=== PATIENT | female | born 1995 | race Caucasian/White ===

== ENCOUNTER → 2016-05-28 | Outpatient (CLI) | payer OTHER ==
[~2016-05-28] MED LIST: ACET500T2 OR; ALBU17IN2 IN; ALBU83IN IN; LEVO200T OR; [UNRECOGNIZED DRUG - CODE] IV
[2016-05-28 12:57] LABS: BASO % 0.3 % (0.0-1.0); EOS # 0.1 K/mm3 (0.0-0.50); EOS % 1.5 % (0.0-3.0); LARGE UNSTAINED CELL # 0.2 K/mm3 (0.0-0.4); LARGE UNSTAINED CELL % 2.6 % (0.0-4.0); LYMPH # 1.9 K/mm3 (1.5-6.5); MEAN CORPUSCULAR HEMOGLOBIN 31.6 pg (27.0-33.0); MEAN CORPUSCULAR HGB CONC 34.9 g/dl (32.0-36.5); MEAN CORPUSCULAR VOLUME 90.5 fl (80.0-96.0); MONO # 0.5 K/mm3 (0.0-0.8); MONO % 5.6 % (0.0-5.0); NEUTROPHILS # 6.5 K/mm3 (1.8-7.7); PLATELET COUNT, AUTOMATED 265 k/mm3 (150-450); WHITE BLOOD COUNT 9.3 K/mm3 (4.0-10.0)
[2016-05-28 14:03] LABS: FREE T4 0.87 NG/DL (0.76-1.46)
== END | disposition home or self-care (01) ==
LOC: M SMT 08:26
PROVIDERS: ATTEND Advanced Practice Midwife
DX: Z34.83 Encounter for supervision of other normal pregnancy, third trimester (principal); Z36 Encounter for antenatal screening of mother; Z3A.00 Weeks of gestation of pregnancy not specified; E03.9 Hypothyroidism, unspecified
CPT/HCPCS: 36415; 82950; 84439; 84443; 85025; 86850; 86900; 86901; J2790

== ENCOUNTER → 2016-06-05 | Outpatient (CLI) | payer OTHER | LOC: M LAB 08:02 | PROVIDERS: ATTEND Advanced Practice Midwife | DX: Z34.80 Encounter for supervision of other normal pregnancy, unspecified trimester (principal) ==

== ENCOUNTER → 2016-07-31 | Outpatient (CLI) | payer OTHER ==
[2016-07-31 14:25] LABS: FREE T4 0.99 NG/DL (0.76-1.46)
== END ==
LOC: M SMT 08:03
PROVIDERS: ATTEND Advanced Practice Midwife
DX: Z34.83 Encounter for supervision of other normal pregnancy, third trimester (principal)

== ENCOUNTER 2016-08-25 16:26 | Inpatient (IN) | payer OTHER ==
[~2016-08-25] VITALS: Ht 160 cm; Wt 102.0 kg
[2016-08-25] MEDS ORDERED: METF500T PO (16:37)
[2016-08-25 16:41] VITALS: BP 148/85
[2016-08-25 17:04] VITALS: BP 129/76
[2016-08-25 17:19] LABS: MEAN CORPUSCULAR HEMOGLOBIN 31.6 pg (27.0-33.0); MEAN CORPUSCULAR HGB CONC 34.7 g/dl (32.0-36.5); MEAN CORPUSCULAR VOLUME 91.2 fl (80.0-96.0); WHITE BLOOD COUNT 16.8 K/mm3 (4.0-10.0)
[2016-08-25] MEDS ORDERED: FENTANYL 2MCG/ML ROPIVACAINE 0.2% IN 0.9% NACL 200ML IVBAG As Ordered ONE (17:46)
[2016-08-25 17:51] LABS: ALT/SGPT 11 U/L (12-78); AST/SGOT 9 U/L (15-37); BILIRUBIN,TOTAL 0.4 MG/DL (0.2-1.0); CREATININE FOR GFR 0.59 MG/DL (0.55-1.02); GLOMERULAR FILTRATION RATE > 60.0 (>60); URIC ACID 3.8 MG/DL (2.6-6.0)
[2016-08-25] MEDS ORDERED: EPIDURAL COMMENT XX SCH (19:00)
[2016-08-25] MEDS ORDERED: REFRIGERATOR IV KEYS XX PRN (19:00)
[2016-08-25] MEDS ORDERED: EPIDURAL/PCA KEYS XX PRN (19:00)
[2016-08-25] MEDS ORDERED: NALOXONE INJ 0.4 MG/1 ML VIAL (J2310) IV PRN (19:00)
[2016-08-25] MEDS ORDERED: LACTATED RINGER'S 1000 ML IV PRN (19:00)
[2016-08-25] MEDS ORDERED: ONDANSETRON 4MG/2ML VIAL (J2405) IV PRN ×2 (19:00→21:15)
[2016-08-25] MEDS ORDERED: diphenhydrAMINE INJ 50MG/ML VIAL (J1200) IV PRN (19:00)
[2016-08-25] MEDS ORDERED: FENTANYL/ROPIVACAINE/NACL BAG 200 ML EPIDURAL SCH (19:00)
[2016-08-25] MEDS ORDERED: ePHEDrine SULFATE 25 MG/5 ML(5MG/ML) SYRINGE IV PRN (19:00)
[2016-08-25] MEDS ORDERED: OXYTOCIN 30 UNITS IN 0.9% NaCl 500ML IV BAG (J2590) As Ordered ONE (19:34)
--- NOTE | 2016-08-25 20:46 | HPE ---
DATE OF ADMISSION: 08/25/2016 HISTORY: A 21-year-old 2, para 1 female at 39 and 3/7 weeks gestation by last menstrual period (LMP) consistent with 10-week ultrasound estimated date of confinement (EDC) 08/29/2016, presents with regular contractions every 3-4 minutes for the last several hours. She denies vaginal bleeding. Contractions became increasingly intense. COURSE: The patient initiated care at 10 weeks gestation. First trimester blood pressure 122/70, weight 202. course significant for hypothyroidism, and Synthroid was adjusted during the accordingly. Remainder or course is unremarkable. OBSTETRICAL HISTORY: October 2010: 38-week vaginal delivery 8 pound 12 ounce male with no complications. MEDICAL HISTORY: 1. Hypothyroidism. 2. Polycystic ovary syndrome (PCOS). SURGICAL HISTORY: None. ALLERGIES: None. SOCIAL HISTORY: The patient smokes a half pack of cigarettes per day during . Father of the baby is involved. She denies alcohol or drug use. FAMILY HISTORY: Noncontributory. PHYSICAL EXAMINATION: VITAL SIGNS: Blood pressure 140/87. GENERAL: She appears uncomfortable. HEAD/NECK: Normal. LUNGS: Clear to auscultation. HEART: Regular rate and rhythm. ABDOMEN: Nontender and gravid. heart tones are category one. Contractions every 2-3 minutes. STERILE VAGINAL EXAM: 4 cm, 90% effaced, -2 station, vertex, intact. EXTREMITIES: Nontender. Trace edema. LABORATORY DATA: Blood type is B negative. Rubella immune. RPR nonreactive. Hepatitis B and C negative. HIV negative. GBS negative 07/31/2016. ASSESSMENT: A 21-year-old 2, para 1, at 39 and 3/7 weeks gestation presents in labor. The patient is admitted on 08/25/2016. Will plan to check preeclampsia profile due to initial elevated blood pressure.
[2016-08-25] MEDS ORDERED: METHYLERGONOVINE MALEATE 0.2 MG TAB PO PRN (21:15)
[2016-08-25] MEDS ORDERED: MEASLES,MUMPS,RUBELLA VACCINE INJ (MMR-II) (90707) SC SCH (21:15)
[2016-08-25] MEDS ORDERED: ACETAMINOPHEN 500 MG TAB PO PRN (21:15)
[2016-08-25] MEDS ORDERED: DOCUSATE SODIUM 100 MG CAP PO PRN (21:15)
[2016-08-25] MEDS ORDERED: DIBUCAINE 1% OINTMENT 30GM TOP PRN (21:15)
[2016-08-25] MEDS ORDERED: miSOPROStol 200 MCG TAB (S0191) PR ONE (21:15)
[2016-08-25] MEDS ORDERED: OXYTOCIN DRIP 30 UNITS in APPROPRIATE DILUENT 1 EA IV ONE (21:15)
[2016-08-25] MEDS ORDERED: RHOGAM 300 MCG (1500 IU) INJ (J2790) IM SCH (21:15)
--- NOTE | 2016-08-25 21:54 | DN ---
DATE: 08/25/2016 PREDELIVERY DIAGNOSIS: 39 and 3/7 weeks gestation in labor. POSTDELIVERY DIAGNOSIS: Delivered. PROCEDURE: Spontaneous vaginal delivery. SHOE ASSOCIATE: Dr. Glen Soto. ANESTHESIA: Epidural. ESTIMATED BLOOD LOSS: 800 mL. FINDINGS: 7 pound 8 ounce male , scores 7 and 8. DELIVERY SUMMARY: After a short second stage, the patient had spontaneous delivery of a 7 pound 8 ounce male , scores 7 and 8, under epidural anesthesia. There was no nuchal cord. The shoulders delivered with ease. The infant cried spontaneously and was handed to the mother. Cord was doubly clamped and cut. Placenta delivered spontaneously and appeared to be intact. The patient received intravenous (IV) Pitocin immediately after delivery of the placenta. The patient experienced hemorrhage. Fundal massage and evacuation of blood clots from lower uterine segment was performed. The patient received Cytotec 800 mcg per rectum. Bleeding was subsequently controlled. There were no vaginal lacerations present. Sponge counts were correct.
[2016-08-25 23:22] VITALS: BP 136/74
[2016-08-26] MEDS: IBUPROFEN 800 MG TAB PO PRN ×2 (03:48→19:25)
[2016-08-26 06:16] VITALS: BP 128/82
[2016-08-26] MEDS: PRENATAL VITAMIN TAB PO SCH (09:00)
[2016-08-26 18:27] VITALS: BP 130/80
[2016-08-26] MEDS ORDERED: miSOPROStol 200 MCG TAB (S0191) As Ordered ONE (23:26)
[2016-08-27 05:35] VITALS: BP 118/56
[2016-08-27] MEDS: PRENATAL VITAMIN TAB PO SCH (07:35)
[2016-08-27] MEDS: IBUPROFEN 800 MG TAB PO PRN (07:35)
[2016-08-27] MEDS ORDERED: ACET50TA PO (08:49)
[2016-08-27] MEDS ORDERED: IBUP-1114 PO (08:49)
[2016-08-27 18:00] VITALS: BP 133/63
== END 2016-08-27 19:45 | disposition home or self-care (01) | DRG 560 ==
LOC: M LDO 16:26 → M LDI 16:47 → M OBS 23:15
PROVIDERS: ADMIT Specialist; ATTEND Specialist
PROC: 10E0XZZ Delivery of Products of Conception, External Approach (ICD-10-PCS; principal; 2016-08-25)
PROC: 10907ZC Drainage of Amniotic Fluid, Therapeutic from Products of Conception, Via Natural or Artificial Opening (ICD-10-PCS; 2016-08-25)
DX: O99.284 Endocrine, nutritional and metabolic diseases complicating childbirth (principal); Z3A.39 39 weeks gestation of pregnancy; O99.334 Smoking (tobacco) complicating childbirth; F17.210 Nicotine dependence, cigarettes, uncomplicated; O72.1 Other immediate postpartum hemorrhage; Z37.0 Single live birth

== ENCOUNTER 2016-10-08 23:09 | Emergency (ER) | payer OTHER ==
[~2016-10-08] VITALS: Ht 160 cm; Wt 94.8 kg
[~2016-10-08 23:09] MED LIST changes: +ACET50TA PO; +IBUP-1114 PO; +METF500T PO
[2016-10-08] MEDS ORDERED: ZOLO25TA PO (23:19)
[2016-10-09] MEDS ORDERED: NS 1,000 ML IV ONE (02:00)
[2016-10-09] MEDS ORDERED: GI COCKTAIL 50ML BTL(HYOSCYAMINE/MAALOX/LIDOCAINE VISCOUS)(1:3:1) PO ONE (02:00)
[2016-10-09] MEDS ORDERED: ONDANSETRON 4MG/2ML VIAL (J2405) IV ONE (02:00)
[2016-10-09 02:26] LABS: BASO % 0.5 % (0.0-1.0); EOS # 0.2 K/mm3 (0.0-0.50); EOS % 1.7 % (0.0-3.0); LARGE UNSTAINED CELL # 0.2 K/mm3 (0.0-0.4); LARGE UNSTAINED CELL % 1.9 % (0.0-4.0); LYMPH # 3.8 K/mm3 (1.5-6.5); LYMPH % 38.5 % (24.0-44.0); MEAN CORPUSCULAR HEMOGLOBIN 29.3 pg (27.0-33.0); MEAN CORPUSCULAR HGB CONC 33.8 g/dl (32.0-36.5); MEAN CORPUSCULAR VOLUME 86.9 fl (80.0-96.0); MONO # 0.7 K/mm3 (0.0-0.8); MONO % 7.6 % (0.0-5.0); NEUTROPHILS # 4.6 K/mm3 (1.8-7.7); NEUTROPHILS % 49.8 % (36.0-66.0); PLATELET COUNT, AUTOMATED 301 k/mm3 (150-450); RED CELL DISTRIBUTION WIDTH 12.8 % (11.5-14.5); WHITE BLOOD COUNT 9.3 K/mm3 (4.0-10.0)
[2016-10-09 02:34] LABS: ANION GAP 6 MEQ/L (8-16); BLOOD UREA NITROGEN 12 MG/DL (7-18); CARBON DIOXIDE LEVEL 29 MEQ/L (21-32); CHLORIDE LEVEL 106 MEQ/L (98-107); CREATININE FOR GFR 0.77 MG/DL (0.55-1.02); GLOMERULAR FILTRATION RATE > 60.0 (>60); GLUCOSE, FASTING 87 MG/DL (70-105); POTASSIUM SERUM 3.9 MEQ/L (3.5-5.1); SODIUM LEVEL 141 MEQ/L (136-145)
[2016-10-09] MEDS ORDERED: MECLIZINE 25 MG TABLET PO ONE (03:15)
--- NOTE | 2016-10-09 04:14 | REP ---
Clinical: Chest pain . Comparison: 02/04/2015 . Technique: PA and lateral. Findings: The mediastinum and cardiac silhouette are normal. The lung mckeon are clear and without acute consolidation, effusion, or pneumothorax. The skeletal structures are intact and normal. Impression: 1. No acute cardiopulmonary process. Signed by Grayson Brandon MD 10/09/2016 04:06 A
[2016-10-09] MEDS ORDERED: OMEP40CA2 PO (04:47)
[2016-10-09] MEDS ORDERED: MECL-68 PO (04:47)
[2016-10-09 04:53] VITALS: BP 130/81
--- NOTE | 2016-10-09 08:31 | ECGEPIP ---
Stationary ECG Study [facility] - ED Test Date: 2016-10-09 Pat Name: THAIS MARTINS Department: Room: - Gender: F Direct Care Worker: CrB: 1995 Requested By: HARMAN Becker Order Number: [id number] Reading MD: Franco Rivera Measurements Intervals [place] Rate: 75 P: -11 [place]: 138 QRS: 3 QRSD: 102 T: 9 QT: 394 QTc: 442 Interpretive Statements SINUS RHYTHM Electronically Signed On 10-09-2016 8:31:28 EDT by Franco Rivera
== END 2016-10-09 05:05 | disposition home or self-care (01) ==
LOC: M ED 10-09 00:28
DX: R07.89 Other chest pain (principal); E03.9 Hypothyroidism, unspecified; F17.210 Nicotine dependence, cigarettes, uncomplicated; Z82.49 Family history of ischemic heart disease and other diseases of the circulatory system; Z79.899 Other long term (current) drug therapy; Z79.84 Long term (current) use of oral hypoglycemic drugs
CPT/HCPCS: 71020; 80048; 82550; 82553; 85025; 85379; 93005; 93041; 94760; 96361; 96374; 99285; J2405

== ENCOUNTER → 2016-11-12 | Outpatient (CLI) | payer OTHER ==
[~2016-11-12] MED LIST changes: +BACT800T5 PO; +LEVO175T2 PO; +MECL-68 PO; -METF500T PO; +METF500T13 PO; +OMEP40CA2 PO; +ZOLO25TA PO
[2016-11-12 20:10] LABS: FREE T4 1.25 NG/DL (0.76-1.46)
== END ==
LOC: M SMT 12:17
PROVIDERS: ATTEND Advanced Practice Midwife
DX: E03.9 Hypothyroidism, unspecified (principal)

== ENCOUNTER 2016-11-22 04:29 | Emergency (ER) | payer OTHER ==
[~2016-11-22 04:29] MED LIST changes: -BACT800T5 PO; -LEVO175T2 PO
[2016-11-22] MEDS ORDERED: LEVO175T2 PO (04:36)
[2016-11-22] MEDS ORDERED: BACT800T5 PO (04:36)
[2016-11-22] MEDS ORDERED: NS 500 ML IV ONE (06:45)
[2016-11-22] MEDS ORDERED: GI COCKTAIL 50ML BTL(HYOSCYAMINE/MAALOX/LIDOCAINE VISCOUS)(1:3:1) PO ONE (06:45)
[2016-11-22 07:37] LABS: BASO % 0.7 % (0.0-1.0); EOS # 0.2 K/mm3 (0.0-0.50); EOS % 2.2 % (0.0-3.0); LARGE UNSTAINED CELL # 0.1 K/mm3 (0.0-0.4); LARGE UNSTAINED CELL % 1.8 % (0.0-4.0); LYMPH # 2.3 K/mm3 (1.5-6.5); LYMPH % 29.5 % (24.0-44.0); MEAN CORPUSCULAR HEMOGLOBIN 29.4 pg (27.0-33.0); MEAN CORPUSCULAR HGB CONC 34.6 g/dl (32.0-36.5); MEAN CORPUSCULAR VOLUME 84.8 fl (80.0-96.0); MONO # 0.5 K/mm3 (0.0-0.8); MONO % 6.3 % (0.0-5.0); NEUTROPHILS # 4.3 K/mm3 (1.8-7.7); NEUTROPHILS % 59.5 % (36.0-66.0); PLATELET COUNT, AUTOMATED 275 k/mm3 (150-450); RED CELL DISTRIBUTION WIDTH 13.3 % (11.5-14.5); WHITE BLOOD COUNT 7.2 K/mm3 (4.0-10.0)
[2016-11-22 08:14] LABS: ALBUMIN 3.4 GM/DL (3.2-5.2); ALBUMIN/GLOBULIN RATIO 0.97 (1.00-1.93); ALKALINE PHOSPHATASE 77 U/L (45-117); ALT/SGPT 16 U/L (12-78); AMYLASE 57 U/L (25-115); ANION GAP 4 MEQ/L (8-16); AST/SGOT 10 U/L (15-37); BILIRUBIN,DIRECT 0.1 MG/DL (0.0-0.2); BILIRUBIN,TOTAL 0.4 MG/DL (0.2-1.0); BLOOD UREA NITROGEN 12 MG/DL (7-18); CALCIUM LEVEL 8.8 MG/DL (8.5-10.1); CARBON DIOXIDE LEVEL 26 MEQ/L (21-32); CHLORIDE LEVEL 110 MEQ/L (98-107); CREATININE FOR GFR 0.89 MG/DL (0.55-1.02); GLOMERULAR FILTRATION RATE > 60.0 (>60); GLUCOSE, FASTING 87 MG/DL (70-105); POTASSIUM SERUM 3.9 MEQ/L (3.5-5.1); SODIUM LEVEL 140 MEQ/L (136-145); TOTAL PROTEIN 6.9 GM/DL (6.4-8.2)
[2016-11-22 08:54] VITALS: BP 98/62
== END 2016-11-22 08:59 | disposition home or self-care (01) ==
LOC: M ED 04:29
DX: R53.83 Other fatigue (principal); R10.84 Generalized abdominal pain; R42 Dizziness and giddiness; E11.9 Type 2 diabetes mellitus without complications; E66.9 Obesity, unspecified; F99 Mental disorder, not otherwise specified; F17.210 Nicotine dependence, cigarettes, uncomplicated; Z88.8 Allergy status to other drugs, medicaments and biological substances; Z79.899 Other long term (current) drug therapy; Z79.84 Long term (current) use of oral hypoglycemic drugs

== ENCOUNTER → 2017-01-02 | Outpatient (REF) | payer OTHER ==
[~2017-01-02] MED LIST changes: +BACT800T5 PO; +LEVO175T2 PO
[2017-01-02 19:12] LABS: FREE T4 1.01 NG/DL (0.76-1.46)
== END ==
LOC: M LAB REF 17:32
PROVIDERS: ATTEND Nurse Practitioner Family
DX: E03.9 Hypothyroidism, unspecified (principal); E28.2 Polycystic ovarian syndrome; F41.8 Other specified anxiety disorders

== ENCOUNTER → 2017-06-17 | Outpatient (CLI) | payer OTHER ==
[2017-06-17 21:06] LABS: ANION GAP 10 MEQ/L (8-16); BLOOD UREA NITROGEN 10 MG/DL (7-18); CALCIUM LEVEL 8.7 MG/DL (8.5-10.1); CARBON DIOXIDE LEVEL 27 MEQ/L (21-32); CHLORIDE LEVEL 105 MEQ/L (98-107); CHOLESTEROL LEVEL 205 MG/DL (<200); CHOLESTEROL RISK RATIO 5.857 (<5); CREATININE FOR GFR 0.78 MG/DL (0.55-1.30); FREE T4 0.93 NG/DL (0.76-1.46); GLOMERULAR FILTRATION RATE > 60.0 (>60); GLUCOSE, FASTING 102 MG/DL (70-100); HDL CHOLESTEROL 35 MG/DL (>40); NON-HDL-C 170 MG/DL; POTASSIUM SERUM 4.1 MEQ/L (3.5-5.1); SODIUM LEVEL 142 MEQ/L (136-145); TRIGLYCERIDES LEVEL 408 MG/DL (<150)
== END ==
LOC: M WUC 15:55
DX: E28.2 Polycystic ovarian syndrome (principal); E03.9 Hypothyroidism, unspecified
CPT/HCPCS: 84443

== ENCOUNTER → 2017-08-22 | Outpatient (CLI) | payer OTHER ==
[2017-08-22 13:56] LABS: FREE T4 0.94 NG/DL (0.76-1.46)
== END ==
LOC: M SMT 11:05
DX: E03.9 Hypothyroidism, unspecified (principal)
CPT/HCPCS: 84443

== ENCOUNTER → 2017-10-26 | Outpatient (CLI) | payer OTHER ==
[2017-10-26 17:33] LABS: FREE T4 0.98 NG/DL (0.76-1.46)
== END ==
LOC: M WUC 11:14
DX: E03.9 Hypothyroidism, unspecified (principal)

== ENCOUNTER 2018-01-20 10:35 | Day surgery (SDC) | payer OTHER ==
[2018-01-20] MEDS ORDERED: LR 1,000 ML IV ×2 (10:45→13:45)
[2018-01-20] MEDS ORDERED: LIDOCAINE 2% INJ 100 MG/5 ML SDV (FOR ANES.) As Ordered (11:14)
[2018-01-20] MEDS ORDERED: dexameTHASONE 4 MG/ML 1ML VIAL (J1100) As Ordered ×2 (11:14)
[2018-01-20] MEDS ORDERED: ONDANSETRON 4MG/2ML VIAL (J2405) As Ordered (11:14)
[2018-01-20] MEDS ORDERED: PROPOFOL 200 MG/20 ML VIAL As Ordered (11:14)
[2018-01-20] MEDS ORDERED: ROCURONIUM BROMIDE 50 MG/5 ML VIAL As Ordered (11:14)
[2018-01-20] MEDS ORDERED: MIDAZOLAM INJ 2 MG/2 ML VIAL (J2250) As Ordered (11:14)
[2018-01-20] MEDS ORDERED: fentaNYL 100 MCG/2 ML INJECTION (J3010) As Ordered (11:15)
[2018-01-20 11:16] LABS: CONTROL LINE UCG INT CTR LINE PRESENT; URINE PREG TEST NEGATIVE (NEGATIVE)
[2018-01-20] MEDS ORDERED: SUCCINYLCHOLINE 100 MG/5 ML SYRINGE (J0330) As Ordered (12:56)
[2018-01-20] MEDS: BUPIVACAINE HCL 0.5% 10 ML VIAL As Ordered (13:04)
[2018-01-20] MEDS ORDERED: HYDROMORPHONE HCL 0.5 MG/ 0.5 ML SYRINGE (J1170 PER 1) IV (13:45)
[2018-01-20] MEDS ORDERED: PERCOCET 5MG/325MG TAB PO ×2 (13:45)
[2018-01-20] MEDS ORDERED: ONDANSETRON 4MG/2ML VIAL (J2405) IV (13:45)
[2018-01-20] MEDS ORDERED: fentaNYL 100 MCG/2 ML INJECTION (J3010) IV (13:45)
[2018-01-20] MEDS: HYDROcodone/APAP LIQUID 7.5-325MG 15ML UDC (LORTAB ELIXIR) PO (13:59)
[2018-01-20] MEDS: IBUPROFEN 800 MG TAB PO (14:15)
== END 2018-01-20 15:23 | disposition home or self-care (01) ==
LOC: M SDC 10:35
DX: J35.01 Chronic tonsillitis (principal); E03.9 Hypothyroidism, unspecified; Z79.899 Other long term (current) drug therapy; Z79.84 Long term (current) use of oral hypoglycemic drugs; F17.210 Nicotine dependence, cigarettes, uncomplicated
CPT/HCPCS: 42826

== ENCOUNTER → 2018-03-13 | Outpatient (CLI) | payer OTHER ==
[2018-03-13 13:32] LABS: ANION GAP 8 MEQ/L (8-16); BLOOD UREA NITROGEN 9 MG/DL (7-18); CALCIUM LEVEL 9.8 MG/DL (8.5-10.1); CARBON DIOXIDE LEVEL 27 MEQ/L (21-32); CHLORIDE LEVEL 103 MEQ/L (98-107); CHOLESTEROL LEVEL 185 MG/DL (<200); CHOLESTEROL RISK RATIO 6.166 (<5); CREATININE FOR GFR 0.87 MG/DL (0.55-1.30); FREE T4 1.47 NG/DL (0.76-1.46); GLOMERULAR FILTRATION RATE > 60.0 (>60); GLUCOSE, FASTING 85 MG/DL (70-100); HDL CHOLESTEROL 30 MG/DL (>40); LDL CHOLESTEROL 108 MG/DL (<100); NON-HDL-C 155 MG/DL; POTASSIUM SERUM 4.7 MEQ/L (3.5-5.1); SODIUM LEVEL 138 MEQ/L (136-145); TRIGLYCERIDES LEVEL 234 MG/DL (<150)
[2018-03-13 18:30] LABS: ESTIMATED AVERAGE GLUCOSE 117 MG/DL (60-110); HEMOGLOBIN A1c 5.7 %
== END ==
LOC: M WUC 09:10
DX: E28.2 Polycystic ovarian syndrome (principal); E03.9 Hypothyroidism, unspecified
CPT/HCPCS: 84443

== ENCOUNTER → 2018-09-26 | Outpatient (CLI) | payer BC ==
[~2018-09-26] MED LIST changes: -ACET50TA PO; +MAPA500T2 PO; +SPIR100T3 PO
[2018-09-26 09:22] LABS: BLOOD UREA NITROGEN 12 MG/DL (7-18); CALCIUM LEVEL 9.5 MG/DL (8.5-10.1); CARBON DIOXIDE LEVEL 27 MEQ/L (21-32); CHLORIDE LEVEL 107 MEQ/L (98-107); CREATININE FOR GFR 0.82 MG/DL (0.55-1.30); FREE T4 0.99 NG/DL (0.76-1.46); GLOMERULAR FILTRATION RATE > 60.0 (>60); GLUCOSE, FASTING 89 MG/DL (70-100); POTASSIUM SERUM 4.5 MEQ/L (3.5-5.1); SODIUM LEVEL 140 MEQ/L (136-145)
== END ==
LOC: M LAB 08:03
PROVIDERS: ATTEND Nurse Practitioner Family
DX: E03.9 Hypothyroidism, unspecified (principal); E28.2 Polycystic ovarian syndrome

== ENCOUNTER → 2018-11-04 | Outpatient (CLI) | payer BC ==
[2018-11-04 13:42] LABS: FREE T4 1.17 NG/DL (0.76-1.46); THYROID STIMULATING HORMONE 3.91 uIU/ML (0.358-3.740)
== END ==
LOC: M WUC 10:16
PROVIDERS: ATTEND Nurse Practitioner Family
DX: E03.9 Hypothyroidism, unspecified (principal)

== ENCOUNTER → 2019-06-02 | Outpatient (CLI) | payer BC ==
[~2019-06-02] MED LIST changes: -MECL-68 PO; +MECL1TAB31 PO; -OMEP40CA2 PO; +OMEP40CA97 PO
[2019-06-02 10:29] LABS: FREE T4 0.92 NG/DL (0.76-1.46); THYROID STIMULATING HORMONE 13.8 uIU/ML (0.358-3.740)
== END ==
LOC: M WUC 08:11
PROVIDERS: ATTEND Nurse Practitioner Family
DX: E03.9 Hypothyroidism, unspecified (principal)

== ENCOUNTER → 2019-07-21 | Outpatient (REF) | payer BC | LOC: M SFHCLERA 17:21 | PROVIDERS: ATTEND Physician Assistant | DX: R05 Cough (principal) ==

== ENCOUNTER → 2019-07-21 | Outpatient (CLI) | payer BC ==
--- NOTE | 2019-07-21 17:12 | REP ---
Chest x-ray: Two views. History: Sore throat . Comparison study: October 09, 2016 . Findings: The lungs are well inflated and free of infiltrate. The pleural angles are sharp. The heart size is normal. Pulmonary vasculature is not increased. No significant bony abnormality is seen. Impression: Negative chest x-ray. Electronically Signed by Uriel Ochoa MD 07/21/2019 05:03 P
== END ==
LOC: M LRY 16:47
PROVIDERS: ATTEND Physician Assistant
DX: R05 Cough (principal); J02.9 Acute pharyngitis, unspecified

== ENCOUNTER → 2019-11-04 | Outpatient (REF) | payer BC ==
[2019-11-04 19:25] LABS: CHLAMYDIA DNA AMPLIFICATION NEGATIVE (NEGATIVE); GC DNA AMPLIFICATION NEGATIVE (NEGATIVE)
== END ==
LOC: M LAB REF 16:02
PROVIDERS: ATTEND Nurse Practitioner Family
DX: Z12.4 Encounter for screening for malignant neoplasm of cervix (principal); R87.610 Atypical squamous cells of undetermined significance on cytologic smear of cervix (ASC-US)

== ENCOUNTER 2020-04-03 21:03 | Emergency (ER) | payer BC ==
[~2020-04-03] VITALS: Ht 160 cm; Wt 109.1 kg
[2020-04-03] MEDS ORDERED: LAMI1TAB7 PO (21:15)
[2020-04-03] MEDS ORDERED: ADDE10TA PO (21:15)
[2020-04-03] MEDS ORDERED: XARE15TA PO (21:15)
[2020-04-03 21:39] LABS: VENOUS BASE EXCESS -2.5 (-2.0-2.0); VENOUS HCO3 22.1 MEQ/L (23.0-27.0); VENOUS O2 SATURATION 85.2 % (60.0-80.0); VENOUS PARTIAL PRESSURE CO2 37.8 mmHg (38.0-50.0); VENOUS PARTIAL PRESSURE O2 45.5 mmHg (30.0-50.0); VENOUS PH 7.385 UNITS (7.330-7.430); VENOUS STANDARD HCO3 22.1 MEQ/L; VENOUS TOTAL CO2 23.3 MEQ/L (24.0-28.0)
[2020-04-03 21:40] LABS: BASO % 0.3 % (0.0-1.0); EOS # 0.1 10^3/uL (0.0-0.5); EOS % 1.1 % (0.0-3.0); HEMATOCRIT 42.7 % (36.0-47.0); HEMOGLOBIN 14.3 g/dl (12.0-15.5); LYMPH # 3.4 10^3/uL (1.5-5.0); LYMPH % 29.9 % (24.0-44.0); MEAN CORPUSCULAR HEMOGLOBIN 29.7 pg (27.0-33.0); MEAN CORPUSCULAR HGB CONC 33.5 g/dl (32.0-36.5); MEAN CORPUSCULAR VOLUME 88.6 fl (80.0-96.0); MONO # 0.7 10^3/uL (0.0-0.8); MONO % 5.9 % (0.0-5.0); NEUTROPHILS # 7.2 10^3/uL (1.5-8.5); NEUTROPHILS % 62.5 % (36.0-66.0); PLATELET COUNT, AUTOMATED 314 10^3/uL (150-450); RED BLOOD COUNT 4.82 10^6/uL (4.00-5.40); WHITE BLOOD COUNT 11.5 10^3/uL (4.0-10.0)
[2020-04-03] MEDS ORDERED: KETOROLAC 30 MG/ML 1ML VIAL IV ONE (22:00)
[2020-04-03] MEDS ORDERED: COMBIVENT RESPIMAT 100-20MCG INHALER 4GM INH ONE (22:00)
--- NOTE | 2020-04-03 22:01 | REPVR ---
PROCEDURE INFORMATION: Exam: XR Chest, 1 View Exam date and time: 04/03/2020 9:38 PM Age: 24 years old Clinical indication: Chest pain; Additional info: Dyspnea/cough TECHNIQUE: Imaging protocol: XR of the chest Views: 1 view. COMPARISON: CR Chest, 2 view PA, Lat 10/09/2016 2:21 AM FINDINGS: Lungs: Unremarkable. No consolidation. Pleural space: Unremarkable. No pleural effusion. No pneumothorax. Heart/Mediastinum: Unremarkable. No cardiomegaly. Bones/joints: Unremarkable. Other findings: There are moderately generous overlying soft tissues which may be increased overall since the prior study. IMPRESSION: Negative chest without significant change from 10/09/2016. Electronically signed by: Ananda May On 04/03/2020 22:01:46 PM
[2020-04-03 22:19] LABS: ALBUMIN 3.5 GM/DL (3.2-5.2); ALT/SGPT 15 U/L (12-78); BILIRUBIN,DIRECT < 0.1 MG/DL (0.0-0.2); BILIRUBIN,TOTAL 0.3 MG/DL (0.2-1.0); BLOOD UREA NITROGEN 10 MG/DL (7-18); CALCIUM LEVEL 9.7 MG/DL (8.5-10.1); CARBON DIOXIDE LEVEL 24 MEQ/L (21-32); CHLORIDE LEVEL 108 MEQ/L (98-107); CK-MB VALUE MASS < 1.0 NG/ML (<3.6); CPK CREATINE PHOSPHOKINASE 57 U/L (26-192); CREATININE FOR GFR 1.07 MG/DL (0.55-1.30); GLOMERULAR FILTRATION RATE > 60.0 (>60); GLUCOSE, FASTING 133 MG/DL (70-100); MB/CK RELATIVE INDEX 1.75 (< OR =4); NT-PRO BNP 24 PG/ML (<125); POTASSIUM SERUM 3.8 MEQ/L (3.5-5.1); SODIUM LEVEL 140 MEQ/L (136-145); THYROXINE (T4) 19.7 UG/DL (4.5-12.0); TOTAL PROTEIN 7.4 GM/DL (6.4-8.2); TROPONIN I < 0.02 NG/ML (< 0.10)
[2020-04-03] MEDS ORDERED: PROAAER10 INH (23:10)
[2020-04-03] MEDS ORDERED: ACET-897 PO (23:10)
[2020-04-03 23:55] VITALS: BP 131/81
--- NOTE | 2020-04-04 04:15 | ECGEPIP ---
[facility] - ED Test Date: 2020-04-03 Pat Name: THAIS MARTINS Department: Room: - Gender: Female Mortgage Collector: bonny : 1995 Requested By: ED MCKEON Order Number: [id number] Reading MD: Franco Rivera Measurements Intervals [place] Rate: 113 P: 16 OR: 129 QRS: 40 QRSD: 98 T: 18 QT: 321 QTc: 442 Interpretive Statements SINUS TACHYCARDIA BASELINE ARTIFACT AFFECTS INTERPRETATION RATE CHANGE COMPARED TO 10/09/16 Electronically Signed on 04-04-2020 4:15:26 EST by Franco Rivera
== END 2020-04-03 23:45 | disposition home or self-care (01) ==
LOC: M ED 21:03
DX: I82.401 Acute embolism and thrombosis of unspecified deep veins of right lower extremity (principal); I26.99 Other pulmonary embolism without acute cor pulmonale; R00.0 Tachycardia, unspecified; E11.9 Type 2 diabetes mellitus without complications; J45.909 Unspecified asthma, uncomplicated; K21.9 Gastro-esophageal reflux disease without esophagitis; F17.200 Nicotine dependence, unspecified, uncomplicated; Z79.899 Other long term (current) drug therapy; Z79.84 Long term (current) use of oral hypoglycemic drugs; Z79.01 Long term (current) use of anticoagulants
CPT/HCPCS: 36415; 71045; 80048; 80076; 82550; 82553; 82803; 83605; 83880; 84436; 84443; 85025; 85379; 93005; 93041; 96374; 99285; J1885

== ENCOUNTER → 2020-07-25 | Outpatient (REF) | payer BC ==
[~2020-07-25] MED LIST changes: +ACET-897 PO; +ADDE10TA PO; +LAMI1TAB7 PO; +PROAAER10 INH; +XARE15TA PO; +XARE20TA PO
[2020-07-25 14:35] LABS: FREE T4 1.1 NG/DL (0.76-1.46); THYROID STIMULATING HORMONE 0.205 uIU/ML (0.358-3.740)
== END ==
LOC: M LAB REF 11:35
PROVIDERS: ATTEND Physician Assistant
DX: E03.9 Hypothyroidism, unspecified (principal)

== ENCOUNTER → 2020-11-25 | Outpatient (CLI) | payer BC ==
[~2020-11-25] MED LIST changes: +OMEP40CA4 PO; -OMEP40CA97 PO
--- NOTE | 2020-11-25 10:01 | REP ---
INDICATION: RUQ PAIN. COMPARISON: None. TECHNIQUE: Real-time sonographic evaluation of right upper quadrant performed. FINDINGS: The gallbladder demonstrates no evidence of intraluminal sludge or calculi, wall thickening or pericholecystic fluid. There is no intrahepatic or extrahepatic biliary dilatation, common bile duct measures 2 mm in maximum diameter. The liver demonstrates diffuse heterogeneous fibrofatty infiltration. A hypoechoic nodule in the superior right lobe of the liver measures 1.1 cm in diameter. This is nonspecific. The pancreas appears grossly unremarkable, not well seen due to overlying bowel gas. The right kidney demonstrates no hydronephrosis, with a normal size of 10.5 cm in length. No free fluid is seen. IMPRESSION: Diffuse fibrofatty infiltration of the liver. Hypoechoic nodule superior right lobe of the liver 1.1 cm in diameter. This is nonspecific, but most likely benign. Recommend follow-up ultrasound in 3-6 months. Alternatively, dedicated MRI of the liver may be obtained with and without contrast. <Electronically signed by Brooks Long > 11/25/20 [id number]
== END ==
LOC: M RAD 09:00
PROVIDERS: ATTEND Physician Assistant
DX: R10.11 Right upper quadrant pain (principal)

== ENCOUNTER 2021-03-07 02:05 | Emergency (ER) | payer BC ==
[~2021-03-07] VITALS: Ht 160 cm; Wt 117.6 kg
--- OUTSIDE RECORDS SUMMARY | 2021-03-07 02:10 | CCD ---
Author Organization Unknown Address [address] [place] [address] Phone [phone] Care Team Providers Care Pharmacometrician Name Role Phone TITO HOOPER 113 [phone] Allergies Code Code System Name Reaction Severity Status Onset NKDA Medications Name Status Start Date Stop Date acetaminophen 325 mg tablet TAKE 1 TABLET BY MOUTH EVERY 6 HOURS NEEDED FOR PAIN Completed 11/23/2020 albuterol sulfate HFA 90 mcg/actuation aerosol inhaler Active Not available amoxicillin 500 mg capsule TAKE 1 CAPSULE BY MOUTH EVERY 8 HOURS UNTIL GONE Completed 10/10/2020 amoxicillin 875 mg tablet TAKE 1 TABLET BY MOUTH TWICE DAILY Completed 11/2020 azelastine 137 mcg (0.1 %) nasal spray a erosol USE 1 TO 2 SPRAY(S) IN EACH NOSTRIL TWICE DAILY FOR 10 DAYS Completed 04/14/2020 azithromycin 250 mg tablet TAKE 2 TABLETS BY MOUTH ON DAY 1 AND THEN TAKE 1 TABLET BY MOUTH ONCE A DAY ON DAY 2 THROUGH DAY 5 Completed 11/23/2020 azithromycin 500 mg tablet TAKE 1 TABLET BY MOUTH ONCE DAILY FOR 3 DAYS Completed 04/14/2020 benzonatate 100 mg capsule TAKE 1 CAPSULE BY MOUTH THREE TIMES DAILY FOR 10 DAYS Completed 11/23/2020 benzonatate 200 mg capsule TAKE 1 CAPSULE BY MOUTH THREE TIMES DAILY NEEDED FOR SEVERE COUGH Completed 04/14/2020 cefuroxime axetil 500 mg tablet TAKE 1 TABLET BY MOUTH TWICE DAILY FOR 5 DAYS Completed 04/14/2020 chlorhexidine gluconate 0.12 % mouthwash RINSE MOUTH WITH 15ML (1 CAPFUL) FOR 30 SECONDS IN THE MORNING AND EVENING AFTER TOOTHBRUSHING. SPIT OUT AFTER RINSING. DO NOT SWALLOW. Completed 10/10/2020 clindamycin HCl 300 mg capsule TAKE 1 CAPSULE BY MOUTH THREE TIMES DAILY FOR 10 DAYS Completed 10/10/2020 clonazepam 0.5 mg tablet Completed clonazepam 1 mg tablet TAKE 1 TABLET BY MOUTH THREE TIMES DAILY . DO NOT EXCEED 3 PER 24 HOURS Active Not available dextroamphetamine-amphetamine 10 mg tablet Active Not available dextroamphetamine-amphetamine 5 mg tablet Completed 04/14/2020 Euthyrox 125 mcg tablet TAKE 1 TABLET BY MOUTH IN THE MORNING Completed 06/15/2019 famotidine 40 mg tablet Completed 11/24/19 fluoxetine 20 mg capsule TAKE 1 CAPSULE BY MOUTH IN THE MORNING Completed 11/23/2020 fluoxetine 40 mg capsule TAKE 1 CAPSULE BY MOUTH ONCE DAILY . DO NOT EXCEED 1 PER 24 HOURS Completed 11/23/2020 hydroxyzine pamoate 25 mg capsule Completed 04/14/2020 ibuprofen 600 mg tablet TAKE 1 TABLET BY MOUTH EVERY 6 HOURS NEEDED Active Not available lamotrigine 100 mg tablet TAKE 2 TABLETS BY MOUTH ONCE DAILY Completed 11/2020 lamotrigine 25 mg tablet TAKE 2 TABLETS BY MOUTH ONCE DAILY . DO NOT EXCEED 2 PER 24 HOURS Completed 04/14/2020 levothyroxine 150 mcg tablet Completed levothyroxine 175 mcg tablet Active Not available Loryna (28) 3 mg-0.02 mg tablet Completed 10/10/2020 metformin 500 mg tablet Completed 10/11/19 methylphenidate LA 20 mg biphasic 50-50 capsule,extended release Completed 04/14/2020 methylprednisolone 4 mg tablets in a dos e pack TAKE DIRECTED Completed 10/10/2020 naproxen sod 220mg tab TAKE 2 TABLETS BY MOUTH TWICE DAILY NEEDED FOR PAIN FOR 10 DAYS Completed 11/23/2020 prazosin 1 mg capsule TAKE 1 CAPSULE BY MOUTH ONCE DAILY AT BEDTIME Completed 04/14/2020 prednisone 10 mg tablet TAKE FOUR TABLETS BY MOUTH ONCE DAILY. DECREASE BY 1 TABLET EVERY 3 DAYS. Completed 04/14/2020 prednisone 20 mg tablet TAKE 2 TABLETS BY MOUTH IN THE MORNING FOR 5 DAYS Completed 04/14/2020 spironolactone 100 mg tablet Active Not available Xarelto 15 mg tablet TAKE 1 TABLET BY MOUTH TWICE DAILY DAYS 1 THRU 21. BOTTLE 1 . PRESCRIPTION 1 OF 2. Completed 04/26/2020 Xarelto 20 mg tablet Active Not availab le Problems Name Status Onset Date Source Tobacco User Active 11/09/2016 Tobacco Use and Exposure - Finding Unknown 11/09/2016 History Body Mass Index 30+ - Obesity Active 12/17/2016 Mixed Anxiety and Depressive Disorder Active 12/17/2016 Procedure by Method Unknown 12/17/2016 History Polycystic Ovary Syndrome Active 12/17/2016 Evaluation Procedure Unknown 12/17/2016 History Moderate Recurrent Major Depression Active 12/25/2016 Generalized Anxiety Disorder Active 12/25/2016 Panic Disorder Active 01/08/2017 Exposure to Second Hand Tobacco Smoke Active 01/09/2017 Hirsutism Active 02/08/2017 Finding of Head and Neck Region Unknown 06/21/2017 History Chronic Pharyngitis Active 09/19/2017 Chronic Tonsillitis Active 12/20/2017 Abnormal Weight Gain Unknown 12/20/2017 History Influenza Vaccine Needed Unknown 12/17/2018 History Acute Bronchitis Unknown 07/29/2019 History Persistent Asthma Active 07/29/2019 Screening for Malignant Neoplasm of Cervix Unknown 11/03 Clinical Finding Unknown 11/04/2019 History Evaluation Finding Unknown 02/06/2020 History Hypothyroidism Active Procedures Date Name Performed by 09/19/2020 Extraction of [place] Tooth Notes: X 3 Information not available 02/07/2018 Tonsillectomy Information not avai lable 11/23/2020 US, [facility] Dept [address] [place] [id number] (Work [address]) Results Lab Results Date Name Specimen Result Interpretation Description Value Range Status Address 11/16/2020 CMP, Serum or Plasma Blood venous Normal Glucose 72 mg/dL 65-99 mg/dL Final [facility] gh: [address] [facility] Blood venous Normal Urea Nitrogen (BUN) 10 mg/dL 7-25 mg/dL Final [facility]: [address] [facility] Blood venous Normal Creatinine 0.77 mg/dL 0.50-1. 10 mg/dL Final [facility]: [address] [facility] Blood venous Normal eGFR Non-afr. Moroccan 1 06 mL/min/1.73m2 > or = 60 mL/min/1.73m2 Final [facility] gh: [address] , [place] Blood venous Normal eGFR 12 3 mL/min/1.73m2 > or = 60 mL/min/1.73m2 Final [facility] gh: [address] [facility] Blood venous BUN/creatinine Ratio not applicable (calc) 6-22 (calc) Final [facility]: [address], [place] Blood venous Normal Sodium 138 mmol/L 135-146 mmo l/L Final [facility]: [address] [facility] Blood venous Normal Potassium 4.4 mmol/L 3.5-5.3 mmol/L Final [facility]: [address] [facility], [place] Blood venous Normal Chloride 104 mmol/L 98-110 mm ol/L [facility]: [address] [facility] Blood venous Normal Carbon Dioxide 27 mmol/L 20-3 2 mmol/L Final [facility]: [address] [facility] Blood venous Normal Calcium 9.3 mg/dL 8.6-10.2 mg /dL [facility]: [address] [facility] Blood venous Normal Protein, Total 6.9 g/dL 6.1-8 .1 g/dL [facility]: [address] [facility] Blood venous Normal Albumin 4.2 g/dL 3.6-5.1 g/dL [facility]: [address] [facility] Blood venous Normal Globulin 2.7 g/dL (calc) 1.9- 3.7 g/dL (calc) Final [facility]: [address] [facility] Blood venous Normal Albumin/globulin Ratio 1 .6 (calc) 1.0-2.5 (calc) [facility]: [address] [facility] Blood venous Normal Bilirubin, Total 0.4 mg/dL 0. 2-1.2 mg/dL [facility]: [address] [facility] Blood venous Normal Alkaline Phosphatase 79 U/L 3 1-125 U/L Final [facility]: [address] [facility] Blood venous Normal Ast 14 U/L 10-30 U/L Final [facility]: [address] [facility] Blood venous Normal Alt 12 U/L 6-29 U/L Final [facility]: [address] [facility] 11/16/2020 CBC W/ Auto Diff Blood venous Normal White B lood Cell Count 10.4 thousand/uL 3.8-10.8 thousand/uL Final [facility]: [address] [facility] Blood venous Normal Red Blood Cell Count 4.7 4 million/uL 3.80-5.10 million/uL Final [facility]: [address] [facility] Blood venous Normal Hemoglobin 14.5 g/dL 11.7-15. 5 g/dL [facility]: [address] [facility] Blood venous Normal Hematocrit 42.5 % 35.0-45.0 % [facility]: [address] [facility] Blood venous Normal Mcv 89.7 fL 80.0-100.0 fL [facility]: [address] [facility] Blood venous Normal Mch 30.6 pg 27.0-33.0 pg Fin al [facility]: [address] [facility] Blood venous Normal Mchc 34.1 g/dL 32.0-36.0 g/dL [facility]: [address] [facility] Blood venous Normal Rdw 12.6 % 11.0-15.0 % [facility]: [address] [facility] Blood venous Normal Platelet Count 364 thous and/uL 140-400 thousand/uL [facility] [address] [facility] [facility] Blood venous Normal Mpv 10.8 fL 7.5-12.5 fL [place] l [facility]: [address] [facility] Blood venous Normal Absolute Neutrophils 561 6 cells/uL 2364-9582 cells/uL [facility]: [address] [facility] Blood venous Normal Absolute Lymphocytes 347 4 cells/uL 850-3900 cells/uL [facility]: [address] [facility] Blood venous High Absolute Monocytes 1009 cells/uL 200-950 cells/uL [facility] [address] [facility] Blood venous Normal Absolute Eosinophils 239 cells/uL 15-500 cells/uL [facility] [address] [facility] Blood venous Normal Absolute Basophils 62 ce lls/uL 0-200 cells/uL [facility]: [address] , [place] Blood venous Normal Neutrophils 54 % 38-80 % [facility]: [address] [facility] Blood venous Normal Lymphocytes 33.4 % 15-49 % [facility]: [address] [facility] Blood venous Normal Monocytes 9.7 % 0-13 % [facility]: [address] [facility] Blood venous Normal Eosinophils 2.3 % 0-8 % Fin al [facility]: [address] [facility] Blood venous Normal Basophils 0.6 % 0-2 % Final [facility]: [address] , [place] 11/16/2020 Tsh Blood venous High Tsh 21.24 mIU/L F inal [facility]: [address] [facility] 07/25/2020 TSH + Free T4, Serum Blood venous Low Thyroid Stimulating Hormone 0.205 uIU/mL 0.358-3.740 uIU/mL [facility]: [address] [place] [address] Blood venous Normal Free T4 1.10 NG/dL 0.76-1.46 NG/dL [facility]: [address] [place] [address] 05/27/2020 CBC W/ Auto Diff Normal White Blood Count 8.7 10 4.0-10.0 10 [facility]: [address] [place] [address] Normal Red Blood Count 4.71 10 4.00-5.40 10 [facility]: [address] [place] [address] Normal Hemoglobin 14.6 g/dL 12.0-15.5 g/dL [facility]: [address] [place] [address] Normal Hematocrit 43.2 % 36.0-47.0 % [facility]: [address] [place] [address] Normal Mean Corpuscular Volume 91.7 fL 80.0 -96.0 fL [facility]: [address] [place] [address] Normal Mean Corpuscular Hemoglobin 31.0 pg 27.0-33.0 pg [facility]: [address] [place] [address] Normal Mean Corpuscular HGB Conc 33.8 g/dL 32.0-36.5 g/dL [facility]: [address] [place] [address] Normal Red Cell Distribution Width 11.7 % 1 1.5-14.5 % [facility]: [address] [place] [address] Normal Platelet Count, Automated 339 10 150 -450 10 [facility]: [address] [place] [address] Normal Neutrophils % 56.5 % 36.0-66.0 % [facility]: [address] [facility] Normal Lymph % 29.8 % 24.0-44.0 % Final [facility]: [address] [facility] High Ransom % 9.2 % 0.0-5.0 % [facility]: [address] [facility] High Eos % 3.5 % 0.0-3.0 % [facility]: [address] [facility] Normal Baso % 0.5 % 0.0-1.0 % [facility]: [address] [facility] Normal Immature Granulocyte % 0.5 % 0-3.0 % [facility]: [address] [place] [address] Normal Nucleated Red Blood Cell % 0.0 % 0- 0 % [facility]: 0 [facility] Normal Neutrophils # 4.9 10 1.5-8.5 10 [facility]: [address] [facility] Normal Lymph # 2.6 10 1.5-5.0 10 [facility]: [address] [facility] Normal Ransom # 0.8 10 0.0-0.8 10 [facility]: 0 [facility] Normal Eos # 0.3 10 0.0-0.5 10 [facility]: 0 [facility] Normal Baso # 0.0 10 0.0-0.2 10 [facility]: [address] [facility] 05/27/2020 CMP, Serum or Plasma Normal Glucose, Fastin g 93 mg/dL 70-100 mg/dL [facility]: [address] 0 [facility] Low Blood Urea Nitrogen 6 mg/dL 7-18 mg/ dL [facility]: 0 [facility] Normal Creatinine for GFR 0.83 mg/dL 0.55-1 .30 mg/dL [facility]: 0 [facility] Normal Glomerular Filtration Rate > 60.0 >6 0 [facility]: [address] [facility] Normal Sodium Level 139 mEq/L 136-145 mEq/L [facility]: [address] [facility] Normal Potassium Serum 3.8 mEq/L 3.5-5.1 mE q/L [facility]: [address] [facility] Normal Chloride Level 105 mEq/L 98-107 mEq/ L [facility]: [address] [facility] Normal Carbon Dioxide Level 30 mEq/L 21-32 mEq/L [facility]: [address] [facility] Low Anion Gap 4 mEq/L 8-16 mEq/L [facility]: [address] [facility] Normal Calcium Level 9.6 mg/dL 8.5-10.1 mg/ dL [facility]: [address] [facility] Normal AST/SGOT 15 U/L 7-37 U/L [facility]: [address] [facility] Normal ALT/SGPT 40 U/L 12-78 U/L [facility]: [address] [facility] Normal Alkaline Phosphatase 85 U/L 45-117 U /L [facility]: [address] [facility] Normal Bilirubin,total 0.7 mg/dL 0.2-1.0 mg /dL [facility]: [address] [facility] Normal Total Protein 6.7 gm/dL 6.4-8.2 gm/d L [facility]: [address] [facility] Normal Albumin 3.5 gm/dL 3.2-5.2 gm/dL [place] l [facility]: [address] [facility] Low Albumin/globulin Ratio 1.1 1.2-2. 2 [facility]: [address] [facility] 05/27/2020 Thrombosis Prof ([id number]) Normal Homocyste ine 7.4 umol/L . umol/L [facility]: [address] 0 [facility] Normal Factor VIII Activity 99 % . % F inal [facility]: [address] [facility] Normal Antithrombin Activity 119 % . % [facility]: [address] [facility] Low Prt C Activity(chromogenic) 72 % . % [facility]: [address] [facility] Normal Protein S Antigen, Free 115 % . % [facility]: [address] [facility] Normal Aptt 29.5 sec . 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 sec [facility]: [address] [facility] Normal APTT 1:1 Saline tnp sec . sec [facility]: [address] [facility] Normal Lac Interpretation . Fin [facility]: [address] [facility] Normal Act Prt C Resist W/fv Defic 2.8 rati o . ratio [facility]: [address] [facility] High Drvvt Screen Seconds 91.9 sec . sec [facility]: [address] [facility] Normal Drvvt Confirm Seconds 42.6 sec . sec [facility]: [address] [facility] High Drvvt Ratio 1.9 ratio . ratio [facility]: [address] [facility] Normal Hexagonal Phospholipid Neutal 0 sec . sec [facility]: [address] [facility] Normal Anticardiolipin Ab, IgG <10 gpl . gp l [facility]: [address] [facility] Normal Anticardiolipin Ab, IgM <10 mpl . mp l [facility]: [address] [facility] Normal Beta-2 Glycoprotein I, IgG <10 sgu . sgu [facility]: [address] [facility] Normal Beta-2 Glycoprotein I, IgM <10 smu . smu [facility]: [address] [facility] Normal Beta-2 Glycoprotein I, IgA <10 cory . cory [facility]: [address] [facility] Normal Factor II Gene Mutation Result . [facility]: [address] [facility] Normal Factor II Gene Interpretation . [facility]: [address] [facility] Normal Factor II Gene Methodology . [facility]: [address] [facility] Normal Factor II Gene Comments . [facility]: [address] [facility] 04/03/2020 Gas Panel, Venous Blood Normal Venous pH 7 .385 units 7.330- 7.430 units [facility]: [address] 0 [facility] Low Venous Partial Pressure CO2 37.8 mmH g 38.0-50.0 mmHg [facility]: [address] [facility] Normal Venous Partial Pressure O2 45.5 mmHg 30.0-50.0 mmHg [facility]: [address] [facility] Low Venous Total CO2 23.3 mEq/L 24.0-28. 0 mEq/L [facility]: [address] [facility] Low Venous HCO3 22.1 mEq/L 23.0-27.0 mEq /L [facility]: [address] [facility] Low Venous Base Excess -2.5 -2.0-2.0 F inal [facility]: [address] [facility] Normal Venous Standard HCO3 22.1 mEq/L [facility]: [address] [facility] High Venous O2 Saturation 85.2 % 60.0-80. 0 % [facility]: [address] [facility] 04/03/2020 CBC W/ Auto Diff High White Blood Count 11.5 10 4.0-10.0 10 [facility]: [address] [facility] Normal Red Blood Count 4.82 10 4.00-5.40 10 [facility]: [address] [facility] Normal Hemoglobin 14.3 g/dL 12.0-15.5 g/dL [facility]: [address] [facility] Normal Hematocrit 42.7 % 36.0-47.0 % [facility]: [address] [facility] Normal Mean Corpuscular Volume 88.6 fL 80.0 -96.0 fL [facility]: [address] [facility] Normal Mean Corpuscular Hemoglobin 29.7 pg 27.0-33.0 pg Final [facility]: [address] [facility] Normal Mean Corpuscular HGB Conc 33.5 g/dL 32.0-36.5 g/dL Final [facility]: [address] [facility] Normal Red Cell Distribution Width 12.2 % 1 1.5-14.5 % [facility]: [address] [facility] Normal Platelet Count, Automated 314 10 150 -450 10 [facility]: [address] [facility] Normal Neutrophils % 62.5 % 36.0-66.0 % [facility]: [address] [facility] Normal Lymph % 29.9 % 24.0-44.0 % [facility]: [address] [facility] High Ransom % 5.9 % 0.0-5.0 % Final [facility]: [address] [facility] Normal Eos % 1.1 % 0.0-3.0 % [facility]: [address] [facility] Normal Baso % 0.3 % 0.0-1.0 % [facility]: [address] [facility] Normal Immature Granulocyte % 0.3 % 0-3.0 % [facility]: [address] [facility] Normal Nucleated Red Blood Cell % 0.0 % 0- 0 % [facility]: [address] [facility] Normal Neutrophils # 7.2 10 1.5-8.5 10 [facility]: [address] [facility] Normal Lymph # 3.4 10 1.5-5.0 10 [facility]: [address] [facility] Normal Ransom # 0.7 10 0.0-0.8 10 [facility]: [address] [facility] Normal Eos # 0.1 10 0.0-0.5 10 [facility]: [address] [facility] Normal Baso # 0.0 10 0.0-0.2 10 [facility]: [address] [facility] 04/03/2020 D-dimer, Quant, Plasma High D-dimer Quant 956.43 NG/mL <500 NG/mL [facility]: [address] 0 [facility] 04/03/2020 Cardiovascular Assessment Panel, Serum Normal CPK Creatine Phosphokinase 57 U/L 26-192 U/L [facility]: [address] [facility] Normal CK-mb Value Mass < 1.0 NG/mL <3.6 NG /mL [facility]: [address] [facility] Normal mb/CK Relative Index 1.75 < or =4 [facility]: [address] [place] [address] Normal Troponin I < 0.02 NG/mL < 0.10 NG/mL [facility]: [address] [facility] 04/03/2020 Hepatic Function Panel, Serum Normal AST/SG OT 13 U/L 7-37 U/L [facility]: [address] [facility] Normal ALT/SGPT 15 U/L 12-78 U/L [facility]: 0 [facility] Normal Alkaline Phosphatase 90 U/L 45-117 U /L [facility]: 0 [facility] Normal Bilirubin,total 0.3 mg/dL 0.2-1.0 mg /dL [facility]: 0 [facility] Normal Bilirubin,direct < 0.1 mg/dL 0.0-0.2 mg/dL [facility]: [address] [facility] Normal Total Protein 7.4 gm/dL 6.4-8.2 gm/d L [facility]: 0 [facility] Normal Albumin 3.5 gm/dL 3.2-5.2 gm/dL [place] [facility]: 0 [facility] Low Albumin/globulin Ratio 0.9 1.2-2. 2 [facility]: 0 [facility] 04/03/2020 BMP, Serum or Plasma High Glucose, Fastin g 133 mg/dL 70-100 mg/dL [facility]: [address] 0 [facility] Normal Blood Urea Nitrogen 10 mg/dL 7-18 mg /dL [facility]: [address] [facility] Normal Creatinine for GFR 1.07 mg/dL 0.55-1 .30 mg/dL [facility]: [address] [facility] Normal Glomerular Filtration Rate > 60.0 >6 0 [facility]: [address] [facility] Normal Sodium Level 140 mEq/L 136-145 mEq/L [facility]: [address] [facility] Normal Potassium Serum 3.8 mEq/L 3.5-5.1 mE q/L [facility]: [address] [facility] High Chloride Level 108 mEq/L 98-107 mEq/ L [facility]: [address] [facility] Normal Carbon Dioxide Level 24 mEq/L 21-32 mEq/L [facility]: [address] [facility] Normal Anion Gap 8 mEq/L 8-16 mEq/L [facility]: [address] [facility] Normal Calcium Level 9.7 mg/dL 8.5-10.1 mg/ dL [facility]: [address] [facility] 04/03/2020 Pro BNP (Pro B-type Natriuretic Peptide), Serum or Plasma Normal Nt-pro BNP 24 pg/mL <125 pg/mL [facility]: [address] [facility] 04/03/2020 T4, Total, Serum High Thyroxine (T4) 19. 7 ug/dL 4.5-12.0 ug/dL [facility]: 0 [address] [facility] [facility] 04/03/2020 TSH, Serum or Plasma High Thyroid Stimulating Hormone 5.700 uIU/mL 0.358-3.740 uIU/mL [facility] nter: [address] [facility] 04/03/2020 Lactic Acid, Serum or Plasma Panic High Lactic Acid Sepsis Protocol 2.5 mmol/L 0.4-2.0 mmol/L [facility] l Center: [address] [facility] Past Encounters 02/17/2021 Acute Upper Respiratory Infection Tod Chavez MD: [address] [place] [address], Ph. 11/23/2020 Adult Health Examination; Right Upper Quadrant Pain; Body Mass Index 40+ - Severely Obese; Nicotine Dependence with Current Use MADELYN LopezC: [address] [place] [address], Ph. 11/16/2020 Hypothyroidism; Polycystic Ovary Syndrome Holli MADELYN AndrewsC: [address] [place] [phone], Ph. 10/10/2020 Hypothyroidism; Nicotine Dependence with Current Use; Polycystic Ovary Syndrome; Epigastric Pain; Body Mass Index 40+ - Severely Obese MADELYN LopezC: [address] [place] [address], Ph. 07/25/2020 MADELYN LopezC: [address] [place] [address], Ph. 04/14/2020 Hypothyroidism; Deep Venous Thrombosis MADELYN LopezC: [address] [place] [address], Ph. Social History Tobacco Smoking Status Heavy Tobacco Smoker (1/2 pack per a day) Vaccine List Vaccine Type MMR 12/17/20180.5 mL Tdap 07/16/2016 Notes: Pt had Med[employer]lex[employer] covid vaccine in [facility] 2020, will bring in card Plan of Care Reminders Provider Appointments None recorded. Lab None recorded. Referral None recorded. Procedures None recorded. Surgeries None recorded. Imaging None recorded. Vitals 02/17/2021 01:40PM HOSPITAL DISCHARGE Height Weight BMI Blood Pressure 63 in 260 lbs 6 oz 46.1 kg/m2 114/78 mm[Hg] 11/23/2020 10:00AM ANNUAL EXAM Height Weight BMI Blood Pressure 63 in 254 lbs 16 oz 45.2 kg/m2 138/85 mm[Hg] 11/16/2020 09:20AM NURSE LAB COLLECTION Height 63 in 10/10/2020 10:20AM ESTABLISHED [id number] Height Weight BMI Blood Pressure 63 in 251 lbs 6 oz 44.5 kg/m2 132/82 mm[Hg] 04/14/2020 10:40AM HOSPITAL DISCHARGE Height Weight BMI Blood Pressure 63 in 249 lbs 4 oz 44.2 kg/m2 114/80 mm[Hg] 11/04/2019 Height Weight BMI Blood Pressure 63 in 268 lbs 2.08 oz 47.67 kg/m2 112/77 mm[H g] 08/07/2019 Height Weight BMI Blood Pressure 63 in 258 lbs 45.87 kg/m2 135/81 mm[Hg] 07/29/2019 Height Weight BMI Blood Pressure 63 in 253 lbs 44.98 kg/m2 122/87 mm[Hg] 06/04/2019 Height Weight BMI Blood Pressure 63 in 254 lbs 45.16 kg/m2 105/73 mm[Hg] 03/04/2019 Height Weight BMI Blood Pressure 63 in 248 lbs 2.08 oz 44.11 kg/m2 131/86 mm[H g] 12/17/2018 Height Weight BMI Blood Pressure 63 in 252 lbs 44.80 kg/m2 135/85 mm[Hg]
--- OUTSIDE RECORDS SUMMARY | 2021-03-07 02:12 | CCD ---
Author Author [facility] Organization [facility] Address Unknown Phone Unavailable Care Team Providers Care Blasting Entryman Name Role Phone Rosita Chavez MD Unavailable Unavailable Rosita Chavez MD Unavailable Unavailable Rosita Chavez MD Unavailable Unavailable Rosita Chavez MD Unavailable Unavailable Rosita Chavez MD Unavailable Unavailable Rosita Chavez MD Unavailable Unavailable Rosita Chavez MD Unavailable Unavailable Rosita Chavez MD Unavailable Unavailable Rosita Chavez MD Unavailable Unavailable Rosita Chavez MD Unavailable Unavailable Rosita Chavez MD Unavailable Unavailable Rosita Chavez MD Unavailable Unavailable Rosita Chavez MD Unavailable Unavailable Rosita Chavez MD Unavailable Unavailable Rosita Chavez MD Unavailable Unavailable Rosita Chavez MD Unavailable Unavailable Rosita Chavez MD Unavailable Unavailable Rosita Chavez MD Unavailable Unavailable Rosita Chavez MD Unavailable Unavailable Rosita Chavez MD Unavailable Unavailable Rosita Chavez MD Unavailable Unavailable Rosita Chavez MD Unavailable Unavailable Rosita Chavez MD Unavailable Unavailable Rosita Chavez MD Unavailable Unavailable Rosita Chavez MD Unavailable Unavailable Rosita Chavez MD Unavailable Unavailable Rosita Chavez MD Unavailable Unavailable Rosita Chavez MD Unavailable Unavailable Rosita Chavez MD Unavailable Unavailable Rosita Chavez MD Unavailable Unavailable Rosita Chavez MD Unavailable Unavailable Rosita Chavez MD Unavailable Unavailable Rosita Chavez MD Unavailable Unavailable Rosita Chavez MD Unavailable Unavailable Rosita Chavez MD Unavailable Unavailable Rosita Chavez MD Unavailable Unavailable Rosita Chavez MD Unavailable Unavailable Rosita Chavez MD Unavailable Unavailable Rosita Chavez MD Unavailable Unavailable Rosita Chavez MD Unavailable Unavailable Rosita Chavez MD Unavailable Unavailable Rosita Chavez MD Unavailable Unavailable Rosita Chavez MD Unavailable Unavailable Rosita Chavez MD Unavailable Unavailable Rosita Chavez MD Unavailable Unavailable Rosita Chavez MD Unavailable Unavailable Rosita Chavez MD Unavailable Unavailable Rosita Chavez MD Unavailable Unavailable Rosita Chavez MD Unavailable Unavailable Rosita Chavez MD Unavailable Unavailable Rosita Chavez MD Unavailable Unavailable Rosita Chavez MD Unavailable Unavailable Rosita Chavez MD Unavailable Unavailable Rosita Chavez MD Unavailable Unavailable Rosita Chavez MD Unavailable Unavailable Rosita Chavez MD Unavailable Unavailable Rosita Chavez MD Unavailable Unavailable Rosita Chavez MD Unavailable Unavailable Rosita Chavez MD Unavailable Unavailable Rosita Chavez MD Unavailable Unavailable Rosita Chavez MD Unavailable Unavailable Rosita Chavez MD Unavailable Unavailable Rosita Chavez MD Unavailable Unavailable Rosita Chavez MD Unavailable Unavailable Rosita Chavez MD Unavailable Unavailable Rosita Chavez MD Unavailable Unavailable Rosita Chavez MD Unavailable Unavailable Rosita Chavez MD Unavailable Unavailable Rosita Chavez MD Unavailable Unavailable Rosita Chavez MD Unavailable Unavailable Rosita Chavez MD Unavailable Unavailable Rosita Chavez MD Unavailable Unavailable Rosita Chavez MD Unavailable Unavailable Rosita Chavez MD Unavailable Unavailable Rosita Chavez MD Unavailable Unavailable Rosita Chavez MD Unavailable Unavailable Rosita Chavez MD Unavailable Unavailable Rosita Chavez MD Unavailable Unavailable Rosita Chavez MD Unavailable Unavailable Rosita Chavez MD Unavailable Unavailable Rosita Chavez MD Unavailable Unavailable Rosita Chavez MD Unavailable Unavailable Rosita Chavez MD Unavailable Unavailable Rosita Chavez MD Unavailable Unavailable Rosita Chavez MD Unavailable Unavailable Rosita Chavez MD Unavailable Unavailable Rosita Chavez MD Unavailable Unavailable Rosita Chavez MD Unavailable Unavailable Rostia Chavez MD Unavailable Unavailable Rosita Chavez MD Unavailable Unavailable Rosita Chavez MD Unavailable Unavailable Rosita Chavez MD Unavailable Unavailable Rosita Chavez MD Unavailable Unavailable [place] Falanga, A Vani CLERK ANALYST Unavailable Unavailable Elpidio Falanga, A Vani CLERK ANALYST Unavailable Unavailable Elpidio Falanga, A Vani CLERK ANALYST Unavailable Unavailable [place] Falanga, A Vani CLERK ANALYST Unavailable Unavailable Elpidio Falanga, A Vani CLERK ANALYST Unavailable Unavailable Elpidio Falanga, A Vani CLERK ANALYST Unavailable Unavailable Elpidio Falanga, A Vani CLERK ANALYST Unavailable Unavailable Elpidio Falanga, A Vani CLERK ANALYST Unavailable Unavailable Elpidio Falanga, A Vani CLERK ANALYST Unavailable Unavailable [place] Falanga, A Vani CLERK ANALYST Unavailable Unavailable Elpidio Falanga, A Vani CLERK ANALYST Unavailable Unavailable Elpidio Falanga, A Vani CLERK ANALYST Unavailable Unavailable Elpidio Falanga, A Vani CLERK ANALYST Unavailable Unavailable Elpidio Falanga, A Vani CLERK ANALYST Unavailable Unavailable Elpidio Falanga, A Vani CLERK ANALYST Unavailable Unavailable Elpidio Falanga, A Vani CLERK ANALYST Unavailable Unavailable Elpidio Falanga, A Vani CLERK ANALYST Unavailable Unavailable Elpidio Falanga, A Vani CLERK ANALYST Unavailable Unavailable [place] Falanga, A Vani CLERK ANALYST Unavailable Unavailable Elpidio Falanga, A Vani CLERK ANALYST Unavailable Unavailable Elpidio Falanga, A Vani CLERK ANALYST Unavailable Unavailable Elpidio Falanga, A Vani CLERK ANALYST Unavailable Unavailable [place] Falanga, A Vani CLERK ANALYST Unavailable Unavailable [place] Falanga, A Vani CLERK ANALYST Unavailable Unavailable Elpidio Falanga, A Vani CLERK ANALYST Unavailable Unavailable Elpidio Falanga, A Vani CLERK ANALYST Unavailable Unavailable [place] Falanga, A Vani CLERK ANALYST Unavailable Unavailable [place] Falanga, A Vani CLERK ANALYST Unavailable Unavailable Elpidio Falanga, A Vani CLERK ANALYST Unavailable Unavailable ASHLEY, F CORINNE DO Unavailable Unavailable ASHLEY, F CORINNE DO Unavailable Unavailable ASHLEY, F CORINNE DO Unavailable Unavailable ASHLEY, F CORINNE DO Unavailable Unavailable ASHLEY, F CORINNE DO Unavailable Unavailable ASHLEY, F CORINNE DO Unavailable Unavailable ASHLEY, F CORINNE DO Unavailable Unavailable ASHLEY, F CORINNE DO Unavailable Unavailable ASHLEY, F CORINNE DO Unavailable Unavailable ASHLEY, F CORINNE DO Unavailable Unavailable ASHLEY, F COIRNNE DO Unavailable Unavailable ASHLEY, F CORINNE DO Unavailable Unavailable ASHLEY, F CORINNE DO Unavailable Unavailable ASHLEY, F CORINNE DO Unavailable Unavailable ASHLEY, F CORINNE DO Unavailable Unavailable ASHLEY, F CORINNE DO Unavailable Unavailable ASHLEY, F CORINNE DO Unavailable Unavailable ASHLEY, F CORINNE DO Unavailable Unavailable ASHLEY, F CORINNE DO Unavailable Unavailable ASHLEY, F CORINNE DO Unavailable Unavailable ASHLEY, F CORINNE DO Unavailable Unavailable ASHLEY, F CORINNE DO Unavailable Unavailable ASHLEY, F CORINNE DO Unavailable Unavailable ASHLEY, F CORINNE DO Unavailable Unavailable ASHLEY, F CORINNE DO Unavailable Unavailable ASHLEY, F CORINNE DO Unavailable Unavailable ASHLEY, F CORINNE DO Unavailable Unavailable ASHLEY, F CORINNE DO Unavailable Unavailable ASHLEY, F CORINNE DO Unavailable Unavailable ASHLEY, F CORINNE DO Unavailable Unavailable ASHLEY, F CORINNE DO Unavailable Unavailable ASHLEY, F CORINNE DO Unavailable Unavailable ASHLEY, F CORINNE DO Unavailable Unavailable ASHLEY, F CORINNE DO Unavailable Unavailable Feola, T Prema PA Unavailable Unavailable Feola, T Prema PA Unavailable Unavailable Feola, T Prema PA Unavailable Unavailable Feola, T Prema PA Unavailable Unavailable Feola, T Prema PA Unavailable Unavailable Feola, T Prema PA Unavailable Unavailable Feola, T Prema PA Unavailable Unavailable Feola, T Prema PA Unavailable Unavailable Feola, T Prema PA Unavailable Unavailable Feola, T Prema PA Unavailable Unavailable Feola, T Prema PA Unavailable Unavailable Feola, T Prema PA Unavailable Unavailable Feola, T Prema PA Unavailable Unavailable Feola, T Prema PA Unavailable Unavailable Feola, T Prema PA Unavailable Unavailable Feola, T Prema PA Unavailable Unavailable Feola, T Prema PA Unavailable Unavailable Feola, T Prema PA Unavailable Unavailable Feola, T Prema PA Unavailable Unavailable Feola, T Prema PA Unavailable Unavailable Feola, T Prema PA Unavailable Unavailable Feola, T Prema PA Unavailable Unavailable Feola, T Prema PA Unavailable Unavailable Feola, T Prema PA Unavailable Unavailable Feola, T Prema PA Unavailable Unavailable Feola, T Prema PA Unavailable Unavailable Feola, T Prema PA Unavailable Unavailable Feola, T Prema PA Unavailable Unavailable Feola, T Prema PA Unavailable Unavailable Feola, T Prema PA Unavailable Unavailable Feola, T Prema PA Unavailable Unavailable Feola, T Prema PA Unavailable Unavailable Feola, T Prema PA Unavailable Unavailable Feola, T Prema PA Unavailable Unavailable Feola, T Prema PA Unavailable Unavailable Feola, T Prema PA Unavailable Unavailable Feola, T Prema PA Unavailable Unavailable Feola, T Prema PA Unavailable Unavailable Feola, T Prema PA Unavailable Unavailable Feola, T Prema PA Unavailable Unavailable Feola, T Prema PA Unavailable Unavailable TURRIN, LYLE Unavailable Unavailable TURRIN, LYLE Unavailable Unavailable TURRIN, LYLE Unavailable Unavailable TURRIN, LYLE Unavailable Unavailable Wellington Mendez MD Unavailable Unavailable Wellington Mendez MD Unavailable Unavailable Wellington Mendez MD Unavailable Unavailable Wellington Mendez MD Unavailable Unavailable Wellington Mendez MD Unavailable Unavailable Wellington Mendez MD Unavailable Unavailable Wellington Mendez MD Unavailable Unavailable Wellington Mendez MD Unavailable Unavailable Wellington Mendez MD Unavailable Unavailable Wellington Mendez MD Unavailable Unavailable Wellington Mendez MD Unavailable Unavailable Wellington Mendez MD Unavailable Unavailable Wellington Mendez MD Unavailable Unavailable Wellington Mendez MD Unavailable Unavailable Wellington Mendez MD Unavailable Unavailable Wellington Mendez MD Unavailable Unavailable Wellington Mendez MD Unavailable Unavailable Wellington Mendez MD Unavailable Unavailable Wellington Mendez MD Unavailable Unavailable Wellington Mendez MD Unavailable Unavailable Wellington Mendez MD Unavailable Unavailable Wellington Mendez MD Unavailable Unavailable Wellington Mendez MD Unavailable Unavailable Wellington Mendez MD Unavailable Unavailable Wellington Mendez MD Unavailable Unavailable Scordo, M Holli PA Unavailable Unavailable Scordo, M Holli PA Unavailable Unavailable Scordo, M Holli PA Unavailable Unavailable Scordo, M Holli PA Unavailable Unavailable Scordo, M Holli PA Unavailable Unavailable Scordo, M Holli PA Unavailable Unavailable Scordo, M Holli PA Unavailable Unavailable Scordo, M Holli PA Unavailable Unavailable Scordo, M Holli PA Unavailable Unavailable Scordo, M Holli PA Unavailable Unavailable Scordo, M Holli PA Unavailable Unavailable Scordo, M Holli PA Unavailable Unavailable Scordo, M Holli PA Unavailable Unavailable Scordo, M Holli PA Unavailable Unavailable Scordo, M Holli PA Unavailable Unavailable Scordo, M Holli PA Unavailable Unavailable Scordo, M Holli PA Unavailable Unavailable Scordo, M Holli PA Unavailable Unavailable Scordo, M Holli PA Unavailable Unavailable Scordo, M Holli PA Unavailable Unavailable Scordo, M Holli PA Unavailable Unavailable Scordo, M Holli PA Unavailable Unavailable Scordo, M Holli PA Unavailable Unavailable Scordo, M Holli PA Unavailable Unavailable Scordo, M Holli PA Unavailable Unavailable Scordo, M Holli PA Unavailable Unavailable Scordo, M Holli PA Unavailable Unavailable Scordo, M Holli PA Unavailable Unavailable Scordo, M Holli PA Unavailable Unavailable Scordo, M Holli PA Unavailable Unavailable Scordo, M Holli PA Unavailable Unavailable Scordo, M Holli PA Unavailable Unavailable Scordo, M Holli PA Unavailable Unavailable Scordo, M Holli PA Unavailable Unavailable Scordo, M Holli PA Unavailable Unavailable Scordo, M Holli PA Unavailable Unavailable Scordo, M Holli PA Unavailable Unavailable Scordo, M Holli PA Unavailable Unavailable Scordo, M Holli PA Unavailable Unavailable Scordo, M Holli PA Unavailable Unavailable Scordo, M Holli PA Unavailable Unavailable Scordo, M Holli PA Unavailable Unavailable Scordo, M Holli PA Unavailable Unavailable Scordo, M Holli PA Unavailable Unavailable Scordo, M Holli PA Unavailable Unavailable Scordo, M Holli PA Unavailable Unavailable Scordo, M Holli PA Unavailable Unavailable Jeanne Aparicio PA-C Unavailable Unavailable Aparicio, M Christopher PA-C Unavailable Unavailable Aparicio, M Christopher PA-C Unavailable Unavailable Aparicio, M Christopher PA-C Unavailable Unavailable Aparicio, M Christopher PA-C Unavailable Unavailable Aparicio, M Christopher PA-C Unavailable Unavailable Aparicio, M Christopher PA-C Unavailable Unavailable Aparicio, M Christopher PA-C Unavailable Unavailable Aparicio, M Christopher PA-C Unavailable Unavailable Aparicio, M Christopher PA-C Unavailable Unavailable Aparicio, M Christopher PA-C Unavailable Unavailable Aparicio, M Christopher PA-C Unavailable Unavailable Aparicio, M Christopher PA-C Unavailable Unavailable Aparicio, M Christopher PA-C Unavailable Unavailable Aparicio, M Christopher PA-C Unavailable Unavailable Aparicio, M Christopher PA-C Unavailable Unavailable Aparicio, M Christopher PA-C Unavailable Unavailable Aparicio, M Christopher PA-C Unavailable Unavailable Aparicio, M Christopher PA-C Unavailable Unavailable Aparicio, M Christopher PA-C Unavailable Unavailable Aparicio, M Christopher PA-C Unavailable Unavailable Aparicio, M Christopher PA-C Unavailable Unavailable Aparicio, M Christopher PA-C Unavailable Unavailable Aparicio, M Christopher PA-C Unavailable Unavailable Aparicio, M Christopher PA-C Unavailable Unavailable Aparicio, M Christopher PA-C Unavailable Unavailable NON, PHYSICIAN STAFF Unavailable Unavailable Re-disclosure Warning The records that you are about to access may contain information from federally-assisted alcohol or drug abuse programs. If such information is present, then the following federally mandated warning applies: This information has been disclosed to you from records protected by federal confidentiality rules (42 CFR part 2). The federal rules prohibit you from making any further disclosure of this information unless further disclosure is expressly permitted by the written consent of the person to whom it pertains or as otherwise permitted by 42 CFR part 2. A general authorization for the release of medical or other information is NOT sufficient for this purpose. The Federal rules restrict any use of the information to criminally investigate or prosecute any alcohol or drug abuse patient.The records that you are about to access may contain highly sensitive health information, the redisclosure of which is protected by Article 27-F of the [facility] Public Health law. If you continue you may have access to information: Regarding HIV / AIDS; Provided by facilities licensed or operated by the [facility] Office of Mental Health; or Provided by the [facility] Office for People With Developmental Disabilities. If such information is present, then the following [facility] mandated warning applies: This information has been disclosed to you from confidential records which are protected by state law. State law prohibits you from making any further disclosure of this information without the specific written consent of the person to whom it pertains, or as otherwise permitted by law. Any unauthorized further disclosure in violation of state law may result in a fine or shelter sentence or both. A general authorization for the release of medical or other information is NOT sufficient authorization for further disc losure. Allergies and Adverse Reactions Type Description Substance Reaction Status Data Source(s ) No Known Drug Allergies No Known Drug Allergies [facility] Family History Family Member Name Family Member Gender Family Member Status Date o f Status Description Data Source(s) Unknown Male Problem [facility] ([facility]) () - at age 63 Encounters Encounter Providers Location Date Indications Data Source(s ) Emergency Attender: LYLE PATConsultant: STAFF NON 02/20/2021 11:20:00 PM EDT - 02/21/2021 02:18:00 AM EDT [facility] Patient discharged. Tod Chavez MD: [address] [place] [address], Ph. Attender: Tod Chavez MD [facility] Medical 02/17/2021 12:00:00 AM EDT [facility] ([facility]) Outpatient Attender: Susan Mendez MD 1 09:08:59 PM EDT - 02/13/2021 10:18:01 PM EDT [facility] ([facility]) Holli Andrews PA-C: [address] [place] [address], Ph. Attender: Holli SURESH [facility] Medical 11/23/2020 12:00:00 AM EDT [facility] ([facility]) Holli Andrews PA-C: [address] [place] [address], Ph. Attender: Holli Scordo PA [facility] Medical 11/23/2020 12:00:00 AM EDT [facility] ([facility]) Holli Andrews PA-C: [address], [place] [address], Ph. Attender: Holli SURESH [facility] Medical 11/16/2020 12:00:00 AM EDT [facility] ([facility]) Holli Andrews PA-C: [address], [place] [address], Ph. Attender: Holli SURESH [facility] Medical 11/16/2020 12:00:00 AM EDT [facility] ([facility]) Holli Andrews PA-C: [address], [place] [address], Ph. Attender: Holli SURESH [facility] Medical 11/16/2020 12:00:00 AM EDT [facility] ([facility]) Outpatient Attender: Zen Aparicio PA-C 11/14/2020 03:57:12 PM EDT - 11/14/2020 08:37:24 PM EDT [facility] ([facility]) Holli Andrews PA-C: [address], [place] [address], Ph. Attender: Holli SURESH [facility] Medical 10/10/2020 12:00:00 AM EDT [facility] ([facility]) Holli Andrews PA-C: [address], [place] [address], Ph. Attender: Holli SURESH [facility] Medical 10/10/2020 12:00:00 AM EDT [facility] ([facility]) Holli Andrews PA-C: [address], [place] [address], Ph. Attender: Holli SURESH [facility] Medical 10/10/2020 12:00:00 AM EDT [facility] ([facility]) Holli Andrews PA-C: [address], [place] [address], Ph. Attender: Holli SURESH [facility] Medical 10/10/2020 12:00:00 AM EDT [facility] ([facility]) Emergency Attender: LYLE Ruizant: STAFF NON 08/10/2020 10:51:00 PM EDT - 08/10/2020 11:25:00 PM EDT [facility] Patient discharged. Holli Andrews PA-C: [address], [place] [address], Ph. Attender: Holli SURESH [facility] Medical 07/25/2020 12:00:00 AM EDT [facility] ([facility]) Holli Andrews PA-C: [address], [place] [address], Ph. Attender: Holli SURESH [facility] Medical 07/25/2020 12:00:00 AM EDT [facility] ([facility]) Holil Andrews PA-C: [address], [place] [address], Ph. Attender: Holli SURESH [facility] Medical 07/25/2020 12:00:00 AM EDT [facility] ([facility]) Holli Andrews PA-C: [address], [place] [address], Ph. Attender: Holli SURESH [facility] Medical 07/25/2020 12:00:00 AM EDT [facility] ([facility]) Holli Andrews PA-C: [address], [place] [address], Ph. Attender: Holli SURESH [facility] Medical 07/25/2020 12:00:00 AM EDT [facility] ([facility]) Outpatient Attender: Prema SURESH 021 02:04:25 PM EST - 07/14/2020 02:24:51 PM EST [facility] ([facility] ) Holli Andrews PA-C: [address], [place] [address], Ph. Attender: Holli SURESH [facility] Medical 04/14/2020 12:00:00 AM EST [facility] ([facility]) Holli Andrews PA-C: [address], [place] [address], Ph. Attender: Holli SURESH [facility] Medical 04/14/2020 12:00:00 AM EST [facility] ([facility]) Holli Andrews PA-C: [address], [place] [address], Ph. Attender: Holli SURESH [facility] Medical 04/14/2020 12:00:00 AM EST [facility] ([facility]) Holli Andrews PA-C: [address], [place] [address], Ph. Attender: Holli SURESH [facility] Medical 04/14/2020 12:00:00 AM EST [facility] ([facility]) Holli Andrews PA-C: [address] , [place] [address], Ph. Attender: Holli SURESH [facility] Medical 04/14/2020 12:00:00 AM EST [facility] ([facility]) Holli Andrews PA-C: [address] [place] [address], Ph. Attender: Holli SURESH [facility] Medical 04/14/2020 12:00:00 AM EST [facility] ([facility]) Outpatient Attender: Vani chambers FNPAttender: CORINNE RAMIREZ DOConsultant: STAFF NON 04/02/2020 11:33:00 AM EST - 04/02/2020 04:54:00 PM EST [facility] Patient discharged. Outpatient FP 02/22/2020 08:29:01 AM EDT [facility] Outpatient FP 02/06/2020 08:56:02 PM EDT [facility] Immunizations Vaccine Date Status Description Data Source(s) COVID-19 VACCINE Pfizer 07/27/2020 12:00:00 AM EDT completed [facility] Vaccine Series Complete: YESThis Data wa s Submitted to [facility]. COVID-19 VACCINE Pfizer 07/06/2020 12:00:00 AM EST completed [facility] Vaccine Series Complete: NOThis Data was Submitted to [facility]. Medications Medication Brand Name Start Date Product Form Dose Route Admi nistrative Instructions Pharmacy Instructions Status Indications Reaction Description Data Source(s) Acetaminophen 325 MG Oral Tablet acetami nophen 325 mg tablet TAKE 1 TABLET BY MOUTH EVERY 6 HOURS NEEDED FOR PAIN acetaminophen 325 mg tablet TAKE 1 TABLE T BY MOUTH EVERY 6 HOURS NEEDED FOR PAIN completed acetaminophen 325 MG Oral Tablet [facility] ([facility]) methylphenidate LA 20 mg biphasic 50-50 capsule,extended release 88336 3 completed 50/50 Release 2 4 HR methylphenidate hydrochloride 20 MG Extended Release Oral Capsule [facility] ([facility]) benzonatate 200 MG Oral Capsule benzonat ate 200 mg capsule TAKE 1 CAPSULE BY MOUTH THREE TIMES DAILY NEEDED FOR SEVERE COUGH benzonatate 200 mg capsule TAKE 1 CAPSULE BY MOUTH THREE TIMES DAILY NEEDED FOR SEVERE COUGH completed benzonatate 200 MG Oral Caps ule [facility] ([facility]) Prazosin 1 MG Oral Capsule prazosin 1 mg capsule TAKE 1 CAPSULE BY MOUTH ONCE DAILY AT BEDTIME prazosin 1 mg capsule TAKE 1 CAPSULE BY MOUTH ONCE DAILY AT BEDTIME completed prazosin 1 MG Oral Capsule [facility] ([facility]) rivaroxaban 15 MG Oral Tablet [Xarelto] Xarelto 15 mg tablet TAKE 1 TABLET BY MOUTH TWICE DAILY DAYS 1 THRU 21. BOTTLE 1 . PRESCRIPTION 1 OF 2. Xarelto 15 mg tablet TAKE 1 TABLET BY MOUTH TWICE DAILY DAYS 1 THRU 21. BOTTLE 1 . PRESCRIPTION 1 OF 2. completed rivaroxaban 15 MG Oral Tablet [Xarelto] [facility] ([facility]) lamotrigine 25 MG Oral Tablet lamotrigin e 25 mg tablet TAKE 2 TABLETS BY MOUTH ONCE DAILY . DO NOT EXCEED 2 PER 24 HOURS lamotrigine 25 mg tablet TAKE 2 TABLETS BY MOUTH ONCE DAILY . DO NOT EXCEED 2 PER 24 HOURS completed lamotrigine 25 MG Oral Tablet AT [facility]) Metformin hydrochloride 500 MG Oral Tablet metformin 5 00 mg tablet metformin 500 mg tablet completed metformin h ydrochloride 500 MG Oral Tablet [facility] ([facility]) Prazosin 1 MG Oral Capsule prazosin 1 mg capsule TAKE 1 CAPSULE BY MOUTH ONCE DAILY AT BEDTIME prazosin 1 mg capsule TAKE 1 CAPSULE BY MOUTH ONCE DAILY AT BEDTIME completed prazosin 1 MG Oral Capsule [facility] ([facility]) Azithromycin 250 MG Oral Tablet azithrom ycin 250 mg tablet TAKE 2 TABLETS BY MOUTH ON DAY 1 AND THEN TAKE 1 TABLET BY MOUTH ONCE A DAY ON DAY 2 THROUGH DAY 5 azithromycin 250 mg tablet TAKE 2 TABLET S BY MOUTH ON DAY 1 AND THEN TAKE 1 TABLET BY MOUTH ONCE A DAY ON DAY 2 THROUGH DAY 5 completed azithromycin 250 MG Oral Tablet [facility] ([facility]) methylprednisolone 4 mg tablets in a dose pack TAKE DIRECTED [id number] completed methylprednisolone 4 mg t ablets in a dose pack [facility] ([facility]) Hydroxyzine Pamoate 25 MG Oral Capsule hydroxyzine johnny oate 25 mg capsule hydroxyzine pamoate 25 mg capsule comp leted hydroxyzine pamoate 25 MG Oral Capsule [facility] ([facility]) methylprednisolone 4 mg tablets in a dose pack TAKE DIRECTED [id number] completed methylprednisolone 4 mg t ablets in a dose pack [facility] ([facility]) rivaroxaban 15 MG Oral Tablet [Xarelto] Xarelto 15 mg tablet TAKE 1 TABLET BY MOUTH TWICE DAILY DAYS 1 THRU 21. BOTTLE 1 . PRESCRIPTION 1 OF 2. Xarelto 15 mg tablet TAKE 1 TABLET BY MOUTH TWICE DAILY DAYS 1 THRU 21. BOTTLE 1 . PRESCRIPTION 1 OF 2. completed rivaroxaban 15 MG Oral Tablet [Xarelto] [place] ([facility]) methylphenidate LA 20 mg biphasic 50-50 capsule,extended release 65565 3 completed 50/50 Release 2 4 HR methylphenidate hydrochloride 20 MG Extended Release Oral Capsule [facility] ([facility]) rivaroxaban 15 MG Oral Tablet [Xarelto] Xarelto 15 mg tablet TAKE 1 TABLET BY MOUTH TWICE DAILY DAYS 1 THRU 21. BOTTLE 1 . PRESCRIPTION 1 OF 2. Xarelto 15 mg tablet TAKE 1 TABLET BY MOUTH TWICE DAILY DAYS 1 THRU 21. BOTTLE 1 . PRESCRIPTION 1 OF 2. completed rivaroxaban 15 MG Oral Tablet [Xarelto] [facility] ([facility]) Prednisone 20 MG Oral Tablet prednisone 20 mg tablet TAKE 2 TABLETS BY MOUTH IN THE MORNING FOR 5 DAYS prednisone 20 mg tablet TAKE 2 TABLETS B Y MOUTH IN THE MORNING FOR 5 DAYS completed pre dnisone 20 MG Oral Tablet [facility] ([facility]) Amphetamine aspartate 1.25 MG / Amphetam ine Sulfate 1.25 MG / Dextroamphetamine saccharate 1.25 MG / Dextroamphetamine Sulfate 1.25 MG Oral Tablet dextroamphetamine-amphetamine 5 mg tablet dextroamphetamine-amphetamine 5 mg tablet completed ampheta mine aspartate 1.25 MG / amphetamine sulfate 1.25 MG / dextroamphetamine saccharate 1.25 MG / dextroamphetamine sulfate 1.25 MG Oral Tablet [place] ([facility]) Cefuroxime 500 MG Oral Tablet cefuroxime axetil 500 mg tablet TAKE 1 TABLET BY MOUTH TWICE DAILY FOR 5 DAYS cefuroxime axetil 500 mg tablet TAKE 1 T ABLET BY MOUTH TWICE DAILY FOR 5 DAYS completed cefuroxime 500 MG Oral Tablet [facility] ([facility]) Azithromycin 250 MG Oral Tablet azithrom ycin 250 mg tablet TAKE 2 TABLETS BY MOUTH ON DAY 1 AND THEN TAKE 1 TABLET BY MOUTH ONCE A DAY ON DAY 2 THROUGH DAY 5 azithromycin 250 mg tablet TAKE 2 TABLET S BY MOUTH ON DAY 1 AND THEN TAKE 1 TABLET BY MOUTH ONCE A DAY ON DAY 2 THROUGH DAY 5 completed azithromycin 250 MG Oral Tablet [facility] ([facility]) methylprednisolone 4 mg tablets in a dose pack TAKE DIRECTED [id number] completed methylprednisolone 4 mg t ablets in a dose pack [facility] ([facility]) Prednisone 20 MG Oral Tablet prednisone 20 mg tablet TAKE 2 TABLETS BY MOUTH IN THE MORNING FOR 5 DAYS prednisone 20 mg tablet TAKE 2 TABLETS B Y MOUTH IN THE MORNING FOR 5 DAYS completed pre dnisone 20 MG Oral Tablet [facility] ([facility]) Levothyroxine Sodium 0.15 MG Oral Tablet levothyroxine 150 mcg tablet levothyroxine 150 mcg tablet completed levothyroxine sodium 0.15 MG Oral Tablet [facility] ([facility]) Amoxicillin 500 MG Oral Capsule amoxicil john 500 mg capsule TAKE 1 CAPSULE BY MOUTH EVERY 8 HOURS UNTIL GONE amoxicillin 500 mg capsule TAKE 1 CAPSUL E BY MOUTH EVERY 8 HOURS UNTIL GONE complet ed amoxicillin 500 MG Oral Capsule [place] ([facility]) azelastine 137 mcg (0.1 %) nasal spray a erosol USE 1 TO 2 SPRAY(S) IN EACH NOSTRIL TWICE DAILY FOR 10 DAYS [id number] compl eted azelastine hydrochloride 0.137 MG/ACTUAT Metered Dose Nasal [place] [facility] ([facility]) lamotrigine 25 MG Oral Tablet lamotrigin e 25 mg tablet TAKE 2 TABLETS BY MOUTH ONCE DAILY . DO NOT EXCEED 2 PER 24 HOURS lamotrigine 25 mg tablet TAKE 2 TABLETS BY MOUTH ONCE DAILY . DO NOT EXCEED 2 PER 24 HOURS completed lamotrigine 25 MG Oral Tablet AT [facility] ([facility]) Prednisone 10 MG Oral Tablet prednisone 10 mg tablet TAKE FOUR TABLETS BY MOUTH ONCE DAILY. DECREASE BY 1 TABLET EVERY 3 DAYS. prednisone 10 mg tablet TAKE FOUR TABLETS BY MOUTH ONCE DAILY. DECREASE BY 1 TABLET EVERY 3 DAYS. completed prednisone 10 MG Oral Tablet ATH [facility] ([facility]) benzonatate 100 MG Oral Capsule benzonat ate 100 mg capsule TAKE 1 CAPSULE BY MOUTH THREE TIMES DAILY FOR 10 DAYS benzonatate 100 mg capsule TAKE 1 CAPSUL E BY MOUTH THREE TIMES DAILY FOR 10 DAYS c ompleted benzonatate 100 MG Oral Capsule [facility] ([facility]) Loryna (28) 3 mg-0.02 mg tablet [id number] completed Loryna (28) 3 mg-0.02 mg tablet [facility] ([facility]) Prednisone 10 MG Oral Tablet prednisone 10 mg tablet TAKE FOUR TABLETS BY MOUTH ONCE DAILY. DECREASE BY 1 TABLET EVERY 3 DAYS. prednisone 10 mg tablet TAKE FOUR TABLETS BY MOUTH ONCE DAILY. DECREASE BY 1 TABLET EVERY 3 DAYS. completed prednisone 10 MG Oral Tablet [facility] ([facility]) Cefuroxime 500 MG Oral Tablet cefuroxime axetil 500 mg tablet TAKE 1 TABLET BY MOUTH TWICE DAILY FOR 5 DAYS cefuroxime axetil 500 mg tablet TAKE 1 T ABLET BY MOUTH TWICE DAILY FOR 5 DAYS completed cefuroxime 500 MG Oral Tablet [place] ([facility]) Hydroxyzine Pamoate 25 MG Oral Capsule hydroxyzine johnny oate 25 mg capsule hydroxyzine pamoate 25 mg capsule comp leted hydroxyzine pamoate 25 MG Oral Capsule [facility] ([facility]) Clindamycin 300 MG Oral Capsule clindamy madeleine HCl 300 mg capsule TAKE 1 CAPSULE BY MOUTH THREE TIMES DAILY FOR 10 DAYS clindamycin HCl 300 mg capsule TAKE 1 CAPSULE BY MOUTH THREE TIMES DAILY FOR 10 DAYS completed clindamycin 300 MG Oral Capsule [facility] ([facility]) Levothyroxine Sodium 0.125 MG Oral Table t [Euthyrox] Euthyrox 125 mcg tablet TAKE 1 TABLET BY MOUTH IN THE MORNING Euthyrox 125 mcg tablet TAKE 1 TABLET BY MOUTH IN THE MORNING completed levothyroxine sodium 0.125 MG Oral Tablet [Euthyrox] [facility] ([facility]) azelastine 137 mcg (0.1 %) nasal spray a erosol USE 1 TO 2 SPRAY(S) IN EACH NOSTRIL TWICE DAILY FOR 10 DAYS [id number] compl eted azelastine hydrochloride 0.137 MG/ACTUAT Metered Dose Nasal [place] [facility] ([facility]) Azithromycin 500 MG Oral Tablet azithrom ycin 500 mg tablet TAKE 1 TABLET BY MOUTH ONCE DAILY FOR 3 DAYS azithromycin 500 mg tablet TAKE 1 TABLET BY MOUTH ONCE DAILY FOR 3 DAYS completed azithromycin 500 MG Oral Tablet [place] ([facility]) Clonazepam 0.5 MG Oral Tablet clonazepam 0.5 mg tablet clona zepam 0.5 mg tablet completed clonazepam 0.5 MG Oral Tablet [facility] ([facility]) Prednisone 10 MG Oral Tablet prednisone 10 mg tablet TAKE FOUR TABLETS BY MOUTH ONCE DAILY. DECREASE BY 1 TABLET EVERY 3 DAYS. prednisone 10 mg tablet TAKE FOUR TABLETS BY MOUTH ONCE DAILY. DECREASE BY 1 TABLET EVERY 3 DAYS. completed prednisone 10 MG Oral Tablet A[facility] ([facility]) Hydroxyzine Pamoate 25 MG Oral Capsule hydroxyzine johnny oate 25 mg capsule hydroxyzine pamoate 25 mg capsule comp leted hydroxyzine pamoate 25 MG Oral Capsule [place] ([facility]) Famotidine 40 MG Oral Tablet famotidine 40 mg tablet famotidine 40 mg tablet completed famotidine 40 MG Oral Tablet [facility] ([facility]) methylprednisolone 4 mg tablets in a dose pack TAKE DIRECTED [id number] completed methylprednisolone 4 mg t ablets in a dose pack [facility] ([facility]) lamotrigine 100 MG Oral Tablet lamotrigi ne 100 mg tablet TAKE 2 TABLETS BY MOUTH ONCE DAILY lamotrigine 100 mg tablet TAKE 2 TABLETS BY MOUTH ONCE DAILY completed lamotrigine 100 MG O ral Tablet [facility] ([facility]) Amoxicillin 875 MG Oral Tablet amoxicill in 875 mg tablet TAKE 1 TABLET BY MOUTH TWICE DAILY amoxicillin 875 mg tablet TAKE 1 TABLET BY MOUTH TWICE DAILY completed amoxicillin 875 MG O ral Tablet [facility] ([facility]) Cefuroxime 500 MG Oral Tablet cefuroxime axetil 500 mg tablet TAKE 1 TABLET BY MOUTH TWICE DAILY FOR 5 DAYS cefuroxime axetil 500 mg tablet TAKE 1 T ABLET BY MOUTH TWICE DAILY FOR 5 DAYS completed cefuroxime 500 MG Oral Tablet [place] ([facility]) azelastine 137 mcg (0.1 %) nasal spray a erosol USE 1 TO 2 SPRAY(S) IN EACH NOSTRIL TWICE DAILY FOR 10 DAYS [id number] compl eted azelastine hydrochloride 0.137 MG/ACTUAT Metered Dose Nasal [place] [facility] ([facility]) methylphenidate LA 20 mg biphasic 50-50 capsule,extended release 75099 3 completed 50/50 Release 2 4 HR methylphenidate hydrochloride 20 MG Extended Release Oral Capsule [place] ([facility]) Fluoxetine 40 MG Oral Capsule fluoxetine 40 mg capsule TAKE 1 CAPSULE BY MOUTH ONCE DAILY . DO NOT EXCEED 1 PER 24 HOURS fluoxetine 40 mg capsule TAKE 1 CAPSULE BY MOUTH ONCE DAILY . DO NOT EXCEED 1 PER 24 HOURS completed fluoxetine 40 MG Oral Capsule AT [facility] [place] ([facility]) Azithromycin 500 MG Oral Tablet azithrom ycin 500 mg tablet TAKE 1 TABLET BY MOUTH ONCE DAILY FOR 3 DAYS azithromycin 500 mg tablet TAKE 1 TABLET BY MOUTH ONCE DAILY FOR 3 DAYS completed azithromycin 500 MG Oral Tablet [facility] ([facility]) Prednisone 10 MG Oral Tablet prednisone 10 mg tablet TAKE FOUR TABLETS BY MOUTH ONCE DAILY. DECREASE BY 1 TABLET EVERY 3 DAYS. prednisone 10 mg tablet TAKE FOUR TABLETS BY MOUTH ONCE DAILY. DECREASE BY 1 TABLET EVERY 3 DAYS. completed prednisone 10 MG Oral Tablet ATH [facility] ([facility]) Hydroxyzine Pamoate 25 MG Oral Capsule hydroxyzine johnny oate 25 mg capsule hydroxyzine pamoate 25 mg capsule comp leted hydroxyzine pamoate 25 MG Oral Capsule [facility] ([facility]) benzonatate 200 MG Oral Capsule benzonat ate 200 mg capsule TAKE 1 CAPSULE BY MOUTH THREE TIMES DAILY NEEDED FOR SEVERE COUGH benzonatate 200 mg capsule TAKE 1 CAPSULE BY MOUTH THREE TIMES DAILY NEEDED FOR SEVERE COUGH completed benzonatate 200 MG Oral Caps ule [place] ([facility]) lamotrigine 100 MG Oral Tablet lamotrigi ne 100 mg tablet TAKE 2 TABLETS BY MOUTH ONCE DAILY lamotrigine 100 mg tablet TAKE 2 TABLETS BY MOUTH ONCE DAILY completed lamotrigine 100 MG O ral Tablet [facility] ([facility]) Amoxicillin 875 MG Oral Tablet amoxicill in 875 mg tablet TAKE 1 TABLET BY MOUTH TWICE DAILY amoxicillin 875 mg tablet TAKE 1 TABLET BY MOUTH TWICE DAILY completed amoxicillin 875 MG O ral Tablet AL[facility] ([facility]) methylphenidate LA 20 mg biphasic 50-50 capsule,extended release 99604 3 completed 50/50 Release 2 4 HR methylphenidate hydrochloride 20 MG Extended Release Oral Capsule [facility] ([facility]) Azithromycin 500 MG Oral Tablet azithrom ycin 500 mg tablet TAKE 1 TABLET BY MOUTH ONCE DAILY FOR 3 DAYS azithromycin 500 mg tablet TAKE 1 TABLET BY MOUTH ONCE DAILY FOR 3 DAYS completed azithromycin 500 MG Oral Tablet [facility] ([facility]) Levothyroxine Sodium 0.125 MG Oral Table t [Euthyrox] Euthyrox 125 mcg tablet TAKE 1 TABLET BY MOUTH IN THE MORNING Euthyrox 125 mcg tablet TAKE 1 TABLET BY MOUTH IN THE MORNING completed levothyroxine sodium 0.125 MG Oral Tablet [Euthyrox] [place] ([facility]) Levothyroxine Sodium 0.125 MG Oral Table t [Euthyrox] Euthyrox 125 mcg tablet TAKE 1 TABLET BY MOUTH IN THE MORNING Euthyrox 125 mcg tablet TAKE 1 TABLET BY MOUTH IN THE MORNING completed levothyroxine sodium 0.125 MG Oral Tablet [Euthyrox] [facility] ([facility]) rivaroxaban 15 MG Oral Tablet [Xarelto] Xarelto 15 mg tablet TAKE 1 TABLET BY MOUTH TWICE DAILY DAYS 1 THRU 21. BOTTLE 1 . PRESCRIPTION 1 OF 2. Xarelto 15 mg tablet TAKE 1 TABLET BY MOUTH TWICE DAILY DAYS 1 THRU 21. BOTTLE 1 . PRESCRIPTION 1 OF 2. completed rivaroxaban 15 MG Oral Tablet [Xarelto] [place] ([facility]) Azithromycin 250 MG Oral Tablet azithrom ycin 250 mg tablet TAKE 2 TABLETS BY MOUTH ON DAY 1 AND THEN TAKE 1 TABLET BY MOUTH ONCE A DAY ON DAY 2 THROUGH DAY 5 azithromycin 250 mg tablet TAKE 2 TABLET S BY MOUTH ON DAY 1 AND THEN TAKE 1 TABLET BY MOUTH ONCE A DAY ON DAY 2 THROUGH DAY 5 completed azithromycin 250 MG Oral Tablet [place] ([facility]) methylphenidate LA 20 mg biphasic 50-50 capsule,extended release 06390 3 completed 50/50 Release 2 4 HR methylphenidate hydrochloride 20 MG Extended Release Oral Capsule [place] ([facility]) Hydroxyzine Pamoate 25 MG Oral Capsule hydroxyzine johnny oate 25 mg capsule hydroxyzine pamoate 25 mg capsule comp leted hydroxyzine pamoate 25 MG Oral Capsule [facility] ([facility]) Clonazepam 0.5 MG Oral Tablet clonazepam 0.5 mg tablet clona zepam 0.5 mg tablet completed clonazepam 0.5 MG Oral Tablet [facility] ([facility]) Azithromycin 500 MG Oral Tablet azithrom ycin 500 mg tablet TAKE 1 TABLET BY MOUTH ONCE DAILY FOR 3 DAYS azithromycin 500 mg tablet TAKE 1 TABLET BY MOUTH ONCE DAILY FOR 3 DAYS completed azithromycin 500 MG Oral Tablet [place] ([facility]) Acetaminophen 325 MG Oral Tablet acetami nophen 325 mg tablet TAKE 1 TABLET BY MOUTH EVERY 6 HOURS NEEDED FOR PAIN acetaminophen 325 mg tablet TAKE 1 TABLE T BY MOUTH EVERY 6 HOURS NEEDED FOR PAIN completed acetaminophen 325 MG Oral Tablet [place] ([facility]) Prednisone 20 MG Oral Tablet prednisone 20 mg tablet TAKE 2 TABLETS BY MOUTH IN THE MORNING FOR 5 DAYS prednisone 20 mg tablet TAKE 2 TABLETS B Y MOUTH IN THE MORNING FOR 5 DAYS completed pre dnisone 20 MG Oral Tablet [place] ([facility]) Clindamycin 300 MG Oral Capsule clindamy madeleine HCl 300 mg capsule TAKE 1 CAPSULE BY MOUTH THREE TIMES DAILY FOR 10 DAYS clindamycin HCl 300 mg capsule TAKE 1 CAPSULE BY MOUTH THREE TIMES DAILY FOR 10 DAYS completed clindamycin 300 MG Oral Capsule [place] ([facility]) Levothyroxine Sodium 0.15 MG Oral Tablet levothyroxine 150 mcg tablet levothyroxine 150 mcg tablet completed levothyroxine sodium 0.15 MG Oral Tablet [place] ([facility]) Amoxicillin 500 MG Oral Capsule amoxicil john 500 mg capsule TAKE 1 CAPSULE BY MOUTH EVERY 8 HOURS UNTIL GONE amoxicillin 500 mg capsule TAKE 1 CAPSUL E BY MOUTH EVERY 8 HOURS UNTIL GONE complet ed amoxicillin 500 MG Oral Capsule [place] ([facility]) Cefuroxime 500 MG Oral Tablet cefuroxime axetil 500 mg tablet TAKE 1 TABLET BY MOUTH TWICE DAILY FOR 5 DAYS cefuroxime axetil 500 mg tablet TAKE 1 T ABLET BY MOUTH TWICE DAILY FOR 5 DAYS completed cefuroxime 500 MG Oral Tablet [place] ([facility]) azelastine 137 mcg (0.1 %) nasal spray a erosol USE 1 TO 2 SPRAY(S) IN EACH NOSTRIL TWICE DAILY FOR 10 DAYS [id number] compl eted azelastine hydrochloride 0.137 MG/ACTUAT Metered Dose Nasal [place] [facility] ([facility]) Amphetamine aspartate 1.25 MG / Amphetam ine Sulfate 1.25 MG / Dextroamphetamine saccharate 1.25 MG / Dextroamphetamine Sulfate 1.25 MG Oral Tablet dextroamphetamine-amphetamine 5 mg tablet dextroamphetamine-amphetamine 5 mg tablet completed ampheta mine aspartate 1.25 MG / amphetamine sulfate 1.25 MG / dextroamphetamine saccharate 1.25 MG / dextroamphetamine sulfate 1.25 MG Oral Tablet [facility] ([facility]) lamotrigine 25 MG Oral Tablet lamotrigin e 25 mg tablet TAKE 2 TABLETS BY MOUTH ONCE DAILY . DO NOT EXCEED 2 PER 24 HOURS lamotrigine 25 mg tablet TAKE 2 TABLETS BY MOUTH ONCE DAILY . DO NOT EXCEED 2 PER 24 HOURS completed lamotrigine 25 MG Oral Tablet AT [facility] [place] ([facility]) Prednisone 10 MG Oral Tablet prednisone 10 mg tablet TAKE FOUR TABLETS BY MOUTH ONCE DAILY. DECREASE BY 1 TABLET EVERY 3 DAYS. prednisone 10 mg tablet TAKE FOUR TABLETS BY MOUTH ONCE DAILY. DECREASE BY 1 TABLET EVERY 3 DAYS. completed prednisone 10 MG Oral Tablet ATH [facility] ([facility]) Fluoxetine 20 MG Oral Capsule fluoxetine 20 mg capsule TAKE 1 CAPSULE BY MOUTH IN THE MORNING fluoxetine 20 mg capsule TAKE 1 CAPSULE BY MOUTH IN E MORNING completed fluoxetine 20 MG Oral Capsule [facility] ([facility]) Azithromycin 500 MG Oral Tablet azithrom ycin 500 mg tablet TAKE 1 TABLET BY MOUTH ONCE DAILY FOR 3 DAYS azithromycin 500 mg tablet TAKE 1 TABLET BY MOUTH ONCE DAILY FOR 3 DAYS completed azithromycin 500 MG Oral Tablet [facility] ([facility]) Prazosin 1 MG Oral Capsule prazosin 1 mg capsule TAKE 1 CAPSULE BY MOUTH ONCE DAILY AT BEDTIME prazosin 1 mg capsule TAKE 1 CAPSULE BY MOUTH ONCE DAILY AT BEDTIME completed prazosin 1 MG Oral Capsule [facility] ([facility]) Azithromycin 250 MG Oral Tablet azithrom ycin 250 mg tablet TAKE 2 TABLETS BY MOUTH ON DAY 1 AND THEN TAKE 1 TABLET BY MOUTH ONCE A DAY ON DAY 2 THROUGH DAY 5 azithromycin 250 mg tablet TAKE 2 TABLET S BY MOUTH ON DAY 1 AND THEN TAKE 1 TABLET BY MOUTH ONCE A DAY ON DAY 2 THROUGH DAY 5 completed azithromycin 250 MG Oral Tablet [facility] ([facility]) Amoxicillin 875 MG Oral Tablet amoxicill in 875 mg tablet TAKE 1 TABLET BY MOUTH TWICE DAILY amoxicillin 875 mg tablet TAKE 1 TABLET BY MOUTH TWICE DAILY completed amoxicillin 875 MG O ral Tablet [facility] ([facility]) Loryna (28) 3 mg-0.02 mg tablet TAKE 1 TABLET BY MOUTH ONCE DAILY [id number] completed Loryna (28) 3 mg-0.0 2 mg tablet [facility] ([facility]) lamotrigine 100 MG Oral Tablet lamotrigi ne 100 mg tablet TAKE 2 TABLETS BY MOUTH ONCE DAILY lamotrigine 100 mg tablet TAKE 2 TABLETS BY MOUTH ONCE DAILY completed lamotrigine 100 MG O ral Tablet [facility] ([facility]) Amoxicillin 500 MG Oral Capsule amoxicil john 500 mg capsule TAKE 1 CAPSULE BY MOUTH EVERY 8 HOURS UNTIL GONE amoxicillin 500 mg capsule TAKE 1 CAPSUL E BY MOUTH EVERY 8 HOURS UNTIL GONE complet ed amoxicillin 500 MG Oral Capsule [place] ([facility]) Prazosin 1 MG Oral Capsule prazosin 1 mg capsule TAKE 1 CAPSULE BY MOUTH ONCE DAILY AT BEDTIME prazosin 1 mg capsule TAKE 1 CAPSULE BY MOUTH ONCE DAILY AT BEDTIME completed prazosin 1 MG Oral Capsule [facility] ([facility]) lamotrigine 25 MG Oral Tablet lamotrigin e 25 mg tablet TAKE 2 TABLETS BY MOUTH ONCE DAILY . DO NOT EXCEED 2 PER 24 HOURS lamotrigine 25 mg tablet TAKE 2 TABLETS BY MOUTH ONCE DAILY . DO NOT EXCEED 2 PER 24 HOURS completed lamotrigine 25 MG Oral Tablet AT [facility] [place] ([facility]) Clonazepam 0.5 MG Oral Tablet clonazepam 0.5 mg tablet clona zepam 0.5 mg tablet completed clonazepam 0.5 MG Oral Tablet [facility] ([facility]) Prazosin 1 MG Oral Capsule prazosin 1 mg capsule TAKE 1 CAPSULE BY MOUTH ONCE DAILY AT BEDTIME prazosin 1 mg capsule TAKE 1 CAPSULE BY MOUTH ONCE DAILY AT BEDTIME completed prazosin 1 MG Oral Capsule [facility] ([facility]) chlorhexidine gluconate 1.2 MG/ML Mouthw tay chlorhexidine gluconate 0.12 % mouthwash RINSE MOUTH WITH 15ML (1 CAPFUL) FOR 30 SECONDS IN THE MORNING AND EVENING AFTER TOOTHBRUSHING. SPIT OUT AFTER RINSING. DO NOT SWALLOW. chlorhexidine gluconate 0.12 % mouthwash RINSE MOUTH WITH 15ML (1 CAPFUL) FOR 30 SECONDS IN THE MORNING AND EVENING AFTER TOOTHBRUSHING. SPIT OUT AFTER RINSING. DO NOT SWALLOW. completed chlorhexidine gluconate 1.2 MG/ML Mouthwash [facility] ([facility]) Prednisone 20 MG Oral Tablet prednisone 20 mg tablet TAKE 2 TABLETS BY MOUTH IN THE MORNING FOR 5 DAYS prednisone 20 mg tablet TAKE 2 TABLETS B Y MOUTH IN THE MORNING FOR 5 DAYS completed pre dnisone 20 MG Oral Tablet [facility] ([facility]) naproxen sod 220mg tab TAKE 2 TABLETS B Y MOUTH TWICE DAILY NEEDED FOR PAIN FOR 10 DAYS completed napr oxen sod 220mg tab [facility] ([facility]) Amphetamine aspartate 1.25 MG / Amphetam ine Sulfate 1.25 MG / Dextroamphetamine saccharate 1.25 MG / Dextroamphetamine Sulfate 1.25 MG Oral Tablet dextroamphetamine-amphetamine 5 mg tablet dextroamphetamine-amphetamine 5 mg tablet completed ampheta mine aspartate 1.25 MG / amphetamine sulfate 1.25 MG / dextroamphetamine saccharate 1.25 MG / dextroamphetamine sulfate 1.25 MG Oral Tablet [facility] ([facility]) chlorhexidine gluconate 1.2 MG/ML Mouthw tay chlorhexidine gluconate 0.12 % mouthwash RINSE MOUTH WITH 15ML (1 CAPFUL) FOR 30 SECONDS IN THE MORNING AND EVENING AFTER TOOTHBRUSHING. SPIT OUT AFTER RINSING. DO NOT SWALLOW. chlorhexidine gluconate 0.12 % mouthwash RINSE MOUTH WITH 15ML (1 CAPFUL) FOR 30 SECONDS IN THE MORNING AND EVENING AFTER TOOTHBRUSHING. SPIT OUT AFTER RINSING. DO NOT SWALLOW. completed chlorhexidine gluconate 1.2 MG/ML Mouthwash AL[facility] ([facility]) lamotrigine 100 MG Oral Tablet lamotrigi ne 100 mg tablet TAKE 2 TABLETS BY MOUTH ONCE DAILY lamotrigine 100 mg tablet TAKE 2 TABLETS BY MOUTH ONCE DAILY completed lamotrigine 100 MG O ral Tablet [facility] ([facility]) benzonatate 200 MG Oral Capsule benzonat ate 200 mg capsule TAKE 1 CAPSULE BY MOUTH THREE TIMES DAILY NEEDED FOR SEVERE COUGH benzonatate 200 mg capsule TAKE 1 CAPSULE BY MOUTH THREE TIMES DAILY NEEDED FOR SEVERE COUGH completed benzonatate 200 MG Oral Caps ule [facility] ([facility]) Famotidine 40 MG Oral Tablet famotidine 40 mg tablet famotidine 40 mg tablet completed famotidine 40 MG Oral Tablet [facility] ([facility]) Metformin hydrochloride 500 MG Oral Tablet metformin 5 00 mg tablet metformin 500 mg tablet completed metformin h ydrochloride 500 MG Oral Tablet [facility] ([facility]) Cefuroxime 500 MG Oral Tablet cefuroxime axetil 500 mg tablet TAKE 1 TABLET BY MOUTH TWICE DAILY FOR 5 DAYS cefuroxime axetil 500 mg tablet TAKE 1 T ABLET BY MOUTH TWICE DAILY FOR 5 DAYS completed cefuroxime 500 MG Oral Tablet [facility] ([facility]) Prednisone 20 MG Oral Tablet prednisone 20 mg tablet TAKE 2 TABLETS BY MOUTH IN THE MORNING FOR 5 DAYS prednisone 20 mg tablet TAKE 2 TABLETS B Y MOUTH IN THE MORNING FOR 5 DAYS completed pre dnisone 20 MG Oral Tablet [facility] ([facility]) benzonatate 200 MG Oral Capsule benzonat ate 200 mg capsule TAKE 1 CAPSULE BY MOUTH THREE TIMES DAILY NEEDED FOR SEVERE COUGH benzonatate 200 mg capsule TAKE 1 CAPSULE BY MOUTH THREE TIMES DAILY NEEDED FOR SEVERE COUGH completed benzonatate 200 MG Oral Caps ule [place] ([facility]) Amoxicillin 500 MG Oral Capsule amoxicil john 500 mg capsule TAKE 1 CAPSULE BY MOUTH EVERY 8 HOURS UNTIL GONE amoxicillin 500 mg capsule TAKE 1 CAPSUL E BY MOUTH EVERY 8 HOURS UNTIL GONE complet ed amoxicillin 500 MG Oral Capsule [facility] ([facility]) methylphenidate LA 20 mg biphasic 50-50 capsule,extended release [id number] 3 completed 50/50 Release 2 4 HR methylphenidate hydrochloride 20 MG Extended Release Oral Capsule [facility] ([facility] [facility]) Azithromycin 500 MG Oral Tablet azithrom ycin 500 mg tablet TAKE 1 TABLET BY MOUTH ONCE DAILY FOR 3 DAYS azithromycin 500 mg tablet TAKE 1 TABLET BY MOUTH ONCE DAILY FOR 3 DAYS completed azithromycin 500 MG Oral Tablet [facility] ([facility]) Clindamycin 300 MG Oral Capsule clindamy madeleine HCl 300 mg capsule TAKE 1 CAPSULE BY MOUTH THREE TIMES DAILY FOR 10 DAYS clindamycin HCl 300 mg capsule TAKE 1 CAPSULE BY MOUTH THREE TIMES DAILY FOR 10 DAYS completed clindamycin 300 MG Oral Capsule [facility] ([facility]) Amphetamine aspartate 1.25 MG / Amphetam ine Sulfate 1.25 MG / Dextroamphetamine saccharate 1.25 MG / Dextroamphetamine Sulfate 1.25 MG Oral Tablet dextroamphetamine-amphetamine 5 mg tablet dextroamphetamine-amphetamine 5 mg tablet completed ampheta mine aspartate 1.25 MG / amphetamine sulfate 1.25 MG / dextroamphetamine saccharate 1.25 MG / dextroamphetamine sulfate 1.25 MG Oral Tablet [facility] ([facility]) Clindamycin 300 MG Oral Capsule clindamy madeleine HCl 300 mg capsule TAKE 1 CAPSULE BY MOUTH THREE TIMES DAILY FOR 10 DAYS clindamycin HCl 300 mg capsule TAKE 1 CAPSULE BY MOUTH THREE TIMES DAILY FOR 10 DAYS completed clindamycin 300 MG Oral Capsule [facility] ([facility]) Prednisone 20 MG Oral Tablet prednisone 20 mg tablet TAKE 2 TABLETS BY MOUTH IN THE MORNING FOR 5 DAYS prednisone 20 mg tablet TAKE 2 TABLETS B Y MOUTH IN THE MORNING FOR 5 DAYS completed pre dnisone 20 MG Oral Tablet [facility] ([facility]) chlorhexidine gluconate 1.2 MG/ML Mouthw tay chlorhexidine gluconate 0.12 % mouthwash RINSE MOUTH WITH 15ML (1 CAPFUL) FOR 30 SECONDS IN THE MORNING AND EVENING AFTER TOOTHBRUSHING. SPIT OUT AFTER RINSING. DO NOT SWALLOW. chlorhexidine gluconate 0.12 % mouthwash RINSE MOUTH WITH 15ML (1 CAPFUL) FOR 30 SECONDS IN THE MORNING AND EVENING AFTER TOOTHBRUSHING. SPIT OUT AFTER RINSING. DO NOT SWALLOW. completed chlorhexidine gluconate 1.2 MG/ML Mouthwash [facility] ([facility]) Clonazepam 0.5 MG Oral Tablet clonazepam 0.5 mg tablet clona zepam 0.5 mg tablet completed clonazepam 0.5 MG Oral Tablet [facility] ([facility]) Fluoxetine 40 MG Oral Capsule fluoxetine 40 mg capsule TAKE 1 CAPSULE BY MOUTH ONCE DAILY . DO NOT EXCEED 1 PER 24 HOURS fluoxetine 40 mg capsule TAKE 1 CAPSULE BY MOUTH ONCE DAILY . DO NOT EXCEED 1 PER 24 HOURS completed fluoxetine 40 MG Oral Capsule AT [facility]) Fluoxetine 20 MG Oral Capsule fluoxetine 20 mg capsule TAKE 1 CAPSULE BY MOUTH IN THE MORNING fluoxetine 20 mg capsule TAKE 1 CAPSULE BY MOUTH IN MORNING completed fluoxetine 20 MG Oral Capsule [facility]) Amoxicillin 875 MG Oral Tablet amoxicill in 875 mg tablet TAKE 1 TABLET BY MOUTH TWICE DAILY amoxicillin 875 mg tablet TAKE 1 TABLET BY MOUTH TWICE DAILY completed amoxicillin 875 MG O ral Tablet [facility] ([facility]) Hydroxyzine Pamoate 25 MG Oral Capsule hydroxyzine johnny oate 25 mg capsule hydroxyzine pamoate 25 mg capsule comp leted hydroxyzine pamoate 25 MG Oral Capsule [facility] ([facility]) lamotrigine 25 MG Oral Tablet lamotrigin e 25 mg tablet TAKE 2 TABLETS BY MOUTH ONCE DAILY . DO NOT EXCEED 2 PER 24 HOURS lamotrigine 25 mg tablet TAKE 2 TABLETS BY MOUTH ONCE DAILY . DO NOT EXCEED 2 PER 24 HOURS completed lamotrigine 25 MG Oral Tablet AT [facility] ([facility]) Loryna (28) 3 mg-0.02 mg tablet [id number] completed Loryna (28) 3 mg-0.02 mg tablet [facility]) Amphetamine aspartate 1.25 MG / Amphetam ine Sulfate 1.25 MG / Dextroamphetamine saccharate 1.25 MG / Dextroamphetamine Sulfate 1.25 MG Oral Tablet dextroamphetamine-amphetamine 5 mg tablet dextroamphetamine-amphetamine 5 mg tablet completed ampheta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 02/20/2021 23:16 Patient: THAIS SANDERS Sex: F : 1995 Age: 25yWeight: 113.3 kgHeight/Length: 63 in.BMI: 44.3ALLERGIES: No Known Drug AllergyThe patient's Home Medications are listed below:CONTINUE TAKING THE FOLLOWING MEDICATIONS: Adderall Oral 10 mg, daily clonazePAM Oral 0.5 mg, 3x a day, prn Levothyroxine Sodium Oral (175 mcg), daily Spironolactone Oral (100 mg) 2, daily Xarelto Oral (20 mg) 1 tablet, dailyThe source(s) of the original Home Medication information:Not obtained.The following Medications were given to the patient in the Emergency Department:None.The following Medications were prescribed to the patient:None. Name Value Range Interpretation Code Description Data Gladis elaina(s) Supporting Document(s) ID Date Data Source [id number] 02/20/2021 11:20:00 PM EDT [place] [address] Medication Administration Record [facility] Emergency Department [address] [place] [address] Phone #: ext- [phone] 02/20/2021 23:16 Patient: THAIS SANDERS Sex: F : 1995 Age: 25yWeight: 113.3 kgHeight/Length: 63 inBMI: 44.3ALLERGIES: No Known Drug AllergyDate/Time Medication Administered Medication Ordered Name Value Range Interpretation Code Description Data Gladis e(s) Supporting Document(s) ID Date Data Source [id number] 02/20/2021 11:20:00 PM EDT [facility] 1 General Instructions [facility] Emergency Department [address] [place] [address] Phone #: ext- [phone] 02/20/2021 23:16 Patient: THAIS SANDERS [facility]#: [id number] Sex: F : 1995 Age: 25yMuscle strain of the posterior aspect of the right lower leg (right post. knee).INSTRUCTIONSApply ice for 30 minutes four times a day for two days followed by moist heat 30 minutes four times a dayfor five days. Don't apply ice directly to skin, don't use while asleep and don't use high setting on heatingpad. Elevate affected areas above chest level as needed. No strenuous activity until better. You maywalk and bear weight as tolerated.Follow a low salt diet and low cholesterol diet. Do not smoke. No alcohol.Warnings: Further evaluation is necessary. It is very important to follow up with a healthcare provider.GENERAL WARNINGS: Return or contact your physician immediately if your condition worsens orchanges unexpectedly, if not improving as expected, or if other problems arise. Specifically return if pain,vomiting, bleeding, breathing difficulty or fever greater than 102 degrees F and not controlled byacetaminophen or ibuprofen.Your Current Medications: Your current home medications have been reviewed.CONTINUE TAKING THE FOLLOWING MEDICATIONS:Adderall Oral : 10 mg daily.clonazePAM Oral : 0.5 mg 3x a day, prn.Levothyroxine Sodium Oral : Tablet 175 mcg, daily.Spironolactone Oral : Tablet 100 mg, 2 daily.Xarelto Oral : Tablet 20 mg, 1 tablet daily.Follow- up:Return to the emergency department as needed. Follow up with your healthcare provider in five dayseven if well. Call for an appointment. Reason for referral: evaluation and treatment. Summary of careprovided to patient via paper. Follow up with an orthopedic surgeon in five days if not better. Call for anappointment. Reason for referral: evaluation and treatment. Summary of care provided to patient via paper.Understanding of the discharge instructions verbalized by patient. Expected course of injury, dischargeinstructions, activity level, diet, follow-up appointment and risks and benefits of treatment reviewed withpatient and understanding verbalized. Agrees to plan of care.Follow-up with: [facility], , , [address], ,[place], [address] Follow up in five days if not better. Call for an appointment. Reason for referral: evaluation and treatment.Summary of care provided to patient via paper. 2 General Instructions [facility] Emergency Department [address] [place] [address] Phone #: ext- [phone] 02/20/2021 23:16 Patient: THAIS SANDERS Sex: F : 1995 Age: 25y ADDITIONAL INFORMATIONMuscle Strain in the ExtremitiesA muscle strain is a stretching and tearing of muscle fibers. This causes pain, especially when youmove that muscle. There may also be some swelling and bruising.Home care Keep the hurt area raised above heart level to reduce pain and swelling. This is especially important during the first 48 hours. Apply an ice pack over the injured area for 15 to 20 minutes every 3 to 6 hours. You should do this for the first 24 to 48 hours. You can make an ice pack by filling a plastic bag that seals at the top with ice cubes and then wrapping it with a thin towel. Be careful not to injure your skin with the ice treatments. Ice should never be applied directly to skin. Continue the use of ice packs for relief of pain and swelling as needed. After 48 hours, apply heat (warm shower or warm bath) for 15 to 20 minutes several times a day, or alternate ice and heat. You may use bfpf-vzf-hwufyxb pain medicine to control pain, unless another medicine was prescribed. If you have chronic liver or kidney disease or ever had a stomach ulcer or gastrointestinal bleeding, talk with your healthcare provider before using these medicines. For leg strains: If crutches have been recommended, don't put full weight on the hurt leg until you can do so without pain. You can return to sports when you are able to hop and run on the injured leg without pain.Follow-up careFollow up with your healthcare provider, or as advised.When to seek medical adviceCall your healthcare provider right away if any of these occur: The toes of the injured leg become swollen, cold, blue, numb, or tingly Pain or swelling increases [id number] [employer]. [address] [place] [address]. All rights reserved. This information is not intended as asubstitute for professional medical care. Always follow your healthcare professional's in structions. You have been given the following additional information: 3 General Instructions [facility] Emergency Department [address] [place] [address] Phone #: ext- [phone] 02/20/2021 23:16 Patient: THAIS SANDERS Sex: F : 1995 Age: 25yMuscle Strain, ExtremityNo strenuous activity until better. You may walk and bear weight as tolerated.(Electronically signed by Lyle Pat M.D. 02/21/2021 02:52) Name Value Range Interpretation Code Description Data Gladis rce(s) Supporting Document(s) ID Date Data Source [id number] 02/20/2021 11:20:00 PM EDT [facility] 1 Clinical Report - Nurses [facility] Emergency Department [address] [place] [address] Phone #: ext- [phone] 02/20/2021 23:16 Patient: THAIS SANDERS Sex: F : 1995 Age: 25yTRIAGEArrived by private vehicle. Historian: patient. ( pt c/o right leg pain mostly in calf x 1 week hx of a DVT).Acuity: LEVEL 3.Chief Complaint: RIGHT LOWER EXTREMITY PAIN.No injury occurred. Onset. (1 weeks).Treatment SEO ASSOCIATE:None. --23:35 02/20/21 Jenni Valadez R.N.23:32 02/20/21. BP: 137/95. MAP: 109. HR: 107. RR: 16. O2 saturation: 99% on room air. Temp: 98.6 F(oral). Pain level now: 08/13. --23:35 02/20/21 Jenni Valadez R.N.Weight: 113.3 kg stated. Height/Length: 63 inches Per Patient. BMI: 44.3. --23:35 02/20/21 Jenni Valadez R.N.MedicationsAdderall Oral 10 mg, daily. clonazePAM Oral 0.5 mg, 3x a day as needed. Levothyroxine Sodium Oral (Tablet 175 mcg), daily. Spironolactone Oral (Tablet 100 mg) 2, daily. --23:33 02/20/21 Jenni Valadez R.N. Xarelto Oral (Tablet 20 mg) 1 tablet, daily. --23:34 02/20/21 Jenni Valadez R.N.AllergiesNo Known Drug Allergy. --23:33 02/20/21 Jenni Valadez R.N.PROBLEMS:Dental Pain.ADHD - Attention Deficit Hyperactivity Disorder.Anxiety Reaction.Anxiety Reaction.Pre diabetic.UTI - Urinary Tract Infection.Hypothyroidism.Polycystic Ovary Disease.Post depression. --23:34 02/20/21 Jenni Valadez R.N.DVT - Deep Venous Thrombosis: Onset 03/2020.Pulmonary Embolism: Onset 03/2020. --23:54 02/20/21 Lyle Pat M.D. 2 Clinical Report - Nurses [facility] Emergency Department [address] [place] [address] Phone #: ext- [phone] 02/20/2021 23:16 [id number] Sex[facility] F : 1995 Age: 25y The following entry was modified by Lyle Pat M.D., 23:54 02/20/21 DVT - Deep Venous Thrombosis. --23:33 02/20/21 Jenni Valadez R.N. The following entry was modified by Lyle Pat M.D., 23:54 02/20/21 Pulmonary Embolism. --23:33 02/20/21 Jenni Valadez R.N.. ADDITIONAL SURGERIES: Tonsillectomy. --23:34 02/20/21 Jenni Valadez R.N. History SOCIAL HX: Current every day smoker. No alcohol use or drug use. She was offered HIV testing but declined and hepatitis C testing but declined. She has not traveled outside the [place] Infectious disease exposure: No infectious disease exposure. SELF HARM ASSESSMENT: Self harm assessment was performed. The patient answered "no" to the question(s) "Have you recently felt down, depressed, or hopeless?" and "Do you have thoughts of harming or killing yourself?". ABUSE ASSESSMENT: No report of abuse. NUTRITIONAL RISK ASSESSMENT: The nutritional risk assessment revealed no deficiencies. FUNCTIONAL ASSESSMENT: Functional assessment: no impairments noted. LEARNING NEEDS ASSESSMENT: The learning needs assessment revealed no barriers. FALL RISK ASSESSMENT: Fall risk assessment completed. No risk factors identified. SKIN INTEGRITY ASSESSMENT: Skin integrity risk assessment completed. No skin integrity risk identified. --23:35 02/20/21 Jenni Valadez R.N.PHYSICAL ASSESSMENTGENERAL / NEURO / PSYCH: Oriented X 4. Alert. Appears in no acute distress.EXTREMITIES: Extremity pulses are within normal limits. Extremities exhibit normal ROM.Neuro-vascular status intact to the extremity. Normal gait. Right leg: tenderness.SKIN: Skin intact. Skin is warm and dry. --23:36 02/20/21 Jenni Valadez R.N.NURSING PROGRESS NOTESMonitoring of patient in place. Patient gowned. Reassurance given. Two patient identifiers checked.Call light placed in reach. Side rails up x 1. Bed placed in lowest position. Brakes of bed on. --23: Jenni Valadez R.N. Rounding: Pain: assessed pain level. Position: states comfortable. Personal care / toileting: denies toileting needs. Proximity of possessions / care items: call light within easy reach. Plug ins: located all cords, tubes, and lines to prevent fall hazard. Set expectations: advised patient of rounding protocol timing and asked if 3 Clinical Report - Nurses [facility] Emergency Department [address] [place] [address] Phone #: ext- [phone] 02/20/2021 23:16 Patient: THAIS SANDERS Sex: F : 1995 Age: 25y they needed anything else at this time. --00:50 02/21/21 Jenni Valadez R.N. Patient waiting for results. --00:50 02/21/21 Jenni Valadez R.N.DISPOSITION / DISCHARGE Discharge instructions provided and reviewed with the patient. Written instructions provided in Moroccan (pt left Prior To discharge instructions). --02:18 02/21/21 Jenni Valadez R.N. 02:17 02/21/21. BP not taken due to patient not present. HR not taken due to patient not present. RR not taken due to patient not present. O2 saturation not taken due to patient not present. Temp not taken due to patient not present. Pain lev el now not taken due to patient not present. --02:18 02/21/21 Jenni Valadez R.N. The patient was discharged home. She left ambulatory and via private vehicle. Patient driving. --02:18 02/21/21 Jenni Valadez R.N.Locked/Released at 02/21/2021 02:18 by Jenni Valadez R.N. Name Value Range Interpretation Code Description Data Gladis rce(s) Supporting Document(s) ID Date Data Source [id number] 02/20/2021 11:20:00 PM EDT [facility] 1 Clinical Report - Physicians/Mid Levels [facility] Emergency Department [address] [place] [address] Phone #: ext- [phone] 02/20/2021 23:16 Patient: THAIS SANDERS Sex: F : 1995 Age: 25y Time Seen: 23:44 02/20/2021; initial patient contact. Arrived- By private vehicle. Historian- patient. Disposition decision: 02:17 02/21/2021.HISTORY OF PRESENT ILLNESS Chief Complaint: LOWER EXTREMITY PAIN. Severity is described as being mild. The quality is noted to be dull and "pain". No radiation. This started 1 weeks ago and is still present. Modifying factors- worsened by walking. Relieved by lying down and remaining still. Symptoms located in the area of the right knee. The patient has not had redness. No swelling, bladder dysfunction, bowel dysfunction, sensory loss or motor loss. No difficulty walking. ( pain behind rt knee). Patient denies an injury. Similar symptoms previously. Patient has had similar symptoms once. ( in 03/2020, pt had PE 2nd to rt DVT, took Xarelto from 03/25 to 10/24 but benefits representative wanted an extra 6 months of Tx). Recent medical care: Not recently seen/assessed.REVIEW OF SYSTEMSNo cough, chest pain, difficulty breathing, fever or skin rash. No enlarged lymph nodes, neck pain, backpain, headache or blurred vision. No sore throat, abdominal pain, vomiting, diarrhea or black stools. Nodifficulty with urination or bloody stools. All other systems reviewed and are negative.PAST HISTORYSee nurses notes. Problems: DVT - Deep Venous Thrombosis. Pulmonary Embolism. ADHD - Attention Deficit Hyperactivity Disorder. Anxiety Reaction. UTI - Urinary Tract Infection. Hypothyroidism. Polycystic Ovary Disease. Post depression. Additional Surgeries: Tonsillectomy. Medications: Xarelto Oral (Tablet 20 mg) 1 tablet, daily. 2 Clinical Report - Physicians/Mid Levels [facility] Emergency Department [address] [place] [address] Phone #: ext- [phone] 02/20/2021 23:16 Patient: THAIS SANDERS Sex: F : 1995 Age: 25y Adderall Oral 10 mg, daily. clonazePAM Oral 0.5 mg, 3x a day as needed. Levothyroxine Sodium Oral (Tablet 175 mcg), daily. Spironolactone Oral (Tablet 100 mg) 2, daily. Allergies: No Known Drug Allergy.SOCIAL HISTORYLight tobacco smoker- less than 1/2 a pack per day. No alcohol use or drug use. No recent travel.ADDITIONAL NOTESThe nursing notes have been reviewed with agreement regarding the chief complaint, HPI, ROS, PMH andpatient medications and allergies.PHYSICAL EXAMVital Signs: 02/20/2021 23:32 BP: 137/95. MAP: 109. HR: 107. RR: 16. O2 saturation: 99% on room air.Temp: 98.6 F. Pain level now: 410. Have been reviewed. Oxygen saturation normal.Appearance: Alert. Oriented X3. No acute distress.Eyes: Pupils equal, round and reactive to light. Eyes normal inspection.ENT: Nose normal. Pharynx normal.Neck: Normal inspection. Neck supple.CVS: Normal heart rate and rhythm. Heart sounds normal.Respiratory: No respiratory distress. Painless inspiration. Breath sounds normal.Abdomen: Soft and nontender. No organomegaly.Back: Normal inspection. No tenderness. ROM normal.Skin: Skin intact. Skin warm and dry. Normal skin color. Normal skin turgor.Extremities: Right knee: mild tenderness located in the posterior knee. Neurovascular intact distally. Noligamentous laxity present. No joint effusion. No erythema, swelling, abrasion or ecchymosis. No limitationin ROM. No signs of infection involving the lower extremities. No lower extremity edema. No calftenderness. Extremities otherwise negative.Neuro, Vascular and Tendons: No pulse deficit present.Neuro: Oriented X 3. No motor deficit. No sensory deficit.LABS, X-RAYS, AND EKGLower Extremity Sonography: [facility] Call: [phone] Online chat: [email or web address] Name: THAIS SANDERS (Age): 1995 25 Gender: FDate of Exam: 02/21/2021 Physician: LYLE PAT # of Images: 26Ordered As: US DUPLEX EXTREM VEINS UNILAT LTDCONFIDENTIALITY STATEMENTThis report is intended only for the use of the referring physician, and only in accordance with law, If you 3 Clinical Report - Physicians/Mid Levels [facility] Emergency Department [address] [place] [address] Phone #: ext- [phone] 02/20/2021 23:16 Patient: THAIS SANDERS Sex: F : 1995 Age: 25y received this in error, call [phone] Page 1 of 1 PROCEDURE INFORMATION: Exam: US Duplex Right Lower Extremity Veins, Limited Exam date and time: 02/21/2021 12:15 AM Age: 25 years old Clinical indication: Pain; Leg, upper and leg, lower; Right TECHNIQUE: Imaging protocol: Real-time Duplex ultrasound of the Right Lower Extremity with 2-D burton scale, color Doppler flow and spectral waveform analysis with image documentation. Limited exam was focused on the right lower extremity veins. COMPARISON: No relevant prior studies available. FINDINGS: Right deep veins: Unremarkable. The common femoral, femoral, proximal profunda femoral and popliteal veins are patent without thrombus. Normal Doppler waveforms. Normal compressibility and/or augmentation response. Right superficial veins: Unremarkable. Saphenofemoral junction is patent without thrombus. Soft tissues: Unremarkable. IMPRESSION: No evidence of deep vein thrombosis. Thank you for allowing us to participate in the care of your patient. Dictated and Authenticated by: Angelique Meek MD 02/21/2021 1:47 AM Eastern Time ([place] The exam was performed by a automobile technician. The study was interpreted by the radiologist.PROGRESS AND PROCEDURESCourse of Care: 02:16 02/21/21. RLQ Venous Doppler US neg., no DVT; probable rt post. knee musclestrain; will d/c w instructions, pt understands and agrees. Patient counseled in person regarding the patient's stable condition, test results, diagnosis and need for follow-up. Patient agrees with plan of care. Disposition: Condition: good and stable. Discharge decision based on the following: patient's condition is stable; patient's condition is improved; patient is ambulatory; patient is active; patient drinking fluids; patient eating; patient's pain is controlled; patient's exam is improved; no abnormal test results; improving condition on multiple repeat evaluations; social support is good; transportation is available; follow-up is available; clinical impression is consistent with outpatient treatment.CLINICAL IMPRESSION Muscle strain of the posterior aspect of the right lower leg (right post. knee). 4 Clinical Report - Physicians/Mid Levels [facility] Emergency Department [address] [place] [address] Phone #: ext- [phone] 02/20/2021 23:16 Patient: THAIS SANDERS Sex: F : 1995 Age: 25yINSTRUCTIONS Apply ice for 30 minutes four times a day for two days followed by moist heat 30 minutes four times a day for five days. Don't apply ice directly to skin, don't use while asleep and don't use high setting on heating pad. Elevate affected areas above chest level as needed. No strenuous activity until better. You may walk and bear weight as tolerated. Follow a low salt diet and low cholesterol diet. Do not smoke. No alcohol. Warnings: Further evaluation is necessary. It is very important to follow up with a healthcare provider. GENERAL WARNINGS: Return or contact your physician immediately if your condition worsens or changes unexpectedly, if not improving as expected, or if other problems arise. Specifically return if pain, vomiting, bleeding, breathing difficulty or fever greater than 102 degrees F and not controlled by acetaminophen or ibuprofen. Your Current Medications: Your current home medications have been reviewed. CONTINUE TAKING THE FOLLOWING MEDICATIONS: Adderall Oral : 10 mg daily. clonazePAM Oral : 0.5 mg 3x a day, prn. Levothyroxine Sodium Oral : Tablet 175 mcg, daily. Spironolactone Oral : Tablet 100 mg, 2 daily. Xarelto Oral : Tablet 20 mg, 1 tablet daily. Follow-up: Return to the emergency department as needed. Follow up with your healthcare provider in five days even if well. Call for an appointment. Reason for referral: evaluation and treatment. Summary of care provided to patient via paper. Follow up with an orthopedic surgeon in five days if not better. Call for an appointment. Reason for referral: evaluation and treatment. Summary of care provided to patient via paper. Understanding of the discharge instructions verbalized by patient. Expected course of injury, discharge instructions, activi ty level, diet, follow-up appointment and risks and benefits of treatment reviewed with patient and understanding verbalized. Agrees to plan of care. Follow-up with: [facility], , , [address] [address], , [place], [address] Follow up in five days if not better. Call for an appointment. Reason for referral: evaluation and treatment. Summary of care provided to patient via paper.(Electronically signed by Lyle Pat M.D. 02/21/2021 02:52) 5Clinical Report - Physicians/Mid Levels [facility] Emergency Department [address] [place] [address] Phone #: ext- [phone] 02/20/2021 23:16 Patient: THAIS SANDERS Sex: F : 1995 Age: 25y Name Value Range Interpretation Code Description Data Gladis rce(s) Supporting Document(s) ID Date Data Source [id number] 02/13/2021 09:30:00 PM EDT [facility] Name Value Range Interpretation Code Description Data Gladis rce(s) Supporting Document(s) SARS-CoV-2 RNA Resp Ql MARCUS+probe NOT DETECTED [facility] This lab was ordered by DELMY morse and reported by DELMY Ballard. ID Date Data Source [id number] 11/16/2020 12:00:00 AM EDT [facility] ([facility]) Name Value Range Interpretation Code Description Data Gladis rce(s) Supporting Document(s) Thyrotropin [Units/volume] in Serum or Plasma 21.24 mIU/L Above high normal Tsh [facility] ([facility]) ID Date Data Source [id number] 11/16/2020 12:00:00 AM EDT [facility]) Name Value Range Interpretation Code Description Data Gladis rce(s) Supporting Document(s) Leukocytes [#/volume] in Blood by Automated count 10.4 thousand/uL 3.8-10.8 White Blood Cell Count [facility] ([facility]) Hemoglobin [Mass/volume] in Blood 14.5 g/dL 11.7-15.5 He moglobin [facility] ([facility]) Erythrocytes [#/volume] in Blood by Automated count 4.74 million/uL 3.80-5.10 Red Blood Cell Count [facility] ([facility]) Erythrocyte mean corpuscular volume [Entitic volume] by Auto mated count 89.7 fL 80.0-100.0 Mcv [facility] ([facility]) Hematocrit [Volume Fraction] of Blood by Automated count 42.5 % 35.0-45.0 Hematocrit [facility] ([facility]) Erythrocyte mean corpuscular hemoglobin concentration [Mass/volume] by Automated count 34.1 g/dL 32.0-36.0 Mchc [facility] ([facility]) Erythrocyte mean corpuscular hemoglobin [Entitic mass] by Automated count 30.6 pg 27.0-33.0 Mch [facility] ([facility]) Erythrocyte distribution width [Ratio] by Automated count 12.6 % 11.0-15.0 Rdw [facility] ([facility]) Platelets [#/volume] in Blood by Automated count 364 thousand/uL 14 0-400 Platelet Count [facility] ([facility]) Platelet mean volume [Entitic volume] in Blood by Braulio-Jaye 10.8 f L 7.5-12.5 Mpv [facility] ([facility]) Neutrophils [#/volume] in Blood by Automated count 5616 cells/uL 15 00-7800 Absolute Neutrophils [facility] ([facility]) Monocytes [#/volume] in Blood by Automated count 1009 cells/uL 200-950 Above high normal Absolute Monocytes [facility] ([facility]) Lymphocytes [#/volume] in Blood by Automated count 3474 cells/uL 85 0-3900 Absolute Lymphocytes [facility] ([facility]) Eosinophils [#/volume] in Blood by Automated count 239 cells/uL 15- 500 Absolute Eosinophils [facility] ([facility]) Basophils [#/volume] in Blood by Automated count 62 cells/uL 0-200 Absolute Basophils [facility] ([facility]) Neutrophils/100 leukocytes in Blood by Automated count 54 % 38- 80 Neutrophils [facility] ([facility]) Lymphocytes/100 leukocytes in Blood by Automated count 33.4 % 15-49 Lymphocytes [facility] ([facility]) Monocytes/100 leukocytes in Blood by Automated count 9.7 % 0-13 Monocytes [facility] ([facility]) Basophils/100 leukocytes in Blood by Automated count 0.6 % 0-2 Basophils [facility] ([facility]) Eosinophils/100 leukocytes in Blood by Automated count 2.3 % 0-8 Eosinophils [facility] ([facility]) ID Date Data Source [id number] 11/16/2020 12:00:00 AM EDT [facility] ([facility]) Name Value Range Interpretation Code Description Data Gladis rce(s) Supporting Document(s) Glucose [Mass/volume] in Serum or Plasma 72 mg/dL 65-99 Glucose [facility] ([facility]) Urea nitrogen [Mass/volume] in Serum or Plasma 10 mg/dL 7-25 Urea Nitrogen (BUN) [facility] ([facility]) Creatinine [Mass/volume] in Serum or Plasma 0.77 mg/dL 0.50-1.10 Creatinine [facility] ([facility]) Glomerular filtration rate/1.73 sq M.pre dicted among non-blacks [Volume Rate/Area] in Serum, Plasma or Blood by Creatinine-based formula (CKD-EPI) 106 mL/min/1.73m2 > or = 60 eGFR Non-afr. Tristanian [facility] ([facility]) Glomerular filtration rate/1.73 sq M.pre dicted among blacks [Volume Rate/Area] in Serum, Plasma or Blood by Creatinine-based formula (CKD-EPI) 123 mL/min/1.73m2 > or = 60 eGFR [facility] ([facility]) Sodium [Moles/volume] in Serum or Plasma 138 mmol/L 135-146 Sodium [facility] ([facility]) Urea nitrogen/Creatinine [Mass Ratio] in Serum or Plasma not applic able 6-22 BUN/creatinine Ratio [facility] ([facility]) Potassium [Moles/volume] in Serum or Plasma 4.4 mmol/L 3.5-5.3 Potassium [facility] ([facility]) Chloride [Moles/volume] in Serum or Plasma 104 mmol/L 98-110 Chloride [facility] ([facility]) Carbon dioxide, total [Moles/volume] in Serum or Plasma 27 mmol/L 20-32 Carbon Dioxide [facility] ([facility]) Calcium [Mass/volume] in Serum or Plasma 9.3 mg/dL 8.6-10.2 Calcium [facility] ([facility]) Albumin [Mass/volume] in Serum or Plasma 4.2 g/dL 3.6-5.1 Albumin [facility] ([facility]) Protein [Mass/volume] in Serum or Plasma 6.9 g/dL 6.1-8.1 Protein, Total [facility] ([facility]) Globulin [Mass/volume] in Serum by calculation 2.7 g/dL_(calc) 1.9- 3.7 Globulin [facility] ([facility]) Albumin/Globulin [Mass Ratio] in Serum or Plasma 1.6 (calc) 1.0-2 .5 Albumin/globulin Ratio [facility] ([facility]) Bilirubin.total [Mass/volume] in Serum or Plasma 0.4 mg/dL 0.2-1 .2 Bilirubin, Total [facility] ([facility]) Alkaline phosphatase [Enzymatic activity/volume] in Serum or Plasma 79 U/L 31-125 Alkaline Phosphatase [facility] ([facility]) Alanine aminotransferase [Enzymatic activity/volume] in Seru m or Plasma 12 U/L 6-29 Alt [facility] ([facility]) Aspartate aminotransferase [Enzymatic activity/volume] in Serum or Plasma 14 U/L 10-30 Ast [facility] ([facility]) ID Date Data Source [id number] 11/16/2020 12:00:00 AM EDT [facility]) Name Value Range Interpretation Code Description Data Gladis rce(s) Supporting Document(s) Thyrotropin [Units/volume] in Serum or Plasma 21.24 mIU/L Above high normal Tsh [facility] ([facility]) ID Date Data Source [id number] 11/16/2020 12:00:00 AM EDT [facility]) Name Value Range Interpretation Code Description Data Gladis rce(s) Supporting Document(s) Leukocytes [#/volume] in Blood by Automated count 10.4 thousand/uL 3.8-10.8 White Blood Cell Count [facility] ([facility]) Erythrocytes [#/volume] in Blood by Automated count 4.74 million/uL 3.80-5.10 Red Blood Cell Count [facility] ([facility]) Hematocrit [Volume Fraction] of Blood by Automated count 42.5 % 35.0-45.0 Hematocrit [facility] ([facility]) Hemoglobin [Mass/volume] in Blood 14.5 g/dL 11.7-15.5 He moglobin [facility] ([facility]) Erythrocyte mean corpuscular volume [Entitic volume] by Auto mated count 89.7 fL 80.0-100.0 Mcv [facility] ([facility]) Erythrocyte mean corpuscular hemoglobin concentration [Mass/volume] by Automated count 34.1 g/dL 32.0-36.0 Mchc [facility] ([facility]) Erythrocyte mean corpuscular hemoglobin [Entitic mass] by Automated count 30.6 pg 27.0-33.0 Mch [facility] ([facility]) Platelets [#/volume] in Blood by Automated count 364 thousand/uL 14 0-400 Platelet Count [facility] ([facility]) Erythrocyte distribution width [Ratio] by Automated count 12.6 % 11.0-15.0 Rdw [facility] ([facility]) Platelet mean volume [Entitic volume] in Blood by Flower 10.8 f L 7.5-12.5 Mpv [facility] ([facility]) Neutrophils [#/volume] in Blood by Automated count 5616 cells/uL 15 00-7800 Absolute Neutrophils [facility] ([facility]) Lymphocytes [#/volume] in Blood by Automated count 3474 cells/uL 85 0-3900 Absolute Lymphocytes [facility] ([facility]) Monocytes [#/volume] in Blood by Automated count 1009 cells/uL 200-950 Above high normal Absolute Monocytes [facility] ([facility]) Basophils [#/volume] in Blood by Automated count 62 cells/uL 0-200 Absolute Basophils [facility] ([facility]) Neutrophils/100 leukocytes in Blood by Automated count 54 % 38- 80 Neutrophils [facility] ([facility]) Eosinophils [#/volume] in Blood by Automated count 239 cells/uL 15- 500 Absolute Eosinophils [facility] ([facility]) Lymphocytes/100 leukocytes in Blood by Automated count 33.4 % 15-49 Lymphocytes [facility] ([facility]) Monocytes/100 leukocytes in Blood by Automated count 9.7 % 0-13 Monocytes [facility] ([facility]) Basophils/100 leukocytes in Blood by Automated count 0.6 % 0-2 Basophils [facility] ([facility]) Eosinophils/100 leukocytes in Blood by Automated count 2.3 % 0-8 Eosinophils [facility] ([facility]) ID Date Data Source [id number] 11/16/2020 12:00:00 AM EDT [facility] ([facility]) Name Value Range Interpretation Code Description Data Gladis rce(s) Supporting Document(s) Glucose [Mass/volume] in Serum or Plasma 72 mg/dL 65-99 Glucose [facility] ([facility]) Urea nitrogen [Mass/volume] in Serum or Plasma 10 mg/dL 7-25 Urea Nitrogen (BUN) [facility]) Creatinine [Mass/volume] in Serum or Plasma 0.77 mg/dL 0.50-1.10 Creatinine [facility]) Glomerular filtration rate/1.73 sq M.pre dicted among non-blacks [Volume Rate/Area] in Serum, Plasma or Blood by Creatinine-based formula (CKD-EPI) 106 mL/min/1.73m2 > or = 60 eGFR Non-afr. Tristanian [facility] ([facility]) Glomerular filtration rate/1.73 sq M.pre dicted among blacks [Volume Rate/Area] in Serum, Plasma or Blood by Creatinine-based formula (CKD-EPI) 123 mL/min/1.73m2 > or = 60 eGFR [facility] ([facility]) Sodium [Moles/volume] in Serum or Plasma 138 mmol/L 135-146 Sodium [facility] ([facility]) Urea nitrogen/Creatinine [Mass Ratio] in Serum or Plasma not applic able 6-22 BUN/creatinine Ratio [facility] ([facility]) Potassium [Moles/volume] in Serum or Plasma 4.4 mmol/L 3.5-5.3 Potassium [facility] ([facility]) Chloride [Moles/volume] in Serum or Plasma 104 mmol/L 98-110 Chloride [facility] ([facility]) Calcium [Mass/volume] in Serum or Plasma 9.3 mg/dL 8.6-10.2 Calcium [facility] ([facility]) Carbon dioxide, total [Moles/volume] in Serum or Plasma 27 mmol/L 20-32 Carbon Dioxide [facility] ([facility]) Albumin [Mass/volume] in Serum or Plasma 4.2 g/dL 3.6-5.1 Albumin [facility] ([facility]) Globulin [Mass/volume] in Serum by calculation 2.7 g/dL_(calc) 1.9- 3.7 Globulin [facility] ([facility]) Protein [Mass/volume] in Serum or Plasma 6.9 g/dL 6.1-8.1 Protein, Total [facility] ([facility]) Bilirubin.total [Mass/volume] in Serum or Plasma 0.4 mg/dL 0.2-1 .2 Bilirubin, Total [facility] ([facility]) Albumin/Globulin [Mass Ratio] in Serum or Plasma 1.6 (calc) 1.0-2 .5 Albumin/globulin Ratio [facility] ([facility]) Alkaline phosphatase [Enzymatic activity/volume] in Serum or Plasma 79 U/L 31-125 Alkaline Phosphatase [facility] ([facility]) Aspartate aminotransferase [Enzymatic activity/volume] in Serum or Plasma 14 U/L 10-30 Ast [facility] ([facility]) Alanine aminotransferase [Enzymatic activity/volume] in Seru m or Plasma 12 U/L 6-29 Alt [facility] ([facility]) ID Date Data Source [id number] 08/10/2020 10:51:00 PM EDT [facility] 1 OrderSheet [facility] Emergency Department [address] [place] [address] Phone #: wiz- [phone] 08/10/2020 22:51 Patient: THAIS WITT Sex: F : 1995 Age: 25yWEIGHT:108.8 kg (S)ALLERGIES: No Known Drug AllergyCHIEF COMPLAINT: dental painDIAGNOSIS: Toothache, Dental cariesLAB ORDERSOrder Description Priority Entered Acknowledged InitialedDIAGNOSTIC STUDY ORDERSOrder Description Priority Entered Acknowledged InitialedMEDICATION/IV/DRIP/FLUID ORDERSOrder Description Priority Entered Acknowledged InitialedAmoxicillin 23:08 08/10/2020 Ack'd: 23:16 Eli 23:23 Eli BlairCapsules PO 1000 Lyle Pat R.N., M.D.;GENERAL ORDERSOrder Description Priority Entered Acknowledged Initialed[Electronically signed by Lyle Pat M.D. (23:38 08/10/2020) ][Electronically signed by Eli Barber R.N. (04:39 08/11/2020)][Electronically locked by Eli Barber R.N. (04:39 08/11/2020)] Name Value Range Interpretation Code Description Data Gladis rce(s) Supporting Document(s) ID Date Data Source [id number] 08/10/2020 10:51:00 PM EDT [facility] 1 Medication Reconciliation Report [facility] Emergency Department [address] [place] [address] Phone #: ext- [phone] 08/10/2020 22:51 Patient: THAIS WITT Sex: F : 1995 Age: 25yWeight: 108.8 kgHeight/Length: 63 in.BMI: 42.5ALLERGIES: No Known Drug AllergyThe patient's Home Medications are listed below:CONTINUE TAKING THE FOLLOWING MEDICATIONS: Adderall Oral 10 mg, daily clonazePAM Oral 0.5 mg, 3x a day, prn Had all her daily meds today Levothyroxine Sodium Oral (175 mcg), daily Spironolactone Oral (100 mg) 2, dailyThe source(s) of the original Home Medication information:Not obtained.The following Medications were given to the patient in the Emergency Department:AMOXICILLIN CAPSULES [PO] PO 1000 mg, administered: 23:23 08/10/2020The following Medications were prescribed to the patient:amoxicillin 875 mg tablet Take 1 tablet twice a day for 7 days -- Dispense 14 tablet. Refills: 0.Substitution permitted.Pharmacy - [phone] [facility] [address] ; [place] [address]. . -- Lyle Pat M.D. Name Value Range Interpretation Code Description Data Gladis rce(s) Supporting Document(s) ID Date Data Source [id number] 08/10/2020 10:51:00 PM EDT [place] [address] Medication Administration Record [facility] Emergency Department [address] [place] [address] Phone #: ext- [phone] 08/10/2020 22:51 Patient: THAIS WITT Sex: F : 1995 Age: 25yWeight: 108.8 kgHeight/Length: 63 inBMI: 42.5ALLERGIES: No Known Drug Allergy Date/Time Medication Administered Medication OrderedGiven AMOXICILLIN CAPSULES [PO] Amoxicillin Capsules PO 1000 mg23:23 08/10/2020 Dose: 1000 mg Capsules Fidencio Garduno R.N. Name Value Range Interpretation Code Description Data Gladis rce(s) Supporting Document(s) ID Date Data Source [id number] 08/10/2020 10:51:00 PM EDT [facility] 1 General Instructions [facility] Emergency Department [address] [place] [address] Phone #: ext- [phone] 08/10/2020 22:51 Patient: THAIS WITT Sex: F : 1995 Age: 25yMild dental pain (chronic).Dental caries (localized).INSTRUCTIONSDrink plenty of fluids. Do not smoke. No alcohol.Warnings: Further evaluation is necessary (dentist). It is very important to follow up with a healthcareprovider.GENERAL WARNINGS: Return or contact your physician immediately if your condition worsens orchanges unexpectedly, if not improving as expected, or if other problems arise. Specifically return if pain,vomiting, bleeding, breathing difficulty or fever greater than 102 degrees F and not controlled byacetaminophen or ibuprofen.Your Current Medications: Your current home medications have been reviewed.CONTINUE TAKING THE FOLLOWING MEDICATIONS:Adderall Oral : 10 mg daily.clonazePAM Oral : 0.5 mg 3x a day, prn.Had all her daily meds today*.Levothyroxine Sodium Oral : Tablet 175 mcg, daily.Spironolactone Oral : Tablet 100 mg, 2 daily.Prescription Medications:amoxicillin 875 mg tablet Take 1 tablet twice a day for 7 days -- Dispense 14 tablet. Refills: 0.Substitution permitted.Pharmacy - [facility] [phone] [facility] ; [place], [place] [address]. .Follow-up:Return to the emergency department as needed. Follow up with a dentist tomorrow even if well. Call sujatha appointment. Reason for referral: evaluation, treatment and pain meds as needed. Summary of careprovided to patient via paper.Understanding of the discharge instructions verbalized by patient. Expected course of illness, dischargeinstructions, activity level, diet, prescriptions x1, follow-up appointment and risks and benefits of treatmentreviewed with patient and understanding verbalized. Agrees to plan of care. 2 General Instructions [facility] Emergency Department [address] [place] [address] Phone #: ext- [phone] 08/10/2020 22:51 Patient: THAIS WITT ct#: [id number] Sex: F : 1995 Age: 25y ADDITIONAL INFORMATIONDental PainA crack or cavity in a tooth can cause tooth pain. This is because the crack or cavity exposes thesensitive inner area of the tooth. An infection in the gum or the tooth's root can cause pain andswelling. The pain is often made worse when you have a hot or cold drink. It can also be worse whenyou bite on hard foods. Pain may spread from the tooth to your ear, or to the part of the jaw on thesame side.Home careFollow these tips when caring for yourself at home: Don't have hot and cold foods and drinks. Your tooth may be sensitive to changes in temperature. Use toothpaste made for sensitive teeth. [place] gently up and down instead of sideways. Brushing sideways can wear away root surfaces if they are exposed. 3 General Instructions [facility] Emergency Department [address] [place] [address] Phone #: ext- [phone] 08/10/2020 22:51 Patient: THAIS WITT Sex: F : 1995 Age: 25y If your tooth is chipped or cracked, see a dentist right away. For short-term pain relief, put clove oil right on the tooth. You can buy clove oil at pharmacies. Some pharmacies carry an vvon-cfr-cllszos toothache kit. This has a paste you can put on the exposed tooth to make it less sensitive. Use a cold pack. Put a cold pack on your jaw over the sore area to help reduce pain. Ask your healthcare provider about using vdub-aqx-vmfrkuf medicine for pain. You may use this unless your provider prescribed another medicine. If you have long-term (chronic) liver or kidney disease, talk with your provider before using acetaminophen or ibuprofen. Also talk with your provider if you've had a stomach ulcer or GI (gastrointestinal) bleeding. Be aware of infection. If you have signs of an infection, you will be given an antibiotic. Take it as directed.Follow-up careFollow up with your dentist, or as advised. Your pain may go away with the treatment given today. Butonly a dentist can fully check and treat the cause of your pain. This will keep the pain from comingback.Call 911Call 911 if any of these occur: Abnormal drowsiness Headache or stiff neck Weakness or fainting Trouble swallowing or breathingWhen to get medical adviceCall your healthcare provider right away if any of these occur: Your face gets swollen or red Pain gets worse or spreads to your neck Fever of 100.4F (38.0C) or higher, or as directed by your provider Pus drains from the tooth [phone] [employer]. [address] [place] [address]. All rights reserved. This information is not intended as asubstitute for professional medical care. Always follow your healthcare professional's instructions. 4 General Instructions [facility] Emergency Department [address] [place] [address] Phone #: ext- [phone] 08/10/2020 22:51 Patient: THAIS WITT Sex: F : 1995 Age: 25yDental CavityA dental cavity is a pit or crater in the surface of a tooth. This exposes the sensitive inner layer of thetooth and causes pain. If the cavity isn't treated, it will get bigger. It may enter the pulp and cause aninfection or pocket of pus (abscess) in the bone at the root end of the tooth. An infection in the tooth vikram much more serious problem than a cavity. If the tooth gets infected, you'll need a root canal or thewhole tooth taken out (extraction).The pain in your tooth may be worse if you eat sweets or have hot or cold drinks. It may spread fromthe tooth to your ear or the part of your jaw on the same side.Home careFollow these tips when caring for yourself at home: Don't have sweets or hot and cold foods and drinks. Your tooth may be sensitive to changes in temperature. If your tooth is chipped or cracked, or if there is a large open cavity, put oil of cloves directly on the tooth to ease pain. You can buy oil of cloves at pharmacies. Some pharmacies carry an [address] [facility] Emergency Department [address] [place] [address] Phone #: [phone] ext- [phone] 08/10/2020 22:51 ----- Patient: THAIS WITT Sex: F : 1995 Age: 25y nsmc-yer-dbdejna toothache kit. This contains a paste that you can put on the exposed tooth to make it less sensitive. Put a cold pack on your jaw over the sore area to help reduce pain. You may use ugak-ttu-ebwlbth medicine to ease pain, unless another medicine was prescribed. If you have long-term (chronic) liver or kidney disease, talk with your healthcare provider before using acetaminophen or ibuprofen. Also talk with your provider if you've had a stomach ulcer or GI(gastrointestinal) bleeding. If you have signs of an infection, you will be given an antibiotic. Take it as directed.Follow-up careFollow up with your dentist, or as advised. Your pain may go away with the treatment given today. Butonly a dentist can diagnose and treat this problem to prevent further tooth damage.Call [phone] if any of these occur: Trouble swallowing or breathing Weakness or fainting Abnormal drowsiness Headache or stiff neckWhen to get medical adviceCall your healthcare provider right away if any of these occur: Red or swollen face Pain gets worse or spreads to your neck Fever of 100.4 F (38C) or higher, or as directed by your provider Pus drains from the tooth or gum [employer]. [address] [place] [address], [place] [address]. All rights reserved. This information is not intended as asubstitute for professional medical care. Always follow your healthcare professional's instructions. You have been given the following additional information: Dental Pain Dental Cavity 6 General Instructions [facility] Emergency Department [address] [place] [address] Phone #: ext- [phone] 08/10/2020 22:51 Patient: THAIS WITT Sex: F : 1995 Age: 25y(Electronically signed by Lyle Pat M.D. 08/10/2020 23:38) Name Value Range Interpretation Code Description Data Gladis rce(s) Supporting Document(s) ID Date Data Source [id number] 08/10/2020 10:51:00 PM EDT [facility] 1 Clinical Report - Nurses [facility] Emergency Department [address] [place] [address] Phone #: ext- [phone] 08/10/2020 22:51 Patient: THAIS WITT Sex: F : 1995 Age: 25yTRIAGEArrived by private vehicle. Historian: patient.Triage time: 22:48 08/10/2020.Chief Complaint: LEFT UPPER TOOTHACHE.This is a recurrent problem. (1 month ago). ( States that she was at the dentist today. She reports thatshe went there one month ago and 2 weeks ago as well.) [facility] and had herwisdom tooth shaved down. Is scheduled to have it removed with [facility] on October 27).--22:55 08/10/20 Eli Garduno R.N.Acuity: LEVEL 5.SEPSIS SCREEN: SIRS SCREEN: heart rate greater than 90. SEPSIS SCREEN NEGATIVE. Nosuspected or confirmed signs of infection present. --22:59 08/10/20 Eli Garduno R.N.22:55 08/10/20. BP: 151/99. MAP: 116. HR: 94. RR: 16. O2 saturation: 99%. Temp: 97.4 F. Pain levelnow: 12/13. --22:59 08/10/20 Eli Garduno R.N.Arrived (drove self). --23:03 08/10/20 Eli Garduno R.N.Weight: 108.8 kg stated. Height/Length: 63 inches Per Patient. BMI: 42.5. --22:57 08/10/20 Eli Engel R.N.MedicationsAdderall Oral 10 mg, daily. clonazePAM Oral 0.5 mg, 3x a day as needed. Levothyroxine Sodium Oral (Tablet 175 mcg), daily. Spironolactone Oral (Tablet 100 mg) 2, daily. --23:00 08/10/20 Eli Garduno R.N. Had all her daily meds today. --23:01 08/10/20 Eli Garduno R.N.AllergiesNo Known Drug Allergy. --23:00 08/10/20 Eli Garduno R.N.PROBLEMS:UTI - Urinary Tract Infection.Pre diabetic.Pulmonary Embolism.DVT - Deep Venous Thrombosis.Anxiety Reaction. 2 Clinical Report - Nurses [facility] Emergency Department [address] [place] [address] Phone #: ext- [phone] 08/10/2020 22:51 Patient: THAIS WITT Sex: F : 1995 Age: 25y Polycystic Ovary Disease. Hypothyroidism. --23:08/10/20 Eli Garduno R.N. ADDITIONAL SURGERIES: Tonsillectomy. --23:08/10/20 Eli Garduno R.N. History PAST MEDICAL HX: Last normal menstrual period unknown- End of Apr. 2. Para 2. Sexual history - sexually active. No contraception. SOCIAL HX: Light tobacco smoker (cigarette)- less than 1/2 a pack per day. Occasional alcohol use. No drug use. She was offered HIV testing but declined and hepatitis C testing but declined. She has not traveled outside the [place] Infectious disease exposure: No infectious disease exposure. The patient was not exposed to C-diff, MRSA, VRE or CRE. SELF HARM ASSESSMENT: Self harm assessment was performed. The patient answered "no" to the question(s) "Do you have thoughts of harming or killing yourself?" and "Have you recently had thoughts about harming or killing others?". ABUSE ASSESSMENT: No report of abuse. --22:59 08/10/20 Eli Garduno R.N. FALL RISK ASSESSMENT: Fall risk assessment completed. Risk factors identified include severe pain. Fall interventions initiated. Bed in low position. Brakes on. Patient visible from nurses' station. --23:03 08/10/20 Eli Garduno R.N.PHYSICAL ASSESSMENTAmbulatory to room.GENERAL / NEURO / PSYCH: Alert. Oriented X 4.HEENT: Voice within normal limits. Dental decay. Mucous membranes are pink.RESPIRATORY: Respirations not labored.CVS: Capillary refill less than 2 seconds.SKIN: Skin is warm and dry. Normal skin turgor. --23:03 08/10/20 Eli Garduno R.N.NURSING PROGRESS NOTESCall light placed in reach. Bed placed in lowest position. Brakes of bed on. --23:02 08/10/20 Eli Engel R.N. 23:23 08/10/2020 AMOXICILLIN CAPSULES PO Capsules 1000 mg given. Allergies verified and confirmed 5 rights. Information reviewed with patient including reason for taking this medication. Verbalizes understanding. - -:08/10/20 Eli Garduno R.N.DISPOSITION / DISCHARGE Departure time: 23:25 08/10/2020. Condition at departure: stable. No learning barriers present. Reviewed medication(s). Prescription(s) sent electronically to pharmacy. Patient verbalized 3 Clinical Report - Nurses [facility] Emergency Department [address] [place] [address] Phone #: ext- [phone] 08/10/2020 22:51 Patient: THAIS WITT Sex: F : 1995 Age: 25y understanding. Written instructions provided in Moroccan. The patient was discharged by the physician. She was discharged home. She left ambulatory and via private vehicle. --:08/10/20 Eli Garduno R.N. 23:25 08/10/20. BP: deferred. HR: deferred. RR: deferred. O2 saturation: deferred. Temp: deferred. Pain level now deferred. Additional comments: d/c vitals declined by pt. --23:08/10/20 Eli Garduno R.N.Locked/Released at 08/11/2020 04:39 by Eli Garduno R.N. Name Value Range Interpretation Code Description Data Gladis rce(s) Supporting Document(s) ID Date Data Source [id number] 08/10/2020 10:51:00 PM EDT [facility] 1 Clinical Report - Physicians/Mid Levels [facility] Emergency Department [address] [place] [address] Phone #: ext- [phone] 08/10/2020 22:51 Patient: THAIS WITT Sex: Martha : 1995 Age: 25y Time Seen: 22:57 08/10/2020; initial patient contact. Arrived- By private vehicle. Historian- patient. Disposition decision: 23:16 08/10/2020.HISTORY OF PRESENT ILLNESS Chief Complaint: DENTAL PAIN. This started 1 months ago and is still present. It has been intermittent. Pain described as severe. No sore throat, mouth sores, nasal discharge or congestion or ear pain. No swollen jaw or face, jaw pain or facial pain. She has had toothache. (seen by dentist today and 1 month ago, needs wisdom teeth removal in [place]; did not get any pain meds or AB today; pt on Xarelto and took tylenol 325 mg x 3 2.5 hrs ago). Similar symptoms previously. Patient has had similar symptoms frequently. Recent medical care: The patient was seen recently in a clinic. ( dental clinic today).REVIEW OF SYSTEMSNo fever, eye discomfort, cough, difficulty breathing or chest pain. No nausea, diarrhea, abdominal pain,difficulty with urination or headache. No fainting episodes, joint pain, skin rash, enlarged lymph nodes orvomiting. All other systems reviewed and are negative.PAST HISTORYSee nurses notes. Problems: Anxiety Reaction. ADHD - Attention Deficit Hyperactivity Disorder. UTI - Urinary Tract Infection. Pulmonary Embolism. DVT - Deep Venous Thrombosis. Anxiety Reaction. Polycystic Ovary Disease. Hypothyroidism. Additional Surgeries: Tonsillectomy. Medications: Had all her daily meds today. Adderall Oral 10 mg, daily. clonazePAM Oral 0.5 mg, 3x a day as needed. 2 Clinical Report - Physicians/Mid Levels [facility] Emergency Department [address] [place] [address] Phone #: ext- [phone] 08/10/2020 22:51 Patient: THAIS WITT Sex: F : 1995 Age: 25y Levothyroxine Sodium Oral (Tablet 175 mcg), daily. Spironolactone Oral (Tablet 100 mg) 2, daily. Allergies: No Known Drug Allergy.SOCIAL HISTORYLight tobacco smoker- less than 1/2 a pack per day. Occasional alcohol use. No drug use.ADDITIONAL NOTESThe nursing notes have been reviewed with agreement regarding the chief complaint, HPI, ROS, PMH andpatient medications and allergies.PHYSICAL EXAMVital Signs: 08/10/2020 22:55 BP: 151/99. MAP: 116. HR: 94. RR: 16. O2 saturation: 99%. Temp: 97.4 F.Pain level now: 12/13. Have been reviewed. Oxygen saturation normal.Appearance: Alert. No acute distress.Head: Normal external inspection. No mandibular swelling or maxillary swelling.Eyes: Pupils equal, round and reactive to light. Conjunctivae and eyelids normal.ENT: Mild dental decay (upper left first molar, second molar and third molar). Mild dental tenderness of asingle tooth (upper left third molar). Ears normal. Nose normal. Pharynx normal. Lips normal. Gumsnormal. No trismus present. Uvula midline.Neck: Normal inspection. Trachea midline. No adenopathy. Thyroid normal.CVS: Normal heart rate and rhythm. Heart sounds normal. Pulses normal.Respiratory: No respiratory distress. Painless inspiration. Breath sounds normal. Chest nontender.Abdomen: Soft and nontender. No organomegaly.Skin: Normal skin color. No rash. Normal skin turgor.Extremities: Extremities exhibit normal ROM. Extremities nontender.Neuro: Oriented X 3. No motor deficit. No sensory deficit.PROGRESS AND PROCEDURESCourse of Care: 23:07 08/10/20. Data Detail Level: Printer-Friendly View Extended ViewConfidential Drug Utilization ReportSearch Terms: thais witt, 1995Search Date: 08/10/2020 23:06:18 PMThe Drug Utilization Report below displays all of the controlled substance prescriptions, if any, that yourpatient has filled in the last twelve months. The information displayed on this report is compiled frompharmacy submissions to the Department, and accurately reflects the information as submitted by thepharmacies. This report was requested by: Llye Pat Reference #: [id number] Others' Prescriptions Patient Name: Thais WittBirth Date: 1995 Address: [address] [place], [place] [address]Sex: Female Rx Written Rx Dispensed Drug Quantity Days Supply Prescriber Name Payment Method Dispenser 3 Clinical Repo rt - Physicians/Mid Levels [facility] Emergency Department [address] [place] [address] Phone #: ext- [phone] 08/10/2020 22:51 Patient: THAIS WITT Sex: F : [birth year] Age: 25y 07/22/2020 07/25/2020 dextroamp-amphetamin 10 mg tab 60 30 [place], [id number] 07/22/2020 07/25/2020 [id number] 05/26/2020 06/01/2020 [facility] 0.5 mg tablet 90 [id number] 04/26/2020 05/01/2020 dextroamp-amphetamin 10 mg tab 60 30 [place], [id number] 04/26/2020 05/01/2020 clonazepam 0.5 mg tablet 90 30 [place], [id number] 03/01/2020 03/05/2020 dext[facility]amp[facility]amphetamin 10 mg tab [facility] 03/01/2020 03/05/2020 clonazepam 0.5 mg tablet 90 30 [place], [facility] 01/01/2020 01/05/2020 [id number] 01/01/2020 01/05/2020 clonazepam 0.5 mg tablet 90 30 [place] [id number] 11/23/2019 11/24/2019 dextroamp- amphetamine 5 mg tab 60 30 [facility] 11/09/2019 11/09/2019 methylphenidate la 20 mg cap 15 [id number] 11/09/2019 11/09/2019 clonazepam 0.5 mg tablet 90 30 [id number] * - Drugs marked with an asterisk are compound drugs. If the compound drug is made up of more than one controlled substance, then each controlled substance will be a separate row in the table. 23:14 08/10/20. pt does not seem in pain in ER, saw dentist today and has had this problem x 1 month, on Xarelto so cannot give Toradol; took tylenol [employer] and drove here from [place]; will give amoxicillin and advised to see dentist tomorrow for pain meds as needed since we are an [facility]; pt understands d/c instructions and agrees. Patient counseled in person regarding the patient's stable condition, diagnosis and need for follow-up. Patient agrees with plan of care. Disposition: Condition: good and stable. Discharge decision based on the following: patient's condition is stable; patient's condition is improved; patient is ambulatory; patient is active; patient drinking fluids; patient's pain is controlled; patient's exam is improved; improving condition on repeat evaluation; social support is good; transportation is available; follow-up is available; clinical impression is consistent with outpatient treatment.CLINICAL IMPRESSION Mild dental pain (chronic). Dental caries (localized). 4 Clinical Report - Physicians/Mid Levels [facility] Emergency Department [address] [place] [address] Phone #: ext- [phone] 08/10/2020 22:51 Patient: BRANCH, THAIS M Sex: F : 1995 Age: 25yINSTRUCTIONS Drink plenty of fluids. Do not smoke. No alcohol. Warnings: Further evaluation is necessary (dentist). It is very important to follow up with a healthcare provider. GENERAL WARNINGS: Return or contact your physician immediately if your condition worsens or changes unexpectedly, if not improving as expected, or if other problems arise. Specifically return if pain, vomiting, bleeding, breathing difficulty or fever greater than 102 degrees F and not controlled by acetaminophen or ibuprofen. Your Current Medications: Your current home medications have been reviewed. CONTINUE TAKING THE FOLLOWING MEDICATIONS: Adderall Oral : 10 mg daily. clonazePAM Oral : 0.5 mg 3x a day, prn. Had all h er daily meds today*. Levothyroxine Sodium Oral : Tablet 175 mcg, daily. Spironolactone Oral : Tablet 100 mg, 2 daily. Prescription Medications: amoxicillin 875 mg tablet Take 1 tablet twice a day for 7 days -- Dispense 14 tablet. Refills: 0. Substitution permitted. Pharmacy - [facility] [address] [id number] [facility] [address] ; [place] [address]. . Follow-up: Return to the emergency department as needed. Follow up with a dentist tomorrow even if well. Call for an appointment. Reason for referral: evaluation, treatment and pain meds as needed. Summary of care provi ded to patient via paper. Understanding of the discharge instructions verbalized by patient. Expected course of illness, discharge instructions, activity level, diet, prescriptions x1, follow-up appointment and risks and benefits of treatment reviewed with patient and understanding verbalized. Agrees to plan of care.(Electronically signed by Lyle Pat M.D. 08/10/2020 23:38) 5Clinical Report - Physicians/Mid Levels [facility] Emergency Department [address] [place] [address] Phone #: ext- [phone] 08/10/2020 22:51 Patient: THAIS WITT Sex: F : 1995 Age: 25y Name Value Range Interpretation Code Description Data Gladis rce(s) Supporting Document(s) ID Date Data Source [id number] 07/25/2020 08:45:00 AM EDT [facility]) Name Value Range Interpretation Code Description Data Gladis rce(s) Supporting Document(s) thyroid stimulating hormone 0.205 uIU/mL 0.358-3.740 Below low nor mal Thyroid Stimulating Hormone [facility]) free T4 1.10 NG/dL 0.76-1.46 Free T4 [facility]) ID Date Data Source [id number] 07/25/2020 08:45:00 AM EDT [facility]) Name Value Range Interpretation Code Description Data Gladis rce(s) Supporting Document(s) free T4 1.10 NG/dL 0.76-1.46 Free T4 [facility] ([facility]) thyroid stimulating hormone 0.205 uIU/mL 0.358-3.740 Below low nor mal Thyroid Stimulating Hormone [facility] ([facility]) ID Date Data Source [id number] 07/25/2020 08:45:00 AM EDT [facility]) Name Value Range Interpretation Code Description Data Gladis rce(s) Supporting Document(s) thyroid stimulating hormone 0.205 uIU/mL 0.358-3.740 Below low nor mal Thyroid Stimulating Hormone [facility]) free T4 1.10 NG/dL 0.76-1.46 Free T4 [facility]) ID Date Data Source [id number] 07/25/2020 08:45:00 AM EDT [facility] ([facility]) Name Value Range Interpretation Code Description Data Gladis rce(s) Supporting Document(s) free T4 1.10 NG/dL 0.76-1.46 Free T4 [facility] ([facility]) thyroid stimulating hormone 0.205 uIU/mL 0.358-3.740 Below low nor mal Thyroid Stimulating Hormone [facility] ([facility]) ID Date Data Source [id number] 07/25/2020 08:45:00 AM EDT [facility] ([facility]) Name Value Range Interpretation Code Description Data Gladis rce(s) Supporting Document(s) thyroid stimulating hormone 0.205 uIU/mL 0.358-3.740 Below low nor mal Thyroid Stimulating Hormone [facility] ([facility]) free T4 1.10 NG/dL 0.76-1.46 Free T4 [facility] ([facility]) ID Date Data Source [id number] 05/27/2020 02:21:00 PM EST [facility] ([facility]) Name Value Range Interpretation Code Description Data Gladis rce(s) Supporting Document(s) homocysteine 7.4 umol/L . Homocysteine [facility] ([facility]) factor VIII activity 99 % . Factor VIII Act ivity [facility] ([facility]) protein S antigen, free 115 % . Protein S An tigen, Free [facility] ([facility]) antithrombin activity 119 % . Antithrombin A ctivity [facility] ([facility]) prt C activity(chromogenic) 72 % . Below low no rmal Prt C Activity(chromogenic) [facility] ([facility]) APTT 1:1 psych np tnp . APTT 1:1 Business Excellence Manager [facility] ([facility]) APTT 1:1 saline tnp . APTT 1:1 Saline ATHE NA ([facility]) APTT 29.5 sec . Aptt [facility] ([facility]) lac interpretation . Lac Interpretatio n [facility] ([facility]) drvvt screen seconds 91.9 sec . Above high normal Drvvt Sc reen Seconds [facility] ([facility]) act prt C resist w/fv defic 2.8 ratio . Act Prt C Resist W/fv Defic [facility] ([facility]) drvvt confirm seconds 42.6 sec . Drvvt Confirm Seconds [facility] ([facility]) drvvt ratio 1.9 ratio . Above high normal Drvvt Ratio ATHLAUREN A ([facility]) hexagonal phospholipid neutal 0 sec . Hexago nal Phospholipid Neutal [facility] ([facility]) anticardiolipin Ab, IgG <10 . Anticardioli pin Ab, IgG [facility] ([facility]) anticardiolipin Ab, IgM <10 . Anticardioli pin Ab, IgM [facility] ([facility]) beta-2 glycoprotein I, IgG <10 . Beta-2 Gl ycoprotein I, IgG [facility] ([facility]) beta-2 glycoprotein I, IgM <10 . Beta-2 Gl ycoprotein I, IgM [facility] ([facility]) beta-2 glycoprotein I, IgA <10 . Beta-2 Gl ycoprotein I, IgA [facility] ([facility]) factor II gene mutation result . Facto r II Gene Mutation Result [facility] ([facility]) factor II gene interpretation . Factor II Gene Interpretation [facility] ([facility]) factor II gene methodology . Factor II Gene Methodology [facility] ([facility]) factor II gene comments . Factor II Ge ne Comments [facility] ([facility]) ID Date Data Source [id number] 05/27/2020 02:21:00 PM EST [facility] ([facility]) Name Value Range Interpretation Code Description Data Gladis rce(s) Supporting Document(s) creatinine for GFR 0.83 mg/dL 0.55-1.30 Creatinine for GF R [facility] ([facility]) blood urea nitrogen 6 mg/dL 7-18 Below low normal Blood Urea Nitrogen [facility] ([facility]) glucose, fasting 93 mg/dL 70-100 Glucose, Fasting AT [facility] ([facility]) potassium serum 3.8 mEq/L 3.5-5.1 Potassium Serum ATH NA ([facility]) glomerular filtration rate > 60.0 >60 Glomerula r Filtration Rate [facility] ([facility]) sodium level 139 mEq/L 136-145 Sodium Level [facility] ([facility]) carbon dioxide level 30 mEq/L 21-32 Carbon Dioxide Level [facility] ([facility]) chloride level 105 mEq/L 98-107 Chloride Level [facility] ([facility]) calcium level 9.6 mg/dL 8.5-10.1 Calcium Level [facility] ( [facility]) anion gap 4 mEq/L 8-16 Below low normal Anion Gap [facility] ( [facility]) AST/SGOT 15 U/L 7-37 AST/SGOT [facility] ([facility]) ALT/SGPT 40 U/L 12-78 ALT/SGPT [facility] ([facility]) alkaline phosphatase 85 U/L 45-117 Alkaline Phosph atase [facility] ([facility]) bilirubin,total 0.7 mg/dL 0.2-1.0 Bilirubin,total ATHE ([facility]) total protein 6.7 gm/dL 6.4-8.2 Total Protein [facility] ( [facility]) albumin 3.5 gm/dL 3.2-5.2 Albumin [facility] ([facility]) albumin/globulin ratio 1.2-2.2 Below low normal Albumin /globulin Ratio [facility] ([facility]) ID Date Data Source [id number] 05/27/2020 02:21:00 PM EST [facility] ([facility]) Name Value Range Interpretation Code Description Data Gladis rce(s) Supporting Document(s) white blood count 8.7 10 4.0-10.0 White Blood Count [facility] ([facility]) red blood count 4.71 10 4.00-5.40 Red Blood Count [facility] ([facility]) hemoglobin 14.6 g/dL 12.0-15.5 Hemoglobin [facility] ([facility]) hematocrit 43.2 % 36.0-47.0 Hematocrit [facility] ([facility]) mean corpuscular volume 91.7 fL 80.0-96.0 Mean Corpusc ular Volume [facility] ([facility]) mean corpuscular hemoglobin 31.0 pg 27.0-33.0 Mean Cor puscular Hemoglobin [facility] ([facility]) red cell distribution width 11.7 % 11.5-14.5 Red Cell Distribution Width [facility] ([facility]) platelet count, automated 339 10 150-450 Platelet C ount, Automated [facility] ([facility]) mean corpuscular HGB conc 33.8 g/dL 32.0-36.5 Mean Corpu scular HGB Conc [facility] ([facility]) neutrophils % 56.5 % 36.0-66.0 Neutrophils % [facility] ( [facility]) lymph % 29.8 % 24.0-44.0 Lymph % [place] ([facility]) baso % 0.5 % 0.0-1.0 Baso % [facility] ([facility]) eos % 3.5 % 0.0-3.0 Above high normal Eos % [place] ([facility]) mono % 9.2 % 0.0-5.0 Above high normal [place] % [place] ([facility]) nucleated red blood cell % 0.0 % 0-0 Nucleated Red Blood Cell % [place] ([facility]) immature granulocyte % 0.5 % 0-3.0 Immature Gran ulocyte % [place] ([facility]) neutrophils # 4.9 10 1.5-8.5 Neutrophils # [place] ( [facility]) lymph # 2.6 10 1.5-5.0 Lymph # [facility] ([facility]) mono # 0.8 10 0.0-0.8 [place] # [facility] ([facility]) baso # 0.0 10 0.0-0.2 Baso # [facility] ([facility]) eos # 0.3 10 0.0-0.5 Eos # [facility] ([facility]) ID Date Data Source [id number] 05/27/2020 02:21:00 PM EST [place] ([facility]) Name Value Range Interpretation Code Description Data Gladis rce(s) Supporting Document(s) homocysteine 7.4 umol/L . Homocysteine [facility] (No [facility]) antithrombin activity 119 % . Antithrombin A ctivity [facility] ([facility]) prt C activity(chromogenic) 72 % . Below low no rmal Prt C Activity(chromogenic) [facility] ([facility]) factor VIII activity 99 % . Factor VIII Act ivity [facility] ([facility]) protein S antigen, free 115 % . Protein S An tigen, Free [facility] ([facility]) APTT 29.5 sec . Aptt [facility] ([facility]) APTT 1:1 psych np tnp . APTT 1:1 Business Excellence Manager [place] ([facility]) APTT 1:1 saline tnp . APTT 1:1 Saline ATHE NA ([facility]) act prt C resist w/fv defic 2.8 ratio . Act Prt C Resist W/fv Defic [facility] ([facility]) lac interpretation . Lac Interpretatio n [facility] ([facility]) drvvt ratio 1.9 ratio . Above high normal Drvvt Ratio ATHEN A ([facility]) drvvt screen seconds 91.9 sec . Above high normal Drvvt Sc reen Seconds [facility] ([facility]) drvvt confirm seconds 42.6 sec . Drvvt Confirm Seconds [facility] ([facility]) anticardiolipin Ab, IgM <10 . Anticardioli pin Ab, IgM [facility] ([facility]) hexagonal phospholipid neutal 0 sec . Hexago nal Phospholipid Neutal [facility] ([facility]) anticardiolipin Ab, IgG <10 . Anticardioli pin Ab, IgG ALPHA ([facility]) beta-2 glycoprotein I, IgA <10 . Beta-2 Gl ycoprotein I, IgA ALPHA ([facility]) beta-2 glycoprotein I, IgG <10 . Beta-2 Gl ycoprotein I, IgG [place] ([facility]) beta-2 glycoprotein I, IgM <10 . Beta-2 Gl ycoprotein I, IgM ALPHA ([facility]) factor II gene methodology . Factor II Gene Methodology ALPHA ([facility]) factor II gene mutation result . Facto r II Gene Mutation Result ALPHA ([facility]) factor II gene interpretation . Factor II Gene Interpretation AL[facility] ([facility]) factor II gene comments . Factor II Ge ne Comments ALPHA ([facility]) ID Date Data Source [id number] 05/27/2020 02:21:00 PM EST ALPHA ([facility]) Name Value Range Interpretation Code Description Data Gladis rce(s) Supporting Document(s) glucose, fasting 93 mg/dL 70-100 Glucose, Fasting AT [facility]) creatinine for GFR 0.83 mg/dL 0.55-1.30 Creatinine for GF R ALPHA ([facility]) blood urea nitrogen 6 mg/dL 7-18 Below low normal Blood Urea Nitrogen ALPHA ([facility]) glomerular filtration rate > 60.0 >60 Glomerula r Filtration Rate ALPHA ([facility]) potassium serum 3.8 mEq/L 3.5-5.1 Potassium Serum ATHE ([facility]) sodium level 139 mEq/L 136-145 Sodium Level [facility] ([facility]) carbon dioxide level 30 mEq/L 21-32 Carbon Dioxide Level [facility] ([facility]) chloride level 105 mEq/L 98-107 Chloride Level ALPHA ([facility]) anion gap 4 mEq/L 8-16 Below low normal Anion Gap [place] ( [facility]) calcium level 9.6 mg/dL 8.5-10.1 Calcium Level [place] ( [facility]) AST/SGOT 15 U/L 7-37 AST/SGOT [facility] ([facility]) alkaline phosphatase 85 U/L 45-117 Alkaline Phosph atase [facility] ([facility]) ALT/SGPT 40 U/L 12-78 ALT/SGPT [facility] ([facility]) total protein 6.7 gm/dL 6.4-8.2 Total Protein [place] ( [facility]) bilirubin,total 0.7 mg/dL 0.2-1.0 Bilirubin,total ATHE ([facility]) albumin 3.5 gm/dL 3.2-5.2 Albumin [facility] ([facility]) albumin/globulin ratio 1.2-2.2 Below low normal Albumin /globulin Ratio [facility] ([facility]) ID Date Data Source [id number] 05/27/2020 02:21:00 PM EST [place] ([facility]) Name Value Range Interpretation Code Description Data Gladis rce(s) Supporting Document(s) white blood count 8.7 10 4.0-10.0 White Blood Count [place] ([facility]) red blood count 4.71 10 4.00-5.40 Red Blood Count ATHE ([facility]) hemoglobin 14.6 g/dL 12.0-15.5 Hemoglobin [place] ([facility]) hematocrit 43.2 % 36.0-47.0 Hematocrit [facility] ([facility]) mean corpuscular hemoglobin 31.0 pg 27.0-33.0 Mean Cor puscular Hemoglobin [facility] ([facility]) mean corpuscular volume 91.7 fL 80.0-96.0 Mean Corpusc ular Volume [facility] ([facility]) mean corpuscular HGB conc 33.8 g/dL 32.0-36.5 Mean Corpu scular HGB Conc [facility] ([facility]) red cell distribution width 11.7 % 11.5-14.5 Red Cell Distribution Width [place] ([facility]) platelet count, automated 339 10 150-450 Platelet C ount, Automated [place] ([facility]) neutrophils % 56.5 % 36.0-66.0 Neutrophils % [place] ( [facility]) lymph % 29.8 % 24.0-44.0 Lymph % [facility] ([facility]) eos % 3.5 % 0.0-3.0 Above high normal Eos % [facility] ([facility]) baso % 0.5 % 0.0-1.0 Baso % [facility] ([facility]) mono % 9.2 % 0.0-5.0 Above high normal [place] % [facility] ([facility]) neutrophils # 4.9 10 1.5-8.5 Neutrophils # [place] ( [facility]) nucleated red blood cell % 0.0 % 0-0 Nucleated Red Blood Cell % [facility] ([facility]) immature granulocyte % 0.5 % 0-3.0 Immature Gran ulocyte % [facility] ([facility]) mono # 0.8 10 0.0-0.8 [place] # [facility] ([facility]) lymph # 2.6 10 1.5-5.0 Lymph # [facility] ([facility]) baso # 0.0 10 0.0-0.2 Baso # [facility] ([facility]) eos # 0.3 10 0.0-0.5 Eos # [facility] ([facility]) ID Date Data Source [id number] 05/27/2020 02:21:00 PM EST [place] ([facility]) Name Value Range Interpretation Code Description Data Gladis rce(s) Supporting Document(s) homocysteine 7.4 umol/L . Homocysteine [facility] (No [facility]) factor VIII activity 99 % . Factor VIII Act ivity [facility] ([facility]) antithrombin activity 119 % . Antithrombin A ctivity ALPHA ([facility]) protein S antigen, free 115 % . Protein S An tigen, Free ALPHA ([facility]) prt C activity(chromogenic) 72 % . Below low no rmal Prt C Activity(chromogenic) [place] ([facility]) APTT 29.5 sec . Aptt [facility] ([facility]) APTT 1:1 psych np tnp . APTT 1:1 Business Excellence Manager [place] ([facility]) lac interpretation . Lac Interpretatio n [place] ([facility]) APTT 1:1 saline tnp . APTT 1:1 Saline ATHE NA ([facility]) drvvt screen seconds 91.9 sec . Above high normal Drvvt Sc reen Seconds ALPHA ([facility]) act prt C resist w/fv defic 2.8 ratio . Act Prt C Resist W/fv Defic [facility] ([facility]) drvvt confirm seconds 42.6 sec . Drvvt Confirm Seconds [facility] ([facility]) drvvt ratio 1.9 ratio . Above high normal Drvvt Ratio ATHLAUREN [place] ([facility]) hexagonal phospholipid neutal 0 sec . Hexago nal Phospholipid Neutal [facility] ([facility]) anticardiolipin Ab, IgM <10 . Anticardioli pin Ab, IgM ALPHA ([facility]) anticardiolipin Ab, IgG <10 . Anticardioli pin Ab, IgG ALPHA ([facility]) beta-2 glycoprotein I, IgG <10 . Beta-2 Gl ycoprotein I, IgG ALPHA ([facility]) beta-2 glycoprotein I, IgM <10 . Beta-2 Gl ycoprotein I, IgM ALPHA ([facility]) beta-2 glycoprotein I, IgA <10 . Beta-2 Gl ycoprotein I, IgA ALPHA ([facility]) factor II gene mutation result . Facto r II Gene Mutation Result ALPHA ([facility]) factor II gene interpretation . Factor II Gene Interpretation [facility] ([facility]) factor II gene methodology . Factor II Gene Methodology [facility] ([facility]) factor II gene comments . Factor II Ge ne Comments ALPHA ([facility]) ID Date Data Source [id number] 05/27/2020 02:21:00 PM EST ALPHA ([facility]) Name Value Range Interpretation Code Description Data Gladis rce(s) Supporting Document(s) glucose, fasting 93 mg/dL 70-100 Glucose, Fasting AT [facility] [place] ([facility]) blood urea nitrogen 6 mg/dL 7-18 Below low normal Blood Urea Nitrogen [place] ([facility]) creatinine for GFR 0.83 mg/dL 0.55-1.30 Creatinine for GF R ALPHA ([facility]) glomerular filtration rate > 60.0 >60 Glomerula r Filtration Rate [place] ([facility]) sodium level 139 mEq/L 136-145 Sodium Level ALPHA (No [facility]) chloride level 105 mEq/L 98-107 Chloride Level ALPHA ([facility]) potassium serum 3.8 mEq/L 3.5-5.1 Potassium Serum ATHE NA ([facility]) calcium level 9.6 mg/dL 8.5-10.1 Calcium Level [place] ( [facility]) anion gap 4 mEq/L 8-16 Below low normal Anion Gap [place] ( [facility]) carbon dioxide level 30 mEq/L 21-32 Carbon Dioxide Level [facility] ([facility]) AST/SGOT 15 U/L 7-37 AST/SGOT [facility] ([facility]) ALT/SGPT 40 U/L 12-78 ALT/SGPT [facility] ([facility]) alkaline phosphatase 85 U/L 45-117 Alkaline Phosph atase [facility] ([facility]) bilirubin,total 0.7 mg/dL 0.2-1.0 Bilirubin,total ATHE ([facility]) albumin 3.5 gm/dL 3.2-5.2 Albumin [facility] ([facility]) total protein 6.7 gm/dL 6.4-8.2 Total Protein [place] ( [facility]) albumin/globulin ratio 1.2-2.2 Below low normal Albumin /globulin Ratio [facility] ([facility]) ID Date Data Source [id number] 05/27/2020 02:21:00 PM EST [place] ([facility]) Name Value Range Interpretation Code Description Data Gladis rce(s) Supporting Document(s) white blood count 8.7 10 4.0-10.0 White Blood Count [place] ([facility]) red blood count 4.71 10 4.00-5.40 Red Blood Count ATHE NA ([facility]) hemoglobin 14.6 g/dL 12.0-15.5 Hemoglobin [place] ([facility]) hematocrit 43.2 % 36.0-47.0 Hematocrit [facility] ([facility]) mean corpuscular volume 91.7 fL 80.0-96.0 Mean Corpusc ular Volume [facility] ([facility]) mean corpuscular hemoglobin 31.0 pg 27.0-33.0 Mean Cor puscular Hemoglobin [place] ([facility]) mean corpuscular HGB conc 33.8 g/dL 32.0-36.5 Mean Corpu scular HGB Conc [facility] ([facility]) red cell distribution width 11.7 % 11.5-14.5 Red Cell Distribution Width [facility] ([facility]) platelet count, automated 339 10 150-450 Platelet C ount, Automated [place] ([facility]) neutrophils % 56.5 % 36.0-66.0 Neutrophils % [place] ( [facility]) lymph % 29.8 % 24.0-44.0 Lymph % [facility] ([facility]) mono % 9.2 % 0.0-5.0 Above high normal [place] % [facility] ([facility]) eos % 3.5 % 0.0-3.0 Above high normal Eos % [facility] ([facility]) baso % 0.5 % 0.0-1.0 Baso % [facility] ([facility]) immature granulocyte % 0.5 % 0-3.0 Immature Gran ulocyte % [place] ([facility]) nucleated red blood cell % 0.0 % 0-0 Nucleated Red Blood Cell % [facility] ([facility]) neutrophils # 4.9 10 1.5-8.5 Neutrophils # [place] ( [facility]) lymph # 2.6 10 1.5-5.0 Lymph # [facility] ([facility]) eos # 0.3 10 0.0-0.5 Eos # [facility] ([facility]) mono # 0.8 10 0.0-0.8 [place] # [facility] ([facility]) baso # 0.0 10 0.0-0.2 Baso # [facility] ([facility]) ID Date Data Source [id number] 05/27/2020 02:21:00 PM EST [place] ([facility]) Name Value Range Interpretation Code Description Data Gladis rce(s) Supporting Document(s) homocysteine 7.4 umol/L . Homocysteine [facility] ([facility]) prt C activity(chromogenic) 72 % . Below low no rmal Prt C Activity(chromogenic) [facility] ([facility]) antithrombin activity 119 % . Antithrombin A ctivity [facility] ([facility]) factor VIII activity 99 % . Factor VIII Act ivity [facility] ([facility]) APTT 29.5 sec . Aptt [facility] ([facility]) APTT 1:1 psych np tnp . APTT 1:1 Business Excellence Manager [place] ([facility]) protein S antigen, free 115 % . Protein S An tigen, Free [facility] ([facility]) act prt C resist w/fv defic 2.8 ratio . Act Prt C Resist W/fv Defic [facility] ([facility]) APTT 1:1 saline tnp . APTT 1:1 Saline ATHE NA ([facility]) lac interpretation . Lac Interpretatio n [facility] ([facility]) drvvt screen seconds 91.9 sec . Above high normal Drvvt Sc reen Seconds [facility] ([facility]) drvvt ratio 1.9 ratio . Above high normal Drvvt Ratio ATHEN A ([facility]) drvvt confirm seconds 42.6 sec . Drvvt Confirm Seconds [facility] ([facility]) anticardiolipin Ab, IgG <10 . Anticardioli pin Ab, IgG ALPHA ([facility]) hexagonal phospholipid neutal 0 sec . Hexago nal Phospholipid Neutal [facility] ([facility]) anticardiolipin Ab, IgM <10 . Anticardioli pin Ab, IgM ALPHA ([facility]) beta-2 glycoprotein I, IgM <10 . Beta-2 Gl ycoprotein I, IgM ALPHA ([facility]) beta-2 glycoprotein I, IgA <10 . Beta-2 Gl ycoprotein I, IgA ALPHA ([facility]) beta-2 glycoprotein I, IgG <10 . Beta-2 Gl ycoprotein I, IgG [place] ([facility]) factor II gene comments . Factor II Ge ne Comments ALPHA ([facility]) factor II gene methodology . Factor II Gene Methodology ALPHA ([facility]) factor II gene mutation result . Facto r II Gene Mutation Result [facility] ([facility]) factor II gene interpretation . Factor II Gene Interpretation [facility] ([facility]) ID Date Data Source [id number] 05/27/2020 02:21:00 PM EST [place] ([facility]) Name Value Range Interpretation Code Description Data Gladis rce(s) Supporting Document(s) glucose, fasting 93 mg/dL 70-100 Glucose, Fasting AT [facility] [place] ([facility]) blood urea nitrogen 6 mg/dL 7-18 Below low normal Blood Urea Nitrogen [place] ([facility]) creatinine for GFR 0.83 mg/dL 0.55-1.30 Creatinine for GF R [place] ([facility]) sodium level 139 mEq/L 136-145 Sodium Level [facility] ([facility]) glomerular filtration rate > 60.0 >60 Glomerula r Filtration Rate [facility] ([facility]) potassium serum 3.8 mEq/L 3.5-5.1 Potassium Serum ATHE NA ([facility]) carbon dioxide level 30 mEq/L 21-32 Carbon Dioxide Level [facility] ([facility]) chloride level 105 mEq/L 98-107 Chloride Level [facility] ([facility]) anion gap 4 mEq/L 8-16 Below low normal Anion Gap [facility] ( [facility]) calcium level 9.6 mg/dL 8.5-10.1 Calcium Level [place] ( [facility]) AST/SGOT 15 U/L 7-37 AST/SGOT [facility] ([facility]) ALT/SGPT 40 U/L 12-78 ALT/SGPT [facility] ([facility]) alkaline phosphatase 85 U/L 45-117 Alkaline Phosph atase [facility] ([facility]) bilirubin,total 0.7 mg/dL 0.2-1.0 Bilirubin,total ATHE NA ([facility]) albumin 3.5 gm/dL 3.2-5.2 Albumin [facility] ([facility]) total protein 6.7 gm/dL 6.4-8.2 Total Protein [place] ( [facility]) albumin/globulin ratio 1.2-2.2 Below low normal Albumin /globulin Ratio [facility] ([facility]) ID Date Data Source [id number] 05/27/2020 02:21:00 PM EST [place] ([facility]) Name Value Range Interpretation Code Description Data Gladis rce(s) Supporting Document(s) white blood count 8.7 10 4.0-10.0 White Blood Count [place] ([facility]) red blood count 4.71 10 4.00-5.40 Red Blood Count ATHE NA ([facility]) mean corpuscular volume 91.7 fL 80.0-96.0 Mean Corpusc ular Volume [facility] ([facility]) hemoglobin 14.6 g/dL 12.0-15.5 Hemoglobin [place] ([facility]) hematocrit 43.2 % 36.0-47.0 Hematocrit [facility] ([facility]) mean corpuscular HGB conc 33.8 g/dL 32.0-36.5 Mean Corpu scular HGB Conc [facility] ([facility]) mean corpuscular hemoglobin 31.0 pg 27.0-33.0 Mean Cor puscular Hemoglobin [place] ([facility]) red cell distribution width 11.7 % 11.5-14.5 Red Cell Distribution Width [facility] ([facility]) platelet count, automated 339 10 150-450 Platelet C ount, Automated [place] ([facility]) neutrophils % 56.5 % 36.0-66.0 Neutrophils % [facility] ( [facility]) mono % 9.2 % 0.0-5.0 Above high normal [place] % [facility] ([facility]) eos % 3.5 % 0.0-3.0 Above high normal Eos % [facility] ([facility]) lymph % 29.8 % 24.0-44.0 Lymph % [facility] ([facility]) immature granulocyte % 0.5 % 0-3.0 Immature Gran ulocyte % [facility] ([facility]) baso % 0.5 % 0.0-1.0 Baso % [facility] ([facility]) nucleated red blood cell % 0.0 % 0-0 Nucleated Red Blood Cell % [facility] ([facility]) lymph # 2.6 10 1.5-5.0 Lymph # [facility] ([facility]) neutrophils # 4.9 10 1.5-8.5 Neutrophils # [place] ( [facility]) mono # 0.8 10 0.0-0.8 [place] # [facility] ([facility]) eos # 0.3 10 0.0-0.5 Eos # [facility] ([facility]) baso # 0.0 10 0.0-0.2 Baso # [facility] ([facility]) ID Date Data Source [id number] 05/27/2020 02:21:00 PM EST [place] ([facility]) Name Value Range Interpretation Code Description Data Gladis rce(s) Supporting Document(s) homocysteine 7.4 umol/L . Homocysteine [facility] ([facility]) factor VIII activity 99 % . Factor VIII Act ivity [facility] ([facility]) protein S antigen, free 115 % . Protein S An tigen, Free [facility] ([facility]) antithrombin activity 119 % . Antithrombin A ctivity [facility] ([facility]) prt C activity(chromogenic) 72 % . Below low no rmal Prt C Activity(chromogenic) [facility] ([facility]) APTT 29.5 sec . Aptt [facility] ([facility]) APTT 1:1 saline tnp . APTT 1:1 Saline ATHE NA ([facility]) APTT 1:1 psych np tnp . APTT 1:1 Business Excellence Manager [facility] ([facility]) lac interpretation . Lac Interpretatio n [facility] ([facility]) act prt C resist w/fv defic 2.8 ratio . Act Prt C Resist W/fv Defic [facility] ([facility]) drvvt ratio 1.9 ratio . Above high normal Drvvt Ratio ATHEN A ([facility]) drvvt screen seconds 91.9 sec . Above high normal Drvvt Sc reen Seconds [facility] ([facility]) drvvt confirm seconds 42.6 sec . Drvvt Confirm Seconds [facility] ([facility]) anticardiolipin Ab, IgG <10 . Anticardioli pin Ab, IgG ALPHA ([facility]) hexagonal phospholipid neutal 0 sec . Hexago nal Phospholipid Neutal [facility] ([facility]) anticardiolipin Ab, IgM <10 . Anticardioli pin Ab, IgM ALPHA ([facility]) beta-2 glycoprotein I, IgA <10 . Beta-2 Gl ycoprotein I, IgA ALPHA ([facility]) beta-2 glycoprotein I, IgM <10 . Beta-2 Gl ycoprotein I, IgM ALPHA ([facility]) beta-2 glycoprotein I, IgG <10 . Beta-2 Gl ycoprotein I, IgG ALPHA ([facility]) factor II gene interpretation . Factor II Gene Interpretation ALPHA ([facility]) factor II gene methodology . Factor II Gene Methodology ALPHA ([facility]) factor II gene mutation result . Facto r II Gene Mutation Result ALPHA ([facility]) factor II gene comments . Factor II Ge ne Comments ALPHA ([facility]) ID Date Data Source [id number] 05/27/2020 02:21:00 PM EST ALPHA ([facility]) Name Value Range Interpretation Code Description Data Gladis rce(s) Supporting Document(s) creatinine for GFR 0.83 mg/dL 0.55-1.30 Creatinine for GF R [place] ([facility]) blood urea nitrogen 6 mg/dL 7-18 Below low normal Blood Urea Nitrogen ALPHA ([facility]) glucose, fasting 93 mg/dL 70-100 Glucose, Fasting AT [facility] [place] ([facility]) glomerular filtration rate > 60.0 >60 Glomerula r Filtration Rate [facility] ([facility]) sodium level 139 mEq/L 136-145 Sodium Level [facility] (No [facility]) chloride level 105 mEq/L 98-107 Chloride Level ALPHA ([facility]) potassium serum 3.8 mEq/L 3.5-5.1 Potassium Serum ATH NA ([facility]) carbon dioxide level 30 mEq/L 21-32 Carbon Dioxide Level [facility] ([facility]) AST/SGOT 15 U/L 7-37 AST/SGOT [facility] ([facility]) anion gap 4 mEq/L 8-16 Below low normal Anion Gap [facility] ( [facility]) calcium level 9.6 mg/dL 8.5-10.1 Calcium Level [facility] ( [facility]) ALT/SGPT 40 U/L 12-78 ALT/SGPT [facility] ([facility]) alkaline phosphatase 85 U/L 45-117 Alkaline Phosph atase [facility] [facility] bilirubin,total 0.7 mg/dL 0.2-1.0 Bilirubin,total ATHE NA ([facility]) albumin/globulin ratio 1.2-2.2 Below low normal Albumin /globulin Ratio [facility] ([facility]) total protein 6.7 gm/dL 6.4-8.2 Total Protein [facility] ( [facility]) albumin 3.5 gm/dL 3.2-5.2 Albumin [facility] ([facility]) ID Date Data Source [id number] 05/27/2020 02:21:00 PM EST [facility] ([facility]) Name Value Range Interpretation Code Description Data Gladis rce(s) Supporting Document(s) white blood count 8.7 10 4.0-10.0 White Blood Count [facility] ([facility]) red blood count 4.71 10 4.00-5.40 Red Blood Count ATHE NA ([facility]) hemoglobin 14.6 g/dL 12.0-15.5 Hemoglobin [facility] ([facility]) hematocrit 43.2 % 36.0-47.0 Hematocrit [facility] ([facility]) mean corpuscular volume 91.7 fL 80.0-96.0 Mean Corpusc ular Volume [facility] ([facility]) mean corpuscular hemoglobin 31.0 pg 27.0-33.0 Mean Cor puscular Hemoglobin [facility] ([facility]) platelet count, automated 339 10 150-450 Platelet C ount, Automated [facility] ([facility]) red cell distribution width 11.7 % 11.5-14.5 Red Cell Distribution Width [facility] ([facility]) mean corpuscular HGB conc 33.8 g/dL 32.0-36.5 Mean Corpu scular HGB Conc AL[facility] ([facility]) lymph % 29.8 % 24.0-44.0 Lymph % [facility] ([facility]) mono % 9.2 % 0.0-5.0 Above high normal [place] % [facility] ([facility]) neutrophils % 56.5 % 36.0-66.0 Neutrophils % [facility] ( [facility]) eos % 3.5 % 0.0-3.0 Above high normal Eos % ALPHA ([facility]) baso % 0.5 % 0.0-1.0 Baso % [facility] ([facility]) nucleated red blood cell % 0.0 % 0-0 Nucleated Red Blood Cell % [facility] ([facility]) immature granulocyte % 0.5 % 0-3.0 Immature Gran ulocyte % ALPHA ([facility]) neutrophils # 4.9 10 1.5-8.5 Neutrophils # ALPHA ( [facility]) eos # 0.3 10 0.0-0.5 Eos # ALPHA ([facility]) lymph # 2.6 10 1.5-5.0 Lymph # [facility] ([facility]) mono # 0.8 10 0.0-0.8 [place] # ALPHA ([facility]) baso # 0.0 10 0.0-0.2 Baso # ALPHA ([facility]) ID Date Data Source [id number] 04/04/2020 10:32:00 AM [facility] [address] [place] [address] RESPIRATORY CARE REPORT ==== ---------NAME------- NUMBER SEX AGE ADMIT DISC. XRAY# F/C TYPELAKSHMI Angel [id number] F 24 04/02/20 04/02/20 [id number] BB1 O/P DATE OF : 1995 M/R# [id number] #: [phone] [id number] LOCATION: EMERGENCY DEPT [facility] [address] COMP LETE:04/02/20 14:03 [place] [id number] PHYSICIAN: JAXON APARICIO CH Name Value Range Interpretation Code Description Data Gladis rce(s) Supporting Document(s) ID Date Data Source [id number] 04/04/2020 09:37:00 AM EST [facility] [address] [place] [address] PHONE: [phone] FAX: [phone] Name .................. : LAKSHMI Angel Acct Number.................. : [id number] ROOM. ................. : TR-07 Number ................... : [id number] Stay type ............. : E/R Discharge Date......... ... : Admit Date ......... : 04/02/20 Admit Phys .................... : ASHLEY PA Date of ....... : 1995 Family Phys ................... : NON STAFF Phone .................. : [phone] Age ................................ : 24 Film# .................. .:[id number] Sex ................................. : F Unsigned transcriptions are preliminary reports and do not represent a medical or legal document CT CTA CHEST NON-CORONARY [place] [address] COMPLETE:04/02/20 13:10 03661 Reason(s): DVT with tachy CTA OF THE CHEST WITH CONTRAST: HISTORY: Pulmonary embolism. TECHNIQUE: CT scan of the chest is performed following administration of intravenous contrast for evaluation of pulmonary embolism. COMPARISON: None available. FINDINGS: The study is not performed for optimal evaluation of the parenchymal of the lungs. There is no evidence of significant acute pulmonary disease or pleural effusions. There is low attenuation thrombi in the descending pulmonary arteries to the right lower lobe. No large central pulmonary emboli are noted. The right ventricle is not enlarged, thus no evidence of right ventricular strain. There is no mediastinal, hilar or axillary adenopathy by CT size criteria. Evaluation of the visualized skeleton demonstrates bony demineralization and degenerative changes. IMPRESSION: Pulmonary emboli demonstrated in the descending pulmonary arteries to the right lower lobe. Findings conveyed to the emergency room following the examination. While performing the above CT examination, radiation dose reduction was accomplished utilizing automated exposure control, adjusting of the mA and kV based on the patient's body size and/or the use of imperative reconstructive te chniques. CT dose: 1145 mGycm [address] [place] [address] [place] [address] PHONE: [phone] FAX: [phone] Name .................. : LAKSHMI Angel Acct Number.................. : [id number] ROOM. ................. : TR-07 MR Number ................... : [id number] Stay type ............. : E/R Discharge Date......... ... : Admit Date ......... : 04/02/20 Admit Phys .................... : ASHLEY SURESH Date of ....... : 1995 Family Phys ................... : NON STAFF Phone .................. : [phone] Age ................................ : 24 Film# .................. .:[id number] Sex ................................. : F Unsigned transcriptions are preliminary reports and do not represent a medical or legal document CT CTA CHEST NON-CORONARY [place] [address] COMPLETE:04/02/20 13:10 [id number] Reason(s): DVT with tachy Contrast agent in mL: 75 Isovue 370 Method of administration: Intravenous Electronically Reviewed and Signed By Kel Castro MD , 04/04/20 09:37, AML Transcribe Initials: DZ , Transcribe Date: 04/02/20 15:51, Dictation Date: Copy for: ALESSANDRA YATES via fax Copy for: EMERGENCY DEPT via [facility] Copy for: 710 MED REC DISCHARGED Page 2 of 2 Name Value Range Interpretation Code Description Data Gladis rce(s) Supporting Document(s) ID Date Data Source [id number] 04/04/2020 09:33:00 AM EST [facility] [address] [place] [address] PHONE: [phone] FAX: [phone] Name .................. : LAKSHMI THAIS Jeanne Acct Number.................. : [id number] ROOM. ................. : TR-07 MR Number ................... : [id number] Stay type ............. : E/R Discharge Date......... ... : Admit Date ......... : 04/02/20 Admit Phys .................... : ASHLEY PA Date of ....... : 1995 Family Phys ................... : NON STAFF Phone .................. : [phone] Age ................................ : 24 Film# .................. .:[id number] Sex ................................. : F Unsigned transcriptions are preliminary reports and do not represent a medical or legal document [place] [id number] COMPLETE:04/02/20 12:35 [facility] [address] Reason(s): Pain, Limb RIGHT L OWER EXTREMITY VENOUS DUPLEX DOPPLER ULTRASOUND: FINDINGS: Duplex sonography of the deep venous system of the right lower extremity demonstrates incomplete compression and decreased flow in a portion of the gastrocnemius veins. No DVT is demonstrated in the veins above the knee. Flow and compressibility are demonstrated in the common femoral, femoral and popliteal veins. IMPRESSION: Nonocclusive DVT in the gastrocnemius veins. No evidence of a DVT above the knee. The patient was returned to the emergency room following the examination. Electronically Reviewed and Signed By Kel Castro MD , 04/04/20 09:33, [facility] Transcribe Initials: DZ , Transcribe Date: 04/02/20 13:10, Dictation Date: Copy for: ALESSANDRA YATES via fax Copy for: EMERGENCY DEPT via modem Copy for: 710 MED REC DISCHARGED Page 1 of 1 Name Value Range Interpretation Code Description Data Gladis rce(s) Supporting Document(s) ID Date Data Source [id number] 04/03/2020 09:30:00 PM EST [facility] ([facility]) Name Value Range Interpretation Code Description Data Gladis rce(s) Supporting Document(s) lactic acid sepsis protocol 2.5 mmol/L 0.4-2.0 Above high no rmal Lactic Acid Sepsis Protocol [facility]) ID Date Data Source [id number] 04/03/2020 09:30:00 PM EST [facility]) Name Value Range Interpretation Code Description Data Gladis rce(s) Supporting Document(s) thyroid stimulating hormone 5.700 uIU/mL 0.358-3.740 Above high no rmal Thyroid Stimulating Hormone [facility]) ID Date Data Source [id number] 04/03/2020 09:30:00 PM EST [facility]) Name Value Range Interpretation Code Description Data Gladis rce(s) Supporting Document(s) thyroxine (T4) 19.7 ug/dL 4.5-12.0 Above high normal Thyroxine (T4) [facility]) ID Date Data Source [id number] 04/03/2020 09:30:00 PM EST [facility]) Name Value Range Interpretation Code Description Data Gladis rce(s) Supporting Document(s) nt-pro BNP 24 pg/mL <125 Nt-pro BNP [facility]) ID Date Data Source [id number] 04/03/2020 09:30:00 PM EST [facility]) Name Value Range Interpretation Code Description Data Gladis rce(s) Supporting Document(s) glomerular filtration rate > 60.0 >60 Glomerula r Filtration Rate [facility] ([facility]) creatinine for GFR 1.07 mg/dL 0.55-1.30 Creatinine for GF R [facility] ([facility]) glucose, fasting 133 mg/dL 70-100 Above high normal Glucose, Fas ting [facility] ([facility]) blood urea nitrogen 10 mg/dL 7-18 Blood Urea Nitro gen [facility] ([facility]) sodium level 140 mEq/L 136-145 Sodium Level [facility] (No [facility]) potassium serum 3.8 mEq/L 3.5-5.1 Potassium Serum ATHE NA ([facility]) chloride level 108 mEq/L 98-107 Above high normal Chloride Level AL[facility] ([facility]) calcium level 9.7 mg/dL 8.5-10.1 Calcium Level ALPHA ( [facility]) carbon dioxide level 24 mEq/L 21-32 Carbon Dioxide Level [facility] ([facility]) anion gap 8 mEq/L 8-16 Anion Gap [facility] ([facility]) ID Date Data Source [id number] 04/03/2020 09:30:00 PM EST [facility] ([facility]) Name Value Range Interpretation Code Description Data Gladis rce(s) Supporting Document(s) AST/SGOT 13 U/L 7-37 AST/SGOT [facility] ([facility]) ALT/SGPT 15 U/L 12-78 ALT/SGPT [facility] ([facility]) alkaline phosphatase 90 U/L 45-117 Alkaline Phosph atase [facility] ([facility]) albumin 3.5 gm/dL 3.2-5.2 Albumin [facility] ([facility]) total protein 7.4 gm/dL 6.4-8.2 Total Protein [facility] ( [facility]) bilirubin,total 0.3 mg/dL 0.2-1.0 Bilirubin,total [facility] ([facility]) bilirubin,direct < 0.1 0.0-0.2 Bilirubin,direct AT [facility]) albumin/globulin ratio 1.2-2.2 Below low normal Albumin /globulin Ratio [facility] ([facility]) ID Date Data Source [id number] 04/03/2020 09:30:00 PM EST [facility] ([facility]) Name Value Range Interpretation Code Description Data Gladis rce(s) Supporting Document(s) mb/CK relative index < or =4 mb/CK Relative Index [facility] ([facility]) CPK creatine phosphokinase 57 U/L 26-192 CPK Creat ine Phosphokinase [facility] ([facility]) CK-mb value mass < 1.0 <3.6 CK-mb Value Mass AT [facility] ([facility]) troponin I < 0.02 < 0.10 Troponin I [facility] ([facility]) ID Date Data Source [id number] 04/03/2020 09:30:00 PM EST [facility] ([facility]) Name Value Range Interpretation Code Description Data Gladis rce(s) Supporting Document(s) D-dimer quant 956.43 NG/mL <500 Above high normal D-dimer Quant [facility] ([facility]) ID Date Data Source [id number] 04/03/2020 09:30:00 PM EST [facility] ([facility]) Name Value Range Interpretation Code Description Data Gladis rce(s) Supporting Document(s) white blood count 11.5 10 4.0-10.0 Above high normal White Blood Count [facility] ([facility]) red blood count 4.82 10 4.00-5.40 Red Blood Count ATHE NA ([facility]) mean corpuscular volume 88.6 fL 80.0-96.0 Mean Corpusc ular Volume [facility] ([facility]) hemoglobin 14.3 g/dL 12.0-15.5 Hemoglobin [facility] ([facility]) hematocrit 42.7 % 36.0-47.0 Hematocrit [facility] ([facility]) mean corpuscular hemoglobin 29.7 pg 27.0-33.0 Mean Cor puscular Hemoglobin [facility] ([facility]) neutrophils % 62.5 % 36.0-66.0 Neutrophils % [facility] ( [facility]) platelet count, automated 314 10 150-450 Platelet C ount, Automated [facility] ([facility]) red cell distribution width 12.2 % 11.5-14.5 Red Cell Distribution Width [facility] ([facility]) mean corpuscular HGB conc 33.5 g/dL 32.0-36.5 Mean Corpu scular HGB Conc [facility] ([facility]) baso % 0.3 % 0.0-1.0 Baso % [facility] ([facility]) eos % 1.1 % 0.0-3.0 Eos % [facility] ([facility]) lymph % 29.9 % 24.0-44.0 Lymph % [facility] ([facility]) mono % 5.9 % 0.0-5.0 Above high normal [place] % ALPHA ([facility]) nucleated red blood cell % 0.0 % 0-0 Nucleated Red Blood Cell % [facility] ([facility]) immature granulocyte % 0.3 % 0-3.0 Immature Gran ulocyte % [facility] ([facility]) neutrophils # 7.2 10 1.5-8.5 Neutrophils # [facility] ( [facility]) lymph # 3.4 10 1.5-5.0 Lymph # [facility] ([facility]) mono # 0.7 10 0.0-0.8 [place] # [facility] ([facility]) baso # 0.0 10 0.0-0.2 Baso # [facility] ([facility]) eos # 0.1 10 0.0-0.5 Eos # [facility] ([facility]) ID Date Data Source [id number] 04/03/2020 09:30:00 PM EST [facility] ([facility]) Name Value Range Interpretation Code Description Data Gladis rce(s) Supporting Document(s) venous pH 7.385 units 7.330-7.430 Venous pH [facility] ([facility]) venous partial pressure CO2 37.8 mmHg 38.0-50.0 Below low nor mal Venous Partial Pressure CO2 [facility] ([facility]) venous total CO2 23.3 mEq/L 24.0-28.0 Below low normal Venous Total CO2 [facility] ([facility]) venous partial pressure O2 45.5 mmHg 30.0-50.0 Venous Pa rtial Pressure O2 [facility] ([facility]) venous HCO3 22.1 mEq/L 23.0-27.0 Below low normal Venous HCO3 [facility] ([facility]) venous base excess -2.0-2.0 Below low normal Venous Base Excess [facility] ([facility]) venous O2 saturation 85.2 % 60.0-80.0 Above high normal Venous O 2 Saturation [facility] ([facility]) venous standard HCO3 22.1 mEq/L Venous Standard HCO3 [facility] ([facility]) ID Date Data Source [id number] 04/03/2020 09:30:00 PM EST [facility] ([facility]) Name Value Range Interpretation Code Description Data Gladis rce(s) Supporting Document(s) lactic acid sepsis protocol 2.5 mmol/L 0.4-2.0 Above high no rmal Lactic Acid Sepsis Protocol [facility]) ID Date Data Source [id number] 04/03/2020 09:30:00 PM EST [facility]) Name Value Range Interpretation Code Description Data Gladis rce(s) Supporting Document(s) thyroid stimulating hormone 5.700 uIU/mL 0.358-3.740 Above high no rmal Thyroid Stimulating Hormone [facility]) ID Date Data Source [id number] 04/03/2020 09:30:00 PM EST [facility]) Name Value Range Interpretation Code Description Data Gladis rce(s) Supporting Document(s) thyroxine (T4) 19.7 ug/dL 4.5-12.0 Above high normal Thyroxine (T4) [facility]) ID Date Data Source [id number] 04/03/2020 09:30:00 PM EST [facility] ([facility]) Name Value Range Interpretation Code Description Data Gladis rce(s) Supporting Document(s) nt-pro BNP 24 pg/mL <125 Nt-pro BNP [facility] ([facility]) ID Date Data Source [id number] 04/03/2020 09:30:00 PM EST [facility] ([facility]) Name Value Range Interpretation Code Description Data Gladis rce(s) Supporting Document(s) blood urea nitrogen 10 mg/dL 7-18 Blood Urea Nitro gen [facility] ([facility]) glomerular filtration rate > 60.0 >60 Glomerula r Filtration Rate [facility] ([facility]) creatinine for GFR 1.07 mg/dL 0.55-1.30 Creatinine for GF R [facility] ([facility]) sodium level 140 mEq/L 136-145 Sodium Level [facility] ([facility]) glucose, fasting 133 mg/dL 70-100 Above high normal Glucose, Fas ting [facility] ([facility]) potassium serum 3.8 mEq/L 3.5-5.1 Potassium Serum ATHE NA ([facility]) chloride level 108 mEq/L 98-107 Above high normal Chloride Level [facility] ([facility]) calcium level 9.7 mg/dL 8.5-10.1 Calcium Level [facility] ( [facility]) anion gap 8 mEq/L 8-16 Anion Gap [facility] ([facility]) carbon dioxide level 24 mEq/L 21-32 Carbon Dioxide Level [facility] ([facility]) ID Date Data Source [id number] 04/03/2020 09:30:00 PM EST [facility] ([facility]) Name Value Range Interpretation Code Description Data Gladis rce(s) Supporting Document(s) ALT/SGPT 15 U/L 12-78 ALT/SGPT [facility] ([facility]) AST/SGOT 13 U/L 7-37 AST/SGOT [facility] ([facility]) alkaline phosphatase 90 U/L 45-117 Alkaline Phosph atase [facility] ([facility]) bilirubin,total 0.3 mg/dL 0.2-1.0 Bilirubin,total [facility] ([facility]) bilirubin,direct < 0.1 0.0-0.2 Bilirubin,direct AT [facility] ([facility]) total protein 7.4 gm/dL 6.4-8.2 Total Protein [facility] ( [facility]) albumin/globulin ratio 1.2-2.2 Below low normal Albumin /globulin Ratio [facility] ([facility]) albumin 3.5 gm/dL 3.2-5.2 Albumin [facility] ([facility]) ID Date Data Source [id number] 04/03/2020 09:30:00 PM EST [facility] ([facility]) Name Value Range Interpretation Code Description Data Gladis rce(s) Supporting Document(s) CPK creatine phosphokinase 57 U/L 26-192 CPK Creat ine Phosphokinase [facility] ([facility]) mb/CK relative index < or =4 mb/CK Relative Index [facility] ([facility]) CK-mb value mass < 1.0 <3.6 CK-mb Value Mass AT [facility] ([facility]) troponin I < 0.02 < 0.10 Troponin I [facility] ([facility]) ID Date Data Source [id number] 04/03/2020 09:30:00 PM EST [facility] ([facility]) Name Value Range Interpretation Code Description Data Gladis rce(s) Supporting Document(s) D-dimer quant 956.43 NG/mL <500 Above high normal D-dimer Quant [facility] ([facility]) ID Date Data Source [id number] 04/03/2020 09:30:00 PM EST [facility] ([facility]) Name Value Range Interpretation Code Description Data Gladis rce(s) Supporting Document(s) white blood count 11.5 10 4.0-10.0 Above high normal White Blood Count [facility] ([facility]) hemoglobin 14.3 g/dL 12.0-15.5 Hemoglobin [facility] ([facility]) red blood count 4.82 10 4.00-5.40 Red Blood Count AT[facility] NA ([facility]) mean corpuscular hemoglobin 29.7 pg 27.0-33.0 Mean Cor puscular Hemoglobin [facility] ([facility]) mean corpuscular volume 88.6 fL 80.0-96.0 Mean Corpusc ular Volume [facility] ([facility]) hematocrit 42.7 % 36.0-47.0 Hematocrit [facility] ([facility]) mean corpuscular HGB conc 33.5 g/dL 32.0-36.5 Mean Corpu scular HGB Conc [facility] ([facility]) red cell distribution width 12.2 % 11.5-14.5 Red Cell Distribution Width [facility] ([facility]) lymph % 29.9 % 24.0-44.0 Lymph % [facility] ([facility]) platelet count, automated 314 10 150-450 Platelet C ount, Automated [facility] ([facility]) neutrophils % 62.5 % 36.0-66.0 Neutrophils % [facility] ( [facility]) eos % 1.1 % 0.0-3.0 Eos % [facility] ([facility]) mono % 5.9 % 0.0-5.0 Above high normal [place] % [facility] ([facility]) baso % 0.3 % 0.0-1.0 Baso % [facility] ([facility]) immature granulocyte % 0.3 % 0-3.0 Immature Gran ulocyte % [facility] ([facility]) nucleated red blood cell % 0.0 % 0-0 Nucleated Red Blood Cell % [facility] ([facility]) lymph # 3.4 10 1.5-5.0 Lymph # [facility] ([facility]) neutrophils # 7.2 10 1.5-8.5 Neutrophils # [facility] ( [facility]) eos # 0.1 10 0.0-0.5 Eos # [facility] ([facility]) mono # 0.7 10 0.0-0.8 [place] # [facility] ([facility]) baso # 0.0 10 0.0-0.2 Baso # [facility] ([facility]) ID Date Data Source [id number] 04/03/2020 09:30:00 PM EST [facility] ([facility]) Name Value Range Interpretation Code Description Data Gladis rce(s) Supporting Document(s) venous pH 7.385 units 7.330-7.430 Venous pH [facility] ([facility]) venous partial pressure CO2 37.8 mmHg 38.0-50.0 Below low nor mal Venous Partial Pressure CO2 [facility] ([facility]) venous partial pressure O2 45.5 mmHg 30.0-50.0 Venous Pa rtial Pressure O2 [facility] ([facility]) venous total CO2 23.3 mEq/L 24.0-28.0 Below low normal Venous Total CO2 [facility] ([facility]) venous standard HCO3 22.1 mEq/L Venous Standard HCO3 [facility] ([facility]) venous HCO3 22.1 mEq/L 23.0-27.0 Below low normal Venous HCO3 [facility] ([facility]) venous O2 saturation 85.2 % 60.0-80.0 Above high normal Venous O 2 Saturation [facility] ([facility]) venous base excess -2.0-2.0 Below low normal Venous Base Excess [facility] ([facility]) ID Date Data Source [id number] 04/03/2020 09:30:00 PM EST [facility] ([facility]) Name Value Range Interpretation Code Description Data Gladis rce(s) Supporting Document(s) lactic acid sepsis protocol 2.5 mmol/L 0.4-2.0 Above high no rmal Lactic Acid Sepsis Protocol [facility] ([facility]) ID Date Data Source [id number] 04/03/2020 09:30:00 PM EST [facility] ([facility]) Name Value Range Interpretation Code Description Data Gladis rce(s) Supporting Document(s) thyroid stimulating hormone 5.700 uIU/mL 0.358-3.740 Above high no rmal Thyroid Stimulating Hormone [facility] ([facility]) ID Date Data Source [id number] 04/03/2020 09:30:00 PM EST [facility] ([facility]) Name Value Range Interpretation Code Description Data Gladis rce(s) Supporting Document(s) thyroxine (T4) 19.7 ug/dL 4.5-12.0 Above high normal Thyroxine (T4) [facility] ([facility]) ID Date Data Source [id number] 04/03/2020 09:30:00 PM EST [facility] ([facility]) Name Value Range Interpretation Code Description Data Gladis rce(s) Supporting Document(s) nt-pro BNP 24 pg/mL <125 Nt-pro BNP [facility]) ID Date Data Source [id number] 04/03/2020 09:30:00 PM EST [facility] ([facility]) Name Value Range Interpretation Code Description Data Gladis rce(s) Supporting Document(s) glucose, fasting 133 mg/dL 70-100 Above high normal Glucose, Fas ting [facility] ([facility]) blood urea nitrogen 10 mg/dL 7-18 Blood Urea Nitro gen [facility] ([facility]) creatinine for GFR 1.07 mg/dL 0.55-1.30 Creatinine for GF R [facility] ([facility]) glomerular filtration rate > 60.0 >60 Glomerula r Filtration Rate [facility] ([facility]) sodium level 140 mEq/L 136-145 Sodium Level [facility] (No [facility]) chloride level 108 mEq/L 98-107 Above high normal Chloride Level [facility] ([facility]) potassium serum 3.8 mEq/L 3.5-5.1 Potassium Serum ATHE NA ([facility]) carbon dioxide level 24 mEq/L 21-32 Carbon Dioxide Level [facility] ([facility]) anion gap 8 mEq/L 8-16 Anion Gap [facility] ([facility]) calcium level 9.7 mg/dL 8.5-10.1 Calcium Level [facility] ( [facility]) ID Date Data Source [id number] 04/03/2020 09:30:00 PM EST [facility] ([facility]) Name Value Range Interpretation Code Description Data Gladis rce(s) Supporting Document(s) AST/SGOT 13 U/L 7-37 AST/SGOT [facility] ([facility]) ALT/SGPT 15 U/L 12-78 ALT/SGPT [facility] ([facility]) alkaline phosphatase 90 U/L 45-117 Alkaline Phosph atase [facility] ([facility]) bilirubin,total 0.3 mg/dL 0.2-1.0 Bilirubin,total AT[facility] ([facility]) bilirubin,direct < 0.1 0.0-0.2 Bilirubin,direct AT [facility] [place] ([facility]) albumin 3.5 gm/dL 3.2-5.2 Albumin [facility] ([facility]) total protein 7.4 gm/dL 6.4-8.2 Total Protein [facility] ( [facility]) albumin/globulin ratio 1.2-2.2 Below low normal Albumin /globulin Ratio [facility] ([facility]) ID Date Data Source [id number] 04/03/2020 09:30:00 PM EST [facility] ([facility]) Name Value Range Interpretation Code Description Data Gladis rce(s) Supporting Document(s) CK-mb value mass < 1.0 <3.6 CK-mb Value Mass AT [facility] ([facility]) mb/CK relative index < or =4 mb/CK Relative Index [facility] ([facility]) CPK creatine phosphokinase 57 U/L 26-192 CPK Creat ine Phosphokinase [facility] ([facility]) troponin I < 0.02 < 0.10 Troponin I [facility] ([facility]) ID Date Data Source [id number] 04/03/2020 09:30:00 PM EST [facility] ([facility]) Name Value Range Interpretation Code Description Data Gladis rce(s) Supporting Document(s) D-dimer quant 956.43 NG/mL <500 Above high normal D-dimer Quant [facility] ([facility]) ID Date Data Source [id number] 04/03/2020 09:30:00 PM EST [facility] ([facility]) Name Value Range Interpretation Code Description Data Gladis rce(s) Supporting Document(s) white blood count 11.5 10 4.0-10.0 Above high normal White Blood Count [facility] ([facility]) hemoglobin 14.3 g/dL 12.0-15.5 Hemoglobin [facility] ([facility]) hematocrit 42.7 % 36.0-47.0 Hematocrit [facility] ([facility]) red blood count 4.82 10 4.00-5.40 Red Blood Count AT[facility] ([facility]) mean corpuscular hemoglobin 29.7 pg 27.0-33.0 Mean Cor puscular Hemoglobin [facility] ([facility]) mean corpuscular volume 88.6 fL 80.0-96.0 Mean Corpusc ular Volume [facility] ([facility]) mean corpuscular HGB conc 33.5 g/dL 32.0-36.5 Mean Corpu scular HGB Conc [facility] ([facility]) platelet count, automated 314 10 150-450 Platelet C ount, Automated [facility] ([facility]) red cell distribution width 12.2 % 11.5-14.5 Red Cell Distribution Width [facility] ([facility]) neutrophils % 62.5 % 36.0-66.0 Neutrophils % [facility] ( [facility]) mono % 5.9 % 0.0-5.0 Above high normal [place] % [facility] ([facility]) lymph % 29.9 % 24.0-44.0 Lymph % [facility] ([facility]) immature granulocyte % 0.3 % 0-3.0 Immature Gran ulocyte % [facility] ([facility]) eos % 1.1 % 0.0-3.0 Eos % [facility] ([facility]) baso % 0.3 % 0.0-1.0 Baso % [facility] ([facility]) neutrophils # 7.2 10 1.5-8.5 Neutrophils # [facility] ( [facility]) nucleated red blood cell % 0.0 % 0-0 Nucleated Red Blood Cell % [facility] ([facility]) lymph # 3.4 10 1.5-5.0 Lymph # [facility] ([facility]) baso # 0.0 10 0.0-0.2 Baso # [facility] ([facility]) eos # 0.1 10 0.0-0.5 Eos # [facility] ([facility]) mono # 0.7 10 0.0-0.8 [place] # [facility] ([facility]) ID Date Data Source [id number] 04/03/2020 09:30:00 PM EST [facility] ([facility]) Name Value Range Interpretation Code Description Data Gladis rce(s) Supporting Document(s) venous pH 7.385 units 7.330-7.430 Venous pH [facility] ([facility]) venous partial pressure O2 45.5 mmHg 30.0-50.0 Venous Pa rtial Pressure O2 [facility] ([facility]) venous partial pressure CO2 37.8 mmHg 38.0-50.0 Below low nor mal Venous Partial Pressure CO2 [facility] ([facility]) venous total CO2 23.3 mEq/L 24.0-28.0 Below low normal Venous Total CO2 [facility] ([facility]) venous HCO3 22.1 mEq/L 23.0-27.0 Below low normal Venous HCO3 [facility] ([facility]) venous base excess -2.0-2.0 Below low normal Venous Base Excess [facility] ([facility]) venous standard HCO3 22.1 mEq/L Venous Standard HCO3 [facility] ([facility]) venous O2 saturation 85.2 % 60.0-80.0 Above high normal Venous O 2 Saturation [facility] ([facility]) ID Date Data Source [id number] 04/03/2020 09:30:00 PM EST [facility] ([facility]) Name Value Range Interpretation Code Description Data Gladis rce(s) Supporting Document(s) lactic acid sepsis protocol 2.5 mmol/L 0.4-2.0 Above high no rmal Lactic Acid Sepsis Protocol [facility] ([facility]) ID Date Data Source [id number] 04/03/2020 09:30:00 PM EST [facility] ([facility]) Name Value Range Interpretation Code Description Data Gladis rce(s) Supporting Document(s) thyroid stimulating hormone 5.700 uIU/mL 0.358-3.740 Above high no rmal Thyroid Stimulating Hormone [facility]) ID Date Data Source [id number] 04/03/2020 09:30:00 PM EST [facility] ([facility]) Name Value Range Interpretation Code Description Data Gladis rce(s) Supporting Document(s) thyroxine (T4) 19.7 ug/dL 4.5-12.0 Above high normal Thyroxine (T4) [facility] ([facility]) ID Date Data Source [id number] 04/03/2020 09:30:00 PM [facility] Name Value Range Interpretation Code Description Data Gladis rce(s) Supporting Document(s) nt-pro BNP 24 pg/mL <125 Nt-pro BNP [facility]) ID Date Data Source [id number] 04/03/2020 09:30:00 PM EST [facility] ([facility]) Name Value Range Interpretation Code Description Data Gladis rce(s) Supporting Document(s) creatinine for GFR 1.07 mg/dL 0.55-1.30 Creatinine for GF R [facility] ([facility]) blood urea nitrogen 10 mg/dL 7-18 Blood Urea Nitro gen [facility] ([facility]) glucose, fasting 133 mg/dL 70-100 Above high normal Glucose, Fas ting [facility] ([facility]) carbon dioxide level 24 mEq/L 21-32 Carbon Dioxide Level [facility] ([facility]) sodium level 140 mEq/L 136-145 Sodium Level [facility] (No [facility]) glomerular filtration rate > 60.0 >60 Glomerula r Filtration Rate [facility] ([facility]) potassium serum 3.8 mEq/L 3.5-5.1 Potassium Serum ATHE NA ([facility]) chloride level 108 mEq/L 98-107 Above high normal Chloride Level [facility] ([facility]) anion gap 8 mEq/L 8-16 Anion Gap [facility] ([facility]) calcium level 9.7 mg/dL 8.5-10.1 Calcium Level [facility] ( [facility]) ID Date Data Source [id number] 04/03/2020 09:30:00 PM EST [facility] ([facility]) Name Value Range Interpretation Code Description Data Gladis rce(s) Supporting Document(s) AST/SGOT 13 U/L 7-37 AST/SGOT [facility] ([facility]) alkaline phosphatase 90 U/L 45-117 Alkaline Phosph atase [facility] ([facility]) ALT/SGPT 15 U/L 12-78 ALT/SGPT [facility] ([facility]) bilirubin,total 0.3 mg/dL 0.2-1.0 Bilirubin,total AT[facility] ([facility]) albumin 3.5 gm/dL 3.2-5.2 Albumin [facility] ([facility]) total protein 7.4 gm/dL 6.4-8.2 Total Protein [facility] ( [facility]) bilirubin,direct < 0.1 0.0-0.2 Bilirubin,direct AT [facility]) albumin/globulin ratio 1.2-2.2 Below low normal Albumin /globulin Ratio [facility] ([facility]) ID Date Data Source [id number] 04/03/2020 09:30:00 PM EST [facility] ([facility]) Name Value Range Interpretation Code Description Data Gladis rce(s) Supporting Document(s) CK-mb value mass < 1.0 <3.6 CK-mb Value Mass AT [facility] ([facility]) CPK creatine phosphokinase 57 U/L 26-192 CPK Creat ine Phosphokinase [facility] ([facility]) troponin I < 0.02 < 0.10 Troponin I [facility] ([facility]) mb/CK relative index < or =4 mb/CK Relative Index [facility] ([facility]) ID Date Data Source [id number] 04/03/2020 09:30:00 PM EST [facility] ([facility]) Name Value Range Interpretation Code Description Data Gladis rce(s) Supporting Document(s) D-dimer quant 956.43 NG/mL <500 Above high normal D-dimer Quant [facility] ([facility]) ID Date Data Source [id number] 04/03/2020 09:30:00 PM EST [facility] ([facility]) Name Value Range Interpretation Code Description Data Gladis rce(s) Supporting Document(s) hemoglobin 14.3 g/dL 12.0-15.5 Hemoglobin [facility] ([facility]) red blood count 4.82 10 4.00-5.40 Red Blood Count [facility] ([facility]) white blood count 11.5 10 4.0-10.0 Above high normal White Blood Count [facility] ([facility]) mean corpuscular volume 88.6 fL 80.0-96.0 Mean Corpusc ular Volume [facility] ([facility]) hematocrit 42.7 % 36.0-47.0 Hematocrit [facility] ([facility]) mean corpuscular hemoglobin 29.7 pg 27.0-33.0 Mean Cor puscular Hemoglobin [facility] ([facility]) mean corpuscular HGB conc 33.5 g/dL 32.0-36.5 Mean Corpu scular HGB Conc [facility] ([facility]) red cell distribution width 12.2 % 11.5-14.5 Red Cell Distribution Width [facility] ([facility]) platelet count, automated 314 10 150-450 Platelet C ount, Automated [facility] ([facility]) neutrophils % 62.5 % 36.0-66.0 Neutrophils % [facility] ( [facility]) lymph % 29.9 % 24.0-44.0 Lymph % [facility] ([facility]) eos % 1.1 % 0.0-3.0 Eos % [facility] ([facility]) mono % 5.9 % 0.0-5.0 Above high normal [place] % [facility] ([facility]) baso % 0.3 % 0.0-1.0 Baso % [facility] ([facility]) immature granulocyte % 0.3 % 0-3.0 Immature Gran ulocyte % [facility] ([facility]) nucleated red blood cell % 0.0 % 0-0 Nucleated Red Blood Cell % [facility] ([facility]) neutrophils # 7.2 10 1.5-8.5 Neutrophils # [facility] ( [facility]) baso # 0.0 10 0.0-0.2 Baso # [facility] ([facility]) lymph # 3.4 10 1.5-5.0 Lymph # [facility] ([facility]) eos # 0.1 10 0.0-0.5 Eos # [facility] ([facility]) mono # 0.7 10 0.0-0.8 [place] # [facility] ([facility]) ID Date Data Source [id number] 04/03/2020 09:30:00 PM EST [facility] ([facility]) Name Value Range Interpretation Code Description Data Gladis rce(s) Supporting Document(s) venous pH 7.385 units 7.330-7.430 Venous pH [facility] ([facility]) venous partial pressure O2 45.5 mmHg 30.0-50.0 Venous Pa rtial Pressure O2 [facility] ([facility]) venous HCO3 22.1 mEq/L 23.0-27.0 Below low normal Venous HCO3 [facility] ([facility]) venous total CO2 23.3 mEq/L 24.0-28.0 Below low normal Venous Total CO2 [facility] ([facility]) venous partial pressure CO2 37.8 mmHg 38.0-50.0 Below low nor mal Venous Partial Pressure CO2 [facility] ([facility]) venous base excess -2.0-2.0 Below low normal Venous Base Excess [facility] ([facility]) venous standard HCO3 22.1 mEq/L Venous Standard HCO3 [facility] ([facility]) venous O2 saturation 85.2 % 60.0-80.0 Above high normal Venous O 2 Saturation [facility] ([facility]) ID Date Data Source [id number] 04/03/2020 09:30:00 PM EST [facility]) Name Value Range Interpretation Code Description Data Gladis rce(s) Supporting Document(s) lactic acid sepsis protocol 2.5 mmol/L 0.4-2.0 Above high no rmal Lactic Acid Sepsis [facility] ID Date Data Source [id number] 04/03/2020 09:30:00 PM EST [facility]) Name Value Range Interpretation Code Description Data Gladis rce(s) Supporting Document(s) thyroid stimulating hormone 5.700 uIU/mL 0.358-3.740 Above high no rmal Thyroid Stimulating Hormone [facility]) ID Date Data Source [id number] 04/03/2020 09:30:00 PM EST [facility] ([facility]) Name Value Range Interpretation Code Description Data Gladis rce(s) Supporting Document(s) thyroxine (T4) 19.7 ug/dL 4.5-12.0 Above high normal Thyroxine (T4) [facility]) ID Date Data Source [id number] 04/03/2020 09:30:00 PM EST [facility]) Name Value Range Interpretation Code Description Data Gladis rce(s) Supporting Document(s) nt-pro BNP 24 pg/mL <125 Nt-pro BNP [facility] ([facility]) ID Date Data Source [id number] 04/03/2020 09:30:00 PM EST [facility] ([facility]) Name Value Range Interpretation Code Description Data Gladis rce(s) Supporting Document(s) blood urea nitrogen 10 mg/dL 7-18 Blood Urea Nitro gen [facility] ([facility]) glucose, fasting 133 mg/dL 70-100 Above high normal Glucose, Fas ting [facility] ([facility]) glomerular filtration rate > 60.0 >60 Glomerula r Filtration Rate [facility] ([facility]) potassium serum 3.8 mEq/L 3.5-5.1 Potassium Serum [facility] ([facility]) sodium level 140 mEq/L 136-145 Sodium Level [facility] (No [facility]) creatinine for GFR 1.07 mg/dL 0.55-1.30 Creatinine for GF R [facility] ([facility]) chloride level 108 mEq/L 98-107 Above high normal Chloride Level [facility] ([facility]) anion gap 8 mEq/L 8-16 Anion Gap [facility] ([facility]) carbon dioxide level 24 mEq/L 21-32 Carbon Dioxide Level [facility] ([facility]) calcium level 9.7 mg/dL 8.5-10.1 Calcium Level [facility] ( [facility]) ID Date Data Source [id number] 04/03/2020 09:30:00 PM EST [facility] ([facility]) Name Value Range Interpretation Code Description Data Gladis rce(s) Supporting Document(s) AST/SGOT 13 U/L 7-37 AST/SGOT [facility] ([facility]) alkaline phosphatase 90 U/L 45-117 Alkaline Phosph atase [facility] ([facility]) bilirubin,total 0.3 mg/dL 0.2-1.0 Bilirubin,total ATHE NA ([facility]) ALT/SGPT 15 U/L 12-78 ALT/SGPT [facility] ([facility]) bilirubin,direct < 0.1 0.0-0.2 Bilirubin,direct AT [facility] [place] ([facility]) total protein 7.4 gm/dL 6.4-8.2 Total Protein [facility] ( [facility]) albumin/globulin ratio 1.2-2.2 Below low normal Albumin /globulin Ratio [facility] ([facility]) albumin 3.5 gm/dL 3.2-5.2 Albumin [facility] ([facility]) ID Date Data Source [id number] 04/03/2020 09:30:00 PM EST [facility] ([facility]) Name Value Range Interpretation Code Description Data Gladis rce(s) Supporting Document(s) CK-mb value mass < 1.0 <3.6 CK-mb Value Mass AT [facility] [place] ([facility]) CPK creatine phosphokinase 57 U/L 26-192 CPK Creat ine Phosphokinase [facility] ([facility]) troponin I < 0.02 < 0.10 Troponin I [facility] ([facility]) mb/CK relative index < or =4 mb/CK Relative Index [facility] ([facility]) ID Date Data Source [id number] 04/03/2020 09:30:00 PM EST [facility] ([facility]) Name Value Range Interpretation Code Description Data Gladis rce(s) Supporting Document(s) D-dimer quant 956.43 NG/mL <500 Above high normal D-dimer Quant [facility] ([facility]) ID Date Data Source [id number] 04/03/2020 09:30:00 PM [facility] Name Value Range Interpretation Code Description Data Gladis rce(s) Supporting Document(s) white blood count 11.5 10 4.0-10.0 Above high normal White Blood Count [facility] ([facility]) red blood count 4.82 10 4.00-5.40 Red Blood Count [facility] ([facility]) hematocrit 42.7 % 36.0-47.0 Hematocrit [facility] ([facility]) hemoglobin 14.3 g/dL 12.0-15.5 Hemoglobin [facility] ([facility]) mean corpuscular hemoglobin 29.7 pg 27.0-33.0 Mean Cor puscular Hemoglobin [facility] ([facility]) mean corpuscular volume 88.6 fL 80.0-96.0 Mean Corpusc ular Volume [facility] ([facility]) neutrophils % 62.5 % 36.0-66.0 Neutrophils % [facility] ( [facility]) red cell distribution width 12.2 % 11.5-14.5 Red Cell Distribution Width [facility] ([facility]) mean corpuscular HGB conc 33.5 g/dL 32.0-36.5 Mean Corpu scular HGB Conc [facility] ([facility]) platelet count, automated 314 10 150-450 Platelet C ount, Automated [facility] ([facility]) lymph % 29.9 % 24.0-44.0 Lymph % [facility] ([facility]) mono % 5.9 % 0.0-5.0 Above high normal [place] % [facility] ([facility]) eos % 1.1 % 0.0-3.0 Eos % [facility] ([facility]) immature granulocyte % 0.3 % 0-3.0 Immature Gran ulocyte % [facility] ([facility]) baso % 0.3 % 0.0-1.0 Baso % [facility] ([facility]) nucleated red blood cell % 0.0 % 0-0 Nucleated Red Blood Cell % [facility] ([facility]) neutrophils # 7.2 10 1.5-8.5 Neutrophils # [facility] ( [facility]) lymph # 3.4 10 1.5-5.0 Lymph # [facility] ([facility]) eos # 0.1 10 0.0-0.5 Eos # [facility] ([facility]) mono # 0.7 10 0.0-0.8 [place] # [facility] ([facility]) baso # 0.0 10 0.0-0.2 Baso # [facility] ([facility]) ID Date Data Source [id number] 04/03/2020 09:30:00 PM EST [facility] ([facility]) Name Value Range Interpretation Code Description Data Gladis rce(s) Supporting Document(s) venous pH 7.385 units 7.330-7.430 Venous pH [facility] ([facility]) venous partial pressure CO2 37.8 mmHg 38.0-50.0 Below low nor mal Venous Partial Pressure CO2 [facility] ([facility]) venous total CO2 23.3 mEq/L 24.0-28.0 Below low normal Venous Total CO2 [facility] ([facility]) venous partial pressure O2 45.5 mmHg 30.0-50.0 Venous Pa rtial Pressure O2 [facility] ([facility]) venous standard HCO3 22.1 mEq/L Venous Standard HCO3 [facility] ([facility]) venous HCO3 22.1 mEq/L 23.0-27.0 Below low normal Venous HCO3 [facility] ([facility]) venous base excess -2.0-2.0 Below low normal Venous Base Excess [facility] ([facility]) venous O2 saturation 85.2 % 60.0-80.0 Above high normal Venous O 2 Saturation [facility] ([facility]) ID Date Data Source [id number] 04/03/2020 09:30:00 PM EST [facility] ([facility]) Name Value Range Interpretation Code Description Data Gladis rce(s) Supporting Document(s) lactic acid sepsis protocol 2.5 mmol/L 0.4-2.0 Above high no rmal [facility]epsis [facility] ID Date Data Source [id number] 04/03/2020 09:30:00 PM EST [facility] ([facility]) Name Value Range Interpretation Code Description Data Gladis rce(s) Supporting Document(s) thyroid stimulating hormone 5.700 uIU/mL 0.358-3.740 Above high no rmal Thyroid Stimulating Hormone [facility] ([facility]) ID Date Data Source [id number] 04/03/2020 09:30:00 PM EST [facility] ([facility]) Name Value Range Interpretation Code Description Data Gladis rce(s) Supporting Document(s) thyroxine (T4) 19.7 ug/dL 4.5-12.0 Above high normal Thyroxine (T4) [facility] ([facility]) ID Date Data Source [id number] 04/03/2020 09:30:00 PM EST [facility] ([facility]) Name Value Range Interpretation Code Description Data Gladis rce(s) Supporting Document(s) nt-pro BNP 24 pg/mL <125 Nt-pro BNP [facility] ([facility]) ID Date Data Source [id number] 04/03/2020 09:30:00 PM EST [facility] ([facility]) Name Value Range Interpretation Code Description Data Gladis rce(s) Supporting Document(s) glucose, fasting 133 mg/dL 70-100 Above high normal Glucose, Fas ting [facility] ([facility]) creatinine for GFR 1.07 mg/dL 0.55-1.30 Creatinine for GF R [facility] ([facility]) blood urea nitrogen 10 mg/dL 7-18 Blood Urea Nitro gen [facility] ([facility]) sodium level 140 mEq/L 136-145 Sodium Level [facility] (No [facility]) glomerular filtration rate > 60.0 >60 Glomerula r Filtration Rate [facility] ([facility]) potassium serum 3.8 mEq/L 3.5-5.1 Potassium Serum ATHE NA ([facility]) chloride level 108 mEq/L 98-107 Above high normal Chloride Level [facility] ([facility]) carbon dioxide level 24 mEq/L 21-32 Carbon Dioxide Level [facility] ([facility]) anion gap 8 mEq/L 8-16 Anion Gap [facility] ([facility]) calcium level 9.7 mg/dL 8.5-10.1 Calcium Level [facility] ( [facility]) ID Date Data Source [id number] 04/03/2020 09:30:00 PM EST [facility] ([facility]) Name Value Range Interpretation Code Description Data Gladis rce(s) Supporting Document(s) AST/SGOT 13 U/L 7-37 AST/SGOT [facility] ([facility]) ALT/SGPT 15 U/L 12-78 ALT/SGPT [facility] ([facility]) alkaline phosphatase 90 U/L 45-117 Alkaline Phosph atase [facility] ([facility]) bilirubin,total 0.3 mg/dL 0.2-1.0 Bilirubin,total ATHE NA ([facility]) bilirubin,direct < 0.1 0.0-0.2 Bilirubin,direct AT [facility] ([facility]) albumin 3.5 gm/dL 3.2-5.2 Albumin [facility] ([facility]) total protein 7.4 gm/dL 6.4-8.2 Total Protein [place] ( [facility]) albumin/globulin ratio 1.2-2.2 Below low normal Albumin /globulin Ratio [facility] ([facility]) ID Date Data Source [id number] 04/03/2020 09:30:00 PM EST [facility] ([facility]) Name Value Range Interpretation Code Description Data Gladis rce(s) Supporting Document(s) CPK creatine phosphokinase 57 U/L 26-192 CPK Creat ine Phosphokinase [facility] ([facility]) CK-mb value mass < 1.0 <3.6 CK-mb Value Mass AT [facility] ([facility]) mb/CK relative index < or =4 mb/CK Relative Index [facility] ([facility]) troponin I < 0.02 < 0.10 Troponin I [facility] ([facility]) ID Date Data Source [id number] 04/03/2020 09:30:00 PM EST [facility] ([facility]) Name Value Range Interpretation Code Description Data Gladis rce(s) Supporting Document(s) D-dimer quant 956.43 NG/mL <500 Above high normal D-dimer Quant [facility] ([facility]) ID Date Data Source [id number] 04/03/2020 09:30:00 PM EST [facility] ([facility]) Name Value Range Interpretation Code Description Data Gladis rce(s) Supporting Document(s) white blood count 11.5 10 4.0-10.0 Above high normal White Blood Count [facility] ([facility]) red blood count 4.82 10 4.00-5.40 Red Blood Count ATHE NA ([facility]) mean corpuscular volume 88.6 fL 80.0-96.0 Mean Corpusc ular Volume [facility] ([facility]) hematocrit 42.7 % 36.0-47.0 Hematocrit [facility] ([facility]) hemoglobin 14.3 g/dL 12.0-15.5 Hemoglobin [facility] ([facility]) mean corpuscular hemoglobin 29.7 pg 27.0-33.0 Mean Cor puscular Hemoglobin [facility] ([facility]) mean corpuscular HGB conc 33.5 g/dL 32.0-36.5 Mean Corpu scular HGB Conc [facility] ([facility]) red cell distribution width 12.2 % 11.5-14.5 Red Cell Distribution Width ALPHA ([facility]) platelet count, automated 314 10 150-450 Platelet C ount, Automated [facility] ([facility]) neutrophils % 62.5 % 36.0-66.0 Neutrophils % [facility] ( [facility]) mono % 5.9 % 0.0-5.0 Above high normal [place] % [facility] ([facility]) lymph % 29.9 % 24.0-44.0 Lymph % [facility] ([facility]) eos % 1.1 % 0.0-3.0 Eos % [facility] ([facility]) baso % 0.3 % 0.0-1.0 Baso % [facility] ([facility]) immature granulocyte % 0.3 % 0-3.0 Immature Gran ulocyte % [facility] ([facility]) nucleated red blood cell % 0.0 % 0-0 Nucleated Red Blood Cell % [facility] ([facility]) neutrophils # 7.2 10 1.5-8.5 Neutrophils # [facility] ( [facility]) mono # 0.7 10 0.0-0.8 [place] # [facility] ([facility]) lymph # 3.4 10 1.5-5.0 Lymph # [facility] ([facility]) eos # 0.1 10 0.0-0.5 Eos # [facility] ([facility]) baso # 0.0 10 0.0-0.2 Baso # [facility] ([facility]) ID Date Data Source [id number] 04/03/2020 09:30:00 PM EST [place] ([facility]) Name Value Range Interpretation Code Description Data Gladis rce(s) Supporting Document(s) venous pH 7.385 units 7.330-7.430 Venous pH [facility] ([facility]) venous partial pressure CO2 37.8 mmHg 38.0-50.0 Below low nor mal Venous Partial Pressure CO2 [facility] ([facility]) venous partial pressure O2 45.5 mmHg 30.0-50.0 Venous Pa rtial Pressure O2 [facility] ([facility]) venous total CO2 23.3 mEq/L 24.0-28.0 Below low normal Venous Total CO2 AL[facility] ([facility]) venous HCO3 22.1 mEq/L 23.0-27.0 Below low normal Venous HCO3 [facility] ([facility]) venous base excess -2.0-2.0 Below low normal Venous Base Excess [facility] ([facility]) venous standard HCO3 22.1 mEq/L Venous Standard HCO3 [facility] ([facility]) venous O2 saturation 85.2 % 60.0-80.0 Above high normal Venous O 2 Saturation [facility] ([facility]) ID Date Data Source [id number] 04/02/2020 11:33:00 AM EST [facility] 1 OrderSheet [facility] Emergency Department [address] [place] [address] Phone #: ext- [phone] 04/02/2020 11:29 Patient: THAIS WITT Sex: F : 1995 Age: 24yWEIGHT:108.8 kg (S) HEIGHT:63 inches (S) BMI:42.5ALLERGIES: No Known Drug AllergyCHIEF COMPLAINT: painDIAGNOSIS: Deep venous thrombosis, Pulmonary embolismLAB ORDERSOrder Description Priority Entered Acknowledged InitialedCBC w Diff STAT 11:59 03/07 12:16 Zen Barrera R.N. P.A.-C;CMP STAT 11:59 04/02/2020 12:16 Zen Barrera R.N. P.A.-C;Lipase STAT 11:59 04/02/2020 12:16 Zen Barrera R.N. P.A.-C;PT/PTT STAT 11:59 04/02/2020 12:16 Zen Barrera R.N. P.A.-C;Troponin-T STAT 11:59 04/02/2020 12:16 Zen Barrera R.N. P.A.-C;D-Dimer STAT 11:59 04/02/2020 12:16 Zen Barrera R.N. P.A.-C;TSH STAT 11:59 04/02/2020 12:16 Wellington Barrera.N. P.A.-C;HCG Serum Qual STAT 11:59 04/02/2020 12:16 Zen Barrera R.N. P.A.- C;Urinalysis (Clean STAT 11:59 04/02/2020 12:48 Chiqui Rodas) Monica Schultz P.A.-C; [id number] STUDY ORDERSOrder Description Priority Entered Acknowledged InitialedUS Lower Ext STAT 11:59 04/02/2020 12:16 Holly, 2 OrderSheet [facility] Emergency Department [address] [place] [address] Phone #: ext- [phone] 04/02/2020 11:29 Patient: THAIS WITT Sex: F : 1995 Age: 24yVenous Right Zen Fernandez R.N.(Oxygen?(No)) P.A.-C; Reason for Study: Pain, LimbCT CTA CHEST STAT 13:10 04/02/2020 13:19 [place],(NONCOR) W CON Zen Fernandez R.N.INC PP P.A.- C;(Oxygen?(No))(IV?(Yes)) Reason for Study: DVT with tachyMEDICATION/IV/DRIP/FLUID ORDERSOrder Description Priority Entered Acknowledged InitialedNitroGLYCERIN SL 11:59 04/02/2020 12:33 [place]o,0.4 mg (Do not Zen Fernandez R.N.crush or chew) P.A.-C;IV NS : Bolus 500 11:59 04/02/2020 12:34 [place]o,mL, then 100 mL/hr Zen RenteriaN. P.A.- C;GENERAL ORDERSOrder Description Priority Entered Acknowledged InitialedBlood Pressure 11:59 04/02/2020 12:15 [place],Monitor Zen Fernandez R.N. P.A.-C;Ct Technician 11:59 04/02/2020 12:15 Sorbero,(continuous) Zen RenteriaN. P.A.-C;EKG 11:59 04/02/2020 12:48 [place] Monica Schultz P.A.-C; [id number] 11:59 04/02/2020 12:33 Zen BarreraN. P.A.- C;Obtain Old EKG 11:59 04/02/2020 12:15 Zen BarreraN. P.A.-C;Obtain Old Records 11:59 04/02/2020 12:15 Zen Barrera R.N., P.A.-C;Pulse oximeter 11:59 04/02/2020 12:15 Holly(Continuous) Zen Fernandez R.N., P.A.-C;Saline Lock 11:59 04/02/2020 12:33 Holly, 3 OrderSheet [facility] Emergency Department [address] [place] [address] Phone #: ext- [phone] 04/02/2020 11:29 Patient: THAIS WITT Sex: F : 1995 Age: 24y Zen Fernandez R.N., P.A.-C;Vitals 11:59 04/02/2020 12:15 Zen Barrera R.N., P.A.-C;[Electronically signed by Jim Barrera R.N. (17:27 04/02/2020)][Electronically signed by Zen Aparicio P.A.-C (16:32 04/03/2020)][Electronically locked by Jim Barrera R.N. (17:27 04/02/2020)] Name Value Range Interpretation Code Description Data Gladis rce(s) Supporting Document(s) ID Date Data Source [id number] 04/02/2020 11:33:00 AM EST [facility] 1 Medication Reconciliation Report [facility] Emergency Department [address] [place] [address] Phone #: ext- [phone] 04/02/2020 11:29 Patient: THAIS WITT Sex: F : 1995 Age: 24yWeight: 108.8 kgHeight/Length: 63 in.BMI: 42.5ALLERGIES: No Known Drug AllergyThe patient's Home Medications are listed below:THE FOLLOWING MEDICATIONS NEED TO BE RECONCILED: Adderall Oral 10 mg, daily clonazePAM Oral 0.5 mg, 3x a day, prn LaMICtal Oral (100 mg), daily Levothyroxine Sodium Oral (175 mcg), daily MetFORMIN HCl Oral (1000 mg), daily Spironolactone Oral (100 mg) 2, daily Keiko 28 OralThe source(s) of the original Home Medication information:patientThe following Medications were given to the patient in the Emergency Department:Nitroglycerin [SL] SL 0.4 mg, administered: 04/02/2020 12:18:00 PMIV NS IV Fluids bolus 500 mL over 30 minute(s), then 100 mL/hr, administered: 04/02/2020 12:34:00 PMThe following Medications were prescribed to the patient:Xarelto 15 mg tablet Take 1 tablet twice a day for 21 days -- Days 1-21: BOTTLE 1. PRESCRIPTION1 of 2. Dispense 42 tablet. Refills: 0. Substitution permitted. Note to Pharmacy - Days 1- 21.Pharmacy - [facility] [phone] [facility] [address] ; [place] [address]. . 2 Medication Reconciliation Report [facility] Emergency Department [address] [place] [address] Phone #: ext- [phone] 04/02/2020 11:29 Patient: THAIS WITT Sex: F : 1995 Age: 24yXarelto 20 mg tablet Take 1 tablet once a day for 9 days -- To be started on day 22 of tx. Finish otherbottle first. PRESCRIPTION 2. Dispense 9 tablet. Refills: 0. Substitution permitted. Note to Pharmacy -Please ensure markings of both bottles.Pharmacy - [facility] [phone] [facility] [address] ; [place] [address]. . -- Zen Aparicio P.A.-C Name Value Range Interpretation Code Description Data Gladis rce(s) Supporting Document(s) ID Date Data Source [id number] 04/02/2020 11:33:00 AM [facility] 1 Medication Administration Record [facility] Emergency Department [address] [place] [address] Phone #: ext- [phone] 04/02/2020 11:29 Patient: THAIS WITT Sex: F : 1995 Age: 24yWeight: 108.8 kgHeight/Length: 63 inBMI: 42.5ALLERGIES: No Known Drug Allergy Date/Time Medication Administered Medication OrderedGiven NITROGLYCERIN [SL] NitroGLYCERIN SL 0.4 mg (Do not12:18 04/02/2020 Dose: 0.4 mg Tablets SL crush or chew)Jim Barrera, R.N.Start IV NS IV NS : Bolus 500 mL, then 18078:34 04/02/2020 Dose: IV Fluids mL/hrSJim valdez, R.N. Rate: 100 mL/hr over 5 hour(s)---- Bolus: 500 mL over 30 minute(s)Stop Dispensed: 1000 mL bag16:42 04/02/2020 Site: #1 left Jim Garvey R.NOdessa Name Value Range Interpretation Code Description Data Gladis rce(s) Supporting Document(s) ID Date Data Source [id number] 04/02/2020 11:33:00 AM [facility] 1 General Instructions [facility] Emergency Department [address] [place] [address] Phone #: ext- [phone] 04/02/2020 11:29 Patient: THAIS WITT Sex: F : 1995 Age: 24y Acute pulmonary embolism. No acute cor pulmonale. Acute deep venous thrombosis of the right distal lower extremity (Nonocclusive DVT in the gastrocnemius veins. No evidence of a DVT above the knee.). No deep venous thrombosis of the right popliteal vein or tibial vein.I NSTRUCTIONS (YOu are welcome to return). Prescription Medications: Xarelto 15 mg tablet Take 1 tablet twice a day for 21 days -- Days 1-21: BOTTLE 1. PRESCRIPTION 1 of 2. Dispense 42 tablet. Refills: 0. Substitution permitted. Note to Pharmacy - Days 1-21. Pharmacy - [facility] [phone] ; [place] [address]. . Xarelto 20 mg tablet Take 1 tablet once a day for 9 days -- To be started on day 22 of tx. Finish other bottle first. PRESCRIPTION 2. Dispense 9 tablet. Refills: 0. Substitution permitted. Note to Pharmacy - Please ensure markings of both bottles. Pharmacy - [facility] [phone] [facility] ; [place] [address]. . Follow-up: Follow up with your healthcare provider in about two days if not better. Call for an appointment. Follow up with a benefits representative. AMA warnings: Oriented to person, place, and time. Gives appropriate answers and rational explanation of refusal of care. Speaks coherently. No signs of psychosis, auditory hallucinations, delusional thinking, suicidal ideations or slurred speech. No tangential thinking, visual hallucinations or homicidal ideations. Abstract thinking intact. Clinical Impression: the patient has the capacity to make decisions regarding the medical care offered. Aware of suspected diagnosis suggested by screening exam. The suspected diagnosis, based upon the initiated medical screening exam, is DVT with PE and has been discussed with the patient. Acknowledges understanding of the reasons for recommendations regarding admission to facility. The recommended medical care being refused is Admission/Observation/Tx and has been discussed with the patient. The risks of refusing recommended care that were disclosed are , quadriplegia and permanent mental impairment. Discharge instructions were provided to the patient. REFUSAL OF CARE STATEMENT (patient to review and sign in discharge instructions): I have read this paragraph. I understand that a doctor at this [facility] wants to give me certain medical 2 General Instructions [facility] Emergency Department [address] [place] [address] Phone #: ext- [phone] 04/02/2020 11:29 [id number] Sex: F : 1995 Age: 24ycare. The doctor explained that care to me, and I understand what that care is. The doctor also explainedto me what could happen to me if I leave here without having that care, and I understand what he said. Chapow that I am welcome to return to this hospital at any time to receive the recommended care or any othercare that I may need at any time, regardless of my ability to pay for such care.Follow-up with: [facility], , , [address] [place], [address] Follow up Saturday. Call for the next available appointment. Reason for referral: evaluation and Toestablish care. ADDITIONAL INFORMATIONDeep Vein Thrombosis (DVT) 3 General Instructions [facility] Emergency Department [address] [place] [address] Phone #: ext- [phone] 04/02/2020 11:29 Patient: THAIS WITT Sex: F : 1995 Age: 24y Vein, blood clot, embolusDeep vein thrombosis (DVT) occurs when a blood clot (thrombus) forms in a deep vein. This happensmost often in the leg. It can also happen in the arms or other parts of the body. A part of the clotcalled an embolus can break off and travel to the lungs. When this happens, it's called a pulmonaryembolism (PE). PE is a medical emergency. It can cut off blood flow and lead to . Both DVT andPE are closely related. Together, they are often referred to by the term venous thromboembolism(VTE).Risk factors for DVTAnything that slows blood flow, injures the lining of a vein, or increases blood clotting can make youmore prone to having DVT. This includes the following: Long periods without movement (such as when sitting for many hours at a time or when recovering from major surgery or illness) Estrogen (female hormone) therapy, such as hormone replacement therapy (HRT) or control pills Fractured hip or leg Major surgery or joint replacement Major trauma or spinal cord injury Cancer Family history Excess weight or obesity Smoking Older ageSymptomsDVT does not always cause symptoms. When symptoms do occur, they may appear around the siteof the DVT, such as in the leg. Possible symptoms include: Swelling Pain Warmth 4 General Instructions [facility] Emergency Department [address] [place] [address] Phone #: ext- [phone] 04/02/2020 11:29 Patient: THAIS WITT Sex: F : 1995 Age: 24y Redness TendernessHome care You were likely prescribed blood thinners (anticoagulants). They may be given as pills (oral) or shots (injections). Follow all instructions when using these medicines. Note: Don't take blood thinners with other medicines, herbal remedies, or supplements without talking to your provider first. Certain medicines or products can affect how blood thinners work. Follow your provider's instructions about activity and rest. If support or compression stockings are prescribed, wear them as directed. These may help improve blood flow in the legs. When sitting or lying down, move your ankles, toes and knees often. This may also help improve blood flow in the legs.Follow-up careFollow up with your healthcare provider, or as advised. If imaging tests were done, they may needfurther review by a doctor. You will be told of any new findings that may affect your care.When to seek medical adviceCall your healthcare provider right away if any of these occur: New or increased swelling, pain, tenderness, warmth, or redness, in the leg, arm, or other area Blood in the urine Bleeding with bowel movementsCall 911Call 911 if any of these occur: Bleeding from the nose, gums, a cut, or vagina Heavy or uncontrolled bleeding Trouble breathing Chest pain or discomfort that worsens with deep breathing or coughing Coughing (may cough up blood) 5 General Instructions [facility] Emergency Department [address] [place] [address] Phone #: ext- [phone] 04/02/2020 11:29 Patient: THAIS WITT Sex: F : 1995 Age: 24y Fast heartbeat Sweating Anxiety Lightheadedness, dizziness, or fainting [phone] [place] [address]. All rights reserved. This information is not intended as asubstitute for professional medical care. Always follow your healthcare professional's instructions. You have been given the following additional information: Deep Vein Thrombosis (DVT)(Electronically signed by Zen Aparicio P.A.-C 04/03/2020 16:32) Name Value Range Interpretation Code Description Data Gladis rce(s) Supporting Document(s) ID Date Data Source [id number] 04/02/2020 11:33:00 AM EST [facility] 1 Clinical Report - Nurses [facility] Emergency Department [address] [place] [address] Phone #: ext- [phone] 04/02/2020 11:29 Patient: THAIS WITT Sex: F : 1995 Age: 24yTRIAGEArrived by private vehicle. Historian: patient. ( presents with c/o R calf pain for past 4 days, denies anytrauma or injury.).Triage time: 11:31 04/02/2020. Acuity: LEVEL 3.Chief Complaint: RIGHT LOWER EXTREMITY PAIN. Location of symptoms- right leg (R lower calf pain).Alert. No acute distress.No injury occurred. Onset. (4 days).Treatment SEO ASSOCIATE:Took ibuprofen. (lastnight).SEPSIS SCREEN: SIRS Screen negative. Sepsis Screen negative. No suspected or confirmed signs ofinfection present. --11:38 04/02/20 Dawn France RN11:31 04/02/20. BP: 129/80. MAP: 96. HR: 118. RR: 18. O2 saturation: 97%. Temp: 97.9 F. Pain levelnow: 6/10. --11:38 04/02/20 Dawn France RN.Weight: 108.8 kg stated. Height/Length: 63 inches Per Patient. BMI: 42.5. --11:32 04/02/20 Dawn France RN.MedicationsLevothyroxine Sodium Oral (Tablet 175 mcg), daily. MetFORMIN HCl Oral (Tablet 1000 mg), daily. --11:35 04/02/20 Dawn France RN Adderall Oral 10 mg, daily. --11:36 04/02/20 Dawn France RN LaMICtal Oral (Tablet 100 mg), daily. --11:36 04/02/20 Dawn France RN Spironolactone Oral (Tablet 100 mg) 2, daily. --11:36 04/02/20 Dawn France, RN Keiko 28 Oral. --11:36 04/02/20 Dawn France RN clonazePAM Oral 0.5 mg, 3x a day as needed. --11:37 04/02/20 Dawn France RN.AllergiesNo Known Drug Allergy. --11:35 04/02/20 Dawn France RN.PROBLEMS:Polycystic Ovary Disease.Anxiety Reaction.Post depression.Hypothyroidism.UTI - Urinary Tract Infection.Pre diabetic. --11:37 04/02/20 Dawn France RN. 2 Clinical Report - Nurses [facility] Emergency Department [address] [place] [address] Phone #: ext- [phone] 04/02/2020 11:29 Patient: THAIS WITT Sex: F : 1995 Age: 24y Medication/allergy information source: the patient and patient's previous visit record. --11:38 04/02/20 Dawn France RN. ADDITIONAL SURGERIES: Tonsillectomy. --11:37 04/02/20 Dawn France RN. History PAST MEDICAL HX: Last normal menstrual period now. SOCIAL HX: Heavy tobacco smoker- less than 1 pack per day. No alcohol use or drug use. The patient was offered HIV testing but declined and hepatitis C testing but declined. The patient has not traveled outside the [place] Infectious disease exposure: No infectious disease exposure. SELF HARM ASSESSMENT: Self harm assessment was performed. The patient answered "no" to the question(s) "Have you recently felt down, depressed, or hopeless?". ABUSE ASSESSMENT: No report of abuse. NUTRITIONAL RISK ASSESSMENT: The nutritional risk assessment revealed no deficiencies. FUNCTIONAL ASSESSMENT: Functional assessment: no impairments noted. LEARNING NEEDS ASSESSMENT: The learning needs assessment revealed no barriers. FALL RISK ASSESSMENT: Fall risk assessment completed. No risk factors identified. SKIN INTEGRITY ASSESSMENT: Skin integrity risk assessment completed. No skin integrity risk identified. --11:38 04/02/20 Dawn France RN.PHYSICAL RCSIAMBSDN41:43 04/02/20. Ambulatory to room. Patient gowned.GENERAL / NEURO / PSYCH: Oriented X 4. Alert. Appears in no acute distress.EXTREMITIES: Extremity pulses are within normal limits. Extremities exhibit normal ROM.Neuro-vascular status intact to the extremity. No lower extremity edema. Normal gait. Right leg:tenderness of the posterior aspect of leg. No erythema, swelling or ecchymosis.SKIN: Skin intact. Skin is warm and dry. --11:44 04/02/20 Jim Barrera RZamzam.NURSING PROGRESS NOTESReassurance given. Two patient identifiers checked. Call light placed in reach. Bed placed in lowestposition. Brakes of bed on. Patient ready for evaluation. --11:39 04/02/20 Dawn France RN Patient ready for evaluation- ED physician and PA notified. --11:44 04/02/20 Jim Barrera R.N. 3 Clinical Report - Nurses [facility] Emergency Department [address] [place] [address] Phone #: ext- [phone] 04/02/2020 11:29 --- Patient: THAIS WITT Sex: F : 1995 Age: 24y11:58 04/02/20. BP: 105/54. MAP: 71. HR: 106. RR: 16. O2 saturation: 97%. --11:59 04/02/20 [facility] Nryx632:18 04/02/2020 Nitroglycerin SL Tablets 0.4 mg given. Allergies verified and confirmed 5 rights.Information reviewed with patient including reason for taking this medication, signs of allergic reaction andprecautions. Verbalizes understanding. --12:33 04/02/20 Jim Barrera R.NOdessa12:28 04/02/2020 Site #1 started via IV in the left antecubital space with an 20g angiocath, with aseptictechnique and good blood return; one attempt. Saline lock flushed with 10 mL saline. --12:33 04/02/20Jim valdez R.N.12:40 04/02/20. BP: 127/80. MAP: 95. HR: 100. RR: 16. O2 saturation: 98%. --12:40 04/02/20 [facility] Tech1( EKG performed by tech at 12:44 given to PA). --12:48 04/02/20 [facility] Mpoj452:02 04/02/20. BP: 111/75. MAP: 87. HR: 103. RR: 21. O2 saturation: 99%. --13:02 04/02/20 [facility] Rqne223:29 04/02/20. Reassurance given. Reassessment acuity: LEVEL 3. Reassessment after medicationadministered. No adverse reaction. She reports no complaints, she is calm and resting quietly and shehas had no adverse reaction. Overall patient status is improved- she states feels better.GENERAL / NEURO / PSYCH: Alert. Oriented X 4.RESPIRATORY: No respiratory distress.CVS: Capillary refill less than 2 seconds.EXTREMITIES: Neuro-vascular status intact to the extremities.SKIN: Skin is warm and dry. Two patient identifiers checked. Call light placed in reach. Side rails up x2. Bed placed in lowest position. Brakes of bed on. --13:30 04/02/20 Jim Barrera ROdessaNOdessa12:34 04/02/2020 Started bag #1 1000 mL IV Fluids IV NS; bolus of 500 mL over 30 minute(s) then at 100mL/hr over 5 hour(s) via site #1 via IV pump. Allergies verified and confirmed 5 rights. IV patencyestablished. IV site checked: no pain, redness, or swelling. IV flushed thoroughly pre- and post-medicationadministration. Information reviewed with patient including reason for taking this medication, signs ofallergic reaction and precautions. Verbalizes understanding. --12:34 04/02/20 Jim Barrera R.N.13:44 04/02/20. BP: 109/69. MAP: 82. HR: 101. RR: 20. O2 saturation: 99%. --13:44 04/02/20 [facility] Iwae638:59 04/02/20. BP: 114/75. MAP: 88. HR: 98. RR: 19. O2 saturation: 99%. --14:00 04/02/20 [place] [facility] Rdhu024:38 04/02/20. Reassurance given. Reassessment acuity: LEVEL 3. The patient reports nocomplaints, she is calm and resting quietly and she has had no adverse reaction. Overall patient status isimproved- she states feels better. 4 Clinical Report - Nurses [facility] Emergency Department [address] [place] [address] Phone #: ext- [phone] 04/02/2020 11:29 Patient: THAIS WITT Sex: F : 1995 Age: 24yGENERAL / NEURO / PSYCH: Alert. Oriented X 4.RESPIRATORY: No respiratory distress.CVS: Capillary refill less than 2 seconds.EXTREMITIES: Neuro-vascular status intact to the extremities.SKIN: Skin is warm and dry. Two patient identifiers checked. Call light placed in reach. Side rails up x2. Bed placed in lowest position. Brakes of bed on. --14:38 04/02/20 Jim Barrera R.N.14:38 04/02/20. Reassurance given. Reassessment acuity: LEVEL 3. The patient is calm and restingquietly and has had no adverse reaction. Overall patient status is improved- she states feels better.GENERAL / NEURO / PSYCH: Alert. Oriented X 4.RESPIRATORY: No respiratory distress.CVS: Capillary refill less than 2 seco nds.EXTREMITIES: Neuro-vascular status intact to the extremities.SKIN: Skin is warm and dry. Two patient identifiers checked. Call light placed in reach. Side rails up x2. Bed placed in lowest position. Brakes of bed on. --14:39 04/02/20 Jim Barrera R.NOdessa14:47 04/02/20. Patient transported to CT by wheelchair with radiology director. --14:47 04/02/20 Jim Barrera R.NOdessa15:04 04/02/20. Patient returned from CT by wheelchair with radiology director. --15:04 04/02/20 Jim Barrera R.NOdessa15:09 04/02/20. BP: 111/67. MAP: 81. HR: 88. RR: 16. O2 saturation: 100%. --15:10 04/02/20 Monica Grove, Ejir524:28 04/02/20. BP: 103/68. MAP: 79. HR: 86. RR: 16. O2 saturation: 100%. --15:28 04/02/20 Monica Grove, Ulse568:47 04/02/20. Reassurance given. Reassessment acuity: LEVEL 3. The patient reports nocomplaints, she is calm and resting quietly and she has had no adverse reaction. Overall patient status isimproved- she states feels better.GENERAL / NEURO / PSYCH: Alert. Oriented X 4.RESPIRATORY : No respiratory distress.CVS: Capillary refill less than 2 seconds.SKIN: Skin is warm and dry. Two patient identifiers checked. Call light placed in reach. Side rails up x2. Bed placed in lowest position. Brakes of bed on. --15:49 04/02/20 Jim Barrera R.NOdessa15:58 04/02/20. BP: 116/96. MAP: 102. HR: 93. RR: 16. O2 saturation: 100%. --15:58 04/02/20 Monica Grove, Qygx372:42 04/02/2020 IV Fluids IV NS via IV site #1 Discontinued: bag #1 infused upon discharge. Totalamount infused: 800 mL. IV patency established. IV site checked: no pain, redness, or swelling. IV flushedthoroughly. --16:52 04/02/20 Jim Barrera R.N. 5 Clinical Report - Nurses [facility] Emergency Department [address] [place] [address] Phone #: ext- [phone] 04/02/2020 11:29 Patient: THAIS WITT Sex: F : 1995 Age: 24yDISPOSITION / DISCHARGE 16:32 04/02/20. BP: 111/85. MAP: 93. HR: 103. RR: 18. O2 saturation: 100%. --16:34 04/02/20 Dawn France RN 16:42 04/02/2020 Site #1 removed upon discharge. Catheter intact. Bandage applied. --16:52 04/02/20 Jim Barrera R.N. Departure time: 16:54 04/02/2020. Condition at departure: improved and stable. The goals identified in the patient's plan of care were met. Fall risk assessment completed. No risk factors identified. No learning barriers present. Discharge instructions provided and reviewed with the patient. Reviewed warnings. Reviewed medication(s) side effects, precautions, dosing and course information. Treatments reviewed. Reviewed referral to a benefits representative and primary care physician. Patient verbalized understanding. Written instructions provided in Moroccan. The patient left the Emergency Department against medical advice and without completion of treatment. The patient appears to be alert, oriented x4, coherent and in no acute distress. The patient notified staff prior to leaving the department and stated is leaving due to personal reasons and to go to their primary care physician. Notified the charge nurse of patient departure. Prior to leaving, she was advised to return if needed. She was informed of the risks of leaving and verbalized understanding of these risks. Patient signed form prior to leaving. She left the Emergency Department ambulatory. --16:54 04/02/20 Jim Barrera R.N. 16:52 04/02/20. Pain level now 0/10. --16:54 04/02/20 Jim Barrera R.N. 16:54 04/02/20. Temp: 96.9 F. --16:54 04/02/20 Jim Barrera R.N.Locked/Released at 04/02/2020 17:27 by Jim Barrera R.N. Name Value Range Interpretation Code Description Data Gladis rce(s) Supporting Document(s) ID Date Data Source [id number] 04/02/2020 11:33:00 AM [facility] 1 Clinical Report - Physicians/Mid Levels [facility] Emergency Department [address] [place] [address] Phone #: ext- [phone] 04/02/2020 11:29 Patient: THAIS WITT Sex: F : 1995 Age: 24y Time Seen: 11:59 04/02/2020; initial patient contact, initial documentation. Arrived- By private vehicle. Historian- patient. Disposition decision: 15:55 04/02/2020.HISTORY OF PRESENT ILLNESS Chief Complaint: LOWER EXTREMITY PAIN. This started about 4 days ago and is still present. Severity is described as being moderate. The quality is noted to be dull, aching and "pain". Symptoms located in the area of the right leg. The patient has not had redness. No swelling, bowel dysfunction, sensory loss or motor loss. No difficulty walking. ( Pt presents tot he ER with c/o atraumatic and insidious onset of R calf pain. No other concerns.). Patient denies an injury. Similar symptoms previously. None. Recent medical care: Not recently seen/assessed.REVIEW OF SYSTEMSLast normal menstrual period now. No cough, chest pain, difficulty breathing, fever or skin rash. Noenlarged lymph nodes, neck pain, back pain, headache or blurred vision. No sore throat, abdominal pain,vomiting, black stools or difficulty with urination. No bloody stools. All other systems reviewed and arenegative.PAST HISTORYSee nurses notes. Problems: Polycystic Ovary Disease. Anxiety Reaction. Post depression. Hypothyroidism. UTI - Urinary Tract Infection. Pre diabetic. Additional Surgeries: Tonsillectomy. Medications: clonazePAM Oral 0.5 mg, 3x a day as needed. Keiko 28 Oral. Spironolactone Oral (Tablet 100 mg) 2, daily. LaMICtal Oral (Tablet 100 mg), daily. 2 Clinical Report - Physicians/Mid Levels [facility] Emergency Department [address] [place] [address] Phone #: ext- [phone] 04/02/2020 11:29 Patient: THAIS WITT Sex: F : 1995 Age: 24y Adderall Oral 10 mg, daily. Levothyroxine Sodium Oral (Tablet 175 mcg), daily. MetFORMIN HCl Oral (Tablet 1000 mg), daily. Allergies: No Known Drug Allergy.SOCIAL HISTORYHeavy tobacco smoker- less than 1 pack per day. No alcohol use or drug use.ADDITIONAL NOTESThe nursing notes have been reviewed.PHYSICAL EXAMVital Signs: 04/02/2020 11:31 BP: 129/80. MAP: 96. HR: 118. RR: 18. O2 saturation: 97%. Temp: 97.9 F.Pain level now: 6/10. Have been reviewed. Tachycar dic. Oxygen saturation normal.Appearance: Alert. Oriented X3. No acute distress.ENT: Voice normal.Neck: Normal inspection. Neck supple.CVS: Tachycardia. Normal heart rhythm. No JVD present. Pulses normal. Capillary refill normal.Strong peripheral pulses. Heart sounds normal. Pulses: right radial 2+; left radial 2+; right dorsalis pedis2+; left dorsalis pedis 2+; right posterior tibial 2+; left posterior tibial 2+.Respiratory: Chest normal on inspection. No respiratory distress. Unlabored respirations. Lungs clear.Good chest movement. Breath sounds normal and equal. Chest nontender.Abdomen: Normal inspection. Soft and nontender. Bowel sounds normal. No distention.Skin: Skin warm and dry.Extremities: Right leg: moderate tenderness located in the posterior aspect of mid leg. Neurovascularintact distally. No erythema, swelling, laceration, abrasion or ecchymosis. No puncture wound, foreign bodyor deformity. Moderate right-sided calf tenderness. No right thigh complaints, left thigh complaints, lefthip complaint, right knee complaints or left knee complaints. No left leg complaint, right foot complaints,left foot complaints or left ankle complaints. (Pain elicted with homans maneuver. Noted TTP of hte Rcalf.). Extremities otherwise negative.Neuro: Awake. Alert. Mood/affect normal. Speech normal. No motor deficit. No sensory deficit.Psych: Cognition normal. Thought process and content normal. Insight and judgement normal.LABS, X-RAYS, AND EKGEKG: Normal EKG. Normal sinus rhythm. Rate: 89. Discussed and reviewed with/by attending.CTA Pulmonary Arteries: Matthew camara Andrew - 04/02/2020 3:36:47 PMPulmonary emboli demonstrated in the descending pulmonary arteries to the right lower lobe. Findingsconveyed to the emergency room for exam. The study was interpreted by the radiologist and discussedwith the radiologist.Lower Extremity Sonography: Matthew camara Andrew - 04/02/2020 12:56:41 PMNonocclusive DVT in the gastrocnemius vein. No evidence of DVT above the knee. The study wasinterpreted by the radiologist.Laboratory Tests: 3 Clinical Report - Physicians/[facility] Emergency Department [address] [place] [address] Phone #: ext- [phone] 04/02/2020 11:29 Patient: THAIS WITT Sex: F : 1995 Age: 24yCBC w Diff: (HUSSEIN: 04/02/2020 12:10) ( MsgRcvd 04/02/2020 12:41) Final results Test Result Flag Units (Reference) CBC W/AUTOMATED DIFF COMPLETE BLOOD COUNT WBC 8.2 10/uL (4.2 - 11.0) RBC 4.65 10/uL (4.20 - 5.40) HEMOGLOBIN 14.3 g/dL (12.0 - 16.0) HEMATOCRIT 41.0 % (37.0 - 47.0) MCV 88.2 fL (81.0 - 101) MCH 30.8 pg (27.0 - 34.0) MCHC 34.9 g/dL (31.0 - 36.0) RDW 12.2 % (11.5 - 14.5) PLATELETS 316 10/uL (150 - 450) MPV 9.9 fL (7.4 - 10.4) NEUT 54.3 % (37.0 - 80.0) LYMPH 32.6 % (25.0 - 40.0) MONO 10.0 H % (3.0 - 8.0) EOS 2.3 % (0.0 - 7.0) BASO 0.6 % (0.0 - 2.5) %IG 0.2 H % (0.0 - 0.0) %NRBC 0.0 % (0.0 - 0.0) #NEUT 4.47 10/uL (2.00 - 6.90) #LYMPH 2.68 10/uL (0.60 - 3.40) #MONO 0.82 10/uL (0.00 - 0.90) #EOS 0.19 10/uL (0.00 - 0.70) #BASO 0.05 10/uL (0.00 - 0.20) #IG 0.02 10/uL (0.00 - 0.10) #NRBC 0.00 10/uL (0.00 - 0.00) MANUAL DIFF NOT INDICATED RBC MORPH NOT INDICATEDCMP: (HUSSEIN: 04/02/2020 12:10) ( MsgRcvd 04/02/2020 12:59) Final results Test Result Flag Units (Reference) COMPREHENSIVE METABOLIC PANEL COMPREHENSIVE METABOLIC PANEL SODIUM 137 mEq/L (134 - 153) POTASSIUM 4.2 mEq/L (3.6 - 5.0) CHLORIDE 103 mEq/L (98 - 107) CO2 24 MEQ/L (22 - 30) GLUCOSE 103 MG/DL (65 - 110) BUN 9 MG/DL (7 - 21) CREATININE 0.8 MG/DL (0.7 - 1.5) BUN/CREAT 11 (8 - 27) TOTAL PROTEIN 6.5 G/DL (6.3 - 8.2) ALBUMIN 4.0 G/DL (3.9 - 5.0) GLOBULIN 2.5 GM/DL (2.4 - 3.2) A/G RATIO 1.6 (0.8 - 2.0) CALCIUM 9.7 MG/DL (8.4 - 10.2) TOTAL BILI <0.7 MG/DL (0.2 - 1.3) ALKALINE PHOS 84 U/L (38 - 126) SGOT/AST 14 U/L (5 - 40) SGPT/ALT 11 U/L (7 - 56) ANION GAP 10.0 mmol/L (8.0 - 16.0) AGE 24 yrs NON-AA GFR >60 mL/min AFR AMER GFR >60 mL/min Male GFR Interprentation 20-49 yrs >60 mL/min Ehivbp68-98 yrs >56 mL/min Normal 60-69 yrs >49 mL/min Normal 70-79yrs 4 Clinical Report - Physicians/Mid Levels [facility] Emergency Department [address] [place] [address] Phone #: ext- [phone] 04/02/2020 11:29 Patient: THAIS WITT Sex: F : 1995 Age: 24y>42 mL/min Normal 80 and above >35 mL/min Normal Female GFRInterpretation 20-39 yrs >60 mL/min Normal 40-49 yrs >58 mL/minNormal 50-59 yrs >51 mL/min Normal 60-69 yrs >45 mL/min Hyauuo86- 79 yrs >39 mL/min Normal 80 and above >32 mL/min NormalLipase: (HUSSEIN: 04/02/2020 12:10) ( MsgRcvd 04/02/2020 12:59) Final results Test Result Flag Units (Reference) LIPASE 36 U/L (13 - 60)PT/PTT: (HUSSEIN: 04/02/2020 12:10) ( [facility] 04/02/2020 12:40) Final results Test Result Flag Units (Reference) PROTIME 13.5 SECONDS (11.0 - 15.5) INR 0.98 (0.93 - 1.23) PTT 24.2 L SECONDS (24.8 - 36.7) \\BLDo\\INR INTERPRETATION\\BLDx\\ Therapeutic range for Coumadin andrelated oral anticoagulants. -International Normalized Ratio (INR): 2.0 - 3.0 for VenousThrombosis, Pulmonary Embolus, Tissue heart valves, Acute HI At rial Fibrillation, Valvular heart diseaseand recurrent Systemic Embolism. -International Normalized Ratio (INR): 2.5 - 3.5 forMechanical Prosthetic valve.Troponin-T: (HUSSEIN: 04/02/2020 12:10) ( [facility] 04/02/2020 13:42) Final results Test Result Flag Units (Reference) TROPONIN T <0.01 NG/ML (0.00 - 0.10) TROPONIN T0.1 ng/ml Recommended as the clinical threshold value forTroponin T.D-Dimer: (HUSSEIN: 04/02/2020 12:10) ( [facility] 04/02/2020 12:40) Final results Test Result Flag Units (Reference) D-DIMER QUANT 0.58 H ug/mL (0.27 - 0.50)TSH: (HUSSEIN: 04/02/2020 12:10) ( [facility] 04/02/2020 12:59) Final results Test Result Flag Units (Reference) TSH 3.15 uIU/mL (0.47 - 5.01)Beta-HCG, Qual Serum: (HUSSEIN: 04/02/2020 12:10) ( [facility] 04/02/2020 12:58) Final results Test Result Flag Units (Reference) HCG SERUM QUAL NEGATIVE (NORMAL: NEGAT HCG SERUM QL REENTER NEGATIVE (NORMAL: NEGAT { KIT LOT # [id number] ){ KIT EXP DATE02.08.21 ){ PROCEDURAL CONTROL VALID)Urinalysis: (HUSSEIN: 04/02/2020 12:35) ( MsgRcvd 04/02/2020 13:20) Final results Test Result Flag Units (Reference) URINALYSIS URINALYSIS SOURCE R COLOR yellow (NORMAL: Yello CLARITY clear (NORMAL: Clear SPEC GRAVITY 1.020 (1.001 - 1.030 pH 6.5 (5 - 9) 5 Clinical Report - Physicians/Mid Levels [facility] Emergency Department [address] [place] [address] Phone #: ext- [phone] 04/02/2020 11:29 Patient: THAIS WITT Sex: F : 1995 Age: 24y GLUCOSE NORM (NORMAL: Negat BILIRUBIN NEG (NORMAL: Negat KETONE NEG (NORMAL: Negat PROTEIN NEG (NORMAL: Negat NITRITE NEG (NORMAL: Negat BLOOD NEG (NORMAL: Negat LEUK EST NEG (NORMAL: Negat UROBILINOGEN NOR (less than 1.0 MICROSCOPIC Not IndicateUS Lower Ext Venous Right: (HUSSEIN: 04/02/2020 11:59) ( CogRcvd 04/02/2020 13:12) In ProgressUS DOPPLER UNI VENOUS LEG RTReason(s): Pain, LimbTRANSPORTATION: WC IV? O2? Oxygen?(No) Room: ED Exam [place] [address] PHONE: [phone] FAX: [phone] Name .................. : LAKSHMI Angel Acct Number.................. : [id number] ROOM. ................. : TR-07 MR Number ................... : [id number] Stay type ............. : E/R Discharge Date......... ... : Admit Date ......... : 04/02/20 Admit Phys .................... : ASHLEY SURESH Date of ....... : 1995 Family Phys ................... : NON STAFF Phone .................. : [phone] Age ................................ : 24 Film# .................. .:[id number] Sex ................................. : F Unsigned transcriptions are preliminary reports and do not represent a medical or legal document [place] [id number] COMPLETE:04/02/20 12:35 [facility] [address] Reason(s): Pain, Limb RIGHT LOWER EXTREMITY VENOUS DUPLEX DOPPLER ULTRASOUND: FINDINGS: Duplex sonography of the deep venous system of the right lower extremity demonstrates incomplete compression and decreased flow in a portion of the gastrocnemius veins. No DVT is demonstrated in the veins above the knee. Flow and compressibility are demonstrated in the common femoral, femoral and popliteal veins. IMPRESSION: Nonocclusive DVT in the gastrocnemius veins. No evidence of a DVT above the knee. The patient was returned to the emergency room following the examination. Electronically Reviewed and Signed By DCTNAME , SIGNDATE, HARLEY Transcribe Initials: MARISOL , Transcribe Date: 04/02/20 13:10, Dictation Date: <<REPDIST>> 6 Clinical Report - Physicians/Mid Levels [facility] Emergency Department [address] [place] [address] Phone #: ext- [phone] 04/02/2020 11:29 Patient: THAIS WITT Sex: F : 1995 Age: 24y Page 1 of 1.PROGRESS AND PROCEDURESCourse of Care: VSS, NAD, AOx3, interacting well and appropriately, no use of accessory muscle, able tospeak full sentences, stable, non-toxic looking. Enter room and pt lying peacefully in bed in NAD. Patient stable. Denies any new issues, concerns, or complaints. PE demos NV intact b/l UE and LE. Noted TTP of the R calf; pain elicted with homans. Also noted that pt is tachy. No CP, SOB, dyspnea or palps. Pt does take a OCP and smokes. No other risk factors. will obtain labs and imaging for further eval. Pending restuls. Noted that pt was inadvertly given nitro SL. Ordered not canceled and order not challenged. No adverse effects. Montioring BP. Discussed with pt and she is aware and understands. Pending full reuslts Rad calls, infomred of PEs. PE with DVT; called hosptialitst and agrees for admission for observation. Enter room and pt lying peacedully in bed in NAD. Understands admission and agrees. Infomred by nurse that pt wants to leave. Enter room, pt sitting peacefully in bed and discuss with pt. Inform she was admitted and expressed reason for admission. Pt sts that she understands, but wishes to leave. Stressed the potential risks of this decision to include, but not limted to and stroke. Pt sts she fully understands and assumes the risks assocated with this decsion. Pt will be labeled as AMA. Discussed results with pt. Discussed tx plan with pt. Discussed and counseled on stable condition. Discussed importance of a f/u with PCP. Discussed return to ER criteria. Answered their questions. Indicates and verbalizes that they understand, agree, and will comply with above. Denies any new questions or concerns. Patient has capacity to understand. Pt understands the risks of decision and still chooses to leave AMA. Discussed of OTC Motrin and Tylenol to control inflammation and pain management. Informed to follow directions on bottle that are appropriate for age and/or weight. Critical care performed (90 minutes). Time includes: direct patient care, patient reassessment, coordination of patient care, interpretation of data (laboratory data), review of patient's medical records, medical consultation, family consultation regarding treatment decisions and documentation of patient care- see progress notes. 7 Clinical Report - Physicians/Mid Levels [facility] Emergency Department [address] [place] [address] Phone #: ext- [phone] 04/02/2020 11:29 Patient: THAIS WITT Sex: F : 1995 Age: 24y Disposition: Condition: good and stable.CLINICAL IMPRESSION Acute pulmonary embolism. No acute cor pulmonale. Acute deep venous thrombosis of the right distal lower extremity (Nonocclusive DVT in the gastrocnemius vei ns. No evidence of a DVT above the knee.). No deep venous thrombosis of the right popliteal vein or tibial vein.INSTRUCTIONS (YOu are welcome to return). Prescription Medications: Xarelto 15 mg tablet Take 1 tablet twice a day for 21 days -- Days 1-21: BOTTLE 1. PRESCRIPTION 1 of 2. Dispense 42 tablet. Refills: 0. Substitution permitted. Note to Pharmacy - Days -. Pharmacy - [facility] [id number] [id number] ; [place] [address]. . Xarelto 20 mg tablet Take 1 tablet once a day for 9 days -- To be started on day 22 of tx. Finish other bottle first. PRESCRIPTION 2. Dispense 9 tablet. Refills: 0. Substitution permitted. Note to Pharmacy - Please ensure markings of both bottles. Pharmacy - [facility] [id number] - [id number] ; [place] [address]. FaxNumber: . Follow-up: Follow up with your healthcare provider in about two days if not better. Call for an appointment. Follow up with a benefits representative. CANDI evans: Oriented to person, place, and time. Gives appropriate answers and rational explanation of refusal of care. Speaks coherently. No signs of psychosis, auditory hallucinations, delusional thinking, suicidal ideations or slurred speech. No tangential thinking, visual hallucinations or homicidal ideations. Abstract thinking intact. Clinical Impression: the patient has the capacity to make decisions regarding the medical care offered. Aware of suspected diagnosis suggested by screening exam. The suspected diagnosis, based upon the initiated medical screening exam, is DVT with PE and has been discussed with the patient. Acknowledges understanding of the reasons for recommendations regarding admission to facility. The recommended medical care being refused is Admission/Observation/Tx and has been discussed with the patient. The risks of refusing recommended care that were disclosed are , quadriplegia and permanent mental impairment. Discharge instructions were provided to the patient. REFUSAL OF CARE STATEMENT (patient to review and sign in discharge instructions): 8 Clinical Report - Physicians/Mid Levels [facility] Emergency Department [address] [place] [address] Phone #: ext- [phone] 04/02/2020 11:29 Patient: THAIS WITT Sex: F : 1995 Age: 24y I have read this paragraph. I understand that a doctor at this hospital wants to give me certain medical care. The doctor explained that care to me, and I understand what that care is. The doctor also explained to me what could happen to me if I leave here without having that care, and I understand what he said. I know that I am welcome to return to this [facility] at any time to receive the recommended care or any other care that I may need at any time, regardless of my ability to pay for such care. Follow-up with: [facility], , , [address] [place] [address], [place], [address] Follow up Saturday. Call for the next available appointment. Reason for referral: evaluation and To establish care.(Electronically signed by Zen Aparicio P.A.-C 04/03/2020 16:32) Name Value Range Interpretation Code Description Data Gladis rce(s) Supporting Document(s) ID Date Data Source [id number] 04/02/2020 11:33:00 AM [facility] THAIS Nunn VisitID: [id number] Date: 16:41Med rec request faxed to [employer] [facility] [employer] with t-system overview.T-systems overview faxed to [employer] @ [phone](Electronically signed by Canelo Mercado - 04/02/2020 16:41) Name Value Range Interpretation Code Description Data Gladis rce(s) Supporting Document(s) ID Date Data Source [id number] 04/02/2020 01:20:00 PM [facility] Name Value Range Interpretation Code Description Data [facility] rce(s) Supporting Document(s) URINALYSIS [facility] URINALYSIS SOURCE R [facility] COLOR yellow NORMAL: Yellow [facility] CLARITY clear NORMAL: Clear [facility] Specific gravity of Urine by Test strip 1.020 1.001 - 1.030 [facility].5 5 - [facility] Gl[facility] [Mass/volume] in Urine by Test strip NORM NORMAL: Negat korin [facility] Bilirubin.total [Presence] in Urine by Test strip NEG NORMAL: Negative [facility] Ketones [Presence] in Urine by Test strip NEG NORMAL: Negative [facility] Protein [Mass/volume] in Urine by Test strip NEG NORMAL: Negat korin [facility] Nitrite [Presence] in Urine by Test strip NEG NORMAL: Negative [facility] BLOOD NEG NORMAL: Negative [facility] Leukocyte esterase [Presence] in Urine by Test strip NEG ALLY L: Negative [facility] Urobilinogen [Mass/volume] in Urine by Test strip NOR less alondra n 1.0 mg/dL [facility] MICROSCOPIC Not Indicate [facility] ospital ID Date Data Source [id number] 04/02/2020 01:42:00 PM EST [facility] Name Value Range Interpretation Code Description Data Gladis rce(s) Supporting Document(s) TROPONIN T <0.01 NG/ML 0.00 - 0.10 [facility] ospital TROPONIN T0.1 ng/ml Recommended as the c linical threshold value forTroponin T. ID Date Data Source [id number] 04/02/2020 12:59:00 PM [facility] Name Value Range Interpretation Code Description Data Gladis rce(s) Supporting Document(s) Thyrotropin [Units/volume] in Serum or Plasma by Detec tion limit <= 0.05 mIU/L 3.15 uIU/mL 0.47 - 5.01 [facility] ID Date Data Source [id number] 04/02/2020 12:59:00 PM EST [facility] Name Value Range Interpretation Code Description Data Gladis rce(s) Supporting Document(s) Lipase [Enzymatic activity/volume] in Serum or Plasma 36 U/L 13 - 60 [facility] ID Date Data Source [id number] 04/02/2020 12:59:00 PM EST [facility] Name Value Range Interpretation Code Description Data Gladis rce(s) Supporting Document(s) COMPREHENSIVE METABOLIC PANEL [facility] COMPREHENSIVE METABOLIC PANEL Sodium [Moles/volume] in Serum or Plasma 137 mEq/L 134 - 153 [facility] Potassium [Moles/volume] in Serum or Plasma 4.2 mEq/L 3.6 - 5.0 [facility] Chloride [Moles/volume] in Serum or Plasma 103 mEq/L 98 - 107 [facility] Carbon dioxide, total [Moles/volume] in Serum or Plasma 24 MEQ/L 22 - 30 [facility] Glucose [Mass/volume] in Serum or Plasma 103 MG/DL 65 - 110 [facility] BUN 9 MG/DL 7 - 21 [facility] Creatinine [Mass/volume] in Serum or Plasma 0.8 MG/DL 0.7 - 1.5 [facility] BUN/CREAT 11 8 - 27 [facility] Protein [Mass/volume] in Serum or Plasma 6.5 G/DL 6.3 - 8.2 [facility] Albumin [Mass/volume] in Serum or Plasma 4.0 G/DL 3.9 - 5.0 [facility] Globulin [Mass/volume] in Serum by calculation 2.5 GM/DL 2.4 - 3.2 [facility] A/G RATIO 1.6 0.8 - 2.0 [facility] Calcium [Mass/volume] in Serum or Plasma 9.7 MG/DL 8.4 - 10.2 [facility] Bilirubin.total [Mass/volume] in Serum or Plasma <0.7 MG/DL 0.2 - 1.3 [facility] Alkaline phosphatase [Enzymatic activity/volume] in Serum or Plasma 84 U/L 38 - 126 [facility] Aspartate aminotransferase [Enzymatic activity/volume] in Serum or Plasma 14 U/L 5 - 40 [facility] Alanine aminotransferase [Enzymatic activity/volume] in Seru m or Plasma 11 U/L 7 - 56 [facility] Anion gap 3 in Serum or Plasma 10.0 mmol/L 8.0 - 16.0 [facility] AGE 24 yrs [facility] NON-AA GFR >60 mL/min [facility] ital AFR AMER GFR >60 mL/min [facility] Ho spital Male GFR In terprentation 20-49 yrs >60 mL/min Normal 50-59 yrs >56 mL/min Normal 60-69 yrs >49 mL/min Normal 70-79yrs >42 mL/min Normal 80 and above >35 mL/min Normal Female GFR Interpretation 20-39 yrs >60 mL/min Normal 40-49 yrs >58 mL/min Normal 50-59 yrs >51 mL/min Normal 60-69 yrs >45 mL/min Normal 70-79 yrs >39 mL/min Normal 80 and above >32 mL/min Normal ID Date Data Source [id number] 04/02/2020 12:58:00 PM EST [facility] Name Value Range Interpretation Code Description Data Gladis rce(s) Supporting Document(s) HCG SERUM QUAL NEGATIVE NORMAL: NEGATIVE [facility] HCG SERUM QL REENTER NEGATIVE NORMAL: NEGATIVE [facility] { KIT LOT # [id number] ){ KIT EXP DATE 02.08.21 ){ PROCEDURAL CONTROL VALID ) ID Date Data Source [id number] 04/02/2020 12:41:00 PM EST [facility] Name Value Range Interpretation Code Description Data Gladis rce(s) Supporting Document(s) CBC W/AUTOMATED DIFF [facility] COMPLETE BLOOD COUNT Leukocytes [#/volume] in Blood by Automated count 8.2 10^3/uL 4.2 - 1 1.0 [facility] Erythrocytes [#/volume] in Blood by Automated count 4.65 10^6/uL 4. 20 - 5.40 [facility] Hemoglobin [Mass/volume] in Blood 14.3 g/dL 12.0 - 16.0 [facility] Hematocrit [Volume Fraction] of Blood by Automated count 41.0 % 3 7.0 - 47.0 [facility] Erythrocyte mean corpuscular volume [Entitic volume] by Auto mated count 88.2 fL 81.0 - 101 [facility] Erythrocyte mean corpuscular hemoglobin [Entitic mass] by Automated count 30.8 pg 27.0 - 34.0 [facility] Erythrocyte mean corpuscular hemoglobin concentration [Mass/volume] by Automated count 34.9 g/dL 31.0 - 36.0 [facility] Erythrocyte distribution width [Ratio] by Automated count 12.2 % 11.5 - 14.5 [facility] Platelets [#/volume] in Blood by Automated count 316 10^3/uL 150 - 45 0 [facility] Platelet mean volume [Entitic volume] in Blood by Automated count 9.9 fL 7.4 - 10.4 [facility] Neutrophils/100 leukocytes in Blood by Automated count 54.3 % 37. 0 - 80.0 [facility] Lymphocytes/100 leukocytes in Blood by Manual count 32.6 % 25.0 - 40.0 [facility] Monocytes/100 leukocytes in Blood by Automated count 10.0 % 3.0 - 8.0 H [facility] Eosinophils/100 leukocytes in Blood by Automated count 2.3 % 0.0 - 7.0 [facility] Basophils/100 leukocytes in Blood by Automated count 0.6 % 0.0 - 2.5 [facility] %IG 0.2 % 0.0 - 0.0 H [facility] Hospit al %NRBC 0.0 % 0.0 - 0.0 [facility] al Neutrophils [#/volume] in Blood by Automated count 4.47 10^3/uL 2.00 - 6.90 [facility] Lymphocytes [#/volume] in Blood by Automated count 2.68 10^3/uL 0.60 - 3.40 [facility] Monocytes [#/volume] in Blood by Automated count 0.82 10^3/uL 0.00 - 0.90 [facility] Eosinophils [#/volume] in Blood by Automated count 0.19 10^3/uL 0.00 - 0.70 [facility] Basophils [#/volume] in Blood by Automated count 0.05 10^3/uL 0.00 - 0.20 [facility] #IG 0.02 10^3/uL 0.00 - 0.10 [facility] #NRBC 0.00 10^3/uL 0.00 - 0.00 [facility] MANUAL DIFF NOT INDICATED [facility] RBC MORPH NOT INDICATED [facility] ID Date Data Source [id number] 04/02/2020 12:40:00 PM [facility] Name Value Range Interpretation Code Description Data Gladis rce(s) Supporting Document(s) Fibrin D-dimer FEU [Mass/volume] in Platelet poor plasma 0.58 ug /mL 0.27 - 0.50 H [facility] ID Date Data Source [id number] 04/02/2020 12:40:00 PM [facility] Name Value Range Interpretation Code Description Data Gladis rce(s) Supporting Document(s) Prothrombin time (PT) 13.5 SECONDS 11.0 - 15.5 [facility] INR in Platelet poor plasma by Coagulation assay 0.98 0.93 - 1. 23 [facility] aPTT in Blood by Coagulation assay 24.2 SECONDS 24.8 - 36.7 L [facility] \\BLDo\\INR INTERPRETATION\\BLDx\\ Therapeutic range for Coumadin and related oral anticoagulants. - International Normalized Ratio (INR): 2.0 - 3.0 for Venous Thrombosis, Pulmonary Embolus, Tissue heart valves, Acute HI Atrial Fibrillation, Valvular heart disease and recurrent Systemic Embolism. - International Normalized Ratio (INR): 2.5 - 3.5 for Mechanical Prosthetic valve. Procedure Social History No Information Vital Signs ID Date Data Source UNK Name Value Range Interpretation Code Description Data Source(s) Diastolic blood pressure 78 mm[Hg] 78 mm[Hg] AL[facility] ([facility]) Body height 63 [in_i] 63 [in_i] [facility] ([facility]) Body mass index (BMI) [Ratio] 46.1 kg/m2 46.1 k g/m2 [facility] ([facility]) Systolic blood pressure 114 mm[Hg] 114 mm[Hg] [facility] ([facility]) Body weight 4166 [oz_av] 4166 [oz_av] [facility] ([facility]) Diastolic blood pressure 85 mm[Hg] 85 mm[Hg] ALPHA ([facility]) Body height 63 [in_i] 63 [in_i] [facility] ([facility]) Body mass index (BMI) [Ratio] 45.2 kg/m2 45.2 k g/m2 [facility] ([facility]) Systolic blood pressure 138 mm[Hg] 138 mm[Hg] [facility]) Body weight 4080 [oz_av] 4080 [oz_av] [facility] ([facility]) Diastolic blood pressure 85 mm[Hg] 85 mm[Hg] [facility] ([facility]) Body height 63 [in_i] 63 [in_i] [facility] ([facility]) Body mass index (BMI) [Ratio] 45.2 kg/m2 45.2 k g/m2 [facility] ([facility]) Systolic blood pressure 138 mm[Hg] 138 mm[Hg[facility] Body weight 4080 [oz_av] 4080 [oz_av] [facility] ([facility]) Body height 63 [in_i] 63 [in_i] [facility] ([facility]) Body height 63 [in_i] 63 [in_i] [facility] ([facility]) Body height 63 [in_i] 63 [in_i] [facility] ([facility]) Diastolic blood pressure 82 mm[Hg] 82 mm[Hg] [facility] ([facility]) Body height 63 [in_i] 63 [in_i] [facility] ([facility]) Body mass index (BMI) [Ratio] 44.5 kg/m2 44.5 k g/m2 [facility] ([facility]) Systolic blood pressure 132 mm[Hg] 132 mm[Hg] [facility]) Body weight 4022 [oz_av] 4022 [oz_av] [facility] ([facility]) Diastolic blood pressure 82 mm[Hg] 82 mm[Hg] [facility] ([facility]) Body height 63 [in_i] 63 [in_i] [facility] ([facility]) Body mass index (BMI) [Ratio] 44.5 kg/m2 44.5 k g/m2 [facility] ([facility]) Systolic blood pressure 132 mm[Hg] 132 mm[Hg] [facility]) Body weight 4022 [oz_av] 4022 [oz_av] [facility] ([facility]) Diastolic blood pressure 82 mm[Hg] 82 mm[Hg] [facility] ([facility]) Body height 63 [in_i] 63 [in_i] [facility] ([facility]) Body mass index (BMI) [Ratio] 44.5 kg/m2 44.5 k g/m2 [facility] ([facility]) Systolic blood pressure 132 mm[Hg] 132 mm[Hg] [facility]) Body weight 4022 [oz_av] 4022 [oz_av] [facility] ([facility]) Diastolic blood pressure 82 mm[Hg] 82 mm[Hg] [facility] ([facility]) Body height 63 [in_i] 63 [in_i] [facility] ([facility]) Body mass index (BMI) [Ratio] 44.5 kg/m2 44.5 k g/m2 [facility] ([facility]) Systolic blood pressure 132 mm[Hg] 132 mm[Hg] [facility]) Body weight 4022 [oz_av] 4022 [oz_av] [facility] ([facility]) Diastolic blood pressure 80 mm[Hg] 80 mm[Hg] [facility] ([facility]) Body height 63 [in_i] 63 [in_i] [facility] ([facility]) Body mass index (BMI) [Ratio] 44.2 kg/m2 44.2 k g/m2 [facility] ([facility]) Systolic blood pressure 114 mm[Hg] 114 mm[Hg] [facility]) Body weight 3988 [oz_av] 3988 [oz_av] [facility] ([facility]) Diastolic blood pressure 80 mm[Hg] 80 mm[Hg] [facility] ([facility]) Body height 63 [in_i] 63 [in_i] [facility] ([facility]) Body mass index (BMI) [Ratio] 44.2 kg/m2 44.2 k g/m2 [facility] ([facility]) Systolic blood pressure 114 mm[Hg] 114 mm[Hg] [facility] Body weight 3988 [oz_av] 3988 [oz_av] [facility] ([facility]) Diastolic blood pressure 80 mm[Hg] 80 mm[Hg] [facility] ([facility]) Body height 63 [in_i] 63 [in_i] [facility] ([facility]) Body mass index (BMI) [Ratio] 44.2 kg/m2 44.2 k g/m2 [facility] ([facility]) Systolic blood pressure 114 mm[Hg] 114 mm[Hg] [facility]) Body weight 3988 [oz_av] 3988 [oz_av] [facility] ([facility]) Diastolic blood pressure 80 mm[Hg] 80 mm[Hg] [facility] ([facility]) Body height 63 [in_i] 63 [in_i] [facility] ([facility]) Body mass index (BMI) [Ratio] 44.2 kg/m2 44.2 k g/m2 [facility] ([facility]) Systolic blood pressure 114 mm[Hg] 114 mm[Hg] [facility]) Body weight 3988 [oz_av] 3988 [oz_av] [facility] ([facility]) Diastolic blood pressure 80 mm[Hg] 80 mm[Hg] [facility] ([facility]) Body height 63 [in_i] 63 [in_i] [facility] ([facility]) Body mass index (BMI) [Ratio] 44.2 kg/m2 44.2 k g/m2 [facility] ([facility]) Systolic blood pressure 114 mm[Hg] 114 mm[Hg] [facility]) Body weight 3988 [oz_av] 3988 [oz_av] [facility] ([facility]) Systolic blood pressure 114 mm[Hg] 114 mm[Hg] [facility]) Body weight 3988 [oz_av] 3988 [oz_av] [facility] ([facility]) Diastolic blood pressure 80 mm[Hg] 80 mm[Hg] [facility] ([facility]) Body height 63 [in_i] 63 [in_i] [facility] ([facility]) Body mass index (BMI) [Ratio] 44.2 kg/m2 44.2 k g/m2 [facility] ([facility]) Patient Treatment Plan of Care Planned Activity Planned Date Details Description Data Source (s) rivaroxaban 15 MG Oral Tablet [Xarelto] [facility] ([facility]) Prednisone 20 MG Oral Tablet [facility] ([facility]) Prednisone 10 MG Oral Tablet [facility] ([facility]) Prazosin 1 MG Oral Capsule A [facility]) naproxen sod 220mg tab TAKE 2 TABLETS B Y MOUTH TWICE DAILY NEEDED FOR PAIN FOR 10 DAYS [facility] ([facility]) methylprednisolone 4 mg tablets in a dose pack TAKE DIRECTED [facility] ([facility]) methylphenidate LA 20 mg biphasic 50-50 capsule,extended release [facility] ([facility]) Metformin hydrochloride 500 MG Oral Tablet [facility] ([facility]) Loryna (28) 3 mg-0.02 mg tablet [facility] ([facility]) Levothyroxine Sodium 0.15 MG Oral Tablet [facility] ([facility]) lamotrigine 25 MG Oral Tablet [facility] ([facility]) lamotrigine 100 MG Oral Tablet [facility] ([facility]) Hydroxyzine Pamoate 25 MG Oral Capsule [facility] ([facility]) Fluoxetine 40 MG Oral Capsule [facility] ([facility]) Fluoxetine 20 MG Oral Capsule [facility] ([facility]) Famotidine 40 MG Oral Tablet [facility] ([facility]) Levothyroxine Sodium 0.125 MG Oral Tablet [Euthyrox] [facility] ([facility]) Amphetamine aspartate 1.25 MG / Amphetam ine Sulfate 1.25 MG / Dextroamphetamine saccharate 1.25 MG / Dextroamphetamine Sulfate 1.25 MG Oral Tablet [facility] ([facility]) Clonazepam 0.5 MG Oral Tablet [facility] ([facility]) Clindamycin 300 MG Oral Capsule [facility] ([facility]) chlorhexidine gluconate 1.2 MG/ML Mouthwash ALPHA ([facility]) Cefuroxime 500 MG Oral Tablet [facility] ([facility]) benzonatate 200 MG Oral Capsule [facility] ([facility]) benzonatate 100 MG Oral Capsule [facility] ([facility]) Azithromycin 500 MG Oral Tablet [facility] ([facility]) Azithromycin 250 MG Oral Tablet [facility] ([facility]) azelastine 137 mcg (0.1 %) nasal spray a erosol USE 1 TO 2 SPRAY(S) IN EACH NOSTRIL TWICE DAILY FOR 10 DAYS [facility] ([facility]) Amoxicillin 875 MG Oral Tablet [facility] ([facility]) Amoxicillin 500 MG Oral Capsule [facility] ([facility]) Acetaminophen 325 MG Oral Tablet [facility] ([facility]) rivaroxaban 15 MG Oral Tablet [Xarelto] [facility] ([facility]) Prednisone 20 MG Oral Tablet [facility] ([facility]) Prednisone 10 MG Oral Tablet [facility] ([facility]) Prazosin 1 MG Oral Capsule A [facility] ([facility]) naproxen sod 220mg tab TAKE 2 TABLETS B Y MOUTH TWICE DAILY NEEDED FOR PAIN FOR 10 DAYS [facility] ([facility]) methylprednisolone 4 mg tablets in a dose pack TAKE DIRECTED [facility] ([facility]) methylphenidate LA 20 mg biphasic 50-50 capsule,extended release [facility] ([facility]) Metformin hydrochloride 500 MG Oral Tablet [facility] ([facility]) Loryna (28) 3 mg-0.02 mg tablet [facility] ([facility]) Levothyroxine Sodium 0.15 MG Oral Tablet [facility] ([facility]) lamotrigine 25 MG Oral Tablet [facility] ([facility]) lamotrigine 100 MG Oral Tablet [facility] ([facility]) Hydroxyzine Pamoate 25 MG Oral Capsule [facility] ([facility]) Fluoxetine 40 MG Oral Capsule [facility] ([facility]) Fluoxetine 20 MG Oral Capsule [facility] ([facility]) Famotidine 40 MG Oral Tablet [facility] ([facility]) Levothyroxine Sodium 0.125 MG Oral Tablet [Euthyrox] [facility] ([facility]) Amphetamine aspartate 1.25 MG / Amphetam ine Sulfate 1.25 MG / Dextroamphetamine saccharate 1.25 MG / Dextroamphetamine Sulfate 1.25 MG Oral Tablet [facility] ([facility]) Clonazepam 0.5 MG Oral Tablet [facility] ([facility]) Clindamycin 300 MG Oral Capsule [facility] ([facility]) chlorhexidine gluconate 1.2 MG/ML Mouthwash [facility] ([facility]) Cefuroxime 500 MG Oral Tablet [facility] ([facility]) benzonatate 200 MG Oral Capsule [facility] ([facility]) benzonatate 100 MG Oral Capsule [facility] ([facility]) Azithromycin 500 MG Oral Tablet [facility] ([facility]) Azithromycin 250 MG Oral Tablet [facility] ([facility]) azelastine 137 mcg (0.1 %) nasal spray a erosol USE 1 TO 2 SPRAY(S) IN EACH NOSTRIL TWICE DAILY FOR 10 DAYS [facility] ([facility]) Amoxicillin 875 MG Oral Tablet [facility] ([facility]) Amoxicillin 500 MG Oral Capsule [facility] ([facility]) Acetaminophen 325 MG Oral Tablet [facility] ([facility]) rivaroxaban 15 MG Oral Tablet [Xarelto] [facility] ([facility]) Prednisone 20 MG Oral Tablet [facility] ([facility]) Prednisone 10 MG Oral Tablet [facility] ([facility]) Prazosin 1 MG Oral Capsule A [facility] ([facility]) methylprednisolone 4 mg tablets in a dose pack TAKE DIRECTED [facility] ([facility]) methylphenidate LA 20 mg biphasic 50-50 capsule,extended release [facility] ([facility]) Metformin hydrochloride 500 MG Oral Tablet [facility] ([facility]) Loryna (28) 3 mg-0.02 mg tablet [facility] ([facility]) lamotrigine 25 MG Oral Tablet [facility] ([facility] lamotrigine 100 MG Oral Tablet [facility] ([facility]) Hydroxyzine Pamoate 25 MG Oral Capsule [facility] ([facility]) Levothyroxine Sodium 0.125 MG Oral Tablet [Euthyrox] [facility] ([facility]) Amphetamine aspartate 1.25 MG / Amphetam ine Sulfate 1.25 MG / Dextroamphetamine saccharate 1.25 MG / Dextroamphetamine Sulfate 1.25 MG Oral Tablet [facility] ([facility]) Clonazepam 0.5 MG Oral Tablet [facility] ([facility]) Clindamycin 300 MG Oral Capsule [facility] ([facility]) chlorhexidine gluconate 1.2 MG/ML Mouthwash [facility] ([facility]) Cefuroxime 500 MG Oral Tablet [facility] ([facility]) benzonatate 200 MG Oral Capsule [facility] ([facility]) Azithromycin 500 MG Oral Tablet [facility] ([facility]) Azithromycin 250 MG Oral Tablet [facility] ([facility]) azelastine 137 mcg (0.1 %) nasal spray a erosol USE 1 TO 2 SPRAY(S) IN EACH NOSTRIL TWICE DAILY FOR 10 DAYS [facility] ([facility]) Amoxicillin 875 MG Oral Tablet [facility] ([facility]) Amoxicillin 500 MG Oral Capsule [facility] ([facility]) rivaroxaban 15 MG Oral Tablet [Xarelto] [facility] ([facility]) Prednisone 20 MG Oral Tablet [facility] ([facility]) Prednisone 10 MG Oral Tablet [facility] ([facility]) Prazosin 1 MG Oral Capsule A [facility] ([facility]) methylprednisolone 4 mg tablets in a dose pack TAKE DIRECTED [facility] ([facility]) methylphenidate LA 20 mg biphasic 50-50 capsule,extended release [facility] ([facility]) Metformin hydrochloride 500 MG Oral Tablet [facility] ([facility]) Loryna (28) 3 mg-0.02 mg tablet [facility] ([facility]) lamotrigine 25 MG Oral Tablet [facility] ([facility]) lamotrigine 100 MG Oral Tablet [facility] ([facility]) Hydroxyzine Pamoate 25 MG Oral Capsule [facility] ([facility]) Levothyroxine Sodium 0.125 MG Oral Tablet [Euthyrox] [facility] ([facility]) Amphetamine aspartate 1.25 MG / Amphetam ine Sulfate 1.25 MG / Dextroamphetamine saccharate 1.25 MG / Dextroamphetamine Sulfate 1.25 MG Oral Tablet [facility] ([facility]) Clonazepam 0.5 MG Oral Tablet [facility] ([facility]) Clindamycin 300 MG Oral Capsule [facility] ([facility]) chlorhexidine gluconate 1.2 MG/ML Mouthwash [facility] ([facility]) Cefuroxime 500 MG Oral Tablet [facility] ([facility]) benzonatate 200 MG Oral Capsule [facility] ([facility]) Azithromycin 500 MG Oral Tablet [facility] ([facility]) Azithromycin 250 MG Oral Tablet [facility] ([facility]) azelastine 137 mcg (0.1 %) nasal spray a erosol USE 1 TO 2 SPRAY(S) IN EACH NOSTRIL TWICE DAILY FOR 10 DAYS [facility] ([facility]) Amoxicillin 875 MG Oral Tablet [facility] ([facility]) Amoxicillin 500 MG Oral Capsule [facility] ([facility]) rivaroxaban 15 MG Oral Tablet [Xarelto] [facility] ([facility]) Prednisone 20 MG Oral Tablet [facility] ([facility]) Prednisone 10 MG Oral Tablet [facility] ([facility]) Prazosin 1 MG Oral Capsule A [facility] ([facility]) methylphenidate LA 20 mg biphasic 50-50 capsule,extended release [facility] ([facility]) lamotrigine 25 MG Oral Tablet [facility]OP[facility] ([facility]) Hydroxyzine Pamoate 25 MG Oral Capsule [facility] ([facility]) Levothyroxine Sodium 0.125 MG Oral Tablet [Euthyrox] [facility] ([facility]) Amphetamine aspartate 1.25 MG / Amphetam ine Sulfate 1.25 MG / Dextroamphetamine saccharate 1.25 MG / Dextroamphetamine Sulfate 1.25 MG Oral Tablet [facility] ([facility]) Cefuroxime 500 MG Oral Tablet [facility] ([facility]) benzonatate 200 MG Oral Capsule [facility] ([facility]) Azithromycin 500 MG Oral Tablet [facility] ([facility]) Azithromycin 250 MG Oral Tablet [facility] ([facility]) azelastine 137 mcg (0.1 %) nasal spray a erosol USE 1 TO 2 SPRAY(S) IN EACH NOSTRIL TWICE DAILY FOR 10 DAYS [facility] ([facility]) Prednisone 20 MG Oral Tablet [facility] ([facility]) Prednisone 10 MG Oral Tablet [facility] ([facility]) Prazosin 1 MG Oral Capsule A THENA ([facility]) methylphenidate LA 20 mg biphasic 50-50 capsule,extended release [facility] ([facility]) Loryna (28) 3 mg-0.02 mg tablet TAKE 1 TABLET BY MOUTH ONCE DAILY [facility] ([facility]) lamotrigine 25 MG Oral Tablet [facility] ([facility]) Hydroxyzine Pamoate 25 MG Oral Capsule [facility] ([facility]) Levothyroxine Sodium 0.125 MG Oral Tablet [Euthyrox] [facility] ([facility]) Amphetamine aspartate 1.25 MG / Amphetam ine Sulfate 1.25 MG / Dextroamphetamine saccharate 1.25 MG / Dextroamphetamine Sulfate 1.25 MG Oral Tablet [facility] ([facility]) Cefuroxime 500 MG Oral Tablet [facility] ([facility]) benzonatate 200 MG Oral Capsule [facility] ([facility]) Azithromycin 500 MG Oral Tablet [facility] ([facility]) Azithromycin 250 MG Oral Tablet ALPHA ([facility]) azelastine 137 mcg (0.1 %) nasal spray a erosol USE 1 TO 2 SPRAY(S) IN EACH NOSTRIL TWICE DAILY FOR 10 DAYS [facility] ([facility])
[2021-03-07 04:23] LABS: RSV AMPLIFICATION NEGATIVE (NEGATIVE)
[2021-03-07] MEDS ORDERED: CLON1TAB17 PO (06:23)
--- OUTSIDE RECORDS SUMMARY | 2021-03-07 06:35 | CCD ---
Author Author [facility] Organization [facility] Address Unknown Phone Unavailable Care Team Providers Care Ship Scaler Name Role Phone Rosita Chavez MD Unavailable [...] Unavailable Unavailable Rosita Chavez MD Unavailable Unavailable Cherry Tree Falanga, A Vani BAR TACKER SEWING MACHINE Unavailable Unavailable Elpidio Falanga, A Vani BAR TACKER SEWING MACHINE Unavailable Unavailable Elpidio Falanga, A Vani BAR TACKER SEWING MACHINE Unavailable Unavailable [place] Falanga, A Vani BAR TACKER SEWING MACHINE Unavailable Unavailable Elpidio Falanga, A Vani BAR TACKER SEWING MACHINE Unavailable Unavailable Elpidio Falanga, A Vani BAR TACKER SEWING MACHINE Unavailable Unavailable Elpidio Falanga, A Vani BAR TACKER SEWING MACHINE Unavailable Unavailable Elpidio Falanga, A Vani BAR TACKER SEWING MACHINE Unavailable Unavailable Elpidio Falanga, A Vani BAR TACKER SEWING MACHINE Unavailable Unavailable Cherry [place] Falanga, A Vani BAR TACKER SEWING MACHINE Unavailable Unavailable Elpidio Falanga, A Vani BAR TACKER SEWING MACHINE Unavailable Unavailable Elpidio Falanga, A Vani BAR TACKER SEWING MACHINE Unavailable Unavailable Elpidio Falanga, A Vani BAR TACKER SEWING MACHINE Unavailable Unavailable Elpidio Falanga, A Vani BAR TACKER SEWING MACHINE Unavailable Unavailable Elpidio Falanga, A Vani BAR TACKER SEWING MACHINE Unavailable Unavailable Elpidio Falanga, A Vani BAR TACKER SEWING MACHINE Unavailable Unavailable Elpidio Falanga, A Vani BAR TACKER SEWING MACHINE Unavailable Unavailable Elpidio Falanga, A Vani BAR TACKER SEWING MACHINE Unavailable Unavailable Cherry [place] Falanga, A Vani BAR TACKER SEWING MACHINE Unavailable Unavailable Elpidio Falanga, A Vani BAR TACKER SEWING MACHINE Unavailable Unavailable Elpidio Falanga, A Vani BAR TACKER SEWING MACHINE Unavailable Unavailable Elpidio Falanga, A Vani BAR TACKER SEWING MACHINE Unavailable Unavailable Cherry Tree Falanga, A Vani BAR TACKER SEWING MACHINE Unavailable Unavailable [place] Falanga, A Vani BAR TACKER SEWING MACHINE Unavailable Unavailable Elpidio Falanga, A Vani BAR TACKER SEWING MACHINE Unavailable Unavailable Elpidio Falanga, A Vani BAR TACKER SEWING MACHINE Unavailable Unavailable Cherry [place] Falanga, A Vani BAR TACKER SEWING MACHINE Unavailable Unavailable [place] Falanga, A Vani BAR TACKER SEWING MACHINE Unavailable Unavailable Elpidio Falanga, A Vani BAR TACKER SEWING MACHINE Unavailable Unavailable ASHLEY, F CORINNE DO Unavailable Unavailable ASHLEY, F CORINNE DO Unavailable Unavailable ASHLEY, F CORINNE DO Unavailable Unavailable ASHLEY, F CORINNE DO Unavailable Unavailable ASHLEY, F CORINNE DO Unavailable Unavailable ASHLEY, F CORINNE DO Unavailable Unavailable ASHLEY, F CORINNE DO Unavailable Unavailable ASHLEY, F CORINNE DO Unavailable Unavailable ASHLEY, F CORINNE DO Unavailable Unavailable ASHLEY, F CORINNE DO Unavailable Unavailable AHSLEY, F CORINNE DO Unavailable Unavailable ASHLEY, F CORINNE DO Unavailable Unavailable ASHLEY, F CORINNE DO Unavailable Unavailable ASHLEY, F CORINNE DO Unavailable Unavailable ASHLYE, F CORINNE DO Unavailable Unavailable ASHLEY, F [...] is protected by Article 27-F of the [facility] Public Health law. If you continue you may have access to information: Regarding HIV / AIDS; Provided by facilities licensed or operated by the [facility] Office of Mental Health; or Provided by the [facility] Office for People With Developmental Disabilities. If such information is present, then the following [facility] mandated warning applies: This information has [...] law may result in a fine or residential sentence or both. A general authorization for the release of medical or other information is NOT sufficient authorization for further disc losure. Allergies and Adverse Reactions Type Description Substance Reaction Status Data Source(s ) No Known Drug Allergies No Known Drug Allergies [facility] Family History Family Member Name Family Member Gender Family Member Status Date o f Status Description Data Source(s) Unknown Male Problem [facility] ([facility]) () - at age 63 Encounters Encounter Providers Location Date Indications Data Source(s ) Emergency Attender: LYLE PATConsultant: STAFF NON 02/20/2021 11:20:00 PM EDT - 02/21/2021 02:18:00 AM EDT [facility] Patient discharged. Tod Chavez MD: [address] [place] [address], Ph. Attender: Tod Chavez MD [facility] Medical 02/17/2021 12:00:00 AM EDT [facility] ([facility]) Outpatient Attender: Susan Mendez MD 1 09:08:59 PM EDT - 02/13/2021 10:18:01 PM EDT [facility] ([facility]) Holli Andrews PA-C: [address] [place] [address], Ph. Attender: Holli SURESH [facility] Medical 11/23/2020 12:00:00 AM EDT [facility] ([facility]) Holli Andrews PA-C: [address] [place] [address], Ph. Attender: Holli Scordo PA [facility] Medical 11/23/2020 12:00:00 AM EDT [place] [facility]) Holli Andrews PA-C: [address], [place] [address], Ph. Attender: Holli SURESH [facility] Medical 11/16/2020 12:00:00 AM EDT [facility] ([facility]) Holli Andrews PA-C: [address], [place] [address], Ph. Attender: Holli SURESH [facility] Medical 11/16/2020 12:00:00 AM EDT [place] ([facility]) Holli Andrews PA-C: [address], [place] [address], Ph. Attender: Holli SURESH [facility] Medical 11/16/2020 12:00:00 AM EDT [place] ([facility]) Outpatient Attender: Zen Aparicio PA-C 11/14/2020 03:57:12 PM EDT - 11/14/2020 08:37:24 PM EDT [facility] ([facility]) Holli Andrews PA-C: [address], [place] [address], Ph. Attender: Holli SURESH [facility] Medical 10/10/2020 12:00:00 AM EDT [place] ([facility]) Holli Andrews PA-C: [address], [place] [address], Ph. Attender: Holli SURESH [facility] Medical 10/10/2020 12:00:00 AM EDT [facility] ([facility]) Holli Andrews PA-C: [address], [place] [address], Ph. Attender: Holli SURESH [facility] Medical 10/10/2020 12:00:00 AM EDT [place] ([facility]) Holli Andrews PA-C: [address], [place] [address], Ph. Attender: Holli SURESH [facility] Medical 10/10/2020 12:00:00 AM EDT [place] ([facility]) Emergency Attender: LYLE Ruizant: STAFF NON 08/10/2020 10:51:00 PM EDT - 08/10/2020 11:25:00 PM EDT [facility] Patient discharged. Holli Andrews PA-C: [address], [place] [address], Ph. Attender: Holli SURESH [facility] Medical 07/25/2020 12:00:00 AM EDT [place] ([facility]) Holli Andrews PA-C: [address], [place] [address], Ph. Attender: Holli SURESH [facility] Medical 07/25/2020 12:00:00 AM EDT [place] ([facility]) Holli Andrews PA-C: [address], [place] [address], Ph. Attender: Holli SURESH [facility] Medical 07/25/2020 12:00:00 AM EDT [place] ([facility]) Holli Andrews PA-C: [address], [place] [address], Ph. Attender: Holli SURESH [facility] Medical 07/25/2020 12:00:00 AM EDT [facility] ([facility]) Holli Andrews PA-C: [address], [place] [address], Ph. Attender: Holli SURESH [facility] Medical 07/25/2020 12:00:00 AM EDT [facility] ([facility]) Outpatient Attender: Prema SURESH 021 02:04:25 PM EST - 07/14/2020 02:24:51 PM EST [facility] ([facility] ) Holli Andrews PA-C: [address], [place] [address], Ph. Attender: Holli SURESH [facility] Medical 04/14/2020 12:00:00 AM EST [facility] ([facility]) Holli Andrews PA-C: [address], [place] [address], Ph. Attender: Holli SURESH [facility] Medical 04/14/2020 12:00:00 AM EST [facility] ([facility]) Holli Andrews PA-C: [address], [place] [address], Ph. Attender: Holli SURESH [facility] Medical 04/14/2020 12:00:00 AM EST [facility] ([facility]) Holli Andrews PA-C: [address], [place] [address], Ph. Attender: Holli SURESH [facility] Medical 04/14/2020 12:00:00 AM EST [facility] ([facility]) Holli Andrews PA-C: [address] , [place] [address], Ph. Attender: Holli SURESH [facility] Medical 04/14/2020 12:00:00 AM EST [place] ([facility]) Holli Andrews PA-C: [address] [place] [address], Ph. Attender: Holli SURESH [facility] Medical 04/14/2020 12:00:00 AM EST [facility] ([facility]) Outpatient Attender: Vani chambers FNPAttender: CORINNE RAMIREZ DOConsultant: STAFF NON 04/02/2020 11:33:00 AM EST - 04/02/2020 04:54:00 PM EST [facility] Patient discharged. Outpatient FP 02/22/2020 08:29:01 AM EDT [facility] Outpatient FP 02/06/2020 08:56:02 PM EDT [facility] Immunizations Vaccine Date Status Description Data Source(s) COVID-19 VACCINE Pfizer 07/27/2020 12:00:00 AM EDT completed [facility] Vaccine Series Complete: YESThis Data wa s Submitted to [facility] Via [employer]. COVID-19 VACCINE Pfizer 07/06/2020 12:00:00 AM EST completed [facility] Vaccine Series Complete: NOThis Data was Submitted to [facility] [employer]. Medications Medication Brand Name Start Date Product [...] completed acetaminophen 325 MG Oral Tablet [facility] ([facility]) methylphenidate LA 20 mg biphasic 50-50 capsule,extended release 78247 3 completed 50/50 Release 2 4 HR methylphenidate hydrochloride 20 MG Extended Release Oral Capsule [place] ([facility]) benzonatate 200 MG Oral Capsule benzonat ate 200 mg capsule TAKE 1 CAPSULE BY MOUTH THREE TIMES DAILY NEEDED FOR SEVERE COUGH benzonatate 200 mg capsule TAKE 1 CAPSULE BY MOUTH THREE TIMES DAILY NEEDED FOR SEVERE COUGH completed benzonatate 200 MG Oral Caps ule [place] ([facility]) Prazosin 1 MG Oral Capsule prazosin 1 mg capsule TAKE 1 CAPSULE BY MOUTH ONCE DAILY AT BEDTIME prazosin 1 mg capsule TAKE 1 CAPSULE BY MOUTH ONCE DAILY AT BEDTIME completed prazosin 1 MG Oral Capsule [place] ([facility]) rivaroxaban 15 MG Oral Tablet [Xarelto] Xarelto 15 mg tablet TAKE 1 TABLET BY MOUTH TWICE DAILY DAYS 1 THRU 21. BOTTLE 1 . PRESCRIPTION 1 OF 2. Xarelto 15 mg tablet TAKE 1 TABLET BY MOUTH TWICE DAILY DAYS 1 THRU 21. BOTTLE 1 . PRESCRIPTION 1 OF 2. completed rivaroxaban 15 MG Oral Tablet [Xarelto] [place] ([facility]) lamotrigine 25 MG Oral Tablet lamotrigin e 25 mg tablet TAKE 2 TABLETS BY MOUTH ONCE DAILY . DO NOT EXCEED 2 PER 24 HOURS lamotrigine 25 mg tablet TAKE 2 TABLETS BY MOUTH ONCE DAILY . DO NOT EXCEED 2 PER 24 HOURS completed lamotrigine 25 MG Oral Tablet AT [facility] ([facility]) Metformin hydrochloride 500 MG Oral Tablet metformin 5 00 mg tablet metformin 500 mg tablet completed metformin h ydrochloride 500 MG Oral Tablet [place] ([facility]) Prazosin 1 MG Oral Capsule prazosin 1 mg capsule TAKE 1 CAPSULE BY MOUTH ONCE DAILY AT BEDTIME prazosin 1 mg capsule TAKE 1 CAPSULE BY MOUTH ONCE DAILY AT BEDTIME completed prazosin 1 MG Oral Capsule [place] ([facility]) Azithromycin 250 MG Oral Tablet azithrom [...] 5 completed azithromycin 250 MG Oral Tablet [place] ([facility]) methylprednisolone 4 mg tablets in a dose pack TAKE DIRECTED 849457 completed methylprednisolone 4 mg t ablets in a dose pack [place] ([facility]) Hydroxyzine Pamoate 25 MG Oral Capsule hydroxyzine johnny oate 25 mg capsule hydroxyzine pamoate 25 mg capsule comp leted hydroxyzine pamoate 25 MG Oral Capsule [place] ([facility]) methylprednisolone 4 mg tablets in a dose pack TAKE DIRECTED 829350 completed methylprednisolone 4 mg t ablets in a dose pack [place] ([facility]) rivaroxaban 15 MG Oral Tablet [Xarelto] Xarelto 15 mg tablet TAKE 1 TABLET BY MOUTH TWICE DAILY DAYS 1 THRU 21. BOTTLE 1 . PRESCRIPTION 1 OF 2. Xarelto 15 mg tablet TAKE 1 TABLET BY MOUTH TWICE DAILY DAYS 1 THRU 21. BOTTLE 1 . PRESCRIPTION 1 OF 2. completed rivaroxaban 15 MG Oral Tablet [Xarelto] [facility] ([facility]) methylphenidate LA 20 mg biphasic 50-50 capsule,extended release 78385 3 completed 50/50 Release 2 4 HR methylphenidate hydrochloride 20 MG Extended Release Oral Capsule [place] ([facility]) rivaroxaban 15 MG Oral Tablet [Xarelto] Xarelto 15 mg tablet TAKE 1 TABLET BY MOUTH TWICE DAILY DAYS 1 THRU 21. BOTTLE 1 . PRESCRIPTION 1 OF 2. Xarelto 15 mg tablet TAKE 1 TABLET BY MOUTH TWICE DAILY DAYS 1 THRU 21. BOTTLE 1 . PRESCRIPTION 1 OF 2. completed rivaroxaban 15 MG Oral Tablet [Xarelto] [place] ([facility]) Prednisone 20 MG Oral Tablet prednisone 20 mg tablet TAKE 2 TABLETS BY MOUTH IN THE MORNING FOR 5 DAYS prednisone 20 mg tablet TAKE 2 TABLETS B Y MOUTH IN THE MORNING FOR 5 DAYS completed pre dnisone 20 MG Oral Tablet [place] ([facility]) Amphetamine aspartate 1.25 MG / Amphetam ine Sulfate 1.25 MG / Dextroamphetamine saccharate 1.25 MG / Dextroamphetamine Sulfate 1.25 MG Oral Tablet dextroamphetamine-amphetamine 5 mg tablet dextroamphetamine-amphetamine 5 mg tablet completed ampheta mine aspartate 1.25 MG / amphetamine sulfate 1.25 MG / dextroamphetamine saccharate 1.25 MG / dextroamphetamine sulfate 1.25 MG Oral Tablet [facility] ([facility]) Cefuroxime 500 MG Oral Tablet cefuroxime axetil 500 mg tablet TAKE 1 TABLET BY MOUTH TWICE DAILY FOR 5 DAYS cefuroxime axetil 500 mg tablet TAKE 1 T ABLET BY MOUTH TWICE DAILY FOR 5 DAYS completed cefuroxime 500 MG Oral Tablet [place] ([facility]) Azithromycin 250 MG Oral Tablet azithrom ycin [...] completed azithromycin 250 MG Oral Tablet [place] ([facility]) methylprednisolone 4 mg tablets in a dose pack TAKE DIRECTED 161905 completed methylprednisolone 4 mg t ablets in a dose pack [place] ([facility]) Prednisone 20 MG Oral Tablet prednisone 20 mg tablet TAKE 2 TABLETS BY MOUTH IN THE MORNING FOR 5 DAYS prednisone 20 mg tablet TAKE 2 TABLETS B Y MOUTH IN THE MORNING FOR 5 DAYS completed pre dnisone 20 MG Oral Tablet [place] ([facility]) Levothyroxine Sodium 0.15 MG Oral Tablet levothyroxine 150 mcg tablet levothyroxine 150 mcg tablet completed levothyroxine sodium 0.15 MG Oral Tablet [place] ([facility]) Amoxicillin 500 MG Oral Capsule amoxicil john 500 mg capsule TAKE 1 CAPSULE BY MOUTH EVERY 8 HOURS UNTIL GONE amoxicillin 500 mg capsule TAKE 1 CAPSUL E BY MOUTH EVERY 8 HOURS UNTIL GONE complet ed amoxicillin 500 MG Oral Capsule [place] ([facility]) azelastine 137 mcg (0.1 %) nasal spray a erosol USE 1 TO 2 SPRAY(S) IN EACH NOSTRIL TWICE DAILY FOR 10 DAYS 878712 compl eted azelastine hydrochloride 0.137 MG/ACTUAT Metered Dose Nasal [place] ([facility]) lamotrigine 25 MG Oral Tablet lamotrigin e 25 mg tablet TAKE 2 TABLETS BY MOUTH ONCE DAILY . DO NOT EXCEED 2 PER 24 HOURS lamotrigine 25 mg tablet TAKE 2 TABLETS BY MOUTH ONCE DAILY . DO NOT EXCEED 2 PER 24 HOURS completed lamotrigine 25 MG Oral Tablet AT [facility] ([facility]) Prednisone 10 MG Oral Tablet prednisone 10 mg tablet TAKE FOUR TABLETS BY MOUTH ONCE DAILY. DECREASE BY 1 TABLET EVERY 3 DAYS. prednisone 10 mg tablet TAKE FOUR TABLETS BY MOUTH ONCE DAILY. DECREASE BY 1 TABLET EVERY 3 DAYS. completed prednisone 10 MG Oral Tablet [facility] ([facility]) benzonatate 100 MG Oral Capsule benzonat ate 100 mg capsule TAKE 1 CAPSULE BY MOUTH THREE TIMES DAILY FOR 10 DAYS benzonatate 100 mg capsule TAKE 1 CAPSUL E BY MOUTH THREE TIMES DAILY FOR 10 DAYS c ompleted benzonatate 100 MG Oral Capsule [place] ([facility]) Loryna (28) 3 mg-0.02 mg tablet [id number] completed Loryna (28) 3 mg-0.02 mg tablet [facility] ([facility]) Prednisone 10 MG Oral Tablet prednisone 10 mg tablet TAKE FOUR TABLETS BY MOUTH ONCE DAILY. DECREASE BY 1 TABLET EVERY 3 DAYS. prednisone 10 mg tablet TAKE FOUR TABLETS BY MOUTH ONCE DAILY. DECREASE BY 1 TABLET EVERY 3 DAYS. completed prednisone 10 MG Oral Tablet [facility] ([facility]) Cefuroxime 500 MG Oral Tablet cefuroxime axetil 500 mg tablet TAKE 1 TABLET BY MOUTH TWICE DAILY FOR 5 DAYS cefuroxime axetil 500 mg tablet TAKE 1 T ABLET BY MOUTH TWICE DAILY FOR 5 DAYS completed cefuroxime 500 MG Oral Tablet [place] ([facility]) Hydroxyzine Pamoate 25 MG Oral Capsule hydroxyzine johnny oate 25 mg capsule hydroxyzine pamoate 25 mg capsule comp leted hydroxyzine pamoate 25 MG Oral Capsule [place] ([facility]) Clindamycin 300 MG Oral Capsule clindamy madeleine HCl 300 mg capsule TAKE 1 CAPSULE BY MOUTH THREE TIMES DAILY FOR 10 DAYS clindamycin HCl 300 mg capsule TAKE 1 CAPSULE BY MOUTH THREE TIMES DAILY FOR 10 DAYS completed clindamycin 300 MG Oral Capsule [place] ([facility]) Levothyroxine Sodium 0.125 MG Oral Table t [Euthyrox] Euthyrox 125 mcg tablet TAKE 1 TABLET BY MOUTH IN THE MORNING Euthyrox 125 mcg tablet TAKE 1 TABLET BY MOUTH IN THE MORNING completed levothyroxine sodium 0.125 MG Oral Tablet [Euthyrox] [facility] ([facility]) azelastine 137 mcg (0.1 %) nasal spray a erosol USE 1 TO 2 SPRAY(S) IN EACH NOSTRIL TWICE DAILY FOR 10 DAYS [id number] compl eted azelastine hydrochloride 0.137 MG/ACTUAT Metered Dose Nasal [place] ([facility]) Azithromycin 500 MG Oral Tablet azithrom ycin 500 mg tablet TAKE 1 TABLET BY MOUTH ONCE DAILY FOR 3 DAYS azithromycin 500 mg tablet TAKE 1 TABLET BY MOUTH ONCE DAILY FOR 3 DAYS completed azithromycin 500 MG Oral Tablet [place] ([facility]) Clonazepam 0.5 MG Oral Tablet clonazepam 0.5 mg tablet clona zepam 0.5 mg tablet completed clonazepam 0.5 MG Oral Tablet [place] ([facility]) Prednisone 10 MG Oral Tablet prednisone 10 mg tablet TAKE FOUR TABLETS BY MOUTH ONCE DAILY. DECREASE BY 1 TABLET EVERY 3 DAYS. prednisone 10 mg tablet TAKE FOUR TABLETS BY MOUTH ONCE DAILY. DECREASE BY 1 TABLET EVERY 3 DAYS. completed prednisone 10 MG Oral Tablet [facility] ([facility]) Hydroxyzine Pamoate 25 MG Oral Capsule hydroxyzine johnny oate 25 mg capsule hydroxyzine pamoate 25 mg capsule comp leted hydroxyzine pamoate 25 MG Oral Capsule [place] ([facility]) Famotidine 40 MG Oral Tablet famotidine 40 mg tablet famotidine 40 mg tablet completed famotidine 40 MG Oral Tablet [place] ([facility]) methylprednisolone 4 mg tablets in a dose pack TAKE DIRECTED 551632 completed methylprednisolone 4 mg t ablets in a dose pack [place] ([facility]) lamotrigine 100 MG Oral Tablet lamotrigi ne 100 mg tablet TAKE 2 TABLETS BY MOUTH ONCE DAILY lamotrigine 100 mg tablet TAKE 2 TABLETS BY MOUTH ONCE DAILY completed lamotrigine 100 MG O ral Tablet [place] ([facility]) Amoxicillin 875 MG Oral Tablet amoxicill in 875 mg tablet TAKE 1 TABLET BY MOUTH TWICE DAILY amoxicillin 875 mg tablet TAKE 1 TABLET BY MOUTH TWICE DAILY completed amoxicillin 875 MG O ral Tablet [place] ([facility]) Cefuroxime 500 MG Oral Tablet cefuroxime axetil 500 mg tablet TAKE 1 TABLET BY MOUTH TWICE DAILY FOR 5 DAYS cefuroxime axetil 500 mg tablet TAKE 1 T ABLET BY MOUTH TWICE DAILY FOR 5 DAYS completed cefuroxime 500 MG Oral Tablet [place] ([facility]) azelastine 137 mcg (0.1 %) nasal spray a erosol USE 1 TO 2 SPRAY(S) IN EACH NOSTRIL TWICE DAILY FOR 10 DAYS [id number] compl eted azelastine hydrochloride 0.137 MG/ACTUAT Metered Dose Nasal [place] ([facility]) methylphenidate LA 20 mg biphasic 50-50 capsule,extended release 63537 3 completed 50/50 Release 2 4 HR methylphenidate hydrochloride 20 MG Extended Release Oral Capsule [place] ([facility]) Fluoxetine 40 MG Oral Capsule fluoxetine 40 mg capsule TAKE 1 CAPSULE BY MOUTH ONCE DAILY . DO NOT EXCEED 1 PER 24 HOURS fluoxetine 40 mg capsule TAKE 1 CAPSULE BY MOUTH ONCE DAILY . DO NOT EXCEED 1 PER 24 HOURS completed fluoxetine 40 MG Oral Capsule AT [facility] ([facility]) Azithromycin 500 MG Oral Tablet azithrom ycin 500 mg tablet TAKE 1 TABLET BY MOUTH ONCE DAILY FOR 3 DAYS azithromycin 500 mg tablet TAKE 1 TABLET BY MOUTH ONCE DAILY FOR 3 DAYS completed azithromycin 500 MG Oral Tablet [place] ([facility]) Prednisone 10 MG Oral Tablet prednisone 10 mg tablet TAKE FOUR TABLETS BY MOUTH ONCE DAILY. DECREASE BY 1 TABLET EVERY 3 DAYS. prednisone 10 mg tablet TAKE FOUR TABLETS BY MOUTH ONCE DAILY. DECREASE BY 1 TABLET EVERY 3 DAYS. completed prednisone 10 MG Oral Tablet [facility] ([facility]) Hydroxyzine Pamoate 25 MG Oral Capsule hydroxyzine johnny oate 25 mg capsule hydroxyzine pamoate 25 mg capsule comp leted hydroxyzine pamoate 25 MG Oral Capsule [place] ([facility]) benzonatate 200 MG Oral Capsule benzonat ate 200 mg capsule TAKE 1 CAPSULE BY MOUTH THREE TIMES DAILY NEEDED FOR SEVERE COUGH benzonatate 200 mg capsule TAKE 1 CAPSULE BY MOUTH THREE TIMES DAILY NEEDED FOR SEVERE COUGH completed benzonatate 200 MG Oral Caps ule [place] ([facility]) lamotrigine 100 MG Oral Tablet lamotrigi ne 100 mg tablet TAKE 2 TABLETS BY MOUTH ONCE DAILY lamotrigine 100 mg tablet TAKE 2 TABLETS BY MOUTH ONCE DAILY completed lamotrigine 100 MG O ral Tablet [place] ([facility]) Amoxicillin 875 MG Oral Tablet amoxicill in 875 mg tablet TAKE 1 TABLET BY MOUTH TWICE DAILY amoxicillin 875 mg tablet TAKE 1 TABLET BY MOUTH TWICE DAILY completed amoxicillin 875 MG O ral Tablet [place] ([facility]) methylphenidate LA 20 mg biphasic 50-50 capsule,extended release 29332 3 completed 50/50 Release 2 4 HR methylphenidate hydrochloride 20 MG Extended Release Oral Capsule [place] ([facility]) Azithromycin 500 MG Oral Tablet azithrom ycin 500 mg tablet TAKE 1 TABLET BY MOUTH ONCE DAILY FOR 3 DAYS azithromycin 500 mg tablet TAKE 1 TABLET BY MOUTH ONCE DAILY FOR 3 DAYS completed azithromycin 500 MG Oral Tablet [place] ([facility]) Levothyroxine Sodium 0.125 MG Oral Table t [Euthyrox] Euthyrox 125 mcg tablet TAKE 1 TABLET BY MOUTH IN THE MORNING Euthyrox 125 mcg tablet TAKE 1 TABLET BY MOUTH IN THE MORNING completed levothyroxine sodium 0.125 MG Oral Tablet [Euthyrox] [facility] ([facility]) Levothyroxine Sodium 0.125 MG Oral Table t [Euthyrox] Euthyrox 125 mcg tablet TAKE 1 TABLET BY MOUTH IN THE MORNING Euthyrox 125 mcg tablet TAKE 1 TABLET BY MOUTH IN THE MORNING completed levothyroxine sodium 0.125 MG Oral Tablet [Euthyrox] [place] ([facility]) rivaroxaban 15 MG Oral Tablet [Xarelto] Xarelto 15 mg tablet TAKE 1 TABLET BY MOUTH TWICE DAILY DAYS 1 THRU 21. BOTTLE 1 . PRESCRIPTION 1 OF 2. Xarelto 15 mg tablet TAKE 1 TABLET BY MOUTH TWICE DAILY DAYS 1 THRU 21. BOTTLE 1 . PRESCRIPTION 1 OF 2. completed rivaroxaban 15 MG Oral Tablet [Xarelto] [place] ([facility]) Azithromycin 250 MG Oral Tablet azithrom ycin [...] completed azithromycin 250 MG Oral Tablet [place] ([facility]) methylphenidate LA 20 mg biphasic 50-50 capsule,extended release 84908 3 completed 50/50 Release 2 4 HR methylphenidate hydrochloride 20 MG Extended Release Oral Capsule [place] ([facility]) Hydroxyzine Pamoate 25 MG Oral Capsule hydroxyzine johnny oate 25 mg capsule hydroxyzine pamoate 25 mg capsule comp leted hydroxyzine pamoate 25 MG Oral Capsule [place] ([facility]) Clonazepam 0.5 MG Oral Tablet clonazepam 0.5 mg tablet clona zepam 0.5 mg tablet completed clonazepam 0.5 MG Oral Tablet [place] ([facility]) Azithromycin 500 MG Oral Tablet azithrom ycin 500 mg tablet TAKE 1 TABLET BY MOUTH ONCE DAILY FOR 3 DAYS azithromycin 500 mg tablet TAKE 1 TABLET BY MOUTH ONCE DAILY FOR 3 DAYS completed azithromycin 500 MG Oral Tablet [place] ([facility]) Acetaminophen 325 MG Oral Tablet acetami nophen 325 mg tablet TAKE 1 TABLET BY MOUTH EVERY 6 HOURS NEEDED FOR PAIN acetaminophen 325 mg tablet TAKE 1 TABLE T BY MOUTH EVERY 6 HOURS NEEDED FOR PAIN completed acetaminophen 325 MG Oral Tablet [place] ([facility]) Prednisone 20 MG Oral Tablet prednisone 20 mg tablet TAKE 2 TABLETS BY MOUTH IN THE MORNING FOR 5 DAYS prednisone 20 mg tablet TAKE 2 TABLETS B Y MOUTH IN THE MORNING FOR 5 DAYS completed pre dnisone 20 MG Oral Tablet [place] ([facility]) Clindamycin 300 MG Oral Capsule clindamy madeleine HCl 300 mg capsule TAKE 1 CAPSULE BY MOUTH THREE TIMES DAILY FOR 10 DAYS clindamycin HCl 300 mg capsule TAKE 1 CAPSULE BY MOUTH THREE TIMES DAILY FOR 10 DAYS completed clindamycin 300 MG Oral Capsule [place] ([facility]) Levothyroxine Sodium 0.15 MG Oral Tablet levothyroxine 150 mcg tablet levothyroxine 150 mcg tablet completed levothyroxine sodium 0.15 MG Oral Tablet [place] ([facility]) Amoxicillin 500 MG Oral Capsule amoxicil john 500 mg capsule TAKE 1 CAPSULE BY MOUTH EVERY 8 HOURS UNTIL GONE amoxicillin 500 mg capsule TAKE 1 CAPSUL E BY MOUTH EVERY 8 HOURS UNTIL GONE complet ed amoxicillin 500 MG Oral Capsule [place] ([facility]) Cefuroxime 500 MG Oral Tablet cefuroxime axetil 500 mg tablet TAKE 1 TABLET BY MOUTH TWICE DAILY FOR 5 DAYS cefuroxime axetil 500 mg tablet TAKE 1 T ABLET BY MOUTH TWICE DAILY FOR 5 DAYS completed cefuroxime 500 MG Oral Tablet [place] ([facility]) azelastine 137 mcg (0.1 %) nasal spray a erosol USE 1 TO 2 SPRAY(S) IN EACH NOSTRIL TWICE DAILY FOR 10 DAYS [id number] compl eted azelastine hydrochloride 0.137 MG/ACTUAT Metered Dose Nasal [place] ([facility]) Amphetamine aspartate 1.25 MG / Amphetam ine Sulfate 1.25 MG / Dextroamphetamine saccharate 1.25 MG / Dextroamphetamine Sulfate 1.25 MG Oral Tablet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 [id number] Influenza vaccine needed Influenza Vaccine Needed Pro blem 12/17/2018 12:00:00 AM EDT - 04/14/2020 12:00:00 AM EST [place] ([facility]) [id number] Influenza vaccine needed Influenza Vaccine Needed Pro blem 12/17/2018 12:00:00 AM EDT - 04/14/2020 12:00:00 AM EST [place] ([facility]) [id number] Abnormal weight gain Abnormal Weight Gain Problem 12/20/2017 12:00:00 AM EDT - 04/14/2020 12:00:00 AM EST [place] ([facility]) [id number] Abnormal weight gain Abnormal Weight Gain Problem 12/20/2017 12:00:00 AM EDT - 04/14/2020 12:00:00 AM EST [place] ([facility]) [id number] Abnormal weight gain Abnormal Weight Gain Problem 12/20/2017 12:00:00 AM EDT - 04/14/2020 12:00:00 AM EST [place] ([facility]) [id number] Abnormal weight gain Abnormal Weight Gain Problem 12/20/2017 12:00:00 AM EDT - 04/14/2020 12:00:00 AM EST [place] ([facility]) [id number] Abnormal weight gain Abnormal Weight Gain Problem 12/20/2017 12:00:00 AM EDT - 04/14/2020 12:00:00 AM EST [place] ([facility]) [id number] Abnormal weight gain Abnormal Weight Gain Problem 12/20/2017 12:00:00 AM EDT - 04/14/2020 12:00:00 AM EST [place] ([facility]) [id number] Finding of head and neck region Finding of Head and Neck Region Problem 06/21/2017 12:00:00 AM EST - 04/14/2020 12:00:00 AM [place] ([facility]) [id number] Finding of head and neck region Finding of Head and Neck Region Problem 06/21/2017 12:00:00 AM EST - 04/14/2020 12:00:00 AM [place] ([facility]) [id number] Finding of head and neck region Finding of Head and Neck Region Problem 06/21/2017 12:00:00 AM EST - 04/14/2020 12:00:00 AM [place] ([facility]) [id number] Finding of head and neck region Finding of Head and Neck Region Problem 06/21/2017 12:00:00 AM EST - 04/14/2020 12:00:00 AM [place] [place] ([facility]) [id number] Finding of head and neck region Finding of Head and Neck Region Problem 06/21/2017 12:00:00 AM EST - 04/14/2020 12:00:00 AM RAJ Anderson [place] ([facility]) [id number] Finding of head and neck region Finding of Head and Neck Region Problem 06/21/2017 12:00:00 AM EST - 04/14/2020 12:00:00 AM [facility] [place] ([facility]) [id number] Evaluation procedure Evaluation Procedure Problem 12/17/2016 12:00:00 AM EDT - 04/14/2020 12:00:00 AM EST [place] ([facility]) [id number] Procedure by method Procedure by Method Problem 0 12/17/2016 12:00:00 AM EDT - 04/14/2020 12:00:00 AM EST [place] ([facility]) [id number] Evaluation procedure Evaluation Procedure Problem 12/17/2016 12:00:00 AM EDT - 04/14/2020 12:00:00 AM EST [place] ([facility]) [id number] Procedure by method Procedure by Method Problem 0 12/17/2016 12:00:00 AM EDT - 04/14/2020 12:00:00 AM EST [place] ([facility]) [id number] Evaluation procedure Evaluation Procedure Problem 12/17/2016 12:00:00 AM EDT - 04/14/2020 12:00:00 AM EST [place] ([facility]) [id number] Procedure by method Procedure by Method Problem 0 12/17/2016 12:00:00 AM EDT - 04/14/2020 12:00:00 AM EST [place] ([facility]) [id number] Evaluation procedure Evaluation Procedure Problem 12/17/2016 12:00:00 AM EDT - 04/14/2020 12:00:00 AM EST [place] ([facility]) [id number] Procedure by method Procedure by Method Problem 0 12/17/2016 12:00:00 AM EDT - 04/14/2020 12:00:00 AM EST [place] ([facility]) [id number] Evaluation procedure Evaluation Procedure Problem 12/17/2016 12:00:00 AM EDT - 04/14/2020 12:00:00 AM EST [place] ([facility]) [id number] Procedure by method Procedure by Method Problem 0 12/17/2016 12:00:00 AM EDT - 04/14/2020 12:00:00 AM EST [place] ([facility]) [id number] Evaluation procedure Evaluation Procedure Problem 12/17/2016 12:00:00 AM EDT - 04/14/2020 12:00:00 AM EST [place] ([facility]) [id number] Procedure by method Procedure by Method Problem 0 12/17/2016 12:00:00 AM EDT - 04/14/2020 12:00:00 AM EST [place] ([facility]) [id number] Tobacco use and exposure - finding Tobacco Use a nd Exposure - Finding Problem 11/09/2016 12:00:00 AM EDT - 10/10/2020 12:00:00 AM ED T [place] ([facility]) 227826287 Tobacco use and exposure - finding Tobacco Use a nd Exposure - Finding Problem 11/09/2016 12:00:00 AM EDT - 10/10/2020 12:00:00 AM ED T [place] ([facility]) 301243962 Tobacco use and exposure - finding Tobacco Use a nd Exposure - Finding Problem 11/09/2016 12:00:00 AM EDT - 10/10/2020 12:00:00 AM ED T [place] ([facility]) 770521902 Tobacco use and exposure - finding Tobacco Use a nd Exposure - Finding Problem 11/09/2016 12:00:00 AM EDT - 10/10/2020 12:00:00 AM ED T [place] ([facility]) Surgeries/Procedures Procedure Description Date Indications Data Source(s) Extraction of Ramah Tooth 09/19/2020 12:00:00 AM EDT [place] ([facility]) Extraction of Ramah Tooth 09/19/2020 12:00:00 AM EDT [place]) Extraction of Ramah Tooth 09/19/2020 12:00:00 AM EDT [place]) Extraction of Ramah Tooth 09/19/2020 12:00:00 AM EDT [place] ([facility]) Results ID Date Data Source [id number] 02/22/2021 08:38:00 [place] [address] PHONE: [phone] FAX: [phone] Name .................. : MARILYN Angel Acct Number.................. : [id number] ROOM. ................. : TR-01 MR Number ................... : [id number] Stay type ............. : E/R Discharge Date......... ... : 02/21/21 Admit Date ......... : 02/20/21 Admit Phys .................... : ADILIA LOOMIS Date of ....... : 1995 Family Phys ................... : NON STAFF Phone .................. : [phone] Age ................................ : 25 Film# .................. .:[id number] Sex ................................. : F Unsigned transcriptions are preliminary reports and do not represent a medical or legal document [place] [id number] COMPLETE:02/20/21 23:50 [id number] Reason(s): Pain, Limb ULTRASOUND RIGHT LOWER EXTREMITY VENOUS INDICATION: Right limb Pain. COMPARISON: 04/02/20 Preliminary report for this exam was provided by [facility] . Duplex imaging with color flow Doppler [...] Dictation Date: Copy for: EMERGENCY DEPT via [facility] Copy for: 710 MED REC Page 1 of [address] [place] [address] PHONE: [phone] FAX: [phone] Name .................. : MARILYN Angel Acct Number.................. : [id number] [facility]... : [id number] Stay type ............. : E/R Discharge Date......... ... : 02/21/21 Admit Date ......... : 02/20/21 Admit Phys .................... : ADILIA LOOMIS Date of ....... : 1995 Family Phys ................... : NON STAFF Phone .................. : [phone] Age ................................ : 25 Film# .................. .:[id number] Sex ................................. : F Unsigned transcriptions are preliminary reports and do not represent a medical or legal document [place] [id number] COMPLETE:02/20/21 23:50 72091 Reason(s): Pain, Limb DISCHARGED Page 2 of 2 Name Value Range Interpretation Code Description Data Gladis rce(s) Supporting Document(s) ID Date Data Source [id number] 02/20/2021 11:20:00 PM EDT [facility] 1 OrderSheet [facility] Emergency Department [address] [place] [address] Phone #: ext- [phone] 02/20/2021 23:16 [id number] Sex: F : 1995 Age: 25yWEIGHT:113.3 kg (S) HEIGHT:63 inches (S) BMI:44.3ALLERGIES: No Known Drug AllergyCHIEF COMPLAINT: painDIAGNOSIS: Muscle strainLAB ORDERSOrder Description Priority Entered Acknowledged InitialedDIAGNOSTIC STUDY ORDERSOrder Description Priority Entered Acknowledged InitialedUS Lower Ext STAT 23:50 02/20/2021 23:51 Tony,Venous Right Llye Pat(Oxygen?(No)) Luis; Reason for Study: Pain, LimbMEDICATION/IV/DRIP/FLUID ORDERSOrder Description Priority Entered Acknowledged InitialedGENERAL ORDERSOrder Description Priority Entered Acknowledged Initialed[Electronically signed by Jenni Valadez R.N. (02:18 02/21/2021)][Electronically signed by Lyle Pat M.D. (02:52 02/21/2021)][Electronically locked by Jenni Valadez R.N. (02:18 02/21/2021)] Name Value Range Interpretation Code Description Data Gladis rce(s) Supporting Document(s) ID Date Data Source [id number] 02/20/2021 11:20:00 PM EDT [facility] 1 Medication Reconciliation Report [facility] Emergency Department [address] [place] [address] Phone #: ext- [phone] 02/20/2021 23:16 Patient: THAIS SANDERS Sex: F [...] elaina(s) Supporting Document(s) ID Date Data Source [id number] 02/20/2021 11:20:00 PM EDT [place] [address] Medication Administration Record [facility] Emergency Department [address] [place] [address] Phone #: ext- [phone] 02/20/2021 23:16 Patient: THAIS SANDERS Sex: F : 1995 Age: 25yWeight: 113.3 kgHeight/Length: 63 inBMI: 44.3ALLERGIES: No Known Drug AllergyDate/Time Medication Administered Medication Ordered Name Value Range Interpretation Code Description Data Gladis e(s) Supporting Document(s) ID Date Data Source [id number] 02/20/2021 11:20:00 PM EDT [facility] 1 General Instructions [facility] Emergency Department [address] [place] [address] Phone #: ext- [phone] 02/20/2021 23:16 Patient: THAIS SANDERS [facility]#: [id number] Sex: F : 1995 Age: 25yMuscle strain [...] to plan of care.Follow-up with: [facility], , , [address] [facility] [address], ,[place], [address] Follow up in five days if not better. Call for an appointment. Reason for referral: evaluation and treatment.Summary of care provided to patient via paper. 2 General Instructions [facility] Emergency Department [address] [place] [address] Phone #: ext- [phone] 02/20/2021 23:16 Patient: [...] alternate ice and heat. You may use ppuk-[id number] pain medicine to control pain, unless another [...] numb, or tingly Pain or swelling increases [id number] [employer]. [address] [place] [address]. All rights reserved. This information is not intended as asubstitute for professional medical care. Always follow your healthcare professional's in structions. You have been given the following additional information: 3 General Instructions [facility] Emergency Department [address] [place] [address] Phone #: ext- [phone] 02/20/2021 23:16 Patient: THAIS SANDERS Sex: F : 1995 Age: 25yMuscle Strain, ExtremityNo strenuous activity until better. You may walk and bear weight as tolerated.(Electronically signed by Lyle Pat M.D. 02/21/2021 02:52) Name Value Range Interpretation Code Description Data Gladis rce(s) Supporting Document(s) ID Date Data Source [id number] 02/20/2021 11:20:00 PM EDT [facility] 1 Clinical Report - Nurses [facility] Emergency Department [address] [place] [address] Phone #: ext- [phone] 02/20/2021 23:16 Patient: THAIS SANDERS Sex: F : 1995 Age: 25yTRIAGEArrived by private vehicle. Historian: patient. ( pt c/o right leg pain mostly in calf x 1 week hx of a DVT).Acuity: LEVEL 3.Chief Complaint: RIGHT LOWER EXTREMITY PAIN.No injury occurred. Onset. (1 weeks).Treatment MANAGER CASH:None. --23:35 02/20/21 Jenni Valadez R.N.23:32 02/20/21. BP: [...] Pat M.D. 2 Clinical Report - Nurses [facility] Emergency Department [address] [place] [address] Phone #: ext- [phone] 02/20/2021 23:16 [id number] Sex: F : 1995 Age: 25y The [...] asked if 3 Clinical Report - Nurses [facility] Emergency Department [address] [place] [address] Phone #: ext- [phone] 02/20/2021 23:16 Patient: THAIS SANDERS Sex: F : 1995 Age: 25y they needed anything else at this time. --00:50 02/21/21 Jenni Valadez R.N. Patient waiting for results. --00:50 02/21/21 Jenni Valadez R.N.DISPOSITION / DISCHARGE Discharge instructions provided and reviewed with the patient. Written instructions provided in Namibian (pt left Prior To discharge instructions). --02:18 [...] rce(s) Supporting Document(s) ID Date Data Source [id number] 02/20/2021 11:20:00 PM EDT [facility] 1 Clinical Report - Physicians/Mid Levels [facility] Emergency Department [address] [place] [address] Phone #: ext- [phone] 02/20/2021 23:16 Patient: [...] took Xarelto from 03/25 to 10/24 but agency legal counsel wanted an extra 6 months of Tx). [...] daily. 2 Clinical Report - Physicians/Mid Levels [facility] Emergency Department [address] [place] [address] Phone #: ext- [phone] 02/20/2021 23:16 Patient: [...] sensory deficit.LABS, X-RAYS, AND EKGLower Extremity Sonography: [facility] Call: [phone] Online chat: [email or web address] Name: THAIS SANDERS (Age): 1995 25 Gender: FDate of Exam: 02/21/2021 Physician: LYLE PAT # of Images: 26Ordered As: US DUPLEX EXTREM VEINS UNILAT LTDCONFIDENTIALITY STATEMENTThis report is intended only for the use of the referring physician, and only in accordance with law, If you 3 Clinical Report - Physicians/Mid Levels [facility] Emergency Department [address] [place] [address] Phone #: ext- [phone] 02/20/2021 23:16 Patient: THAIS SANDERS Sex: F : 1995 Age: 25y received this in error, call [phone] Page 1 of 1 PROCEDURE INFORMATION: Exam: [...] of your patient. Dictated and Authenticated by: Agnelique Meek MD 02/21/2021 1:47 AM Eastern Time ([place]. The exam was performed by a bulk mail technician. The study was interpreted by the [...] knee). 4 Clinical Report - Physicians/Mid Levels [facility] Emergency Department [address] [place] [address] Phone #: ext- [phone] 02/20/2021 23:16 Patient: THAIS SANDERS Sex: F [...] plan of care. Follow-up with: [facility], , , [address] [address], , [place], [address] Follow up in five days if not better. Call for an appointment. Reason for referral: evaluation and treatment. Summary of care provided to patient via paper.(Electronically signed by Lyle Pat M.D. 02/21/2021 02:52) 5Clinical Report - Physicians/Mid Levels [facility] Emergency Department [address] [place] [address] Phone #: ext- [phone] 02/20/2021 23:16 Patient: THAIS SANDERS Sex: F : 1995 Age: 25y Name Value Range Interpretation Code Description Data Gladis rce(s) Supporting Document(s) ID Date Data Source [id number] 02/13/2021 09:30:00 PM EDT [facility] Name Value Range Interpretation Code Description Data Gladis rce(s) Supporting Document(s) SARS-CoV-2 RNA Resp Ql MARCUS+probe NOT DETECTED [facility] This lab was ordered by DELMY morse and reported by DELMY Ballard. ID Date Data Source [id number] 11/16/2020 12:00:00 AM EDT [place] ([facility]) Name Value Range Interpretation Code Description Data Gladis rce(s) Supporting Document(s) Thyrotropin [Units/volume] in Serum or Plasma 21.24 mIU/L Above high normal Tsh [place] ([facility]) ID Date Data Source [id number] 11/16/2020 12:00:00 AM EDT [facility]) Name Value Range Interpretation Code Description Data Gladis rce(s) Supporting Document(s) Leukocytes [#/volume] in Blood by Automated count 10.4 thousand/uL 3.8-10.8 White Blood Cell Count [place] [facility]) Hemoglobin [Mass/volume] in Blood 14.5 g/dL 11.7-15.5 He moglobin [place] ([facility]) Erythrocytes [#/volume] in Blood by Automated count 4.74 million/uL 3.80-5.10 Red Blood Cell Count [place] [facility]) Erythrocyte mean corpuscular volume [Entitic volume] by Auto mated count 89.7 fL 80.0-100.0 Mcv [place] ([facility]) Hematocrit [Volume Fraction] of Blood by Automated count 42.5 % 35.0-45.0 Hematocrit [place] ([facility]) Erythrocyte mean corpuscular hemoglobin concentration [Mass/volume] by Automated count 34.1 g/dL 32.0-36.0 Mchc [place] ([facility]) Erythrocyte mean corpuscular hemoglobin [Entitic mass] by Automated count 30.6 pg 27.0-33.0 Mch [place] ([facility]) Erythrocyte distribution width [Ratio] by Automated count 12.6 % 11.0-15.0 Rdw [place] ([facility]) Platelets [#/volume] in Blood by Automated count 364 thousand/uL 14 0-400 Platelet Count [place] ([facility]) Platelet mean volume [Entitic volume] in Blood by Braulio-Jaye 10.8 f L 7.5-12.5 Mpv [place] ([facility]) Neutrophils [#/volume] in Blood by Automated count 5616 cells/uL 15 00-7800 Absolute Neutrophils [place] ([facility]) Monocytes [#/volume] in Blood by Automated count 1009 cells/uL 200-950 Above high normal Absolute Monocytes [place] ([facility]) Lymphocytes [#/volume] in Blood by Automated count 3474 cells/uL 85 0-3900 Absolute Lymphocytes [place] ([facility]) Eosinophils [#/volume] in Blood by Automated count 239 cells/uL 15- 500 Absolute Eosinophils [place] ([facility]) Basophils [#/volume] in Blood by Automated count 62 cells/uL 0-200 Absolute Basophils [place] ([facility]) Neutrophils/100 leukocytes in Blood by Automated count 54 % 38- 80 Neutrophils [place] ([facility]) Lymphocytes/100 leukocytes in Blood by Automated count 33.4 % 15-49 Lymphocytes [place] ([facility]) Monocytes/100 leukocytes in Blood by Automated count 9.7 % 0-13 Monocytes [place] ([facility]) Basophils/100 leukocytes in Blood by Automated count 0.6 % 0-2 Basophils [place] ([facility]) Eosinophils/100 leukocytes in Blood by Automated count 2.3 % 0-8 Eosinophils [place] ([facility]) ID Date Data Source [id number] 11/16/2020 12:00:00 AM EDT [place] ([facility]) Name Value Range Interpretation Code Description Data Gladis rce(s) Supporting Document(s) Glucose [Mass/volume] in Serum or Plasma 72 mg/dL 65-99 Glucose [place] ([facility]) Urea nitrogen [Mass/volume] in Serum or Plasma 10 mg/dL 7-25 Urea Nitrogen (BUN) [place] ([facility]) Creatinine [Mass/volume] in Serum or Plasma 0.77 mg/dL 0.50-1.10 Creatinine [place] ([facility]) Glomerular filtration rate/1.73 sq M.pre dicted among non-blacks [Volume Rate/Area] in Serum, Plasma or Blood by Creatinine-based formula (CKD-EPI) 106 mL/min/1.73m2 > or = 60 eGFR Non-afr. Mosotho [place] ([facility]) Glomerular filtration rate/1.73 sq M.pre dicted among blacks [Volume Rate/Area] in Serum, Plasma or Blood by Creatinine-based formula (CKD-EPI) 123 mL/min/1.73m2 > or = 60 eGFR [place] ([facility]) Sodium [Moles/volume] in Serum or Plasma 138 mmol/L 135-146 Sodium [place] ([facility]) Urea nitrogen/Creatinine [Mass Ratio] in Serum or Plasma not applic able 6-22 BUN/creatinine Ratio [place] ([facility]) Potassium [Moles/volume] in Serum or Plasma 4.4 mmol/L 3.5-5.3 Potassium [place] ([facility]) Chloride [Moles/volume] in Serum or Plasma 104 mmol/L 98-110 Chloride [place] ([facility]) Carbon dioxide, total [Moles/volume] in Serum or Plasma 27 mmol/L 20-32 Carbon Dioxide [place] ([facility]) Calcium [Mass/volume] in Serum or Plasma 9.3 mg/dL 8.6-10.2 Calcium [place] ([facility]) Albumin [Mass/volume] in Serum or Plasma 4.2 g/dL 3.6-5.1 Albumin [place] ([facility]) Protein [Mass/volume] in Serum or Plasma 6.9 g/dL 6.1-8.1 Protein, Total [place] ([facility]) Globulin [Mass/volume] in Serum by calculation 2.7 g/dL_(calc) 1.9- 3.7 Globulin [place] ([facility]) Albumin/Globulin [Mass Ratio] in Serum or Plasma 1.6 (calc) 1.0-2 .5 Albumin/globulin Ratio [place] ([facility]) Bilirubin.total [Mass/volume] in Serum or Plasma 0.4 mg/dL 0.2-1 .2 Bilirubin, Total [place] ([facility]) Alkaline phosphatase [Enzymatic activity/volume] in Serum or Plasma 79 U/L 31-125 Alkaline Phosphatase [place] ([facility]) Alanine aminotransferase [Enzymatic activity/volume] in Seru m or Plasma 12 U/L 6-29 Alt [place] ([facility]) Aspartate aminotransferase [Enzymatic activity/volume] in Serum or Plasma 14 U/L 10-30 Ast [place] ([facility]) ID Date Data Source [id number] 11/16/2020 12:00:00 AM EDT [facility]) Name Value Range Interpretation Code Description Data Gladis rce(s) Supporting Document(s) Thyrotropin [Units/volume] in Serum or Plasma 21.24 mIU/L Above high normal Tsh [place] ([facility]) ID Date Data Source [id number] 11/16/2020 12:00:00 AM EDT [facility]) Name Value Range Interpretation Code Description Data Gladis rce(s) Supporting Document(s) Leukocytes [#/volume] in Blood by Automated count 10.4 thousand/uL 3.8-10.8 White Blood Cell Count [place] ([facility]) Erythrocytes [#/volume] in Blood by Automated count 4.74 million/uL 3.80-5.10 Red Blood Cell Count [place] ([facility]) Hematocrit [Volume Fraction] of Blood by Automated count 42.5 % 35.0-45.0 Hematocrit [place] ([facility]) Hemoglobin [Mass/volume] in Blood 14.5 g/dL 11.7-15.5 He moglobin [place] ([facility]) Erythrocyte mean corpuscular volume [Entitic volume] by Auto mated count 89.7 fL 80.0-100.0 Mcv [place] ([facility]) Erythrocyte mean corpuscular hemoglobin concentration [Mass/volume] by Automated count 34.1 g/dL 32.0-36.0 Mchc [place] ([facility]) Erythrocyte mean corpuscular hemoglobin [Entitic mass] by Automated count 30.6 pg 27.0-33.0 Mch [place] ([facility]) Platelets [#/volume] in Blood by Automated count 364 thousand/uL 14 0-400 Platelet Count [place] ([facility]) Erythrocyte distribution width [Ratio] by Automated count 12.6 % 11.0-15.0 Rdw [place] ([facility]) Platelet mean volume [Entitic volume] in Blood by [place] 10.8 f L 7.5-12.5 Mpv [place] ([facility]) Neutrophils [#/volume] in Blood by Automated count 5616 cells/uL 15 00-7800 Absolute Neutrophils [place] ([facility]) Lymphocytes [#/volume] in Blood by Automated count 3474 cells/uL 85 0-3900 Absolute Lymphocytes [place] ([facility]) Monocytes [#/volume] in Blood by Automated count 1009 cells/uL 200-950 Above high normal Absolute Monocytes [place] ([facility]) Basophils [#/volume] in Blood by Automated count 62 cells/uL 0-200 Absolute Basophils [place] ([facility]) Neutrophils/100 leukocytes in Blood by Automated count 54 % 38- 80 Neutrophils [place] ([facility]) Eosinophils [#/volume] in Blood by Automated count 239 cells/uL 15- 500 Absolute Eosinophils [place] ([facility]) Lymphocytes/100 leukocytes in Blood by Automated count 33.4 % 15-49 Lymphocytes [place] ([facility]) Monocytes/100 leukocytes in Blood by Automated count 9.7 % 0-13 Monocytes [place] ([facility]) Basophils/100 leukocytes in Blood by Automated count 0.6 % 0-2 Basophils [place] ([facility]) Eosinophils/100 leukocytes in Blood by Automated count 2.3 % 0-8 Eosinophils [place] ([facility]) ID Date Data Source [id number] 11/16/2020 12:00:00 AM EDT [place] ([facility]) Name Value Range Interpretation Code Description Data Gladis rce(s) Supporting Document(s) Glucose [Mass/volume] in Serum or Plasma 72 mg/dL 65-99 Glucose [place] ([facility]) Urea nitrogen [Mass/volume] in Serum or Plasma 10 mg/dL 7-25 Urea Nitrogen (BUN) [facility]) Creatinine [Mass/volume] in Serum or Plasma 0.77 mg/dL 0.50-1.10 Creatinine [facility]) Glomerular filtration rate/1.73 sq M.pre dicted among non-blacks [Volume Rate/Area] in Serum, Plasma or Blood by Creatinine-based formula (CKD-EPI) 106 mL/min/1.73m2 > or = 60 eGFR Non-afr. Mosotho [place] ([facility]) Glomerular filtration rate/1.73 sq M.pre dicted among blacks [Volume Rate/Area] in Serum, Plasma or Blood by Creatinine-based formula (CKD-EPI) 123 mL/min/1.73m2 > or = 60 eGFR [place] ([facility]) Sodium [Moles/volume] in Serum or Plasma 138 mmol/L 135-146 Sodium [place] ([facility]) Urea nitrogen/Creatinine [Mass Ratio] in Serum or Plasma not applic able 6-22 BUN/creatinine Ratio [place] ([facility]) Potassium [Moles/volume] in Serum or Plasma 4.4 mmol/L 3.5-5.3 Potassium [place] ([facility]) Chloride [Moles/volume] in Serum or Plasma 104 mmol/L 98-110 Chloride [place] ([facility]) Calcium [Mass/volume] in Serum or Plasma 9.3 mg/dL 8.6-10.2 Calcium [place] ([facility]) Carbon dioxide, total [Moles/volume] in Serum or Plasma 27 mmol/L 20-32 Carbon Dioxide [place] ([facility]) Albumin [Mass/volume] in Serum or Plasma 4.2 g/dL 3.6-5.1 Albumin [place] ([facility]) Globulin [Mass/volume] in Serum by calculation 2.7 g/dL_(calc) 1.9- 3.7 Globulin [place] ([facility]) Protein [Mass/volume] in Serum or Plasma 6.9 g/dL 6.1-8.1 Protein, Total [place] ([facility]) Bilirubin.total [Mass/volume] in Serum or Plasma 0.4 mg/dL 0.2-1 .2 Bilirubin, Total [place] ([facility]) Albumin/Globulin [Mass Ratio] in Serum or Plasma 1.6 (calc) 1.0-2 .5 Albumin/globulin Ratio [place] ([facility]) Alkaline phosphatase [Enzymatic activity/volume] in Serum or Plasma 79 U/L 31-125 Alkaline Phosphatase [place] ([facility]) Aspartate aminotransferase [Enzymatic activity/volume] in Serum or Plasma 14 U/L 10-30 Ast [place] ([facility]) Alanine aminotransferase [Enzymatic activity/volume] in Seru m or Plasma 12 U/L 6-29 Alt [place] ([facility]) ID Date Data Source [id number] 08/10/2020 10:51:00 PM EDT [facility] 1 OrderSheet [facility] Emergency Department [address] [place] [address] Phone #: [phone]- [phone] 08/10/2020 22:51 Patient: THAIS WITT Sex: F [...] rce(s) Supporting Document(s) ID Date Data Source [id number] 08/10/2020 10:51:00 PM EDT [facility] 1 Medication Reconciliation Report [facility] Emergency Department [address] [place] [address] Phone #: ext- [phone] 08/10/2020 22:51 [...] Dispense 14 tablet. Refills: 0.Substitution permitted.Pharmacy - [facility] [phone] [facility] [address] ; [place] [address]. . -- Lyle Pat M.D. Name Value Range Interpretation Code Description Data Gladis rce(s) Supporting Document(s) ID Date Data Source [id number] 08/10/2020 10:51:00 PM EDT [place] [address] Medication Administration Record [facility] Emergency Department [address] [place] [address] Phone #: ext- [phone] 08/10/2020 22:51 Patient: THAIS WITT Sex: F : 1995 Age: 25yWeight: 108.8 kgHeight/Length: 63 inBMI: 42.5ALLERGIES: No Known Drug Allergy Date/Time Medication Administered Medication OrderedGiven AMOXICILLIN CAPSULES [PO] Amoxicillin Capsules PO 1000 mg23:23 08/10/2020 Dose: 1000 mg Capsules Fidencio Garduno R.N. Name Value Range Interpretation Code Description Data Gladis rce(s) Supporting Document(s) ID Date Data Source [id number] 08/10/2020 10:51:00 PM EDT [facility] 1 General Instructions [facility] Emergency Department [address] [place] [address] Phone #: ext- [phone] 08/10/2020 22:51 Patient: THAIS WITT Sex: F [...] Dispense 14 tablet. Refills: 0.Substitution permitted.Pharmacy - [facility] [phone] - [phone] [facility] [address] ; [place], [place] [address]. .Follow-up:Return to the emergency department as needed. [...] to plan of care. 2 General Instructions [facility] Emergency Department [address] [place] [address] Phone #: ext- [phone] 08/10/2020 22:51 Patient: THAIS WITT ct#: [id number] Sex: F : 1995 Age: 25y ADDITIONAL [...] temperature. Use toothpaste made for sensitive teeth. [place] gently up and down instead of sideways. Brushing sideways can wear away root surfaces if they are exposed. 3 General Instructions [facility] Emergency Department [address] [place] [address] Phone #: ext- [phone] 08/10/2020 22:51 Patient: THAIS WITT Sex: F : 1995 Age: 25y If your tooth is chipped or cracked, see a dentist right away. For short-term pain relief, put clove oil right on the tooth. You can buy clove oil at pharmacies. Some pharmacies carry an ocpa-nif-turlpso toothache kit. This has a paste you can put on the exposed tooth to make it less sensitive. Use a cold pack. Put a cold pack on your jaw over the sore area to help reduce pain. Ask your healthcare provider about using nagk-awe-ytgymnf medicine for pain. You may use this [...] your provider Pus drains from the tooth [phone] [employer]. [address] [place] [address]. All rights reserved. This information is not intended as asubstitute for professional medical care. Always follow your healthcare professional's instructions. 4 General Instructions [facility] Emergency Department [address] [place] [address] Phone #: ext- [phone] 08/10/2020 22:51 Patient: [...] pharmacies. Some pharmacies carry an 5 General [facility] Emergency Department [address] [place] [address] Phone #: [phone] ext- [phone] 08/10/2020 22:51 ----- Patient: THAIS WITT Sex: F : 1995 Age: 25y lgex-thk-vkfxvqx toothache kit. This contains a paste that you can put on the exposed tooth to make it less sensitive. Put a cold pack on your jaw over the sore area to help reduce pain. You may use fwrz-pbq-uzbmngv medicine to ease pain, unless another medicine [...] this problem to prevent further tooth damage.Call [phone] if any of these occur: Trouble swallowing [...] drains from the tooth or gum [employer]. [address] [place] [address], [place] [address]. All rights reserved. This information is not intended as asubstitute for professional medical care. Always follow your healthcare professional's instructions. You have been given the following additional information: Dental Pain Dental Cavity 6 General Instructions [facility] Emergency Department [address] [place] [address] Phone #: ext- [phone] 08/10/2020 22:51 Patient: THAIS WITT Sex: F : 1995 Age: 25y(Electronically signed by Lyle Pat M.D. 08/10/2020 23:38) Name Value Range Interpretation Code Description Data Gladis rce(s) Supporting Document(s) ID Date Data Source [id number] 08/10/2020 10:51:00 PM EDT [facility] 1 Clinical Report - Nurses [facility] Emergency Department [address] [place] [address] Phone #: ext- [phone] 08/10/2020 22:51 Patient: THAIS WITT Sex: F : 1995 Age: 25yTRIAGEArrived by private vehicle. Historian: patient.Triage time: 22:48 08/10/2020.Chief Complaint: LEFT UPPER TOOTHACHE.This is a recurrent problem. (1 month ago). ( States that she was at the dentist today. She reports thatshe went there one month ago and 2 weeks ago as well.) [facility] and had herwisdom tooth shaved down. Is scheduled to have it removed with [facility] on October 27).--22:55 08/10/20 Eli [...] Thrombosis.Anxiety Reaction. 2 Clinical Report - Nurses [facility] Emergency Department [address] [place] [address] Phone #: ext- [phone] 08/10/2020 22:51 Patient: [...] Patient verbalized 3 Clinical Report - Nurses [facility] Emergency Department [address] [place] [address] Phone #: ext- [phone] 08/10/2020 22:51 Patient: THAIS WITT Sex: F : 1995 Age: 25y understanding. Written instructions provided in [place]. The patient was discharged by the physician. [...] rce(s) Supporting Document(s) ID Date Data Source [id number] 08/10/2020 10:51:00 PM EDT [facility] 1 Clinical Report - Physicians/Mid Levels [facility] Emergency Department [address] [place] [address] Phone #: ext- [phone] 08/10/2020 22:51 Patient: [...] month ago, needs wisdom teeth removal in [place]; did not get any pain meds or [...] needed. 2 Clinical Report - Physicians/Mid Levels [facility] Emergency Department [address] [place] [address] Phone #: ext- [phone] 08/10/2020 22:51 Patient: THAIS WITT Sex: F [...] by thepharmacies. This report was requested by: Lyle Pat Reference #: [id number] Others' Prescriptions Patient Name: Thais WittBirth Date: 1995 Address: [address] [place], [place] [address]Sex: Female Rx Written Rx Dispensed Drug Quantity Days Supply Prescriber Name Payment Method Dispenser 3 Clinical Repo rt - Physicians/Mid Levels [facility] Emergency Department [address] [place] [address] Phone #: ext- [phone] 08/10/2020 22:51 Patient: THAIS WITT Sex: F : 9[birth year] Age: 25y 07/22/2020 07/25/2020 dextroamp-amphetamin 10 mg tab 60 30 [place], [id number] 07/22/2020 07/25/2020 [facility] 05/26/2020 06/01/2020 [facility] 0.5 mg tablet [facility] 04/26/2020 05/01/2020 dextroamp-amphetamin 10 mg tab 60 30 [place], [facility] 04/26/2020 05/01/2020 clonazepam 0.5 mg tablet 90 30 [place], [facility] 03/01/2020 03/05/2020 [facility]amp[facility]amin 10 [facility] 03/01/2020 03/05/2020 clonazepam 0.5 mg tablet 90 30 [place], [facility] 01/01/2020 01/05/2020 [facility]amin [facility] 01/01/2020 01/05/2020 clonazepam 0.5 mg tablet 90 30 [place] [facility]8 11/23/2019 11/24/2019 dextroamp- amphetamine 5 mg tab 60 30 [place] [facility] 11/09/2019 11/09/2019 methylphenidate la 20 [facility] cap [facility] 11/09/2019 11/09/2019 clonazepam 0.5 mg tablet 90 [facility] * - Drugs marked [...] Xarelto so cannot give Toradol; 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 [...] (localized). 4 Clinical Report - Physicians/Mid Levels [facility] Emergency Department [address] [place] [address] Phone #: ext- [phone] 08/10/2020 22:51 Patient: BRANCH, THAIS M Sex: [...] tablet. Refills: 0. Substitution permitted. Pharmacy - [facility] [phone] [phone] [facility] [address] ; [place] [address]. . Follow-up: Return to the emergency department [...] 08/10/2020 23:38) 5Clinical Report - Physicians/Mid Levels [facility] Emergency Department [address] [place] [address] Phone #: ext- [phone] 08/10/2020 22:51 Patient: THAIS WITT Sex: F : 1995 Age: 25y Name Value Range Interpretation Code Description Data Gladis rce(s) Supporting Document(s) ID Date Data Source [id number] 07/25/2020 08:45:00 AM EDT [facility]) Name Value Range Interpretation Code Description Data Gladis rce(s) Supporting Document(s) thyroid stimulating hormone 0.205 uIU/mL 0.358-3.740 Below low nor mal Thyroid Stimulating Hormone [facility]) free T4 1.10 NG/dL 0.76-1.46 Free T4 [facility]) ID Date Data Source [id number] 07/25/2020 08:45:00 AM EDT [facility]) Name Value Range Interpretation Code Description Data Gladis rce(s) Supporting Document(s) free T4 1.10 NG/dL 0.76-1.46 Free T4 [place] ([facility]) thyroid stimulating hormone 0.205 uIU/mL 0.358-3.740 Below low nor mal Thyroid Stimulating Hormone [place] ([facility]) ID Date Data Source [id number] 07/25/2020 08:45:00 AM EDT [facility]) Name Value Range Interpretation Code Description Data Gladis rce(s) Supporting Document(s) thyroid stimulating hormone 0.205 uIU/mL 0.358-3.740 Below low nor mal Thyroid Stimulating Hormone [facility]) free T4 1.10 NG/dL 0.76-1.46 Free T4 [facility]) ID Date Data Source [id number] 07/25/2020 08:45:00 AM EDT [place] ([facility]) Name Value Range Interpretation Code Description Data Gladis rce(s) Supporting Document(s) free T4 1.10 NG/dL 0.76-1.46 Free T4 [place] ([facility]) thyroid stimulating hormone 0.205 uIU/mL 0.358-3.740 Below low nor mal Thyroid Stimulating Hormone [place] ([facility]) ID Date Data Source [id number] 07/25/2020 08:45:00 AM EDT [place] ([facility]) Name Value Range Interpretation Code Description Data Gladis rce(s) Supporting Document(s) thyroid stimulating hormone 0.205 uIU/mL 0.358-3.740 Below low nor mal Thyroid Stimulating Hormone [place] ([facility]) free T4 1.10 NG/dL 0.76-1.46 Free T4 [place] ([facility]) ID Date Data Source [id number] 05/27/2020 02:21:00 PM EST [place] ([facility]) Name Value Range Interpretation Code Description Data Gladis rce(s) Supporting Document(s) homocysteine 7.4 umol/L . Homocysteine [place] ([facility]) factor VIII activity 99 % . Factor VIII Act ivity [place] ([facility]) protein S antigen, free 115 % . Protein S An tigen, Free [place] ([facility]) antithrombin activity 119 % . Antithrombin A ctivity [place] ([facility]) prt C activity(chromogenic) 72 % . 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 APTT 1:1 Saline ATHE NA ([facility]) APTT 29.5 sec . Aptt [place] ([facility]) lac interpretation . Lac Interpretatio n [place] ([facility]) drvvt screen seconds 91.9 sec . Above high normal Drvvt Sc reen Seconds [place] ([facility]) act prt C resist w/fv defic 2.8 ratio . Act Prt C Resist W/fv Defic [place] ([facility]) drvvt confirm seconds 42.6 sec . Drvvt Confirm Seconds [place] ([facility]) drvvt ratio 1.9 ratio . Above high normal Drvvt Ratio [place] A ([facility]) hexagonal phospholipid neutal 0 sec . Hexago nal Phospholipid Neutal [place] ([facility]) anticardiolipin Ab, IgG <10 . Anticardioli pin Ab, IgG [place] ([facility]) anticardiolipin Ab, IgM <10 . Anticardioli pin Ab, IgM [place] ([facility]) beta-2 glycoprotein I, IgG <10 . Beta-2 Gl ycoprotein I, IgG [place] ([facility]) beta-2 glycoprotein I, IgM <10 . Beta-2 Gl ycoprotein I, IgM [place] ([facility]) beta-2 glycoprotein I, IgA <10 . Beta-2 Gl ycoprotein I, IgA [place] ([facility]) factor II gene mutation result . Facto r II Gene Mutation Result [place] ([facility]) factor II gene interpretation . Factor II Gene Interpretation [place]) factor II gene methodology . Factor II Gene Methodology [place] ([facility]) factor II gene comments . Factor II Ge ne Comments [place] ([facility]) ID Date Data Source [id number] 05/27/2020 02:21:00 PM EST [place] ([facility]) Name Value Range Interpretation Code Description Data Gladis rce(s) Supporting Document(s) creatinine for GFR 0.83 mg/dL 0.55-1.30 Creatinine for GF R [place] ([facility]) blood urea nitrogen 6 mg/dL 7-18 Below low normal Blood Urea Nitrogen [place] ([facility]) glucose, fasting 93 mg/dL 70-100 Glucose, Fasting AT [facility] ([facility]) potassium serum 3.8 mEq/L 3.5-5.1 Potassium Serum A[place] NA ([facility]) glomerular filtration rate > 60.0 >60 Glomerula r Filtration Rate [place] ([facility]) sodium level 139 mEq/L 136-145 Sodium Level [place] ([facility]) carbon dioxide level 30 mEq/L 21-32 Carbon Dioxide Level [place] ([facility]) chloride level 105 mEq/L 98-107 Chloride Level [place] ([facility]) calcium level 9.6 mg/dL 8.5-10.1 Calcium Level [place] ( [facility]) anion gap 4 mEq/L 8-16 Below low normal Anion Gap [place] ( [facility]) AST/SGOT 15 U/L 7-37 AST/SGOT [place] ([facility]) ALT/SGPT 40 U/L 12-78 ALT/SGPT [place] ([facility]) alkaline phosphatase 85 U/L 45-117 Alkaline Phosph atase [place] ([facility]) bilirubin,total 0.7 mg/dL 0.2-1.0 Bilirubin,total [place] ([facility]) total protein 6.7 gm/dL 6.4-8.2 Total Protein [place] ( [facility]) albumin 3.5 gm/dL 3.2-5.2 Albumin [place] ([facility]) albumin/globulin ratio 1.2-2.2 Below low normal Albumin /globulin Ratio [place] ([facility]) ID Date Data Source [id number] 05/27/2020 02:21:00 PM EST [place] ([facility]) Name Value Range Interpretation Code Description Data Gladis rce(s) Supporting Document(s) white blood count 8.7 10 4.0-10.0 White Blood Count [place] ([facility]) red blood count 4.71 10 4.00-5.40 Red Blood Count [place] ([facility]) hemoglobin 14.6 g/dL 12.0-15.5 Hemoglobin [place] ([facility]) hematocrit 43.2 % 36.0-47.0 Hematocrit [place] ([facility]) mean corpuscular volume 91.7 fL 80.0-96.0 Mean Corpusc ular Volume [place] ([facility]) mean corpuscular hemoglobin 31.0 pg 27.0-33.0 Mean Cor puscular Hemoglobin [place] ([facility]) red cell distribution width 11.7 % 11.5-14.5 Red Cell Distribution Width [place] ([facility]) platelet count, automated 339 10 150-450 Platelet C ount, Automated [place] ([facility]) mean corpuscular HGB conc 33.8 g/dL 32.0-36.5 Mean Corpu scular HGB Conc [place] ([facility]) neutrophils % 56.5 % 36.0-66.0 Neutrophils % [place] ( [facility]) lymph % 29.8 % 24.0-44.0 Lymph % [place] ([facility]) baso % 0.5 % 0.0-1.0 Baso % [place] ([facility]) eos % 3.5 % 0.0-3.0 Above high normal Eos % [place] ([facility]) mono % 9.2 % 0.0-5.0 Above high normal [place] % [place] ([facility]) nucleated red blood cell % 0.0 % 0-0 Nucleated Red Blood Cell % [place] ([facility]) immature granulocyte % 0.5 % 0-3.0 Immature Gran ulocyte % [place] ([facility]) neutrophils # 4.9 10 1.5-8.5 Neutrophils # [place] ( [facility]) lymph # 2.6 10 1.5-5.0 Lymph # [place] ([facility]) mono # 0.8 10 0.0-0.8 [place] # [place] ([facility]) baso # 0.0 10 0.0-0.2 Baso # [place] ([facility]) eos # 0.3 10 0.0-0.5 Eos # [place] ([facility]) ID Date Data Source [id number] 05/27/2020 02:21:00 PM EST [place] ([facility]) Name Value Range Interpretation Code Description Data Gladis rce(s) Supporting Document(s) homocysteine 7.4 umol/L . Homocysteine [place] ([facility]) antithrombin activity 119 % . Antithrombin A ctivity [place] ([facility]) prt C activity(chromogenic) 72 % . Below low no rmal Prt C Activity(chromogenic) [place] ([facility]) factor VIII activity 99 % . Factor VIII Act ivity [place] ([facility]) protein S antigen, free 115 % . Protein S An tigen, Free [place] ([facility]) APTT 29.5 sec . 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 APTT 1:1 [employer] [place] ([facility]) APTT 1:1 saline tnp . APTT 1:1 Saline [place] NA ([facility]) act prt C resist w/fv defic 2.8 ratio . Act Prt C Resist W/fv Defic [place] ([facility]) lac interpretation . Lac Interpretatio n [place] ([facility]) drvvt ratio 1.9 ratio . Above high normal Drvvt Ratio ATHEN A ([facility]) drvvt screen seconds 91.9 sec . Above high normal Drvvt Sc reen Seconds [place] ([facility]) drvvt confirm seconds 42.6 sec . Drvvt Confirm Seconds [place] ([facility]) anticardiolipin Ab, IgM <10 . Anticardioli pin Ab, IgM [place] ([facility]) hexagonal phospholipid neutal 0 sec . Hexago nal Phospholipid Neutal [place] ([facility]) anticardiolipin Ab, IgG <10 . Anticardioli pin Ab, IgG [place] ([facility]) beta-2 glycoprotein I, IgA <10 . Beta-2 Gl ycoprotein I, IgA [place] ([facility]) beta-2 glycoprotein I, IgG <10 . Beta-2 Gl ycoprotein I, IgG [place] ([facility]) beta-2 glycoprotein I, IgM <10 . Beta-2 Gl ycoprotein I, IgM [place] ([facility]) factor II gene methodology . Factor II Gene Methodology [place] ([facility]) factor II gene mutation result . Facto r II Gene Mutation Result [place] ([facility]) factor II gene interpretation . Factor II Gene Interpretation [place] ([facility]) factor II gene comments . Factor II Ge ne Comments [place] ([facility]) ID Date Data Source [id number] 05/27/2020 02:21:00 PM EST [place] ([facility]) Name Value Range Interpretation Code Description Data Gladis rce(s) Supporting Document(s) glucose, fasting 93 mg/dL 70-100 Glucose, Fasting AT [facility]) creatinine for GFR 0.83 mg/dL 0.55-1.30 Creatinine for GF R [place] ([facility]) blood urea nitrogen 6 mg/dL 7-18 Below low normal Blood Urea Nitrogen [place] ([facility]) glomerular filtration rate > 60.0 >60 Glomerula r Filtration Rate [place] ([facility]) potassium serum 3.8 mEq/L 3.5-5.1 Potassium Serum [place] ([facility]) sodium level 139 mEq/L 136-145 Sodium Level [place] ([facility]) carbon dioxide level 30 mEq/L 21-32 Carbon Dioxide Level [place] ([facility]) chloride level 105 mEq/L 98-107 Chloride Level [place] ([facility]) anion gap 4 mEq/L 8-16 Below low normal Anion Gap [place] ( [facility]) calcium level 9.6 mg/dL 8.5-10.1 Calcium Level [place] ( [facility]) AST/SGOT 15 U/L 7-37 AST/SGOT [place] ([facility]) alkaline phosphatase 85 U/L 45-117 Alkaline Phosph atase [place] ([facility]) ALT/SGPT 40 U/L 12-78 ALT/SGPT [place] ([facility]) total protein 6.7 gm/dL 6.4-8.2 Total Protein [place] ( [facility]) bilirubin,total 0.7 mg/dL 0.2-1.0 Bilirubin,total [place] ([facility]) albumin 3.5 gm/dL 3.2-5.2 Albumin [place] ([facility]) albumin/globulin ratio 1.2-2.2 Below low normal Albumin /globulin Ratio [place] ([facility]) ID Date Data Source [id number] 05/27/2020 02:21:00 PM EST [place] ([facility]) Name Value Range Interpretation Code Description Data Gladis rce(s) Supporting Document(s) white blood count 8.7 10 4.0-10.0 White Blood Count [place] ([facility]) red blood count 4.71 10 4.00-5.40 Red Blood Count [place] ([facility]) hemoglobin 14.6 g/dL 12.0-15.5 Hemoglobin [place] ([facility]) hematocrit 43.2 % 36.0-47.0 Hematocrit [place] ([facility]) mean corpuscular hemoglobin 31.0 pg 27.0-33.0 Mean Cor puscular Hemoglobin [place] ([facility]) mean corpuscular volume 91.7 fL 80.0-96.0 Mean Corpusc ular Volume [place] ([facility]) mean corpuscular HGB conc 33.8 g/dL 32.0-36.5 Mean Corpu scular HGB Conc [place] ([facility]) red cell distribution width 11.7 % 11.5-14.5 Red Cell Distribution Width [place] ([facility]) platelet count, automated 339 10 150-450 Platelet C ount, Automated [place] ([facility]) neutrophils % 56.5 % 36.0-66.0 Neutrophils % [place] ( [facility]) lymph % 29.8 % 24.0-44.0 Lymph % [place] ([facility]) eos % 3.5 % 0.0-3.0 Above high normal Eos % [place] ([facility]) baso % 0.5 % 0.0-1.0 Baso % [place] ([facility]) mono % 9.2 % 0.0-5.0 Above high normal [place] % [place] ([facility]) neutrophils # 4.9 10 1.5-8.5 Neutrophils # [place] ( [facility]) nucleated red blood cell % 0.0 % 0-0 Nucleated Red Blood Cell % [place] ([facility]) immature granulocyte % 0.5 % 0-3.0 Immature Gran ulocyte % [place] ([facility]) mono # 0.8 10 0.0-0.8 [place] # [place] ([facility]) lymph # 2.6 10 1.5-5.0 Lymph # [place] ([facility]) baso # 0.0 10 0.0-0.2 Baso # [place] ([facility]) eos # 0.3 10 0.0-0.5 Eos # [place] ([facility]) ID Date Data Source [id number] 05/27/2020 02:21:00 PM EST [place] ([facility]) Name Value Range Interpretation Code Description Data Gladis rce(s) Supporting Document(s) homocysteine 7.4 umol/L . Homocysteine [place] ([facility]) factor VIII activity 99 % . Factor VIII Act ivity [place] ([facility]) antithrombin activity 119 % . Antithrombin A ctivity [place] ([facility]) protein S antigen, free 115 % . Protein S An tigen, Free [place] ([facility]) prt C activity(chromogenic) 72 % . Below low no rmal Prt C Activity(chromogenic) [place] ([facility]) APTT 29.5 sec . 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 APTT 1:1 [employer] [place] ([facility]) lac interpretation . Lac Interpretatio n [place] ([facility]) APTT 1:1 saline tnp . APTT 1:1 Saline [place] NA ([facility]) drvvt screen seconds 91.9 sec . Above high normal Drvvt Sc reen Seconds [place] ([facility]) act prt C resist w/fv defic 2.8 ratio . Act Prt C Resist W/fv Defic [place] ([facility]) drvvt confirm seconds 42.6 sec . Drvvt Confirm Seconds [place] ([facility]) drvvt ratio 1.9 ratio . Above high normal Drvvt Ratio [place] ([facility]) hexagonal phospholipid neutal 0 sec . Hexago nal Phospholipid Neutal [place] ([facility]) anticardiolipin Ab, IgM <10 . Anticardioli pin Ab, IgM [place] ([facility]) anticardiolipin Ab, IgG <10 . Anticardioli pin Ab, IgG [place] ([facility]) beta-2 glycoprotein I, IgG <10 . Beta-2 Gl ycoprotein I, IgG [place] ([facility]) beta-2 glycoprotein I, IgM <10 . Beta-2 Gl ycoprotein I, IgM [place] ([facility]) beta-2 glycoprotein I, IgA <10 . Beta-2 Gl ycoprotein I, IgA [place] ([facility]) factor II gene mutation result . Facto r II Gene Mutation Result [place] ([facility]) factor II gene interpretation . Factor II Gene Interpretation [place] ([facility]) factor II gene methodology . Factor II Gene Methodology [place] ([facility]) factor II gene comments . Factor II Ge ne Comments [place] ([facility]) ID Date Data Source [id number] 05/27/2020 02:21:00 PM EST [place] ([facility]) Name Value Range Interpretation Code Description Data Gladis rce(s) Supporting Document(s) glucose, fasting 93 mg/dL 70-100 Glucose, Fasting AT [facility] ([facility]) blood urea nitrogen 6 mg/dL 7-18 Below low normal Blood Urea Nitrogen [place] ([facility]) creatinine for GFR 0.83 mg/dL 0.55-1.30 Creatinine for GF R [place] ([facility]) glomerular filtration rate > 60.0 >60 Glomerula r Filtration Rate [place] ([facility]) sodium level 139 mEq/L 136-145 Sodium Level [place] ([facility]) chloride level 105 mEq/L 98-107 Chloride Level [place] ([facility]) potassium serum 3.8 mEq/L 3.5-5.1 Potassium Serum [place] NA ([facility]) calcium level 9.6 mg/dL 8.5-10.1 Calcium Level [place] ( [facility]) anion gap 4 mEq/L 8-16 Below low normal Anion Gap [place] ( [facility]) carbon dioxide level 30 mEq/L 21-32 Carbon Dioxide Level [place] ([facility]) AST/SGOT 15 U/L 7-37 AST/SGOT [place] ([facility]) ALT/SGPT 40 U/L 12-78 ALT/SGPT [place] ([facility]) alkaline phosphatase 85 U/L 45-117 Alkaline Phosph atase [place] ([facility]) bilirubin,total 0.7 mg/dL 0.2-1.0 Bilirubin,total [place] ([facility]) albumin 3.5 gm/dL 3.2-5.2 Albumin [place] ([facility]) total protein 6.7 gm/dL 6.4-8.2 Total Protein [place] ( [facility]) albumin/globulin ratio 1.2-2.2 Below low normal Albumin /globulin Ratio [place] ([facility]) ID Date Data Source [id number] 05/27/2020 02:21:00 PM EST [place] ([facility]) Name Value Range Interpretation Code Description Data Gladis rce(s) Supporting Document(s) white blood count 8.7 10 4.0-10.0 White Blood Count [place] ([facility]) red blood count 4.71 10 4.00-5.40 Red Blood Count [place] NA ([facility]) hemoglobin 14.6 g/dL 12.0-15.5 Hemoglobin [place] ([facility]) hematocrit 43.2 % 36.0-47.0 Hematocrit [place] ([facility]) mean corpuscular volume 91.7 fL 80.0-96.0 Mean Corpusc ular Volume [place] ([facility]) mean corpuscular hemoglobin 31.0 pg 27.0-33.0 Mean Cor puscular Hemoglobin [place] ([facility]) mean corpuscular HGB conc 33.8 g/dL 32.0-36.5 Mean Corpu scular HGB Conc [place] ([facility]) red cell distribution width 11.7 % 11.5-14.5 Red Cell Distribution Width [place] ([facility]) platelet count, automated 339 10 150-450 Platelet C ount, Automated [place] ([facility]) neutrophils % 56.5 % 36.0-66.0 Neutrophils % [place] ( [facility]) lymph % 29.8 % 24.0-44.0 Lymph % [place] ([facility]) mono % 9.2 % 0.0-5.0 Above high normal [place] % [place] ([facility]) eos % 3.5 % 0.0-3.0 Above high normal Eos % [place] ([facility]) baso % 0.5 % 0.0-1.0 Baso % [place] ([facility]) immature granulocyte % 0.5 % 0-3.0 Immature Gran ulocyte % [place] ([facility]) nucleated red blood cell % 0.0 % 0-0 Nucleated Red Blood Cell % [place] ([facility]) neutrophils # 4.9 10 1.5-8.5 Neutrophils # [place] ( [facility]) lymph # 2.6 10 1.5-5.0 Lymph # [place] ([facility]) eos # 0.3 10 0.0-0.5 Eos # [place] ([facility]) mono # 0.8 10 0.0-0.8 [place] # [place] ([facility]) baso # 0.0 10 0.0-0.2 Baso # [place] ([facility]) ID Date Data Source [id number] 05/27/2020 02:21:00 PM EST [place] ([facility]) Name Value Range Interpretation Code Description Data Gladis rce(s) Supporting Document(s) homocysteine 7.4 umol/L . Homocysteine [place] ([facility]) prt C activity(chromogenic) 72 % . Below low no rmal Prt C Activity(chromogenic) [place] ([facility]) antithrombin activity 119 % . Antithrombin A ctivity [place] ([facility]) factor VIII activity 99 % . Factor VIII Act ivity [place] ([facility]) APTT 29.5 sec . 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 APTT 1:1 [employer] [place] ([facility]) protein S antigen, free 115 % . Protein S An tigen, Free [place] ([facility]) act prt C resist w/fv defic 2.8 ratio . Act Prt C Resist W/fv Defic [place] ([facility]) APTT 1:1 saline tnp . APTT 1:1 Saline [place] ([facility]) lac interpretation . Lac Interpretatio n [place] ([facility]) drvvt screen seconds 91.9 sec . Above high normal Drvvt Sc reen Seconds [place] ([facility]) drvvt ratio 1.9 ratio . Above high normal Drvvt Ratio ATHEN A ([facility]) drvvt confirm seconds 42.6 sec . Drvvt Confirm Seconds [place] ([facility]) anticardiolipin Ab, IgG <10 . Anticardioli pin Ab, IgG [place] ([facility]) hexagonal phospholipid neutal 0 sec . Hexago nal Phospholipid Neutal [place] ([facility]) anticardiolipin Ab, IgM <10 . Anticardioli pin Ab, IgM [place] ([facility]) beta-2 glycoprotein I, IgM <10 . Beta-2 Gl ycoprotein I, IgM [place] ([facility]) beta-2 glycoprotein I, IgA <10 . Beta-2 Gl ycoprotein I, IgA [place] ([facility]) beta-2 glycoprotein I, IgG <10 . Beta-2 Gl ycoprotein I, IgG [place] ([facility]) factor II gene comments . Factor II Ge ne Comments [place] ([facility]) factor II gene methodology . Factor II Gene Methodology [place] ([facility]) factor II gene mutation result . Facto r II Gene Mutation Result [place] ([facility]) factor II gene interpretation . Factor II Gene Interpretation [place] ([facility]) ID Date Data Source [id number] 05/27/2020 02:21:00 PM EST [place] ([facility]) Name Value Range Interpretation Code Description Data Gladis rce(s) Supporting Document(s) glucose, fasting 93 mg/dL 70-100 Glucose, Fasting AT [facility] ([facility]) blood urea nitrogen 6 mg/dL 7-18 Below low normal Blood Urea Nitrogen [place] ([facility]) creatinine for GFR 0.83 mg/dL 0.55-1.30 Creatinine for GF R [place] ([facility]) sodium level 139 mEq/L 136-145 Sodium Level [place] ([facility]) glomerular filtration rate > 60.0 >60 Glomerula r Filtration Rate [place] ([facility]) potassium serum 3.8 mEq/L 3.5-5.1 Potassium Serum [place] NA ([facility]) carbon dioxide level 30 mEq/L 21-32 Carbon Dioxide Level [place] ([facility]) chloride level 105 mEq/L 98-107 Chloride Level [place] ([facility]) anion gap 4 mEq/L 8-16 Below low normal Anion Gap [place] ( [facility]) calcium level 9.6 mg/dL 8.5-10.1 Calcium Level [place] ( [facility]) AST/SGOT 15 U/L 7-37 AST/SGOT [place] ([facility]) ALT/SGPT 40 U/L 12-78 ALT/SGPT [place] ([facility]) alkaline phosphatase 85 U/L 45-117 Alkaline Phosph atase [place] ([facility]) bilirubin,total 0.7 mg/dL 0.2-1.0 Bilirubin,total AT[place] NA ([facility]) albumin 3.5 gm/dL 3.2-5.2 Albumin [place] ([facility]) total protein 6.7 gm/dL 6.4-8.2 Total Protein [place] ( [facility]) albumin/globulin ratio 1.2-2.2 Below low normal Albumin /globulin Ratio [place] ([facility]) ID Date Data Source [id number] 05/27/2020 02:21:00 PM EST [place] ([facility]) Name Value Range Interpretation Code Description Data Gladis rce(s) Supporting Document(s) white blood count 8.7 10 4.0-10.0 White Blood Count [place] ([facility]) red blood count 4.71 10 4.00-5.40 Red Blood Count [place] NA ([facility]) mean corpuscular volume 91.7 fL 80.0-96.0 Mean Corpusc ular Volume [place] ([facility]) hemoglobin 14.6 g/dL 12.0-15.5 Hemoglobin [place] ([facility]) hematocrit 43.2 % 36.0-47.0 Hematocrit [place] ([facility]) mean corpuscular HGB conc 33.8 g/dL 32.0-36.5 Mean Corpu scular HGB Conc [place] ([facility]) mean corpuscular hemoglobin 31.0 pg 27.0-33.0 Mean Cor puscular Hemoglobin [place] ([facility]) red cell distribution width 11.7 % 11.5-14.5 Red Cell Distribution Width [place] ([facility]) platelet count, automated 339 10 150-450 Platelet C ount, Automated [place] ([facility]) neutrophils % 56.5 % 36.0-66.0 Neutrophils % [place] ( [facility]) mono % 9.2 % 0.0-5.0 Above high normal [place] % [place] ([facility]) eos % 3.5 % 0.0-3.0 Above high normal Eos % [place] ([facility]) lymph % 29.8 % 24.0-44.0 Lymph % [place] ([facility]) immature granulocyte % 0.5 % 0-3.0 Immature Gran ulocyte % [place] ([facility]) baso % 0.5 % 0.0-1.0 Baso % [place] ([facility]) nucleated red blood cell % 0.0 % 0-0 Nucleated Red Blood Cell % [place] ([facility]) lymph # 2.6 10 1.5-5.0 Lymph # [place] ([facility]) neutrophils # 4.9 10 1.5-8.5 Neutrophils # [place] ( [facility]) mono # 0.8 10 0.0-0.8 [place] # [place] [facility] [facility] eos # 0.3 10 0.0-0.5 Eos # [place] ([facility]) baso # 0.0 10 0.0-0.2 Baso # [place] ([facility]) ID Date Data Source [id number] 05/27/2020 02:21:00 PM EST [place] ([facility]) Name Value Range Interpretation Code Description Data Gladis rce(s) Supporting Document(s) homocysteine 7.4 umol/L . Homocysteine [place] ([facility]) factor VIII activity 99 % . Factor VIII Act ivity [place] ([facility]) protein S antigen, free 115 % . Protein S An tigen, Free [place] ([facility]) antithrombin activity 119 % . Antithrombin A ctivity [place] ([facility]) prt C activity(chromogenic) 72 % . Below low no rmal Prt C Activity(chromogenic) [place] ([facility]) APTT 29.5 sec . Aptt [place] ([facility]) APTT 1:1 saline tnp . 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 APTT 1:1 Vice [employer] [place] ([facility]) lac interpretation . Lac Interpretatio n [place] ([facility]) act prt C resist w/fv defic 2.8 ratio . Act Prt C Resist W/fv Defic [place] ([facility]) drvvt ratio 1.9 ratio . Above high normal Drvvt Ratio ATHEN A ([facility]) drvvt screen seconds 91.9 sec . Above high normal Drvvt Sc reen Seconds [place] ([facility]) drvvt confirm seconds 42.6 sec . Drvvt Confirm Seconds [place] ([facility]) anticardiolipin Ab, IgG <10 . Anticardioli pin Ab, IgG [place] ([facility]) hexagonal phospholipid neutal 0 sec . Hexago nal Phospholipid Neutal [place] ([facility]) anticardiolipin Ab, IgM <10 . Anticardioli pin Ab, IgM [place] ([facility]) beta-2 glycoprotein I, IgA <10 . Beta-2 Gl ycoprotein I, IgA [place] ([facility]) beta-2 glycoprotein I, IgM <10 . Beta-2 Gl ycoprotein I, IgM [place] ([facility]) beta-2 glycoprotein I, IgG <10 . Beta-2 Gl ycoprotein I, IgG [place] ([facility]) factor II gene interpretation . Factor II Gene Interpretation [place] ([facility]) factor II gene methodology . Factor II Gene Methodology [place] ([facility]) factor II gene mutation result . Facto r II Gene Mutation Result [place] ([facility]) factor II gene comments . Factor II Ge ne Comments [place] ([facility]) ID Date Data Source [id number] 05/27/2020 02:21:00 PM EST [place] ([facility]) Name Value Range Interpretation Code Description Data Gladis rce(s) Supporting Document(s) creatinine for GFR 0.83 mg/dL 0.55-1.30 Creatinine for GF R [place] ([facility]) blood urea nitrogen 6 mg/dL 7-18 Below low normal Blood Urea Nitrogen [place] ([facility]) glucose, fasting 93 mg/dL 70-100 Glucose, Fasting AT [facility] ([facility]) glomerular filtration rate > 60.0 >60 Glomerula r Filtration Rate [place] ([facility]) sodium level 139 mEq/L 136-145 Sodium Level [place] ([facility]) chloride level 105 mEq/L 98-107 Chloride Level [place] ([facility]) potassium serum 3.8 mEq/L 3.5-5.1 Potassium Serum ATH NA ([facility]) carbon dioxide level 30 mEq/L 21-32 Carbon Dioxide Level [place] ([facility]) AST/SGOT 15 U/L 7-37 AST/SGOT [place] ([facility]) anion gap 4 mEq/L 8-16 Below low normal Anion Gap [place] ( [facility]) calcium level 9.6 mg/dL 8.5-10.1 Calcium Level [place] ( [facility]) ALT/SGPT 40 U/L 12-78 ALT/SGPT [place] ([facility]) alkaline phosphatase 85 U/L 45-117 Alkaline Phosph atase [place] ([facility]) bilirubin,total 0.7 mg/dL 0.2-1.0 Bilirubin,total AT[place] NA ([facility]) albumin/globulin ratio 1.2-2.2 Below low normal Albumin /globulin Ratio [place] ([facility]) total protein 6.7 gm/dL 6.4-8.2 Total Protein [place] ( [facility]) albumin 3.5 gm/dL 3.2-5.2 Albumin [place] ([facility]) ID Date Data Source [id number] 05/27/2020 02:21:00 PM EST [place] ([facility]) Name Value Range Interpretation Code Description Data Gladis rce(s) Supporting Document(s) white blood count 8.7 10 4.0-10.0 White Blood Count [place] ([facility]) red blood count 4.71 10 4.00-5.40 Red Blood Count AT[place] NA ([facility]) hemoglobin 14.6 g/dL 12.0-15.5 Hemoglobin [place] ([facility]) hematocrit 43.2 % 36.0-47.0 Hematocrit [place] ([facility]) mean corpuscular volume 91.7 fL 80.0-96.0 Mean Corpusc ular Volume [place] ([facility]) mean corpuscular hemoglobin 31.0 pg 27.0-33.0 Mean Cor puscular Hemoglobin [place] ([facility]) platelet count, automated 339 10 150-450 Platelet C ount, Automated [place] ([facility]) red cell distribution width 11.7 % 11.5-14.5 Red Cell Distribution Width [place] ([facility]) mean corpuscular HGB conc 33.8 g/dL 32.0-36.5 Mean Corpu scular HGB Conc [place] ([facility]) lymph % 29.8 % 24.0-44.0 Lymph % [place] ([facility]) mono % 9.2 % 0.0-5.0 Above high normal [place] % [place] ([facility]) neutrophils % 56.5 % 36.0-66.0 Neutrophils % [place] ( [facility]) eos % 3.5 % 0.0-3.0 Above high normal [place] % [place] ([facility]) baso % 0.5 % 0.0-1.0 Baso % [place] ([facility]) nucleated red blood cell % 0.0 % 0-0 Nucleated Red Blood Cell % [place] ([facility]) immature granulocyte % 0.5 % 0-3.0 Immature Gran ulocyte % [place] ([facility]) neutrophils # 4.9 10 1.5-8.5 Neutrophils # [place] ( [facility]) eos # 0.3 10 0.0-0.5 Eos # [place] ([facility]) lymph # 2.6 10 1.5-5.0 Lymph # [place] ([facility]) mono # 0.8 10 0.0-0.8 [place] # [place] ([facility]) baso # 0.0 10 0.0-0.2 Baso # [place] ([facility]) ID Date Data Source [id number] 04/04/2020 10:32:00 AM [facility] [address] [place] [address] RESPIRATORY CARE REPORT ==== ---------NAME------- NUMBER SEX AGE ADMIT DISC. XRAY# F/C TYPELAKSHMI Angel [id number] F 24 04/02/20 04/02/20 [id number] O/P DATE OF : 1995 M/R# [id number] #: [phone] LOCATION: EMERGENCY DEPT [facility] [address] COMP LETE:04/02/20 14:03 [place] [id number] PHYSICIAN: JAXON APARICIO CH Name Value Range Interpretation Code Description Data Gladis rce(s) Supporting Document(s) ID Date Data Source [id number] 04/04/2020 09:37:00 AM EST [facility] [address] [place] [address] PHONE: [phone] FAX: [phone] Name .................. : LAKSHMI Angel Acct Number.................. : [id number] ROOM. ................. : TR-07 Number ................... : [id number] Stay type ............. : E/R Discharge Date......... ... : Admit Date ......... : 04/02/20 Admit Phys .................... : ASHLEY PA Date of ....... : 1995 Family Phys ................... : NON STAFF Phone .................. : [phone] Age ................................ : 24 Film# .................. .:[id number] Sex ................................. : F Unsigned transcriptions are preliminary reports and do not represent a medical or legal document CT CTA CHEST NON-CORONARY [place] [address] COMPLETE:04/02/20 13:10 01056 Reason(s): DVT with tachy CTA OF THE [...] CT dose: 1145 mGycm [address] [place] [address] [place] [address] PHONE: [phone] FAX: [phone] Name .................. : LAKSHMI Angel Acct Number.................. : [id number] ROOM. ................. : TR-07 MR Number ................... : [id number] Stay type ............. : E/R Discharge Date......... ... : Admit Date ......... : 04/02/20 Admit Phys .................... : ASHLEY SRUESH Date of ....... : 1995 Family Phys ................... : NON STAFF Phone .................. : [phone] Age ................................ : 24 Film# .................. .:[id number] Sex ................................. : F Unsigned transcriptions are preliminary reports and do not represent a medical or legal document CT CTA CHEST NON-CORONARY [place] [address] COMPLETE:04/02/20 13:10 [id number] Reason(s): DVT with tachy Contrast agent in mL: 75 Isovue 370 Method of administration: Intravenous Electronically Reviewed and Signed By Kel Castro MD , 04/04/20 09:37, AML Transcribe Initials: DZ , Transcribe Date: 04/02/20 15:51, Dictation Date: Copy for: ALESSANDRA YATES via fax Copy for: EMERGENCY DEPT via [facility] Copy for: 710 MED REC DISCHARGED Page 2 of 2 Name Value Range Interpretation Code Description Data Gladis rce(s) Supporting Document(s) ID Date Data Source [id number] 04/04/2020 09:33:00 AM EST [facility] [address] [place] [address] PHONE: [phone] FAX: [phone] Name .................. : LAKSHMI THAIS Jeanne Acct Number.................. : [id number] ROOM. ................. : TR-07 MR Number ................... : [id number] Stay type ............. : E/R Discharge Date......... ... : Admit Date ......... : 04/02/20 Admit Phys .................... : ASHLEY PA Date of ....... : 1995 Family Phys ................... : NON STAFF Phone .................. : [phone] Age ................................ : 24 Film# .................. .:[id number] Sex ................................. : F Unsigned transcriptions are preliminary reports and do not represent a medical or legal document [place] [address] COMPLETE:04/02/20 12:35 [facility] [address] Reason(s): Pain, Limb RIGHT L OWER EXTREMITY [...] By Kel Castro MD , 04/04/20 09:33, [facility] Transcribe Initials: DZ , Transcribe Date: 04/02/20 13:10, Dictation Date: Copy for: ALESSANDRA YATES via fax Copy for: EMERGENCY DEPT via modem Copy for: 710 MED REC DISCHARGED Page 1 of 1 Name Value Range Interpretation Code Description Data Gladis rce(s) Supporting Document(s) ID Date Data Source [id number] 04/03/2020 09:30:00 PM EST [place] ([facility]) Name Value Range Interpretation Code Description Data Gladis rce(s) Supporting Document(s) lactic acid sepsis protocol 2.5 mmol/L 0.4-2.0 Above high no rmal Lactic Acid Sepsis Protocol [facility]) ID Date Data Source [id number] 04/03/2020 09:30:00 PM EST [facility]) Name Value Range Interpretation Code Description Data Gladis rce(s) Supporting Document(s) thyroid stimulating hormone 5.700 uIU/mL 0.358-3.740 Above high no rmal Thyroid Stimulating Hormone [facility]) ID Date Data Source [id number] 04/03/2020 09:30:00 PM EST [facility]) Name Value Range Interpretation Code Description Data Gladis rce(s) Supporting Document(s) thyroxine (T4) 19.7 ug/dL 4.5-12.0 Above high normal Thyroxine (T4) [facility]) ID Date Data Source [id number] 04/03/2020 09:30:00 PM EST [facility]) Name Value Range Interpretation Code Description Data Gladis rce(s) Supporting Document(s) nt-pro BNP 24 pg/mL <125 Nt-pro BNP [facility]) ID Date Data Source [id number] 04/03/2020 09:30:00 PM EST [facility]) Name Value Range Interpretation Code Description Data Gladis rce(s) Supporting Document(s) glomerular filtration rate > 60.0 >60 Glomerula r Filtration Rate [place] ([facility]) creatinine for GFR 1.07 mg/dL 0.55-1.30 Creatinine for GF R [place] ([facility]) glucose, fasting 133 mg/dL 70-100 Above high normal Glucose, Fas ting [place] ([facility]) blood urea nitrogen 10 mg/dL 7-18 Blood Urea Nitro gen [place] ([facility]) sodium level 140 mEq/L 136-145 Sodium Level [place] ([facility]) potassium serum 3.8 mEq/L 3.5-5.1 Potassium Serum ATHE NA ([facility]) chloride level 108 mEq/L 98-107 Above high normal Chloride Level [place] ([facility]) calcium level 9.7 mg/dL 8.5-10.1 Calcium Level [place] ( [facility]) carbon dioxide level 24 mEq/L 21-32 Carbon Dioxide Level [place] ([facility]) anion gap 8 mEq/L 8-16 Anion Gap [place] ([facility]) ID Date Data Source [id number] 04/03/2020 09:30:00 PM EST [place] ([facility]) Name Value Range Interpretation Code Description Data Gladis rce(s) Supporting Document(s) AST/SGOT 13 U/L 7-37 AST/SGOT [place] ([facility]) ALT/SGPT 15 U/L 12-78 ALT/SGPT [place] ([facility]) alkaline phosphatase 90 U/L 45-117 Alkaline Phosph atase [place] ([facility]) albumin 3.5 gm/dL 3.2-5.2 Albumin [place] ([facility]) total protein 7.4 gm/dL 6.4-8.2 Total Protein [place] ( [facility]) bilirubin,total 0.3 mg/dL 0.2-1.0 Bilirubin,total [facility] ([facility]) bilirubin,direct < 0.1 0.0-0.2 Bilirubin,direct AT [facility]) albumin/globulin ratio 1.2-2.2 Below low normal Albumin /globulin Ratio [place] ([facility]) ID Date Data Source [id number] 04/03/2020 09:30:00 PM EST [place] ([facility]) Name Value Range Interpretation Code Description Data Gladis rce(s) Supporting Document(s) mb/CK relative index < or =4 mb/CK Relative Index [place] ([facility]) CPK creatine phosphokinase 57 U/L 26-192 CPK Creat ine Phosphokinase [place] ([facility]) CK-mb value mass < 1.0 <3.6 CK-mb Value Mass AT [place] ([facility]) troponin I < 0.02 < 0.10 Troponin I [place] ([facility]) ID Date Data Source [id number] 04/03/2020 09:30:00 PM EST [place] ([facility]) Name Value Range Interpretation Code Description Data Gladis rce(s) Supporting Document(s) D-dimer quant 956.43 NG/mL <500 Above high normal D-dimer Quant [place] ([facility]) ID Date Data Source [id number] 04/03/2020 09:30:00 PM EST [place] ([facility]) Name Value Range Interpretation Code Description Data Gladis rce(s) Supporting Document(s) white blood count 11.5 10 4.0-10.0 Above high normal White Blood Count [place] ([facility]) red blood count 4.82 10 4.00-5.40 Red Blood Count [place] NA ([facility]) mean corpuscular volume 88.6 fL 80.0-96.0 Mean Corpusc ular Volume [place] ([facility]) hemoglobin 14.3 g/dL 12.0-15.5 Hemoglobin [place] ([facility]) hematocrit 42.7 % 36.0-47.0 Hematocrit [place] ([facility]) mean corpuscular hemoglobin 29.7 pg 27.0-33.0 Mean Cor puscular Hemoglobin [place] ([facility]) neutrophils % 62.5 % 36.0-66.0 Neutrophils % [place] ( [facility]) platelet count, automated 314 10 150-450 Platelet C ount, Automated [place] ([facility]) red cell distribution width 12.2 % 11.5-14.5 Red Cell Distribution Width [place] ([facility]) mean corpuscular HGB conc 33.5 g/dL 32.0-36.5 Mean Corpu scular HGB Conc [place] ([facility]) baso % 0.3 % 0.0-1.0 Baso % [place] ([facility]) eos % 1.1 % 0.0-3.0 Eos % [place] ([facility]) lymph % 29.9 % 24.0-44.0 Lymph % [place] ([facility]) mono % 5.9 % 0.0-5.0 Above high normal [place] % [place] ([facility]) nucleated red blood cell % 0.0 % 0-0 Nucleated Red Blood Cell % [place] ([facility]) immature granulocyte % 0.3 % 0-3.0 Immature Gran ulocyte % [place] ([facility]) neutrophils # 7.2 10 1.5-8.5 Neutrophils # [place] ( [facility]) lymph # 3.4 10 1.5-5.0 Lymph # [place] ([facility]) mono # 0.7 10 0.0-0.8 [place] # [place] ([facility]) baso # 0.0 10 0.0-0.2 Baso # [place] ([facility]) eos # 0.1 10 0.0-0.5 Eos # [place] ([facility]) ID Date Data Source [id number] 04/03/2020 09:30:00 PM EST [place] ([facility]) Name Value Range Interpretation Code Description Data Gladis rce(s) Supporting Document(s) venous pH 7.385 units 7.330-7.430 Venous pH [place] ([facility]) venous partial pressure CO2 37.8 mmHg 38.0-50.0 Below low nor mal Venous Partial Pressure CO2 [place] ([facility]) venous total CO2 23.3 mEq/L 24.0-28.0 Below low normal Venous Total CO2 [place] ([facility]) venous partial pressure O2 45.5 mmHg 30.0-50.0 Venous Pa rtial Pressure O2 [place] ([facility]) venous HCO3 22.1 mEq/L 23.0-27.0 Below low normal Venous HCO3 [place] ([facility]) venous base excess -2.0-2.0 Below low normal Venous Base Excess [place] ([facility]) venous O2 saturation 85.2 % 60.0-80.0 Above high normal Venous O 2 Saturation [place] ([facility]) venous standard HCO3 22.1 mEq/L Venous Standard HCO3 [place] ([facility]) ID Date Data Source [id number] 04/03/2020 09:30:00 PM EST [place] ([facility]) Name Value Range Interpretation Code Description Data Gladis rce(s) Supporting Document(s) lactic acid sepsis protocol 2.5 mmol/L 0.4-2.0 Above high no rmal Lactic Acid Sepsis Protocol [facility]) ID Date Data Source [id number] 04/03/2020 09:30:00 PM EST [facility]) Name Value Range Interpretation Code Description Data Gladis rce(s) Supporting Document(s) thyroid stimulating hormone 5.700 uIU/mL 0.358-3.740 Above high no rmal Thyroid Stimulating Hormone [facility]) ID Date Data Source [id number] 04/03/2020 09:30:00 PM EST [facility]) Name Value Range Interpretation Code Description Data Gladis rce(s) Supporting Document(s) thyroxine (T4) 19.7 ug/dL 4.5-12.0 Above high normal Thyroxine (T4) [facility]) ID Date Data Source [id number] 04/03/2020 09:30:00 PM EST [place] ([facility]) Name Value Range Interpretation Code Description Data Gladis rce(s) Supporting Document(s) nt-pro BNP 24 pg/mL <125 Nt-pro BNP [place] ([facility]) ID Date Data Source [id number] 04/03/2020 09:30:00 PM EST [place] ([facility]) Name Value Range Interpretation Code Description Data Gladis rce(s) Supporting Document(s) blood urea nitrogen 10 mg/dL 7-18 Blood Urea Nitro gen [place] ([facility]) glomerular filtration rate > 60.0 >60 Glomerula r Filtration Rate [place] ([facility]) creatinine for GFR 1.07 mg/dL 0.55-1.30 Creatinine for GF R [place] ([facility]) sodium level 140 mEq/L 136-145 Sodium Level [place] ([facility]) glucose, fasting 133 mg/dL 70-100 Above high normal Glucose, Fas ting [place] ([facility]) potassium serum 3.8 mEq/L 3.5-5.1 Potassium Serum [place] ([facility]) chloride level 108 mEq/L 98-107 Above high normal Chloride Level [place] ([facility]) calcium level 9.7 mg/dL 8.5-10.1 Calcium Level [place] ( [facility]) anion gap 8 mEq/L 8-16 Anion Gap [place] ([facility]) carbon dioxide level 24 mEq/L 21-32 Carbon Dioxide Level [place] ([facility]) ID Date Data Source [id number] 04/03/2020 09:30:00 PM EST [place] ([facility]) Name Value Range Interpretation Code Description Data Gladis rce(s) Supporting Document(s) ALT/SGPT 15 U/L 12-78 ALT/SGPT [place] ([facility]) AST/SGOT 13 U/L 7-37 AST/SGOT [place] ([facility]) alkaline phosphatase 90 U/L 45-117 Alkaline Phosph atase [place] ([facility]) bilirubin,total 0.3 mg/dL 0.2-1.0 Bilirubin,total [place] ([facility]) bilirubin,direct < 0.1 0.0-0.2 Bilirubin,direct AT [facility] ([facility]) total protein 7.4 gm/dL 6.4-8.2 Total Protein [place] ( [facility]) albumin/globulin ratio 1.2-2.2 Below low normal Albumin /globulin Ratio [place] ([facility]) albumin 3.5 gm/dL 3.2-5.2 Albumin [place] ([facility]) ID Date Data Source [id number] 04/03/2020 09:30:00 PM EST [place] ([facility]) Name Value Range Interpretation Code Description Data Gladis rce(s) Supporting Document(s) CPK creatine phosphokinase 57 U/L 26-192 CPK Creat ine Phosphokinase [place] ([facility]) mb/CK relative index < or =4 mb/CK Relative Index [place] ([facility]) CK-mb value mass < 1.0 <3.6 CK-mb Value Mass AT [facility] ([facility]) troponin I < 0.02 < 0.10 Troponin I [place] ([facility]) ID Date Data Source [id number] 04/03/2020 09:30:00 PM EST [place] ([facility]) Name Value Range Interpretation Code Description Data Gladis rce(s) Supporting Document(s) D-dimer quant 956.43 NG/mL <500 Above high normal D-dimer Quant [place] ([facility]) ID Date Data Source [id number] 04/03/2020 09:30:00 PM EST [place] ([facility]) Name Value Range Interpretation Code Description Data Gladis rce(s) Supporting Document(s) white blood count 11.5 10 4.0-10.0 Above high normal White Blood Count [place] ([facility]) hemoglobin 14.3 g/dL 12.0-15.5 Hemoglobin [place] ([facility]) red blood count 4.82 10 4.00-5.40 Red Blood Count [place] ([facility]) mean corpuscular hemoglobin 29.7 pg 27.0-33.0 Mean Cor puscular Hemoglobin [place] ([facility]) mean corpuscular volume 88.6 fL 80.0-96.0 Mean Corpusc ular Volume [place] ([facility]) hematocrit 42.7 % 36.0-47.0 Hematocrit [place] [facility] [facility] mean corpuscular HGB conc 33.5 g/dL 32.0-36.5 Mean Corpu scular HGB Conc [place] ([facility]) red cell distribution width 12.2 % 11.5-14.5 Red Cell Distribution Width [place] ([facility]) lymph % 29.9 % 24.0-44.0 Lymph % [place] ([facility]) platelet count, automated 314 10 150-450 Platelet C ount, Automated [place] ([facility]) neutrophils % 62.5 % 36.0-66.0 Neutrophils % [place] ( [facility]) eos % 1.1 % 0.0-3.0 Eos % [place] ([facility]) mono % 5.9 % 0.0-5.0 Above high normal [place] % [place] ([facility]) baso % 0.3 % 0.0-1.0 Baso % [place] ([facility]) immature granulocyte % 0.3 % 0-3.0 Immature Gran ulocyte % [place] ([facility]) nucleated red blood cell % 0.0 % 0-0 Nucleated Red Blood Cell % [place] ([facility]) lymph # 3.4 10 1.5-5.0 Lymph # [place] ([facility]) neutrophils # 7.2 10 1.5-8.5 Neutrophils # [place] ( [facility]) eos # 0.1 10 0.0-0.5 Eos # [place] ([facility]) mono # 0.7 10 0.0-0.8 [place] # [place] ([facility]) baso # 0.0 10 0.0-0.2 Baso # [place] ([facility]) ID Date Data Source [id number] 04/03/2020 09:30:00 PM EST [place] ([facility]) Name Value Range Interpretation Code Description Data Gladis rce(s) Supporting Document(s) venous pH 7.385 units 7.330-7.430 Venous pH [place] ([facility]) venous partial pressure CO2 37.8 mmHg 38.0-50.0 Below low nor mal Venous Partial Pressure CO2 [place] ([facility]) venous partial pressure O2 45.5 mmHg 30.0-50.0 Venous Pa rtial Pressure O2 [place] ([facility]) venous total CO2 23.3 mEq/L 24.0-28.0 Below low normal Venous Total CO2 [place] ([facility]) venous standard HCO3 22.1 mEq/L Venous Standard HCO3 [place] ([facility]) venous HCO3 22.1 mEq/L 23.0-27.0 Below low normal Venous HCO3 [place] ([facility]) venous O2 saturation 85.2 % 60.0-80.0 Above high normal Venous O 2 Saturation [place] ([facility]) venous base excess -2.0-2.0 Below low normal Venous Base Excess [place] ([facility]) ID Date Data Source [id number] 04/03/2020 09:30:00 PM EST [place] ([facility]) Name Value Range Interpretation Code Description Data Gladis rce(s) Supporting Document(s) lactic acid sepsis protocol 2.5 mmol/L 0.4-2.0 Above high no rmal Lactic Acid Sepsis Protocol [place] ([facility]) ID Date Data Source [id number] 04/03/2020 09:30:00 PM EST [place] ([facility]) Name Value Range Interpretation Code Description Data Gladis rce(s) Supporting Document(s) thyroid stimulating hormone 5.700 uIU/mL 0.358-3.740 Above high no rmal Thyroid Stimulating Hormone [place] ([facility]) ID Date Data Source [id number] 04/03/2020 09:30:00 PM EST [place] ([facility]) Name Value Range Interpretation Code Description Data Gladis rce(s) Supporting Document(s) thyroxine (T4) 19.7 ug/dL 4.5-12.0 Above high normal Thyroxine (T4) [place] ([facility]) ID Date Data Source [id number] 04/03/2020 09:30:00 PM EST [place] ([facility]) Name Value Range Interpretation Code Description Data Gladis rce(s) Supporting Document(s) nt-pro BNP 24 pg/mL <125 Nt-pro BNP [facility]) ID Date Data Source [id number] 04/03/2020 09:30:00 PM EST [place] ([facility]) Name Value Range Interpretation Code Description Data Gladis rce(s) Supporting Document(s) glucose, fasting 133 mg/dL 70-100 Above high normal Glucose, Fas ting [place] ([facility]) blood urea nitrogen 10 mg/dL 7-18 Blood Urea Nitro gen [place] ([facility]) creatinine for GFR 1.07 mg/dL 0.55-1.30 Creatinine for GF R [place] ([facility]) glomerular filtration rate > 60.0 >60 Glomerula r Filtration Rate [place] ([facility]) sodium level 140 mEq/L 136-145 Sodium Level [place] ([facility]) chloride level 108 mEq/L 98-107 Above high normal Chloride Level [place] ([facility]) potassium serum 3.8 mEq/L 3.5-5.1 Potassium Serum [place] ([facility]) carbon dioxide level 24 mEq/L 21-32 Carbon Dioxide Level [place] ([facility]) anion gap 8 mEq/L 8-16 Anion Gap [place] ([facility]) calcium level 9.7 mg/dL 8.5-10.1 Calcium Level [place] ( [facility]) ID Date Data Source [id number] 04/03/2020 09:30:00 PM EST [place] ([facility]) Name Value Range Interpretation Code Description Data Gladis rce(s) Supporting Document(s) AST/SGOT 13 U/L 7-37 AST/SGOT [place] ([facility]) ALT/SGPT 15 U/L 12-78 ALT/SGPT [place] ([facility]) alkaline phosphatase 90 U/L 45-117 Alkaline Phosph atase [place] ([facility]) bilirubin,total 0.3 mg/dL 0.2-1.0 Bilirubin,total [facility] ([facility]) bilirubin,direct < 0.1 0.0-0.2 Bilirubin,direct AT [facility] ([facility]) albumin 3.5 gm/dL 3.2-5.2 Albumin [place] ([facility]) total protein 7.4 gm/dL 6.4-8.2 Total Protein [place] ( [facility]) albumin/globulin ratio 1.2-2.2 Below low normal Albumin /globulin Ratio [place] ([facility]) ID Date Data Source [id number] 04/03/2020 09:30:00 PM EST [place] ([facility]) Name Value Range Interpretation Code Description Data Gladis rce(s) Supporting Document(s) CK-mb value mass < 1.0 <3.6 CK-mb Value Mass AT [facility] ([facility]) mb/CK relative index < or =4 mb/CK Relative Index [place] ([facility]) CPK creatine phosphokinase 57 U/L 26-192 CPK Creat ine Phosphokinase [place] ([facility]) troponin I < 0.02 < 0.10 Troponin I [place] ([facility]) ID Date Data Source [id number] 04/03/2020 09:30:00 PM EST [place] ([facility]) Name Value Range Interpretation Code Description Data Gladis rce(s) Supporting Document(s) D-dimer quant 956.43 NG/mL <500 Above high normal D-dimer Quant [place] ([facility]) ID Date Data Source [id number] 04/03/2020 09:30:00 PM EST [place] ([facility]) Name Value Range Interpretation Code Description Data Gladis rce(s) Supporting Document(s) white blood count 11.5 10 4.0-10.0 Above high normal White Blood Count [place] ([facility]) hemoglobin 14.3 g/dL 12.0-15.5 Hemoglobin [place] ([facility]) hematocrit 42.7 % 36.0-47.0 Hematocrit [place] ([facility]) red blood count 4.82 10 4.00-5.40 Red Blood Count [facility] ([facility]) mean corpuscular hemoglobin 29.7 pg 27.0-33.0 Mean Cor puscular Hemoglobin [place] ([facility]) mean corpuscular volume 88.6 fL 80.0-96.0 Mean Corpusc ular Volume [place] ([facility]) mean corpuscular HGB conc 33.5 g/dL 32.0-36.5 Mean Corpu scular HGB Conc [place] ([facility]) platelet count, automated 314 10 150-450 Platelet C ount, Automated [place] ([facility]) red cell distribution width 12.2 % 11.5-14.5 Red Cell Distribution Width [place] ([facility]) neutrophils % 62.5 % 36.0-66.0 Neutrophils % [place] ( [facility]) mono % 5.9 % 0.0-5.0 Above high normal [place] % [place] ([facility]) lymph % 29.9 % 24.0-44.0 Lymph % [place] ([facility]) immature granulocyte % 0.3 % 0-3.0 Immature Gran ulocyte % [place] ([facility]) eos % 1.1 % 0.0-3.0 Eos % [place] ([facility]) baso % 0.3 % 0.0-1.0 Baso % [place] ([facility]) neutrophils # 7.2 10 1.5-8.5 Neutrophils # [place] ( [facility]) nucleated red blood cell % 0.0 % 0-0 Nucleated Red Blood Cell % [place] ([facility]) lymph # 3.4 10 1.5-5.0 Lymph # [place] ([facility]) baso # 0.0 10 0.0-0.2 Baso # [place] ([facility]) eos # 0.1 10 0.0-0.5 Eos # [place] ([facility]) mono # 0.7 10 0.0-0.8 [place] # [place] ([facility]) ID Date Data Source [id number] 04/03/2020 09:30:00 PM EST [place] ([facility]) Name Value Range Interpretation Code Description Data Gladis rce(s) Supporting Document(s) venous pH 7.385 units 7.330-7.430 Venous pH [place] ([facility]) venous partial pressure O2 45.5 mmHg 30.0-50.0 Venous Pa rtial Pressure O2 [place] ([facility]) venous partial pressure CO2 37.8 mmHg 38.0-50.0 Below low nor mal Venous Partial Pressure CO2 [place] ([facility]) venous total CO2 23.3 mEq/L 24.0-28.0 Below low normal Venous Total CO2 [place] ([facility]) venous HCO3 22.1 mEq/L 23.0-27.0 Below low normal Venous HCO3 [place] ([facility]) venous base excess -2.0-2.0 Below low normal Venous Base Excess [place] ([facility]) venous standard HCO3 22.1 mEq/L Venous Standard HCO3 [place] ([facility]) venous O2 saturation 85.2 % 60.0-80.0 Above high normal Venous O 2 Saturation [place] ([facility]) ID Date Data Source [id number] 04/03/2020 09:30:00 PM EST [place] ([facility]) Name Value Range Interpretation Code Description Data Gladis rce(s) Supporting Document(s) lactic acid sepsis protocol 2.5 mmol/L 0.4-2.0 Above high no rmal Lactic Acid Sepsis Protocol [place] ([facility]) ID Date Data Source [id number] 04/03/2020 09:30:00 PM EST [place] ([facility]) Name Value Range Interpretation Code Description Data Gladis rce(s) Supporting Document(s) thyroid stimulating hormone 5.700 uIU/mL 0.358-3.740 Above high no rmal Thyroid Stimulating Hormone [facility]) ID Date Data Source [id number] 04/03/2020 09:30:00 PM EST [place] ([facility]) Name Value Range Interpretation Code Description Data Gladis rce(s) Supporting Document(s) thyroxine (T4) 19.7 ug/dL 4.5-12.0 Above high normal Thyroxine (T4) [place] ([facility]) ID Date Data Source [id number] 04/03/2020 09:30:00 [facility] Name Value Range Interpretation Code Description Data Gladis rce(s) Supporting Document(s) nt-pro BNP 24 pg/mL <125 Nt-pro BNP [facility]) ID Date Data Source [id number] 04/03/2020 09:30:00 PM EST [place] ([facility]) Name Value Range Interpretation Code Description Data Gladis rce(s) Supporting Document(s) creatinine for GFR 1.07 mg/dL 0.55-1.30 Creatinine for GF R [place] ([facility]) blood urea nitrogen 10 mg/dL 7-18 Blood Urea Nitro gen [place] ([facility]) glucose, fasting 133 mg/dL 70-100 Above high normal Glucose, Fas ting [place] ([facility]) carbon dioxide level 24 mEq/L 21-32 Carbon Dioxide Level [place] ([facility]) sodium level 140 mEq/L 136-145 Sodium Level [place] ([facility]) glomerular filtration rate > 60.0 >60 Glomerula r Filtration Rate [place] ([facility]) potassium serum 3.8 mEq/L 3.5-5.1 Potassium Serum [place] [facility] ([facility]) chloride level 108 mEq/L 98-107 Above high normal Chloride Level [place] ([facility]) anion gap 8 mEq/L 8-16 Anion Gap [place] ([facility]) calcium level 9.7 mg/dL 8.5-10.1 Calcium Level [place] ( [facility]) ID Date Data Source [id number] 04/03/2020 09:30:00 PM EST [place] ([facility]) Name Value Range Interpretation Code Description Data Gladis rce(s) Supporting Document(s) AST/SGOT 13 U/L 7-37 AST/SGOT [place] ([facility]) alkaline phosphatase 90 U/L 45-117 Alkaline Phosph atase [place] ([facility]) ALT/SGPT 15 U/L 12-78 ALT/SGPT [place] ([facility]) bilirubin,total 0.3 mg/dL 0.2-1.0 Bilirubin,total [place] ([facility]) albumin 3.5 gm/dL 3.2-5.2 Albumin [place] ([facility]) total protein 7.4 gm/dL 6.4-8.2 Total Protein [place] ( [facility]) bilirubin,direct < 0.1 0.0-0.2 Bilirubin,direct AT [facility]) albumin/globulin ratio 1.2-2.2 Below low normal Albumin /globulin Ratio [place] ([facility]) ID Date Data Source [id number] 04/03/2020 09:30:00 PM EST [place] ([facility]) Name Value Range Interpretation Code Description Data Gladis rce(s) Supporting Document(s) CK-mb value mass < 1.0 <3.6 CK-mb Value Mass AT [place] ([facility]) CPK creatine phosphokinase 57 U/L 26-192 CPK Creat ine Phosphokinase [place] ([facility]) troponin I < 0.02 < 0.10 Troponin I [place] ([facility]) mb/CK relative index < or =4 mb/CK Relative Index [place] ([facility]) ID Date Data Source [id number] 04/03/2020 09:30:00 PM EST [place] ([facility]) Name Value Range Interpretation Code Description Data Gladis rce(s) Supporting Document(s) D-dimer quant 956.43 NG/mL <500 Above high normal D-dimer Quant [place] ([facility]) ID Date Data Source [id number] 04/03/2020 09:30:00 PM EST [place] ([facility]) Name Value Range Interpretation Code Description Data Gladis rce(s) Supporting Document(s) hemoglobin 14.3 g/dL 12.0-15.5 Hemoglobin [place] ([facility]) red blood count 4.82 10 4.00-5.40 Red Blood Count [place] ([facility]) white blood count 11.5 10 4.0-10.0 Above high normal White Blood Count [place] ([facility]) mean corpuscular volume 88.6 fL 80.0-96.0 Mean Corpusc ular Volume [place] ([facility]) hematocrit 42.7 % 36.0-47.0 Hematocrit [place] ([facility]) mean corpuscular hemoglobin 29.7 pg 27.0-33.0 Mean Cor puscular Hemoglobin [place] ([facility]) mean corpuscular HGB conc 33.5 g/dL 32.0-36.5 Mean Corpu scular HGB Conc [place] ([facility]) red cell distribution width 12.2 % 11.5-14.5 Red Cell Distribution Width [place] ([facility]) platelet count, automated 314 10 150-450 Platelet C ount, Automated [place] ([facility]) neutrophils % 62.5 % 36.0-66.0 Neutrophils % [place] ( [facility]) lymph % 29.9 % 24.0-44.0 Lymph % [place] ([facility]) eos % 1.1 % 0.0-3.0 Eos % [place] ([facility]) mono % 5.9 % 0.0-5.0 Above high normal [place] % [place] ([facility]) baso % 0.3 % 0.0-1.0 Baso % [place] ([facility]) immature granulocyte % 0.3 % 0-3.0 Immature Gran ulocyte % [place] ([facility]) nucleated red blood cell % 0.0 % 0-0 Nucleated Red Blood Cell % [place] ([facility]) neutrophils # 7.2 10 1.5-8.5 Neutrophils # [place] ( [facility]) baso # 0.0 10 0.0-0.2 Baso # [place] ([facility]) lymph # 3.4 10 1.5-5.0 Lymph # [place] ([facility]) eos # 0.1 10 0.0-0.5 Eos # [place] ([facility]) mono # 0.7 10 0.0-0.8 [place] # [place] ([facility]) ID Date Data Source [id number] 04/03/2020 09:30:00 PM EST [place] ([facility]) Name Value Range Interpretation Code Description Data Gladis rce(s) Supporting Document(s) venous pH 7.385 units 7.330-7.430 Venous pH [place] ([facility]) venous partial pressure O2 45.5 mmHg 30.0-50.0 Venous Pa rtial Pressure O2 [place] ([facility]) venous HCO3 22.1 mEq/L 23.0-27.0 Below low normal Venous HCO3 [place] ([facility]) venous total CO2 23.3 mEq/L 24.0-28.0 Below low normal Venous Total CO2 [place] ([facility]) venous partial pressure CO2 37.8 mmHg 38.0-50.0 Below low nor mal Venous Partial Pressure CO2 [place] ([facility]) venous base excess -2.0-2.0 Below low normal Venous Base Excess [place] ([facility]) venous standard HCO3 22.1 mEq/L Venous Standard HCO3 [place] ([facility]) venous O2 saturation 85.2 % 60.0-80.0 Above high normal Venous O 2 Saturation [place] ([facility]) ID Date Data Source [id number] 04/03/2020 09:30:00 PM EST [facility]) Name Value Range Interpretation Code Description Data Gladis rce(s) Supporting Document(s) lactic acid sepsis protocol 2.5 mmol/L 0.4-2.0 Above high no rmal [facility] ID Date Data Source [id number] 04/03/2020 09:30:00 PM EST [facility]) Name Value Range Interpretation Code Description Data Gladis rce(s) Supporting Document(s) thyroid stimulating hormone 5.700 uIU/mL 0.358-3.740 Above high no rmal Thyroid Stimulating Hormone [facility]) ID Date Data Source [id number] 04/03/2020 09:30:00 PM EST [place] ([facility]) Name Value Range Interpretation Code Description Data Gladis rce(s) Supporting Document(s) thyroxine (T4) 19.7 ug/dL 4.5-12.0 Above high normal Thyroxine (T4) [facility]) ID Date Data Source [id number] 04/03/2020 09:30:00 PM EST [facility]) Name Value Range Interpretation Code Description Data Gladis rce(s) Supporting Document(s) nt-pro BNP 24 pg/mL <125 Nt-pro BNP [place] ([facility]) ID Date Data Source [id number] 04/03/2020 09:30:00 PM EST [place] ([facility]) Name Value Range Interpretation Code Description Data Gladis rce(s) Supporting Document(s) blood urea nitrogen 10 mg/dL 7-18 Blood Urea Nitro gen [place] ([facility]) glucose, fasting 133 mg/dL 70-100 Above high normal Glucose, Fas ting [place] ([facility]) glomerular filtration rate > 60.0 >60 Glomerula r Filtration Rate [place] ([facility]) potassium serum 3.8 mEq/L 3.5-5.1 Potassium Serum [facility] ([facility]) sodium level 140 mEq/L 136-145 Sodium Level [place] ([facility]) creatinine for GFR 1.07 mg/dL 0.55-1.30 Creatinine for GF R [place] ([facility]) chloride level 108 mEq/L 98-107 Above high normal Chloride Level [place] ([facility]) anion gap 8 mEq/L 8-16 Anion Gap [place] ([facility]) carbon dioxide level 24 mEq/L 21-32 Carbon Dioxide Level [place] ([facility]) calcium level 9.7 mg/dL 8.5-10.1 Calcium Level [place] ( [facility]) ID Date Data Source [id number] 04/03/2020 09:30:00 PM EST [place] ([facility]) Name Value Range Interpretation Code Description Data Gladis rce(s) Supporting Document(s) AST/SGOT 13 U/L 7-37 AST/SGOT [place] ([facility]) alkaline phosphatase 90 U/L 45-117 Alkaline Phosph atase [place] ([facility]) bilirubin,total 0.3 mg/dL 0.2-1.0 Bilirubin,total [facility] NA ([facility]) ALT/SGPT 15 U/L 12-78 ALT/SGPT [place] ([facility]) bilirubin,direct < 0.1 0.0-0.2 Bilirubin,direct AT [facility] ([facility]) total protein 7.4 gm/dL 6.4-8.2 Total Protein [place] ( [facility]) albumin/globulin ratio 1.2-2.2 Below low normal Albumin /globulin Ratio [place] ([facility]) albumin 3.5 gm/dL 3.2-5.2 Albumin [place] ([facility]) ID Date Data Source [id number] 04/03/2020 09:30:00 PM EST [place] ([facility]) Name Value Range Interpretation Code Description Data Gladis rce(s) Supporting Document(s) CK-mb value mass < 1.0 <3.6 CK-mb Value Mass AT [facility] ([facility]) CPK creatine phosphokinase 57 U/L 26-192 CPK Creat ine Phosphokinase [place] ([facility]) troponin I < 0.02 < 0.10 Troponin I [place] ([facility]) mb/CK relative index < or =4 mb/CK Relative Index [place] ([facility]) ID Date Data Source [id number] 04/03/2020 09:30:00 PM EST [place] ([facility]) Name Value Range Interpretation Code Description Data Gladis rce(s) Supporting Document(s) D-dimer quant 956.43 NG/mL <500 Above high normal D-dimer Quant [place] ([facility]) ID Date Data Source [id number] 04/03/2020 09:30:00 PM [facility] Name Value Range Interpretation Code Description Data Gladis rce(s) Supporting Document(s) white blood count 11.5 10 4.0-10.0 Above high normal White Blood Count [place] ([facility]) red blood count 4.82 10 4.00-5.40 Red Blood Count [facility] ([facility]) hematocrit 42.7 % 36.0-47.0 Hematocrit [place] ([facility]) hemoglobin 14.3 g/dL 12.0-15.5 Hemoglobin [place] ([facility]) mean corpuscular hemoglobin 29.7 pg 27.0-33.0 Mean Cor puscular Hemoglobin [place] ([facility]) mean corpuscular volume 88.6 fL 80.0-96.0 Mean Corpusc ular Volume [place] ([facility]) neutrophils % 62.5 % 36.0-66.0 Neutrophils % [place] ( [facility]) red cell distribution width 12.2 % 11.5-14.5 Red Cell Distribution Width [place] ([facility]) mean corpuscular HGB conc 33.5 g/dL 32.0-36.5 Mean Corpu scular HGB Conc [place] ([facility]) platelet count, automated 314 10 150-450 Platelet C ount, Automated [place] ([facility]) lymph % 29.9 % 24.0-44.0 Lymph % [place] ([facility]) mono % 5.9 % 0.0-5.0 Above high normal [place] % [place] ([facility]) eos % 1.1 % 0.0-3.0 Eos % [place] [facility] [facility] immature granulocyte % 0.3 % 0-3.0 Immature Gran ulocyte % [place] ([facility]) baso % 0.3 % 0.0-1.0 Baso % [place] ([facility]) nucleated red blood cell % 0.0 % 0-0 Nucleated Red Blood Cell % [place] ([facility]) neutrophils # 7.2 10 1.5-8.5 Neutrophils # [place] ( [facility]) lymph # 3.4 10 1.5-5.0 Lymph # [place] ([facility]) eos # 0.1 10 0.0-0.5 Eos # [place] ([facility]) mono # 0.7 10 0.0-0.8 [place] # [place] ([facility]) baso # 0.0 10 0.0-0.2 Baso # [place] ([facility]) ID Date Data Source [id number] 04/03/2020 09:30:00 PM EST [place] ([facility]) Name Value Range Interpretation Code Description Data Gladis rce(s) Supporting Document(s) venous pH 7.385 units 7.330-7.430 Venous pH [place] ([facility]) venous partial pressure CO2 37.8 mmHg 38.0-50.0 Below low nor mal Venous Partial Pressure CO2 [place] ([facility]) venous total CO2 23.3 mEq/L 24.0-28.0 Below low normal Venous Total CO2 [place] ([facility]) venous partial pressure O2 45.5 mmHg 30.0-50.0 Venous Pa rtial Pressure O2 [place] ([facility]) venous standard HCO3 22.1 mEq/L Venous Standard HCO3 [place] ([facility]) venous HCO3 22.1 mEq/L 23.0-27.0 Below low normal Venous HCO3 [place] ([facility]) venous base excess -2.0-2.0 Below low normal Venous Base Excess [place] ([facility]) venous O2 saturation 85.2 % 60.0-80.0 Above high normal Venous O 2 Saturation [place] ([facility]) ID Date Data Source [id number] 04/03/2020 09:30:00 PM EST [place] ([facility]) Name Value Range Interpretation Code Description Data Gladis rce(s) Supporting Document(s) lactic acid sepsis protocol 2.5 mmol/L 0.4-2.0 Above high no rmal Lactic Acid Sepsis Protocol [facility] ID Date Data Source [id number] 04/03/2020 09:30:00 PM EST [place] ([facility]) Name Value Range Interpretation Code Description Data Gladis rce(s) Supporting Document(s) thyroid stimulating hormone 5.700 uIU/mL 0.358-3.740 Above high no rmal Thyroid Stimulating Hormone [place] ([facility]) ID Date Data Source [id number] 04/03/2020 09:30:00 PM EST [place] ([facility]) Name Value Range Interpretation Code Description Data Gladis rce(s) Supporting Document(s) thyroxine (T4) 19.7 ug/dL 4.5-12.0 Above high normal Thyroxine (T4) [place] ([facility]) ID Date Data Source [id number] 04/03/2020 09:30:00 PM EST [place] ([facility]) Name Value Range Interpretation Code Description Data Gladis rce(s) Supporting Document(s) nt-pro BNP 24 pg/mL <125 Nt-pro BNP [place] ([facility]) ID Date Data Source [id number] 04/03/2020 09:30:00 PM EST [place] ([facility]) Name Value Range Interpretation Code Description Data Gladis rce(s) Supporting Document(s) glucose, fasting 133 mg/dL 70-100 Above high normal Glucose, Fas ting [place] ([facility]) creatinine for GFR 1.07 mg/dL 0.55-1.30 Creatinine for GF R [place] ([facility]) blood urea nitrogen 10 mg/dL 7-18 Blood Urea Nitro gen [place] ([facility]) sodium level 140 mEq/L 136-145 Sodium Level [place] ([facility]) glomerular filtration rate > 60.0 >60 Glomerula r Filtration Rate [place] ([facility]) potassium serum 3.8 mEq/L 3.5-5.1 Potassium Serum [place] ([facility]) chloride level 108 mEq/L 98-107 Above high normal Chloride Level [place] ([facility]) carbon dioxide level 24 mEq/L 21-32 Carbon Dioxide Level [place] ([facility]) anion gap 8 mEq/L 8-16 Anion Gap [place] ([facility]) calcium level 9.7 mg/dL 8.5-10.1 Calcium Level [place] ( [facility]) ID Date Data Source [id number] 04/03/2020 09:30:00 PM EST [place] ([facility]) Name Value Range Interpretation Code Description Data Gladis rce(s) Supporting Document(s) AST/SGOT 13 U/L 7-37 AST/SGOT [place] ([facility]) ALT/SGPT 15 U/L 12-78 ALT/SGPT [place] ([facility]) alkaline phosphatase 90 U/L 45-117 Alkaline Phosph atase [place] ([facility]) bilirubin,total 0.3 mg/dL 0.2-1.0 Bilirubin,total [place] ([facility]) bilirubin,direct < 0.1 0.0-0.2 Bilirubin,direct AT [facility] ([facility]) albumin 3.5 gm/dL 3.2-5.2 Albumin [place] ([facility]) total protein 7.4 gm/dL 6.4-8.2 Total Protein [place] ( [facility]) albumin/globulin ratio 1.2-2.2 Below low normal Albumin /globulin Ratio [place] ([facility]) ID Date Data Source [id number] 04/03/2020 09:30:00 PM EST [place] ([facility]) Name Value Range Interpretation Code Description Data Gladis rce(s) Supporting Document(s) CPK creatine phosphokinase 57 U/L 26-192 CPK Creat ine Phosphokinase [place] ([facility]) CK-mb value mass < 1.0 <3.6 CK-mb Value Mass AT [facility] ([facility]) mb/CK relative index < or =4 mb/CK Relative Index [place] ([facility]) troponin I < 0.02 < 0.10 Troponin I [place] ([facility]) ID Date Data Source [id number] 04/03/2020 09:30:00 PM EST [place] ([facility]) Name Value Range Interpretation Code Description Data Gladis rce(s) Supporting Document(s) D-dimer quant 956.43 NG/mL <500 Above high normal D-dimer Quant [place] ([facility]) ID Date Data Source [id number] 04/03/2020 09:30:00 PM EST [place] ([facility]) Name Value Range Interpretation Code Description Data Gladis rce(s) Supporting Document(s) white blood count 11.5 10 4.0-10.0 Above high normal White Blood Count [place] ([facility]) red blood count 4.82 10 4.00-5.40 Red Blood Count [place] ([facility]) mean corpuscular volume 88.6 fL 80.0-96.0 Mean Corpusc ular Volume [place] ([facility]) hematocrit 42.7 % 36.0-47.0 Hematocrit [place] ([facility]) hemoglobin 14.3 g/dL 12.0-15.5 Hemoglobin [place] ([facility]) mean corpuscular hemoglobin 29.7 pg 27.0-33.0 Mean Cor puscular Hemoglobin [place] ([facility]) mean corpuscular HGB conc 33.5 g/dL 32.0-36.5 Mean Corpu scular HGB Conc [place] ([facility]) red cell distribution width 12.2 % 11.5-14.5 Red Cell Distribution Width [place] ([facility]) platelet count, automated 314 10 150-450 Platelet C ount, Automated [place] ([facility]) neutrophils % 62.5 % 36.0-66.0 Neutrophils % [place] ( [facility]) mono % 5.9 % 0.0-5.0 Above high normal [place] % [place] ([facility]) lymph % 29.9 % 24.0-44.0 Lymph % [place] ([facility]) eos % 1.1 % 0.0-3.0 Eos % [place] ([facility]) baso % 0.3 % 0.0-1.0 Baso % [place] ([facility]) immature granulocyte % 0.3 % 0-3.0 Immature Gran ulocyte % [place] ([facility]) nucleated red blood cell % 0.0 % 0-0 Nucleated Red Blood Cell % [place] ([facility]) neutrophils # 7.2 10 1.5-8.5 Neutrophils # [place] ( [facility]) mono # 0.7 10 0.0-0.8 [place] # [place] ([facility]) lymph # 3.4 10 1.5-5.0 Lymph # [place] ([facility]) eos # 0.1 10 0.0-0.5 E[place] # [place] ([facility]) baso # 0.0 10 0.0-0.2 Baso # [place] ([facility]) ID Date Data Source [id number] 04/03/2020 09:30:00 PM EST [place] ([facility]) Name Value Range Interpretation Code Description Data Gladis rce(s) Supporting Document(s) venous pH 7.385 units 7.330-7.430 Venous pH [place] ([facility]) venous partial pressure CO2 37.8 mmHg 38.0-50.0 Below low nor mal Venous Partial Pressure CO2 [place] ([facility]) venous partial pressure O2 45.5 mmHg 30.0-50.0 Venous Pa rtial Pressure O2 [place] ([facility]) venous total CO2 23.3 mEq/L 24.0-28.0 Below low normal Venous Total CO2 [place] ([facility]) venous HCO3 22.1 mEq/L 23.0-27.0 Below low normal Venous HCO3 [place] ([facility]) venous base excess -2.0-2.0 Below low normal Venous Base Excess [place] ([facility]) venous standard HCO3 22.1 mEq/L Venous Standard HCO3 [place] ([facility]) venous O2 saturation 85.2 % 60.0-80.0 Above high normal Venous O 2 Saturation [place] ([facility]) ID Date Data Source [id number] 04/02/2020 11:33:00 AM EST [facility] 1 OrderSheet [facility] Emergency Department [address] [place] [address] Phone #: ext- [phone] 04/02/2020 11:29 Patient: [...] 04/02/2020 12:48 Chiqui Rodas) Monica Schultz P.A.-C; [id number] STUDY ORDERSOrder Description Priority Entered Acknowledged InitialedUS Lower Ext STAT 11:59 04/02/2020 12:16 Holly, 2 OrderSheet [facility] Emergency Department [address] [place] [address] Phone #: ext- [phone] 04/02/2020 11:29 Patient: [...] 11:59 04/02/2020 12:15 Sorbero,Monitor Zen Fernandez R.N. P.A.-C;Bonding Agent 11:59 04/02/2020 12:15 Sorbero,(continuous) Zen RenteriaN. P.A.-C;EKG 11:59 04/02/2020 12:48 [facility] Monica Schultz P.A.-C; [id number] 11:59 04/02/2020 12:33 Zen BarreraN. P.A.- C;Obtain Old EKG 11:59 04/02/2020 12:15 Zen BarreraN. P.A.-C;Obtain Old Records 11:59 04/02/2020 12:15 Zen Barrera R.N., P.A.-C;Pulse oximeter 11:59 04/02/2020 12:15 Holly(Continuous) Zen Fernandez R.N., P.A.-C;Saline Lock 11:59 04/02/2020 12:33 Holly, 3 OrderSheet [facility] Emergency Department [address] [place] [address] Phone #: ext- [phone] 04/02/2020 11:29 Patient: THAIS WITT Sex: F : 1995 Age: 24y Zen Fernandez R.N., P.A.-C;Vitals 11:59 04/02/2020 12:15 Zen Barrera R.N., P.A.-C;[Electronically signed by Jim Barrera R.N. (17:27 04/02/2020)][Electronically signed by Zen Aparicio P.A.-C (16:32 04/03/2020)][Electronically locked by Jim Barrera R.N. (17:27 04/02/2020)] Name Value Range Interpretation Code Description Data Gladis rce(s) Supporting Document(s) ID Date Data Source [id number] 04/02/2020 11:33:00 AM EST [facility] 1 Medication Reconciliation Report [facility] Emergency Department [address] [place] [address] Phone #: ext- [phone] 04/02/2020 11:29 Patient: [...] to Pharmacy - Days 1- 21.Pharmacy - [facility] [id number] [phone] [facility] [address] ; [place] [address]. . 2 Medication Reconciliation Report [facility] Emergency Department [address] [place] [address] Phone #: ext- [phone] 04/02/2020 11:29 Patient: THAIS WITT Sex: F : 1995 Age: 24yXarelto 20 mg tablet Take 1 tablet once a day for 9 days -- To be started on day 22 of tx. Finish otherbottle first. PRESCRIPTION 2. Dispense 9 tablet. Refills: 0. Substitution permitted. Note to Pharmacy -Please ensure markings of both bottles.Pharmacy - [facility] [id number] [facility] [address] ; [place] [address]. . -- Zen Aparicio P.A.-C Name Value Range Interpretation Code Description Data Gladis rce(s) Supporting Document(s) ID Date Data Source [id number] 04/02/2020 11:33:00 AM [facility] 1 Medication Administration Record [facility] Emergency Department [address] [place] [address] Phone #: ext- [phone] 04/02/2020 11:29 Patient: THAIS WITT Sex: F : 1995 Age: 24yWeight: 108.8 kgHeight/Length: 63 inBMI: 42.5ALLERGIES: No Known Drug Allergy Date/Time Medication Administered Medication OrderedGiven NITROGLYCERIN [SL] NitroGLYCERIN SL 0.4 mg (Do not12:18 04/02/2020 Dose: 0.4 mg Tablets SL crush or chew)Jim Barrera, R.N.Start IV NS IV NS : Bolus 500 mL, then 77219:34 04/02/2020 Dose: IV Fluids mL/hrSJim valdez, R.N. Rate: 100 mL/hr over 5 hour(s)---- Bolus: 500 mL over 30 minute(s)Stop Dispensed: 1000 mL bag16:42 04/02/2020 Site: #1 left Jim Garvey R.NOdessa Name Value Range Interpretation Code Description Data Gladis rce(s) Supporting Document(s) ID Date Data Source [id number] 04/02/2020 11:33:00 AM [facility] 1 General Instructions [facility] Emergency Department [address] [place] [address] Phone #: ext- [phone] 04/02/2020 11:29 Patient: [...] to Pharmacy - Days 1-21. Pharmacy - [facility] [phone] ; [place] [address]. . Xarelto 20 mg tablet Take 1 tablet once a day for 9 days -- To be started on day 22 of tx. Finish other bottle first. PRESCRIPTION 2. Dispense 9 tablet. Refills: 0. Substitution permitted. Note to Pharmacy - Please ensure markings of both bottles. Pharmacy - [facility] [phone] [address] [facility] [address] ; [place] [address]. . Follow-up: Follow up with your healthcare provider in about two days if not better. Call for an appointment. Follow up with a agency legal counsel. AMA warnings: Oriented to person, place, and [...] I understand that a doctor at this [facility] wants to give me certain medical 2 General Instructions [facility] Emergency Department [address] [place] [address] Phone #: ext- [phone] 04/02/2020 11:29 [id number] Sex: F : 1995 Age: 24ycare. The [...] ability to pay for such care.Follow-up with: [facility], , , [address] [place], [address] Follow up Saturday. Call for the next available appointment. Reason for referral: evaluation and Toestablish care. ADDITIONAL INFORMATIONDeep Vein Thrombosis (DVT) 3 General Instructions [facility] Emergency Department [address] [place] [address] Phone #: ext- [phone] 04/02/2020 11:29 Patient: [...] include: Swelling Pain Warmth 4 General Instructions [facility] Emergency Department [address] [place] [address] Phone #: ext- [phone] 04/02/2020 11:29 Patient: [...] (may cough up blood) 5 General Instructions [facility] Emergency Department [address] [place] [address] Phone #: ext- [phone] 04/02/2020 11:29 Patient: THAIS WITT Sex: F : 1995 Age: 24y Fast heartbeat Sweating Anxiety Lightheadedness, dizziness, or fainting [id number] [employer]. [address] [place] [address]. All rights reserved. This information is not intended as asubstitute for professional medical care. Always follow your healthcare professional's instructions. You have been given the following additional information: Deep Vein Thrombosis (DVT)(Electronically signed by Zen Aparicio P.A.-C 04/03/2020 16:32) Name Value Range Interpretation Code Description Data Gladis rce(s) Supporting Document(s) ID Date Data Source [id number] 04/02/2020 11:33:00 AM EST [facility] 1 Clinical Report - Nurses [facility] Emergency Department [address] [place] [address] Phone #: ext- [phone] 04/02/2020 11:29 Patient: THAIS WITT Sex: F : 1995 Age: 24yTRIAGEArrived by private vehicle. Historian: patient. ( presents with c/o R calf pain for past 4 days, denies anytrauma or injury.).Triage time: 11:31 04/02/2020. Acuity: LEVEL 3.Chief Complaint: RIGHT LOWER EXTREMITY PAIN. Location of symptoms- right leg (R lower calf pain).Alert. No acute distress.No injury occurred. Onset. (4 days).Treatment MANAGER CASH:Took ibuprofen. (lastnight).SEPSIS SCREEN: SIRS Screen negative. Sepsis [...] France RN. 2 Clinical Report - Nurses [facility] Emergency Department [address] [place] [address] Phone #: ext- [phone] 04/02/2020 11:29 Patient: [...] risk identified. --11:38 04/02/20 Dawn France RN.PHYSICAL VIHBVUVSGJ49:43 04/02/20. Ambulatory to room. Patient gowned.GENERAL / [...] Barrera R.N. 3 Clinical Report - Nurses [facility] Emergency Department [address] [place] [address] Phone #: ext- [phone] 04/02/2020 11:29 --- Patient: THAIS WITT Sex: F : 1995 Age: 24y11:58 04/02/20. BP: 105/54. MAP: 71. HR: 106. RR: 16. O2 saturation: 97%. --11:59 04/02/20 [facility] Izmr445:18 04/02/2020 Nitroglycerin SL Tablets 0.4 mg given. [...] O2 saturation: 98%. --12:40 04/02/20 [facility] Tech1( EKG performed by tech at 12:44 given to PA). --12:48 04/02/20 [facility] Ltnx942:02 04/02/20. BP: 111/75. MAP: 87. HR: 103. RR: 21. O2 saturation: 99%. --13:02 04/02/20 [facility] Liic518:29 04/02/20. Reassurance given. Reassessment acuity: LEVEL 3. [...] RR: 20. O2 saturation: 99%. --13:44 04/02/20 [facility] Avku130:59 04/02/20. BP: 114/75. MAP: 88. HR: 98. RR: 19. O2 saturation: 99%. --14:00 04/02/20 [facility] Avnj416:38 04/02/20. Reassurance given. Reassessment acuity: LEVEL 3. The patient reports nocomplaints, she is calm and resting quietly and she has had no adverse reaction. Overall patient status isimproved- she states feels better. 4 Clinical Report - Nurses [facility] Emergency Department [address] [place] [address] Phone #: ext- [phone] 04/02/2020 11:29 Patient: [...] Patient transported to CT by wheelchair with financial services technician. --14:47 04/02/20 Jim Barrera R.NOdessa15:04 04/02/20. Patient returned from CT by wheelchair with financial services technician. --15:04 04/02/20 Jim Barrera R.NOdessa15:09 04/02/20. BP: 111/67. MAP: 81. HR: 88. RR: 16. O2 saturation: 100%. --15:10 04/02/20 [place], Lqat745:28 04/02/20. BP: 103/68. MAP: 79. HR: 86. RR: 16. O2 saturation: 100%. --15:28 04/02/20 [place], Hbmg509:47 04/02/20. Reassurance given. Reassessment acuity: LEVEL 3. [...] O2 saturation: 100%. --15:58 04/02/20 [place], Barh419:42 04/02/2020 IV Fluids IV NS via IV site #1 Discontinued: bag #1 infused upon discharge. Totalamount infused: 800 mL. IV patency established. IV site checked: no pain, redness, or swelling. IV flushedthoroughly. --16:52 04/02/20 Jim Barrera R.N. 5 Clinical Report - Nurses [facility] Emergency Department [address] [place] [address] Phone #: ext- [phone] 04/02/2020 11:29 Patient: [...] information. Treatments reviewed. Reviewed referral to a agency legal counsel and primary care physician. Patient verbalized understanding. Written instructions provided in [place]. The patient left the Emergency Department against [...] rce(s) Supporting Document(s) ID Date Data Source [id number] 04/02/2020 11:33:00 AM [facility] 1 Clinical Report - Physicians/Mid Levels [facility] Emergency Department [address] [place] [address] Phone #: ext- [phone] 04/02/2020 11:29 Patient: [...] daily. 2 Clinical Report - Physicians/Mid Levels [facility] Emergency Department [address] [place] [address] Phone #: ext- [phone] 04/02/2020 11:29 Patient: THAIS WITT Sex: F [...] the radiologist.Laboratory Tests: 3 Clinical Report - Physicians/[facility] Emergency Department [address] [place] [address] Phone #: ext- [phone] 04/02/2020 11:29 Patient: [...] Male GFR Interprentation 20-49 yrs >60 mL/min Stqfyq75-74 yrs >56 mL/min Normal 60-69 yrs >49 mL/min Normal 70-79yrs 4 Clinical Report - Physicians/Mid Levels [facility] Emergency Department [address] [place] [address] Phone #: ext- [phone] 04/02/2020 11:29 Patient: THAIS WITT Sex: F : 1995 Age: 24y>42 mL/min Normal 80 and above >35 mL/min Normal Female GFRInterpretation 20-39 yrs >60 mL/min Normal 40-49 yrs >58 mL/minNormal 50-59 yrs >51 mL/min Normal 60-69 yrs >45 mL/min Zbdzaj35- 79 yrs >39 mL/min Normal 80 and above >32 mL/min NormalLipase: (HUSSEIN: 04/02/2020 12:10) ( MsgRcvd 04/02/2020 12:59) Final results Test Result Flag Units (Reference) LIPASE 36 U/L (13 - 60)PT/PTT: (HUSSEIN: 04/02/2020 12:10) ( [facility] 04/02/2020 12:40) Final results Test Result Flag Units (Reference) PROTIME 13.5 SECONDS (11.0 - 15.5) INR 0.98 (0.93 - 1.23) PTT 24.2 L SECONDS (24.8 - 36.7) \\BLDo\\INR INTERPRETATION\\BLDx\\ Therapeutic range for Coumadin andrelated oral anticoagulants. -International Normalized Ratio (INR): 2.0 - 3.0 for VenousThrombosis, Pulmonary Embolus, Tissue heart valves, Acute [place] At rial Fibrillation, Valvular heart diseaseand recurrent Systemic Embolism. -International Normalized Ratio (INR): 2.5 - 3.5 forMechanical Prosthetic valve.Troponin-T: (HUSSEIN: 04/02/2020 12:10) ( [facility] 04/02/2020 13:42) Final results Test Result Flag Units (Reference) TROPONIN T <0.01 NG/ML (0.00 - 0.10) TROPONIN T0.1 ng/ml Recommended as the clinical threshold value forTroponin T.D-Dimer: (HUSSEIN: 04/02/2020 12:10) ( [facility] 04/02/2020 12:40) Final results Test Result Flag Units (Reference) D-DIMER QUANT 0.58 H ug/mL (0.27 - 0.50)TSH: (HUSSEIN: 04/02/2020 12:10) ( [facility] 04/02/2020 12:59) Final results Test Result Flag Units (Reference) TSH 3.15 uIU/mL (0.47 - 5.01)Beta-HCG, Qual Serum: (HUSSEIN: 04/02/2020 12:10) ( [facility] 04/02/2020 12:58) Final results Test Result Flag Units (Reference) HCG SERUM QUAL NEGATIVE (NORMAL: NEGAT HCG SERUM QL REENTER NEGATIVE (NORMAL: NEGAT { KIT LOT # [id number] ){ KIT EXP DATE02.08.21 ){ PROCEDURAL CONTROL VALID)Urinalysis: (HUSSEIN: 04/02/2020 12:35) ( MsgRcvd 04/02/2020 13:20) Final results Test Result Flag Units (Reference) URINALYSIS URINALYSIS SOURCE R COLOR yellow (NORMAL: Yello CLARITY clear (NORMAL: Clear SPEC GRAVITY 1.020 (1.001 - 1.030 pH 6.5 (5 - 9) 5 Clinical Report - Physicians/Mid Levels [facility] Emergency Department [address] [place] [address] Phone #: ext- [phone] 04/02/2020 11:29 Patient: THAIS WITT Sex: F : 1995 Age: 24y GLUCOSE NORM (NORMAL: Negat BILIRUBIN NEG (NORMAL: Negat KETONE NEG (NORMAL: Negat PROTEIN NEG (NORMAL: Negat NITRITE NEG (NORMAL: Negat BLOOD NEG (NORMAL: Negat LEUK EST NEG (NORMAL: Negat UROBILINOGEN NOR (less than 1.0 MICROSCOPIC Not IndicateUS Lower Ext Venous Right: (HUSSEIN: 04/02/2020 11:59) ( MagRcvd 04/02/2020 13:12) In ProgressUS DOPPLER UNI VENOUS LEG RTReason(s): Pain, LimbTRANSPORTATION: WC IV? O2? Oxygen?(No) Room: ED Exam [place] [address] PHONE: [phone] FAX: [phone] Name .................. : LAKSHMI Angel Acct Number.................. : [id number] ROOM. ................. : TR-07 MR Number ................... : [id number] Stay type ............. : E/R Discharge Date......... ... : Admit Date ......... : 04/02/20 Admit Phys .................... : ASHLEY SURESH Date of ....... : 1995 Family Phys ................... : NON STAFF Phone .................. : [phone] Age ................................ : 24 Film# .................. .:[id number] Sex ................................. : F Unsigned transcriptions are preliminary reports and do not represent a medical or legal document [place] [id number] COMPLETE:04/02/20 12:35 [facility] [id number] Reason(s): Pain, Limb RIGHT LOWER EXTREMITY VENOUS [...] <<REPDIST>> 6 Clinical Report - Physicians/Mid Levels [facility] Emergency Department [address] [place] [address] Phone #: ext- [phone] 04/02/2020 11:29 Patient: [...] notes. 7 Clinical Report - Physicians/Mid Levels [facility] Emergency Department [address] [place] [address] Phone #: ext- [phone] 04/02/2020 11:29 Patient: [...] to Pharmacy - Days -. Pharmacy - [facility] [id number] ; [place] [address]. . Xarelto 20 mg tablet Take 1 tablet once a day for 9 days -- To be started on day 22 of tx. Finish other bottle first. PRESCRIPTION 2. Dispense 9 tablet. Refills: 0. Substitution permitted. Note to Pharmacy - Please ensure markings of both bottles. Pharmacy - [facility] [id number] - [id number] ; [place] [address]. FaxNumber: [phone]. Follow-up: Follow up with your healthcare provider in about two days if not better. Call for an appointment. Follow up with a agency legal counsel. CANDI evans: Oriented to person, place, and [...] instructions): 8 Clinical Report - Physicians/Mid Levels [facility] Emergency Department [address] [place] [address] Phone #: ext- [phone] 04/02/2020 11:29 Patient: [...] I am welcome to return to this [facility] at any time to receive the recommended care or any other care that I may need at any time, regardless of my ability to pay for such care. Follow-up with: [facility], , , [address] [place] [address], [place], [address] Follow up Saturday. Call for the next available appointment. Reason for referral: evaluation and To establish care.(Electronically signed by Zen Aparicio P.A.-C 04/03/2020 16:32) Name Value Range Interpretation Code Description Data Gladis rce(s) Supporting Document(s) ID Date Data Source [id number] 04/02/2020 11:33:00 AM [facility] THAIS Nunn VisitID: [id number] Date: 16:41Med rec request faxed to [employer] @ [employer] with t-system overview.T-systems overview faxed to [employer] @ [phone](Electronically signed by Canelo Mercado - 04/02/2020 16:41) Name Value Range Interpretation Code Description Data Gladis rce(s) Supporting Document(s) ID Date Data Source [id number] 04/02/2020 01:20:00 PM [facility] Name Value Range Interpretation Code Description Data [facility] rce(s) Supporting Document(s) URINALYSIS [facility] moises URINALYSIS SOURCE R [facility] COLOR yellow NORMAL: Yellow [facility] CLARITY clear NORMAL: Clear [facility] Specific gravity of Urine by Test strip 1.020 1.001 - 1.030 [facility].5 5 - [facility] Gl[facility] [Mass/volume] in Urine by Test strip NORM NORMAL: Negat korin [facility] Bilirubin.total [Presence] in Urine by Test strip NEG NORMAL: Negative [facility] Ketones [Presence] in Urine by Test strip NEG NORMAL: Negative [facility] Protein [Mass/volume] in Urine by Test strip NEG NORMAL: Negat korin [facility] Nitrite [Presence] in Urine by Test strip NEG NORMAL: Negative [facility] BLOOD NEG NORMAL: Negative [facility] Leukocyte esterase [Presence] in Urine by Test strip NEG ALLY L: Negative [facility] Urobilinogen [Mass/volume] in Urine by Test strip NOR less alondra n 1.0 mg/dL [facility] MICROSCOPIC Not Indicate [facility] ospital ID Date Data Source [id number] 04/02/2020 01:42:00 PM EST [facility] Name Value Range Interpretation Code Description Data Gladis rce(s) Supporting Document(s) TROPONIN T <0.01 NG/ML 0.00 - 0.10 [facility] ospital TROPONIN T0.1 ng/ml Recommended as the c linical threshold value forTroponin T. ID Date Data Source [id number] 04/02/2020 12:59:00 PM [facility] Name Value Range Interpretation Code Description Data Gladis rce(s) Supporting Document(s) Thyrotropin [Units/volume] in Serum or Plasma by Detec tion limit <= 0.05 mIU/L 3.15 uIU/mL 0.47 - 5.01 [facility] ID Date Data Source [id number] 04/02/2020 12:59:00 PM EST [facility] Name Value Range Interpretation Code Description Data Gladis rce(s) Supporting Document(s) Lipase [Enzymatic activity/volume] in Serum or Plasma 36 U/L 13 - 60 [facility] ID Date Data Source [id number] 04/02/2020 12:59:00 PM EST [facility] Name Value Range Interpretation Code Description Data Gladis rce(s) Supporting Document(s) COMPREHENSIVE METABOLIC PANEL [facility] COMPREHENSIVE METABOLIC PANEL Sodium [Moles/volume] in Serum or Plasma 137 mEq/L 134 - 153 [facility] Potassium [Moles/volume] in Serum or Plasma 4.2 mEq/L 3.6 - 5.0 [facility] Chloride [Moles/volume] in Serum or Plasma 103 mEq/L 98 - 107 [facility] Carbon dioxide, total [Moles/volume] in Serum or Plasma 24 MEQ/L 22 - 30 [facility] Glucose [Mass/volume] in Serum or Plasma 103 MG/DL 65 - 110 [facility] BUN 9 MG/DL 7 - 21 [facility] Creatinine [Mass/volume] in Serum or Plasma 0.8 MG/DL 0.7 - 1.5 [facility] BUN/CREAT 11 8 - 27 [facility] Protein [Mass/volume] in Serum or Plasma 6.5 G/DL 6.3 - 8.2 [facility] Albumin [Mass/volume] in Serum or Plasma 4.0 G/DL 3.9 - 5.0 [facility] Globulin [Mass/volume] in Serum by calculation 2.5 GM/DL 2.4 - 3.2 [facility] A/G RATIO 1.6 0.8 - 2.0 [facility] Calcium [Mass/volume] in Serum or Plasma 9.7 MG/DL 8.4 - 10.2 [facility] Bilirubin.total [Mass/volume] in Serum or Plasma <0.7 MG/DL 0.2 - 1.3 [facility] Alkaline phosphatase [Enzymatic activity/volume] in Serum or Plasma 84 U/L 38 - 126 [facility] Aspartate aminotransferase [Enzymatic activity/volume] in Serum or Plasma 14 U/L 5 - 40 [facility] Alanine aminotransferase [Enzymatic activity/volume] in Seru m or Plasma 11 U/L 7 - 56 [facility] Anion gap 3 in Serum or Plasma 10.0 mmol/L 8.0 - 16.0 [facility] AGE 24 yrs [facility] NON-AA GFR >60 mL/min [facility] ital AFR AMER GFR >60 mL/min [facility] Ho spital Male GFR In terprentation 20-49 [...] >32 mL/min Normal ID Date Data Source [id number] 04/02/2020 12:58:00 PM EST [facility] Name Value Range Interpretation Code Description Data Gladis rce(s) Supporting Document(s) HCG SERUM QUAL NEGATIVE NORMAL: NEGATIVE [facility] HCG SERUM QL REENTER NEGATIVE NORMAL: NEGATIVE [facility] { KIT LOT # [id number] ){ KIT EXP DATE 02.08.21 ){ PROCEDURAL CONTROL VALID ) ID Date Data Source [id number] 04/02/2020 12:41:00 PM EST [facility] Name Value Range Interpretation Code Description Data Gladis rce(s) Supporting Document(s) CBC W/AUTOMATED DIFF [facility] COMPLETE BLOOD COUNT Leukocytes [#/volume] in Blood by Automated count 8.2 10^3/uL 4.2 - 1 1.0 [facility] Erythrocytes [#/volume] in Blood by Automated count 4.65 10^6/uL 4. 20 - 5.40 [facility] Hemoglobin [Mass/volume] in Blood 14.3 g/dL 12.0 - 16.0 [facility] Hematocrit [Volume Fraction] of Blood by Automated count 41.0 % 3 7.0 - 47.0 [facility] Erythrocyte mean corpuscular volume [Entitic volume] by Auto mated count 88.2 fL 81.0 - 101 [facility] Erythrocyte mean corpuscular hemoglobin [Entitic mass] by Automated count 30.8 pg 27.0 - 34.0 [facility] Erythrocyte mean corpuscular hemoglobin concentration [Mass/volume] by Automated count 34.9 g/dL 31.0 - 36.0 [facility] Erythrocyte distribution width [Ratio] by Automated count 12.2 % 11.5 - 14.5 [facility] Platelets [#/volume] in Blood by Automated count 316 10^3/uL 150 - 45 0 [facility] Platelet mean volume [Entitic volume] in Blood by Automated count 9.9 fL 7.4 - 10.4 [facility] Neutrophils/100 leukocytes in Blood by Automated count 54.3 % 37. 0 - 80.0 [facility] Lymphocytes/100 leukocytes in Blood by Manual count 32.6 % 25.0 - 40.0 [facility] Monocytes/100 leukocytes in Blood by Automated count 10.0 % 3.0 - 8.0 H [facility] Eosinophils/100 leukocytes in Blood by Automated count 2.3 % 0.0 - 7.0 [facility] Basophils/100 leukocytes in Blood by Automated count 0.6 % 0.0 - 2.5 [facility] %IG 0.2 % 0.0 - 0.0 H [facility] Hospit al %NRBC 0.0 % 0.0 - 0.0 [facility] al Neutrophils [#/volume] in Blood by Automated count 4.47 10^3/uL 2.00 - 6.90 [facility] Lymphocytes [#/volume] in Blood by Automated count 2.68 10^3/uL 0.60 - 3.40 [facility] Monocytes [#/volume] in Blood by Automated count 0.82 10^3/uL 0.00 - 0.90 [facility] Eosinophils [#/volume] in Blood by Automated count 0.19 10^3/uL 0.00 - 0.70 [facility] Basophils [#/volume] in Blood by Automated count 0.05 10^3/uL 0.00 - 0.20 [facility] #IG 0.02 10^3/uL 0.00 - 0.10 [facility] #NRBC 0.00 10^3/uL 0.00 - 0.00 [facility] MANUAL DIFF NOT INDICATED [facility] RBC MORPH NOT INDICATED [facility] ID Date Data Source [id number] 04/02/2020 12:40:00 PM [facility] Name Value Range Interpretation Code Description Data Gladis rce(s) Supporting Document(s) Fibrin D-dimer FEU [Mass/volume] in Platelet poor plasma 0.58 ug /mL 0.27 - 0.50 H [facility] ID Date Data Source [id number] 04/02/2020 12:40:00 PM [facility] Name Value Range Interpretation Code Description Data Gladis rce(s) Supporting Document(s) Prothrombin time (PT) 13.5 SECONDS 11.0 - 15.5 [facility] INR in Platelet poor plasma by Coagulation assay 0.98 0.93 - 1. 23 [facility] aPTT in Blood by Coagulation assay 24.2 SECONDS 24.8 - 36.7 L [facility] \\BLDo\\INR INTERPRETATION\\BLDx\\ Therapeutic range for Coumadin and related oral anticoagulants. - International Normalized Ratio (INR): 2.0 - 3.0 for Venous Thrombosis, Pulmonary Embolus, Tissue heart valves, Acute [place] Atrial Fibrillation, Valvular heart disease and recurrent Systemic Embolism. - International Normalized Ratio (INR): 2.5 - 3.5 for Mechanical Prosthetic valve. Procedure Social History No Information Vital Signs ID Date Data Source UNK Name Value Range Interpretation Code Description Data Source(s) Diastolic blood pressure 78 mm[Hg] 78 mm[Hg] [place]) Body height 63 [in_i] 63 [in_i] [place]) Body mass index (BMI) [Ratio] 46.1 kg/m2 46.1 k g/m2 [place] ([facility]) Systolic blood pressure 114 mm[Hg] 114 mm[Hg] A [facility] ([facility]) Body weight 4166 [oz_av] 4166 [oz_av] [place] ([facility]) Diastolic blood pressure 85 mm[Hg] 85 mm[Hg] [place] ([facility]) Body height 63 [in_i] 63 [in_i] [place] ([facility]) Body mass index (BMI) [Ratio] 45.2 kg/m2 45.2 k g/m2 [place] ([facility]) Systolic blood pressure 138 mm[Hg] 138 mm[Hg] A [facility] ([facility]) Body weight 4080 [oz_av] 4080 [oz_av] [place] ([facility]) Diastolic blood pressure 85 mm[Hg] 85 mm[Hg] [place] ([facility]) Body height 63 [in_i] 63 [in_i] [place] ([facility]) Body mass index (BMI) [Ratio] 45.2 kg/m2 45.2 k g/m2 [place] ([facility]) Systolic blood pressure 138 mm[Hg] 138 mm[Hg] [facility] Body weight 4080 [oz_av] 4080 [oz_av] [place] ([facility]) Body height 63 [in_i] 63 [in_i] [place] [facility]) Body height 63 [in_i] 63 [in_i] [place] ([facility]) Body height 63 [in_i] 63 [in_i] [place] ([facility]) Diastolic blood pressure 82 mm[Hg] 82 mm[Hg] [place] ([facility]) Body height 63 [in_i] 63 [in_i] [place] ([facility]) Body mass index (BMI) [Ratio] 44.5 kg/m2 44.5 k g/m2 [place] ([facility]) Systolic blood pressure 132 mm[Hg] 132 mm[Hg] A [facility] ([facility]) Body weight 4022 [oz_av] 4022 [oz_av] [place] ([facility]) Diastolic blood pressure 82 mm[Hg] 82 mm[Hg] [place] ([facility]) Body height 63 [in_i] 63 [in_i] [place] ([facility]) Body mass index (BMI) [Ratio] 44.5 kg/m2 44.5 k g/m2 [place] ([facility]) Systolic blood pressure 132 mm[Hg] 132 mm[Hg] A [facility] ([facility]) Body weight 4022 [oz_av] 4022 [oz_av] [place] ([facility]) Diastolic blood pressure 82 mm[Hg] 82 mm[Hg] [place] ([facility]) Body height 63 [in_i] 63 [in_i] [place] ([facility]) Body mass index (BMI) [Ratio] 44.5 kg/m2 44.5 k g/m2 [place] ([facility]) Systolic blood pressure 132 mm[Hg] 132 mm[Hg] A [facility] ([facility]) Body weight 4022 [oz_av] 4022 [oz_av] [place] ([facility]) Diastolic blood pressure 82 mm[Hg] 82 mm[Hg] [place] ([facility]) Body height 63 [in_i] 63 [in_i] [place] ([facility]) Body mass index (BMI) [Ratio] 44.5 kg/m2 44.5 k g/m2 [place] ([facility]) Systolic blood pressure 132 mm[Hg] 132 mm[Hg] A [facility] ([facility]) Body weight 4022 [oz_av] 4022 [oz_av] [place] ([facility]) Diastolic blood pressure 80 mm[Hg] 80 mm[Hg] [place] ([facility]) Body height 63 [in_i] 63 [in_i] [place] ([facility]) Body mass index (BMI) [Ratio] 44.2 kg/m2 44.2 k g/m2 [place] ([facility]) Systolic blood pressure 114 mm[Hg] 114 mm[Hg] A [facility] ([facility]) Body weight 3988 [oz_av] 3988 [oz_av] [place] ([facility]) Diastolic blood pressure 80 mm[Hg] 80 mm[Hg] [place] ([facility]) Body height 63 [in_i] 63 [in_i] [place] ([facility]) Body mass index (BMI) [Ratio] 44.2 kg/m2 44.2 k g/m2 [place] ([facility]) Systolic blood pressure 114 mm[Hg] 114 mm[Hg] [facility]) Body weight 3988 [oz_av] 3988 [oz_av] [place] ([facility]) Diastolic blood pressure 80 mm[Hg] 80 mm[Hg] [place] ([facility]) Body height 63 [in_i] 63 [in_i] [place] ([facility]) Body mass index (BMI) [Ratio] 44.2 kg/m2 44.2 k g/m2 [place] ([facility]) Systolic blood pressure 114 mm[Hg] 114 mm[Hg] A [facility] ([facility]) Body weight 3988 [oz_av] 3988 [oz_av] [place] ([facility]) Diastolic blood pressure 80 mm[Hg] 80 mm[Hg] [place] ([facility]) Body height 63 [in_i] 63 [in_i] [place] ([facility]) Body mass index (BMI) [Ratio] 44.2 kg/m2 44.2 k g/m2 [place] ([facility]) Systolic blood pressure 114 mm[Hg] 114 mm[Hg] A [facility] ([facility]) Body weight 3988 [oz_av] 3988 [oz_av] [place] ([facility]) Diastolic blood pressure 80 mm[Hg] 80 mm[Hg] [place] ([facility]) Body height 63 [in_i] 63 [in_i] [place] ([facility]) Body mass index (BMI) [Ratio] 44.2 kg/m2 44.2 k g/m2 [place] ([facility]) Systolic blood pressure 114 mm[Hg] 114 mm[Hg] A [facility] ([facility]) Body weight 3988 [oz_av] 3988 [oz_av] [place] ([facility]) Systolic blood pressure 114 mm[Hg] 114 mm[Hg] A [facility] ([facility]) Body weight 3988 [oz_av] 3988 [oz_av] [place] ([facility]) Diastolic blood pressure 80 mm[Hg] 80 mm[Hg] [place] ([facility]) Body height 63 [in_i] 63 [in_i] [place] ([facility]) Body mass index (BMI) [Ratio] 44.2 kg/m2 44.2 k g/m2 [place] ([facility]) Patient Treatment Plan of Care Planned Activity Planned Date Details Description Data Source (s) rivaroxaban 15 MG Oral Tablet [Xarelto] [place] ([facility]) Prednisone 20 MG Oral Tablet [place] ([facility]) Prednisone 10 MG Oral Tablet [place] ([facility]) Prazosin 1 MG Oral Capsule A [facility]) naproxen sod 220mg tab TAKE 2 TABLETS B Y MOUTH TWICE DAILY NEEDED FOR PAIN FOR 10 DAYS [place] ([facility]) methylprednisolone 4 mg tablets in a dose pack TAKE DIRECTED [place] ([facility]) methylphenidate LA 20 mg biphasic 50-50 capsule,extended release [place] ([facility]) Metformin hydrochloride 500 MG Oral Tablet [place] ([facility]) Loryna (28) 3 mg-0.02 mg tablet [place] ([facility]) Levothyroxine Sodium 0.15 MG Oral Tablet [place] ([facility]) lamotrigine 25 MG Oral Tablet [place] ([facility]) lamotrigine 100 MG Oral Tablet [place] ([facility]) Hydroxyzine Pamoate 25 MG Oral Capsule [place] ([facility]) Fluoxetine 40 MG Oral Capsule [place] ([facility]) Fluoxetine 20 MG Oral Capsule [place] ([facility]) Famotidine 40 MG Oral Tablet [place] ([facility]) Levothyroxine Sodium 0.125 MG Oral Tablet [Euthyrox] [place] ([facility]) Amphetamine aspartate 1.25 MG / Amphetam ine Sulfate 1.25 MG / Dextroamphetamine saccharate 1.25 MG / Dextroamphetamine Sulfate 1.25 MG Oral Tablet [place] ([facility]) Clonazepam 0.5 MG Oral Tablet [place] ([facility]) Clindamycin 300 MG Oral Capsule [place] ([facility]) chlorhexidine gluconate 1.2 MG/ML Mouthwash [place] ([facility]) Cefuroxime 500 MG Oral Tablet [place] ([facility]) benzonatate 200 MG Oral Capsule [place] ([facility]) benzonatate 100 MG Oral Capsule [place] ([facility]) Azithromycin 500 MG Oral Tablet [place] ([facility]) Azithromycin 250 MG Oral Tablet [place] ([facility]) azelastine 137 mcg (0.1 %) nasal spray a erosol USE 1 TO 2 SPRAY(S) IN EACH NOSTRIL TWICE DAILY FOR 10 DAYS [place] ([facility]) Amoxicillin 875 MG Oral Tablet [place] ([facility]) Amoxicillin 500 MG Oral Capsule [place] ([facility]) Acetaminophen 325 MG Oral Tablet [place] ([facility]) rivaroxaban 15 MG Oral Tablet [Xarelto] [place] ([facility]) Prednisone 20 MG Oral Tablet [place] ([facility]) Prednisone 10 MG Oral Tablet [place] ([facility]) Prazosin 1 MG Oral Capsule [place] ([facility]) naproxen sod 220mg tab TAKE 2 TABLETS B Y MOUTH TWICE DAILY NEEDED FOR PAIN FOR 10 DAYS [place] ([facility]) methylprednisolone 4 mg tablets in a dose pack TAKE DIRECTED [place] ([facility]) methylphenidate LA 20 mg biphasic 50-50 capsule,extended release [place] ([facility]) Metformin hydrochloride 500 MG Oral Tablet [place] ([facility]) Loryna (28) 3 mg-0.02 mg tablet [place] ([facility]) Levothyroxine Sodium 0.15 MG Oral Tablet [place] ([facility]) lamotrigine 25 MG Oral Tablet [place] ([facility]) lamotrigine 100 MG Oral Tablet [place] ([facility]) Hydroxyzine Pamoate 25 MG Oral Capsule [place] ([facility]) Fluoxetine 40 MG Oral Capsule [place] ([facility]) Fluoxetine 20 MG Oral Capsule [place] ([facility]) Famotidine 40 MG Oral Tablet [place] ([facility]) Levothyroxine Sodium 0.125 MG Oral Tablet [Euthyrox] [place] ([facility]) Amphetamine aspartate 1.25 MG / Amphetam ine Sulfate 1.25 MG / Dextroamphetamine saccharate 1.25 MG / Dextroamphetamine Sulfate 1.25 MG Oral Tablet [place] ([facility]) Clonazepam 0.5 MG Oral Tablet [place] ([facility]) Clindamycin 300 MG Oral Capsule [place] ([facility]) chlorhexidine gluconate 1.2 MG/ML Mouthwash [place] ([facility]) Cefuroxime 500 MG Oral Tablet [place] ([facility]) benzonatate 200 MG Oral Capsule [place] ([facility]) benzonatate 100 MG Oral Capsule [place] ([facility]) Azithromycin 500 MG Oral Tablet [place] ([facility]) Azithromycin 250 MG Oral Tablet [place] ([facility]) azelastine 137 mcg (0.1 %) nasal spray a erosol USE 1 TO 2 SPRAY(S) IN EACH NOSTRIL TWICE DAILY FOR 10 DAYS [place] ([facility]) Amoxicillin 875 MG Oral Tablet [place] ([facility]) Amoxicillin 500 MG Oral Capsule [place] ([facility]) Acetaminophen 325 MG Oral Tablet [place] ([facility]) rivaroxaban 15 MG Oral Tablet [Xarelto] [place] ([facility]) Prednisone 20 MG Oral Tablet [place] ([facility]) Prednisone 10 MG Oral Tablet [place] ([facility]) Prazosin 1 MG Oral Capsule [facility] [place] ([facility]) methylprednisolone 4 mg tablets in a dose pack TAKE DIRECTED [place] ([facility]) methylphenidate LA 20 mg biphasic 50-50 capsule,extended release [place] ([facility]) Metformin hydrochloride 500 MG Oral Tablet [place] ([facility]) Loryna (28) 3 mg-0.02 mg tablet [place] ([facility]) lamotrigine 25 MG Oral Tablet [place] ([facility]) lamotrigine 100 MG Oral Tablet [place] ([facility]) Hydroxyzine Pamoate 25 MG Oral Capsule [place] ([facility]) Levothyroxine Sodium 0.125 MG Oral Tablet [Euthyrox] [place] ([facility]) Amphetamine aspartate 1.25 MG / Amphetam ine Sulfate 1.25 MG / Dextroamphetamine saccharate 1.25 MG / Dextroamphetamine Sulfate 1.25 MG Oral Tablet [facility] ([facility]) Clonazepam 0.5 MG Oral Tablet [facility] ([facility]) Clindamycin 300 MG Oral Capsule [facility] ([facility]) chlorhexidine gluconate 1.2 MG/ML Mouthwash [facility] ([facility]) Cefuroxime 500 MG Oral Tablet [facility] ([facility]) benzonatate 200 MG Oral Capsule [facility] ([facility]) Azithromycin 500 MG Oral Tablet [facility] ([facility]) Azithromycin 250 MG Oral Tablet [facility] ([facility]) azelastine 137 mcg (0.1 %) nasal spray a erosol USE 1 TO 2 SPRAY(S) IN EACH NOSTRIL TWICE DAILY FOR 10 DAYS [facility] ([facility]) Amoxicillin 875 MG Oral Tablet [facility] ([facility]) Amoxicillin 500 MG Oral Capsule [facility] ([facility]) rivaroxaban 15 MG Oral Tablet [Xarelto] [facility] ([facility]) Prednisone 20 MG Oral Tablet [facility] ([facility]) Prednisone 10 MG Oral Tablet [facility] ([facility]) Prazosin 1 MG Oral Capsule [facility] [place] ([facility]) methylprednisolone 4 mg tablets in a dose pack TAKE DIRECTED [facility] ([facility]) methylphenidate LA 20 mg biphasic 50-50 capsule,extended release [facility] ([facility]) Metformin hydrochloride 500 MG Oral Tablet [facility] ([facility]) Loryna (28) 3 mg-0.02 mg tablet [facility] ([facility]) lamotrigine 25 MG Oral Tablet [facility] ([facility]) lamotrigine 100 MG Oral Tablet [facility] ([facility]) Hydroxyzine Pamoate 25 MG Oral Capsule [facility] ([facility]) Levothyroxine Sodium 0.125 MG Oral Tablet [Euthyrox] [facility] ([facility]) Amphetamine aspartate 1.25 MG / Amphetam ine Sulfate 1.25 MG / Dextroamphetamine saccharate 1.25 MG / Dextroamphetamine Sulfate 1.25 MG Oral Tablet [facility] ([facility]) Clonazepam 0.5 MG Oral Tablet [facility] ([facility]) Clindamycin 300 MG Oral Capsule [facility] ([facility]) chlorhexidine gluconate 1.2 MG/ML Mouthwash [facility] ([facility]) Cefuroxime 500 MG Oral Tablet [facility] ([facility]) benzonatate 200 MG Oral Capsule [facility] ([facility]) Azithromycin 500 MG Oral Tablet [facility] ([facility]) Azithromycin 250 MG Oral Tablet [facility] ([facility]) azelastine 137 mcg (0.1 %) nasal spray a erosol USE 1 TO 2 SPRAY(S) IN EACH NOSTRIL TWICE DAILY FOR 10 DAYS [facility] ([facility]) Amoxicillin 875 MG Oral Tablet [facility] ([facility]) Amoxicillin 500 MG Oral Capsule [facility] ([facility]) rivaroxaban 15 MG Oral Tablet [Xarelto] [facility] ([facility]) Prednisone 20 MG Oral Tablet [facility] ([facility]) Prednisone 10 MG Oral Tablet [facility] ([facility]) Prazosin 1 MG Oral Capsule [facility] ([facility]) methylphenidate LA 20 mg biphasic 50-50 capsule,extended release [facility] ([facility]) lamotrigine 25 MG Oral Tablet [facility] ([facility]) Hydroxyzine Pamoate 25 MG Oral Capsule [facility] ([facility]) Levothyroxine Sodium 0.125 MG Oral Tablet [Euthyrox] [facility] ([facility]) Amphetamine aspartate 1.25 MG / Amphetam ine Sulfate 1.25 MG / Dextroamphetamine saccharate 1.25 MG / Dextroamphetamine Sulfate 1.25 MG Oral Tablet [facility] ([facility]) Cefuroxime 500 MG Oral Tablet [facility] ([facility]) benzonatate 200 MG Oral Capsule [facility] ([facility]) Azithromycin 500 MG Oral Tablet [facility] ([facility]) Azithromycin 250 MG Oral Tablet [facility] ([facility]) azelastine 137 mcg (0.1 %) nasal spray a erosol USE 1 TO 2 SPRAY(S) IN EACH NOSTRIL TWICE DAILY FOR 10 DAYS [facility] ([facility]) Prednisone 20 MG Oral Tablet [facility] ([facility]) Prednisone 10 MG Oral Tablet [facility] ([facility]) Prazosin 1 MG Oral Capsule [facility] ([facility]) methylphenidate LA 20 mg biphasic 50-50 capsule,extended release [facility] ([facility]) Loryna (28) 3 mg-0.02 mg tablet TAKE 1 TABLET BY MOUTH ONCE DAILY [facility] ([facility]) lamotrigine 25 MG Oral Tablet [facility] ([facility]) Hydroxyzine Pamoate 25 MG Oral Capsule [facility] ([facility]) Levothyroxine Sodium 0.125 MG Oral Tablet [Euthyrox] [facility] ([facility]) Amphetamine aspartate 1.25 MG / Amphetam ine Sulfate 1.25 MG / Dextroamphetamine saccharate 1.25 MG / Dextroamphetamine Sulfate 1.25 MG Oral Tablet [facility] ([facility]) Cefuroxime 500 MG Oral Tablet [facility] ([facility]) benzonatate 200 MG Oral Capsule [facility] ([facility]) Azithromycin 500 MG Oral Tablet [facility] ([facility]) Azithromycin 250 MG Oral Tablet [place] ([facility]) azelastine 137 mcg (0.1 %) nasal spray a erosol USE 1 TO 2 SPRAY(S) IN EACH NOSTRIL TWICE DAILY FOR 10 DAYS [place] ([facility])
[2021-03-07] MEDS ORDERED: NS 1,000 ML IV ONE (07:05)
[2021-03-07] MEDS ORDERED: ALBUTEROL 90 MCG/ACT 8GM HFA INHALER INH SCH (07:05)
[2021-03-07] MEDS ORDERED: METOCLOPRAMIDE INJ 10MG/2ML VIAL (J2765 PER 1) IV ONE (07:05)
[2021-03-07] MEDS ORDERED: KETOROLAC 30 MG/ML 1ML VIAL IV ONE (07:05)
[2021-03-07 07:44] LABS: BASO # 0.1 10^3/uL (0.0-0.2); BASO % 0.5 % (0.0-1.0); EOS # 0.3 10^3/uL (0.0-0.5); EOS % 2.5 % (0.0-3.0); HEMATOCRIT 43.2 % (36.0-47.0); HEMOGLOBIN 14.6 g/dl (12.0-15.5); LYMPH # 3.7 10^3/uL (1.5-5.0); LYMPH % 30.2 % (24.0-44.0); MEAN CORPUSCULAR HEMOGLOBIN 30.9 pg (27.0-33.0); MEAN CORPUSCULAR HGB CONC 33.8 g/dl (32.0-36.5); MEAN CORPUSCULAR VOLUME 91.3 fl (80.0-96.0); MONO # 0.9 10^3/uL (0.0-0.8); MONO % 7.8 % (2.0-8.0); NEUTROPHILS # 7.1 10^3/uL (1.5-8.5); NEUTROPHILS % 58.7 % (36.0-66.0); PLATELET COUNT, AUTOMATED 340 10^3/uL (150-450); RED BLOOD COUNT 4.73 10^6/uL (4.00-5.40); WHITE BLOOD COUNT 12.1 10^3/uL (4.0-10.0)
--- NOTE | 2021-03-07 08:11 | REP ---
INDICATION: SOB, CP. COMPARISON: 04/03/2020, 07/21/2019. TECHNIQUE: AP portable seated FINDINGS: Of the lungs are well inflated. There is no pleural effusion, infiltrate, atelectasis or mass. The heart, mediastinal and hilar contours are grossly normal heart size normal for AP portable chest. No vascular redistribution or pulmonary edema. There is no widening of the mediastinum, hilar or mediastinal mass. The aorta and airway are normal. Bony thorax shows no focal lesion. No free air under the diaphragm. IMPRESSION: 1. No acute cardiopulmonary change, stable chest. <Electronically signed by Jovany Steven > 03/07/21 0838
[2021-03-07 08:20] LABS: CK-MB VALUE MASS < 1.0 NG/ML (<3.6); CPK CREATINE PHOSPHOKINASE 90 U/L (26-192); MB/CK RELATIVE INDEX 1.11 (< OR =4); TROPONIN I < 0.02 NG/ML (< 0.10)
--- NOTE | 2021-03-07 08:35 | ECGEPIP ---
[facility] - ED Test Date: 2021-03-07 Pat Name: THAIS SANDERS Department: Room: - Gender: Female Cut [employer] Operator: : 1995 Requested By: FARAZ Issa PA-C Order Number: [id number] Reading MD: Franco Rivera Measurements Intervals [place] Rate: 87 P: 7 [place]: 128 QRS: 17 QRSD: 94 T: 33 QT: 380 QTc: 457 Interpretive Statements Normal sinus rhythm BASELINE ARTIFACT AFFECTS INTERPRETATION RATE CHANGE COMPARED TO 04/03/20 Electronically Signed on 03-07-2021 8:34:59 EDT by Franco Rivera
[2021-03-07 08:45] VITALS: BP 124/78
[2021-03-07] MEDS ORDERED: ONDA4TAB6 PO (08:50)
[2021-03-07] MEDS ORDERED: NAPR-837 PO (08:50)
[2021-03-07] MEDS ORDERED: TESS100C PO (08:50)
== END 2021-03-07 09:00 | disposition home or self-care (01) ==
LOC: M ED 02:05
DX: J06.9 Acute upper respiratory infection, unspecified (principal); R51.9 Headache, unspecified; R07.89 Other chest pain; E03.9 Hypothyroidism, unspecified; E28.2 Polycystic ovarian syndrome; F17.200 Nicotine dependence, unspecified, uncomplicated; Z79.890 Hormone replacement therapy; Z79.899 Other long term (current) drug therapy; Z86.718 Personal history of other venous thrombosis and embolism; Z86.711 Personal history of pulmonary embolism; Z90.09 Acquired absence of other part of head and neck
CPT/HCPCS: 71045; 80047; 82550; 82553; 84702; 85025; 85379; 87631; 93005; 94640; 96374; 96375; 99284; J1885; J2765

== ENCOUNTER → 2021-08-28 | Outpatient (CLI) | payer BC, OTHER, SELFPAY ==
[~2021-08-28] MED LIST changes: +CLON1TAB17 PO; +NAPR-837 PO; +ONDA4TAB6 PO; +TESS100C PO
== END ==
LOC: M RAD 06:48
PROVIDERS: ATTEND Physician Assistant
DX: K76.89 Other specified diseases of liver (principal); K76.0 Fatty (change of) liver, not elsewhere classified

== ENCOUNTER → 2022-04-16 | Outpatient (REF) | payer OTHER ==
[2022-04-16 17:26] LABS: CHOLESTEROL RISK RATIO 5.31 (<5); HDL CHOLESTEROL 34.6 MG/DL (>40); LDL CHOLESTEROL 93.6 MG/DL (<100)
[2022-04-16 17:30] LABS: THYROID STIMULATING HORMONE 3.408 uIU/ML (0.55-4.78)
== END ==
LOC: M LAB REF 16:18
PROVIDERS: ATTEND Nurse Practitioner Family
DX: E03.9 Hypothyroidism, unspecified (principal); E78.5 Hyperlipidemia, unspecified

== ENCOUNTER 2022-05-14 00:54 | Emergency (ER) | payer OTHER, SELFPAY ==
[~2022-05-14] VITALS: Ht 160 cm; Wt 110.1 kg
[2022-05-14 01:46] LABS: BASO # 0.1 10^3/uL (0.0-0.2); BASO % 0.6 % (0.0-1.0); EOS # 0.2 10^3/uL (0.0-0.5); EOS % 2.6 % (0.0-3.0); HEMATOCRIT 44.1 % (36.0-47.0); HEMOGLOBIN 14.9 g/dl (12.0-15.5); LYMPH # 2.7 10^3/uL (1.5-5.0); LYMPH % 30.9 % (24.0-44.0); MEAN CORPUSCULAR HEMOGLOBIN 30.3 pg (27.0-33.0); MEAN CORPUSCULAR HGB CONC 33.8 g/dl (32.0-36.5); MEAN CORPUSCULAR VOLUME 89.6 fl (80.0-96.0); MONO # 1.4 10^3/uL (0.0-0.8); MONO % 16.2 % (2.0-8.0); NEUTROPHILS # 4.3 10^3/uL (1.5-8.5); NEUTROPHILS % 49.4 % (36.0-66.0); PLATELET COUNT, AUTOMATED 304 10^3/uL (150-450); RED BLOOD COUNT 4.92 10^6/uL (4.00-5.40); WHITE BLOOD COUNT 8.7 10^3/uL (4.0-10.0)
[2022-05-14 02:16] LABS: LIPASE 52 U/L (12-53)
[2022-05-14 02:18] LABS: ALBUMIN 3.6 G/DL (3.2-5.2); ALKALINE PHOSPHATASE 76 U/L (46-116); ALT/SGPT 17 U/L (7.0-40); AST/SGOT 24 U/L (<34); BILIRUBIN,DIRECT 0.1 MG/DL (<0.4); BILIRUBIN,TOTAL 0.4 MG/DL (0.3-1.2); BLOOD UREA NITROGEN 12 MG/DL (9-23); CALCIUM LEVEL 9.3 MG/DL (8.5-10.1); CARBON DIOXIDE LEVEL 25 MMOL/L (20-31); CHLORIDE LEVEL 103 MMOL/L (98-107); CREATININE FOR GFR 0.76 MG/DL (0.55-1.30); GLOMERULAR FILTRATION RATE > 60.0 (>60); GLUCOSE, FASTING 107 MG/DL (60-100); HCG, SERUM QUALITATIVE NEGATIVE (NEGATIVE); POTASSIUM SERUM 4.1 MMOL/L (3.5-5.1); SODIUM LEVEL 139 MMOL/L (136-145); TOTAL PROTEIN 7.3 G/DL (5.7-8.2)
[2022-05-14 05:38] VITALS: BP 124/74
== END 2022-05-14 07:18 | disposition left against medical advice (07) ==
LOC: M ED 00:54
DX: Z53.21 Procedure and treatment not carried out due to patient leaving prior to being seen by health care provider (principal)

== ENCOUNTER → 2022-10-09 | Outpatient (REF) | payer SELFPAY, BC ==
[2022-10-09 18:01] LABS: EOS % 2.6 % (0.0-3.0); HEMATOCRIT 41.6 % (36.0-47.0); HEMOGLOBIN 13.8 g/dl (12.0-15.5); MEAN CORPUSCULAR HEMOGLOBIN 29.7 pg (27.0-33.0); MEAN CORPUSCULAR HGB CONC 33.2 g/dl (32.0-36.5); MEAN CORPUSCULAR VOLUME 89.5 fl (80.0-96.0); MONO % 9.7 % (2.0-8.0); NEUTROPHILS % 43.8 % (36.0-66.0); PLATELET COUNT, AUTOMATED 365 10^3/uL (150-450); RED BLOOD COUNT 4.65 10^6/uL (4.00-5.40); WHITE BLOOD COUNT 8.5 10^3/uL (4.0-10.0)
[2022-10-09 18:02] LABS: BASO # 0.1 10^3/uL (0.0-0.2); BASO % 0.7 % (0.0-1.0); EOS # 0.2 10^3/uL (0.0-0.5); LYMPH # 3.7 10^3/uL (1.5-5.0); MONO # 0.8 10^3/uL (0.0-0.8); NEUTROPHILS # 3.7 10^3/uL (1.5-8.5)
[2022-10-09 18:25] LABS: ALBUMIN 3.5 G/DL (3.2-5.2); ALKALINE PHOSPHATASE 69 U/L (46-116); ALT/SGPT 22 U/L (7.0-40); AST/SGOT 11 U/L (<34); BILIRUBIN,TOTAL 0.3 MG/DL (0.3-1.2); BLOOD UREA NITROGEN 6 MG/DL (9-23); CALCIUM LEVEL 9.3 MG/DL (8.5-10.1); CARBON DIOXIDE LEVEL 28 MMOL/L (20-31); CHLORIDE LEVEL 106 MMOL/L (98-107); CHOLESTEROL LEVEL 161 MG/DL (<200); CHOLESTEROL RISK RATIO 4.56 (<5); CREATININE FOR GFR 0.74 MG/DL (0.55-1.30); GLOMERULAR FILTRATION RATE > 60.0 (>60); GLUCOSE, FASTING 80 MG/DL (60-100); HCG, SERUM QUANTITATIVE < 2.6 MIU/ML (<4.2); HDL CHOLESTEROL 35.3 MG/DL (>40); LDL CHOLESTEROL 81.1 MG/DL (<100); NON-HDL-C 125.7 MG/DL; POTASSIUM SERUM 4.3 MMOL/L (3.5-5.1); SODIUM LEVEL 139 MMOL/L (136-145); TOTAL PROTEIN 6.3 G/DL (5.7-8.2); TRIGLYCERIDES LEVEL 223 MG/DL (<150)
[2022-10-09 18:26] LABS: THYROID STIMULATING HORMONE 0.032 uIU/ML (0.55-4.78)
[2022-10-09 18:27] LABS: TOTAL 25(OH) VITAMIN D 37.1 NG/ML (20.0-100.0)
[2022-10-09 18:40] LABS: HEMOGLOBIN A1c 5.3 % (4.0-6.0)
== END ==
LOC: M LAB REF 16:28
PROVIDERS: ATTEND Nurse Practitioner Family
DX: Z13.228 Encounter for screening for other metabolic disorders (principal); Z32.00 Encounter for pregnancy test, result unknown

== ENCOUNTER → 2023-01-03 | Outpatient (REF) | payer SELFPAY, BC | LOC: M LAB REF 12:15 | PROVIDERS: ATTEND Nurse Practitioner Family | DX: E03.9 Hypothyroidism, unspecified (principal); E88.81 Metabolic syndrome and other insulin resistance ==

== ENCOUNTER → 2023-01-18 | Outpatient (REF) | payer SELFPAY, BC ==
[~2023-01-18] MED LIST changes: +MECL-209 PO; -MECL1TAB31 PO
[2023-01-18 17:37] LABS: THYROXINE (T4) 13.7 UG/DL (4.5-10.9)
[2023-01-18 17:38] LABS: THYROID STIMULATING HORMONE 1.929 uIU/ML (0.55-4.78)
[2023-01-18 17:39] LABS: FREE THYROXINE INDEX 5.4 % (1.3-4.8); T UPTAKE 39.4 % (22.5-37.0)
[2023-01-18 17:40] LABS: FREE T4 1.28 NG/DL (0.89-1.76)
[2023-01-19 06:33] LABS: THYROID PEROXIDASE ANTIBODY 895 U/ML (<60.0)
[2023-01-19 06:41] LABS: THYROGLOBULIN ANTIBODY > 500.0 U/ML (<60.0)
== END ==
LOC: M LAB REF 16:27
PROVIDERS: ATTEND Nurse Practitioner Family
DX: E03.9 Hypothyroidism, unspecified (principal)

== ENCOUNTER → 2023-09-06 | Outpatient (REF) | payer SELFPAY, BC ==
[2023-09-06 12:50] LABS: BASO % 0.4 % (0.0-1.0); EOS # 0.2 10^3/uL (0.0-0.5); EOS % 1.9 % (0.0-3.0); HEMATOCRIT 43.1 % (36.0-47.0); HEMOGLOBIN 14.7 g/dl (12.0-15.5); LYMPH # 2.2 10^3/uL (1.5-5.0); LYMPH % 22.8 % (24.0-44.0); MEAN CORPUSCULAR HGB CONC 34.1 g/dl (32.0-36.5); MEAN CORPUSCULAR VOLUME 90.9 fl (80.0-96.0); MONO % 10.2 % (2.0-8.0); NEUTROPHILS % 63.2 % (36.0-66.0); PLATELET COUNT, AUTOMATED 380 10^3/uL (150-450); RED BLOOD COUNT 4.74 10^6/uL (4.00-5.40); WHITE BLOOD COUNT 9.5 10^3/uL (4.0-10.0)
[2023-09-06 12:54] LABS: ALBUMIN 3.8 G/DL (3.2-5.2); ALKALINE PHOSPHATASE 86 U/L (46-116); ALT/SGPT 24 U/L (7.0-40); AST/SGOT 20 U/L (<34); BLOOD UREA NITROGEN 12 MG/DL (9-23); CALCIUM LEVEL 9.5 MG/DL (8.5-10.1); CARBON DIOXIDE LEVEL 27 MMOL/L (20-31); CHLORIDE LEVEL 100 MMOL/L (98-107); CHOLESTEROL LEVEL 209 MG/DL (<200); CHOLESTEROL RISK RATIO 5.71 (<5); CREATININE FOR GFR 0.95 MG/DL (0.55-1.30); GLOMERULAR FILTRATION RATE > 60.0 (>60); GLUCOSE, FASTING 85 MG/DL (60-100); HDL CHOLESTEROL 36.6 MG/DL (>40); LDL CHOLESTEROL 115.2 MG/DL (<100); MAGNESIUM LEVEL 2.1 MG/DL (1.8-2.4); NON-HDL-C 172.4 MG/DL; POTASSIUM SERUM 4.3 MMOL/L (3.5-5.1); SODIUM LEVEL 138 MMOL/L (136-145); TOTAL PROTEIN 7.1 G/DL (5.7-8.2); TRIGLYCERIDES LEVEL 286 MG/DL (<150)
== END ==
LOC: M LAB REF 12:00
PROVIDERS: ATTEND Nurse Practitioner Family
DX: E66.01 Morbid (severe) obesity due to excess calories (principal)

== ENCOUNTER → 2023-10-16 | Outpatient (REF) | payer BC ==
[~2023-10-16] MED LIST changes: +ONDA-282 PO; -ONDA4TAB6 PO
[2023-10-16 17:18] LABS: THYROID STIMULATING HORMONE 0.027 uIU/ML (0.55-4.78)
[2023-10-16 17:19] LABS: FREE T4 1.21 NG/DL (0.89-1.76)
[2023-10-16 20:04] LABS: FREE T3 3.7 PG/ML (2.3-4.2)
== END ==
LOC: M LABWUC 16:31
PROVIDERS: ATTEND Internal Medicine
DX: E03.9 Hypothyroidism, unspecified (principal)

== ENCOUNTER → 2023-12-23 | Outpatient (REF) | payer BC ==
[2023-12-23 13:07] LABS: RSV AMPLIFICATION NEGATIVE (NEGATIVE)
== END ==
LOC: M LAB REF 12:05
PROVIDERS: ATTEND Physician Assistant Medical
DX: R05.9 Cough, unspecified (principal)

== ENCOUNTER → 2024-08-19 | Outpatient (REF) | payer BC ==
[2024-08-19 18:52] LABS: BASO % 0.4 % (0.0-1.0); EOS # 0.2 10^3/uL (0.0-0.5); EOS % 2.1 % (0.0-3.0); HEMATOCRIT 43.2 % (36.0-47.0); HEMOGLOBIN 14.6 g/dl (12.0-15.5); LYMPH # 2.9 10^3/uL (1.5-5.0); LYMPH % 28.5 % (24.0-44.0); MEAN CORPUSCULAR HEMOGLOBIN 30.7 pg (27.0-33.0); MEAN CORPUSCULAR HGB CONC 33.8 g/dl (32.0-36.5); MEAN CORPUSCULAR VOLUME 90.8 fl (80.0-96.0); MONO % 9.8 % (2.0-8.0); NEUTROPHILS % 58.9 % (36.0-66.0); PLATELET COUNT, AUTOMATED 380 10^3/uL (150-450); RED BLOOD COUNT 4.76 10^6/uL (4.00-5.40); WHITE BLOOD COUNT 10.1 10^3/uL (4.0-10.0)
[2024-08-19 19:29] LABS: HEMOGLOBIN A1c 5.4 % (4.0-6.0)
[2024-08-19 19:32] LABS: ALBUMIN 3.6 G/DL (3.2-5.2); ALKALINE PHOSPHATASE 77 U/L (35-104); ALT/SGPT 39 U/L (7.0-40); AST/SGOT 22 U/L (<34); BILIRUBIN,TOTAL 0.5 MG/DL (0.3-1.2); BLOOD UREA NITROGEN 8 MG/DL (9-23); CALCIUM LEVEL 10.1 MG/DL (8.5-10.1); CARBON DIOXIDE LEVEL 27 MMOL/L (20-31); CHLORIDE LEVEL 101 MMOL/L (98-107); CHOLESTEROL LEVEL 188 MG/DL (<200); CHOLESTEROL RISK RATIO 5.22 (<5); CREATININE FOR GFR 0.73 MG/DL (0.55-1.30); GLOMERULAR FILTRATION RATE > 90.0 (>60); GLUCOSE, FASTING 93 MG/DL (60-100); POTASSIUM SERUM 4.9 MMOL/L (3.5-5.1); SODIUM LEVEL 139 MMOL/L (136-145); THYROID STIMULATING HORMONE 0.014 uIU/ML (0.55-4.78); TOTAL 25(OH) VITAMIN D 37.6 NG/ML (20.0-100.0); TRIGLYCERIDES LEVEL 255 MG/DL (<150)
== END ==
LOC: M LAB REF 17:12
PROVIDERS: ATTEND Nurse Practitioner Family
DX: E66.01 Morbid (severe) obesity due to excess calories (principal); E55.9 Vitamin D deficiency, unspecified

== ENCOUNTER → 2025-02-02 | Outpatient (REF) | payer BC | LOC: M LAB REF 17:22 | PROVIDERS: ATTEND Nurse Practitioner Family | DX: E03.9 Hypothyroidism, unspecified (principal) ==